=== PATIENT | female | born 1960 | race Caucasian/White ===

== ENCOUNTER 2017-02-27 12:12 | Emergency (ER) | payer MEDICARE, MEDICAID ==
--- NOTE | 2017-02-27 12:41 | UC ---
Ki Watt Benjamin, scribed for Arnold Joyce MD on 02/27/17 at 1236 . General HPI - HPI Summary HPI Summary: 56yo quadriplegic and cerebral palsic female who reports decreased PO intake for 3-4 days and increased sleeping since yesterday. Pt is on Dilantin. - History of Current Complaint Chief Complaint: UCGeneralIllness Stated Complaint: NOT EATING,SLEEPY Time Seen by Provider: 02/27/17 12:22 Hx Obtained From: Family/[employer] - caregiver Onset/Duration: Gradual Onset, Lasting Days, Still Present Timing: Constant Onset Severity: Mild Current Severity: Mild Associated Signs & Symptoms: Positive: Decreased Oral Intake, Other - increased sleep - Allergy/Home Medications Allergies/Adverse Reactions: Allergies Allergy/AdvReac Type Severity Reaction Status Date / Time No Known Allergies Allergy Verified 11/12/15 08:35 PMH/Surg Hx/FS Hx/Imm Hx - Additional Past Medical History Additional PMH: quadriplegia, cerebral palsy Cardiovascular History Of: Denies: Pacemaker/ICD Respiratory History Of: Reports: Pneumonia GI/ History Of: Reports: Gastroesophageal Reflux Neurological History Of: Reports: Seizures - Surgical History Surgical History: Yes Surgery Procedure, Year, and Place: HERNIA REPAIR; ALL TEETH REMOVED - Family History Known Family History: Negative: Cardiac Disease, Hypertension - Social History Occupation: Disabled Lives: Assisted Living Alcohol Use: None Substance Use Type: None Smoking Status (MU): Never Smoked Tobacco Have You Smoked in the Last Year: No - Immunization History Most Recent Influenza Vaccination: 07/2014 Most Recent Tetanus Shot: 04/2013 Most Recent Pneumonia Vaccination: 11/2011 Vaccination Up to Date: Yes Review of Systems Constitutional: Negative Skin: Negative Eyes: Negative ENT: Negative Respiratory: Negative Cardiovascular: Negative Gastrointestinal: Other - decreased PO intake Genitourinary: Negative Motor: Negative Neurovascular: Negative Musculoskeletal: Negative Neurological: Negative Psychological: Negative All Other Systems Reviewed And Are Negative: Yes Physical Exam Triage Information Reviewed: Yes Appearance: Other: - quadraplegic in a wheelchair. eyes open spontaneously. SHe is non verbal at baseline per aid that is with her. Vital Signs: Initial Vital Signs Temp 98.2 F 02/27/17 12:17 Resp 20 02/27/17 12:17 Vital Signs Reviewed: Yes Eyes: Positive: Conjunctiva Clear ENT: Positive: Other: - membranes dry Respiratory: Positive: Lungs clear, Normal breath sounds Cardiovascular: Positive: RRR, No Murmur Abdomen Description: Positive: Nontender Musculoskeletal: Positive: Other: - contractures all four extremities. Neurological: Positive: Other: - qudaraplegic at baseline, contactures all four extremities. Skin: Negative: rashes Course/Dx - Course Course Of Treatment: 56 yr old female who is not eating, no wet diaper since yesterday, quadraplegic in a wheelchair, on seizure meds. She will go to the ER at [facility] for appropriate evaluation. - Differential Dx - Multi-Symptom Provider Diagnoses: failure to thrive. not eating - Physician Notifications Discussed Patient Care With: Dr SYED at [facility] ER Time Discussed With Above Provider: 12:41 Discharge - Discharge Plan Condition: Good Disposition: TRANS HIGHER LVL OF CARE FAC The documentation as recorded by the Ki israel Benjamin accurately reflects the service I personally performed and the decisions made by , Arnold Joyce MD.
== END 2017-02-27 12:51 | disposition short-term general hospital (02) ==
LOC: UCEAST 12:12
DX: R62.7 Adult failure to thrive (principal); K21.9 Gastro-esophageal reflux disease without esophagitis; G82.50 Quadriplegia, unspecified
CPT/HCPCS: 99212; G0463

== ENCOUNTER 2017-02-27 13:10 | Inpatient (IN) | payer MEDICARE, MEDICAID ==
[2017-02-27] MEDS ORDERED: NS 0.9% 1000 ML* 1,000 ML IV ONE ×2 (13:31→15:48)
--- NOTE | 2017-02-27 14:07 | RAD ---
HISTORY: Weakness COMPARISONS: December 05, 2014 VIEWS:1: Single frontal portable view of the chest at 1:40 PM FINDINGS: LINES AND TUBES: None. CARDIOMEDIASTINAL SILHOUETTE: The cardiomediastinal silhouette is normal for portable technique. PLEURA: The costophrenic angles are sharp. No pleural abnormalities are noted. LUNG PARENCHYMA: The lungs are clear. ABDOMEN: The upper abdomen is clear. There is no subphrenic gas. BONES AND SOFT TISSUES: No bone or soft tissue abnormalities are noted. IMPRESSION: NO ACTIVE CARDIOPULMONARY DISEASE.
[2017-02-27 14:18] LABS: Hematocrit 49 % (35-47); Hemoglobin 16.1 g/dl (12.0-16.0); Mean Corpuscular HGB Conc 33 g/dl (31-36); Mean Corpuscular Hemoglobin 29 pg (27-31); Mean Corpuscular Volume 90 fL (80-97); Mean Platelet Volume 9 um3 (7.4-10.4); Red Blood Count 5.47 10^6/ul (4.0-5.4); Red Cell Distribution Width 14 % (10.5-15); White Blood Count 5.5 10^3/ul (3.5-10.8)
[2017-02-27 14:54] LABS: Acetaminophen < 15 mcg/mL
[2017-02-27 15:04] LABS: TSH (Thyroid Stimulating Horm) 0.66 mcIU/mL (0.34-5.60)
[2017-02-27 15:15] LABS: Phenytoin 60.2 mcg/mL (10-20)
[2017-02-27 15:28] LABS: ALT 29 U/L (7-52); Albumin 4.7 g/dL (3.2-5.2); Alkaline Phosphatase 99 U/L (34-104); BUN/Creatinine Ratio 40.7 (8-20); Blood Urea Nitrogen 22 mg/dL (6-24); C Reactive Protein 2.69 mg/L (< 5.00); CO2 Carbon Dioxide 30 mmol/L (22-32); Calcium 10.2 mg/dL (8.6-10.3); Chloride 105 mmol/L (101-111); Creatine Kinase 37 U/L (10-223); EGFR African American 150.2 (>60); EGFR Non-African American 116.8 (>60); Globulin 2.9 g/dL (2-4); Glucose 95 mg/dL (70-100); Lipase 29 U/L (11.0-82.0); Sodium 142 mmol/L (133-145); Total Protein 7.6 g/dL (6.4-8.9)
[2017-02-27 15:40] LABS: Urine Bacteria Absent (Absent); Urine Bilirubin Negative (Negative); Urine Glucose Negative (Negative); Urine Nitrite Negative (Negative)
[2017-02-27] MEDS ORDERED: cefTRIAXone(*) 1 GM in NS 0.9% 50 ML* 50 ML IVPB ONE (15:48)
[2017-02-27] MEDS ORDERED: Acetaminophen TAB* 325 MG PO PRN (16:22)
[2017-02-27] MEDS ORDERED: NS 0.9% 1000 ML* 1,000 ML IV SCH (16:45)
[2017-02-27] MEDS: Cephalexin CAP* 500 MG PO SCH ×2 (19:56→20:12)
[2017-02-27] MEDS: levETIRAcetam TAB* 500 MG PO SCH (19:56)
--- NOTE | 2017-02-27 21:08 | HP ---
HISTORY AND PHYSICAL: DATE OF ADMISSION: 02/27/17 PRIMARY CARE PROVIDER: Dr. Kim. ATTENDING PHYSICIAN WHILE IN THE HOSPITAL: Dr. Bronson Marlow * (report dictated by Morro Tinsley NP). CHIEF COMPLAINT: 1. Altered mental status. 2. Weakness. HISTORY OF PRESENT ILLNESS: Ms. Mitchell is a 56-year-old female patient who has intellectual developmental delay, history of GERD, seizures, chronic UTI, hiatal hernia, cerebral palsy, and hyperlipidemia. She comes in today because it has been noticed in her custodial that over the last month, she has decreased fluid intake, she has not been acting herself. She has been more drowsy, just not herself. There have been no reports of nausea, vomiting, or diarrhea. No fevers reported. They were concerned today because in the last couple of days, her right great toe toenail had come off and there was redness, and that is actually why they brought her in and while here, they also were stating that she has been not acting herself, acting a little bit more drowsy, not as awake. She was evaluated and ultimately found to have a Dilantin level of 60, and because of this, we were asked to evaluate for admission, there was concern for also UTI as well. PAST MEDICAL HISTORY: Significant for: 1. Intellectual developmental delay. 2. GERD. 3. Seizure. 4. Chronic UTI. 5. Hiatal hernia. 6. Cerebral palsy. 7. Hyperlipidemia. PAST SURGICAL HISTORY: She has Juan fundoplication. MEDICATIONS: Home medications according to list include: 1. Ativan 0.5 mg p.o. daily as needed. 2. Bacitracin application topically b.i.d. as needed. 3. Fleet Enema 1 bottle VT once daily. 4. Benadryl 25 mg p.o. daily as needed. 5. Tylenol 650 mg p.o. every 4 hours as needed. 6. Sudafed 30 mg p.o. every 6 hours as needed. 7. Zofran 4 mg p.o. every 6 hours as needed. 8. Keppra 1000 mg p.o. b.i.d. 9. Ibuprofen 400 mg p.o. q.6 hours as needed. 10. Hydrocortisone application topically b.i.d. as needed. 11. Dilantin 100 mg p.o. b.i.d. 12. Resource Support 1 liquid bottle p.o. daily. 13. MiraLAX 17 g p.o. q.a.m. 14. Multivitamin 1 tablet daily. ALLERGIES TO MEDICATIONS: Include no known drug allergies. FAMILY HISTORY: Unable to be obtained. SOCIAL HISTORY: No reports of smoking or alcohol use. She lives at [facility]. Surrogate decision maker is her sister, Eryn. REVIEW OF SYSTEMS: Unable to be obtained. PHYSICAL EXAMINATION GENERAL: At this time, Ms. Mitchell is a 56-year-old female patient. She is sitting in the ER stretcher, does not appear to be in any acute distress. VITAL SIGNS: Reveal blood pressure 114/94, pulse was 60, respirations 18, O2 sat 97%, temperature 99.2. HEENT: Head is atraumatic, normocephalic. Eyes: Sclerae are anicteric, not pale. Throat: Oral mucosa appears moist. No oropharyngeal erythema. NECK: Supple. LUNGS: Clear to auscultation bilaterally. No wheezes, rales, or rhonchi. HEART: Sounds S1 and S2, regular rate and rhythm. No murmurs, rubs, or gallops. ABDOMEN: Soft, flat, nontender. Bowel sounds present. EXTREMITIES: Pulses 2+ throughout. She moves all 4 extremities. NEUROLOGICAL: She is awake, she is alert to herself only. She is nonverbal. There are no gross obvious focal deficits. SKIN: Grossly intact except on the right great toe, she does have an area of erythema and redness and a toenail that has fallen off. DIAGNOSTIC STUDIES/LAB DATA: Her labs today revealed WBC of 5.5, RBC of 5.47, hemoglobin of 16.1, hematocrit of 49, platelet count of 259. INR of 0.91, PTT of 23.2. Sodium 142, potassium pending, chloride 105, bicarb 30, BUN 22, creatinine 0.54, glucose 95, lactate 0.9. Total bili 0.4, ALT 29, alk phos 99. CK 37, CK-MB 0.7. Troponin 0. Albumin 4.7. Lipase 29. TSH normal. Urine obtained showed 1+ leukocyte esterase, 1+ wbc's. Toxicology showed phenytoin of 60. Chest x-ray showed no active cardiopulmonary disease. There was an EKG obtained today which showed sinus bradycardia with rate of 57. No ST elevations or T-wave inversions were noted. Old medical records were reviewed. ASSESSMENT AND PLAN: Ms. Mitchell is a 56-year-old female patient coming in to the ER today with complaints of altered mental status, weakness, and found to have phenytoin toxicity. She will be admitted under inpatient status for: 1. Phenytoin toxicity. At this point, she appears to be stable, but I think we need to obviously admit her and trend the phenytoin levels daily. We will stop the phenytoin for the time being. I did touch base with Neurology. The plan would be to get her phenytoin level down to about 25 or less and then reinstate her phenytoin at that point, as it could precipitously become subtherapeutic and cause her to have a seizure thereafter. It may take a few days for this level to come down and to arrange. We will trend these daily. We will hydrate her and we will continue to follow. I would question Neurology if we should change the dose to once daily or just discontinue it altogether, but we can touch base with them tomorrow for that information. At this point, again telemetry monitoring. LFTs are stable, we will check them again in the morning and we will continue with supportive care. Place her on telemetry and follow. 2. Seizure disorder. Seizure caution has been ordered. Continue meds as prescribed with exception of Dilantin and continue Keppra. 3. Gastroesophageal reflux disease. Continue meds as prescribed. 4. History of chronic urinary tract infection. She does not appear to have urinary tract infection at this point. 5. Cellulitis of the right great toe. At this point, I will put her on Keflex. 6. Hiatal hernia. Continue meds as prescribed. 7. History of intellectual developmental delay. Continue with supportive care. 8. Hyperlipidemia. Continue with current medical regimen. 9. History of cerebral palsy. Continue with supportive care. 10. DVT prophylaxis. She is high risk, place her on heparin subcu. 11. Code status. Full code. 12. Fluids, electrolytes, nutrition. She can have a regular diet. TIME SPENT: On the admission was 60 minutes, greater than half the time was spent [id number] with the patient obtaining my history and physical; other half the time was spent going over the plan of care with the patient and implementing the plan of care. I did discuss the plan of care with my attending, Dr. Marlow; he is in agreement. MORRO TINSLEY NP CC: Dr. Kim * [id number]/CPS #: [id number] MARIO
[2017-02-27] MEDS: Heparin VIAL(*) 5000 UNITS/ML VIAL (FIVE THOUSAND) SUBCUT SCH (22:58)
[2017-02-28] MEDS: Heparin VIAL(*) 5000 UNITS/ML VIAL (FIVE THOUSAND) SUBCUT SCH ×3 (05:39→20:56)
[2017-02-28] MEDS ORDERED: Polyethylene Glycol 3350* 17 GM PACKET PO SCH (09:00)
[2017-02-28] MEDS ORDERED: NUTRITIONAL SUPPLEMENTS PO SCH (09:00)
[2017-02-28] MEDS ORDERED: Cephalexin SUSP* 250 MG/5 ML ORAL.SUSP 200 ML BTL PO SCH (09:27)
[2017-02-28] MEDS ORDERED: Magnesium Hydroxide LIQ* 30 ML UDC PO PRN (09:57)
[2017-02-28] MEDS: levETIRAcetam LIQ* 500 MG/5 ML UDC PO SCH ×2 (10:23→14:08)
--- NOTE | 2017-02-28 12:12 | PN ---
Subjective Date of Service: 02/28/17 Interval History: The patient is not able to make her needs known. Objective Active Medications: Acetaminophen (Tylenol Tab*) 650 mg PO Q6H PRN PRN Reason: FEVER/PAIN Cephalexin HCl (Keflex Susp*) 500 mg PO QID COUNTS INCLUDE 234 BEDS AT THE [facility] Heparin Sodium (Porcine) (Heparin Vial(*)) 5,000 units SUBCUT Q8HR COUNTS INCLUDE 234 BEDS AT THE [facility] Last Admin: 02/28/17 05:39 Dose: 5,000 units Sodium Chloride (Ns 0.9% 1000 Ml*) 1,000 mls @ 100 mls/hr IV PER RATE COUNTS INCLUDE 234 BEDS AT THE [facility] Last Admin: 02/27/17 19:55 Dose: 100 mls/hr Levetiracetam (Keppra Liq*) 1,000 mg PO BID COUNTS INCLUDE 234 BEDS AT THE [facility] Last Admin: 02/28/17 10:23 Dose: 1,000 mg Magnesium Hydroxide (Milk Of Magnesia Liq*) 30 ml PO Q48H PRN PRN Reason: CONSTIPATION Vital Signs 02/27/17 02/27/17 02/27/17 16:48 17:00 17:30 Temperature Pulse Rate Respiratory 19 31 16 Rate Blood Pressure 114/94 117/82 118/72 (mmHg) O2 Sat by Pulse Oximetry 02/27/17 02/27/17 02/27/17 18:00 19:13 20:00 Temperature 98.3 F Pulse Rate 60 Respiratory 9 18 16 Rate Blood Pressure 110/69 125/86 (mmHg) O2 Sat by Pulse 100 Oximetry 02/27/17 02/28/17 02/28/17 23:23 04:49 07:41 Temperature 98.8 F 98.7 F 98.1 F Pulse Rate 64 65 69 Respiratory 16 12 16 Rate Blood Pressure 117/89 127/73 117/62 (mmHg) O2 Sat by Pulse 100 99 100 Oximetry 02/28/17 02/28/17 08:00 11:21 Temperature Pulse Rate 72 Respiratory 16 16 Rate Blood Pressure 112/62 (mmHg) O2 Sat by Pulse 95 Oximetry Oxygen Devices in Use Now: None Appearance: Alert, partly up in bed, legs contracted. Poor eye contact. Non- verbal. Eyes: No Scleral Icterus Ears/Nose/Mouth/Throat: - - Patient does not open her mouth for exam Neck: NL Appearance and Movements; NL JVP, No Thyroid Enlargement, Masses Respiratory: Symmetrical Chest Expansion and Respiratory Effort, Clear to Auscultation, Clear to Percussion Cardiovascular: NL Sounds; No Murmurs; No JVD, RRR, No Edema, - Extremities: No Edema, No Clubbing, Cyanosis, - Skin: No Nodules or Sclerosis, - - R great toe sl red, better than yesterday per aide at bedside. Neurological: - - Poor eye contact. Non-verbal. No tremor. Result Diagrams: 02/27/17 13:58 02/27/17 13:58 Additional Lab and Data: Lab Results 02/27/17 02/27/17 02/27/17 Range/Units 13:58 13:58 13:58 WBC 5.5 (3.5-10.8) 10^3/ul RBC 5.47 H (4.0-5.4) 10^6/ul Hgb 16.1 H (12.0-16.0) g/dl Hct 49 H (35-47) % MCV 90 (80-97) fL MCH 29 (27-31) pg MCHC 33 (31-36) g/dl RDW 14 (10.5-15) % Plt Count 259 (150-450) 10^3/ul MPV 9 (7.4-10.4) um3 Neut % (Auto) 51.6 (38-83) % Lymph % (Auto) 35.9 (25-47) % [place] % (Auto) 10.1 H (1-9) % Eos % (Auto) 2.1 (0-6) % Baso % (Auto) 0.3 (0-2) % Absolute Neuts (auto) 2.8 (1.5-7.7) 10^3/ul Absolute Lymphs (auto) 2.0 (1.0-4.8) 10^3/ul Absolute Monos (auto) 0.6 (0-0.8) 10^3/ul Absolute Eos (auto) 0.1 (0-0.6) 10^3/ul Absolute Basos (auto) 0 (0-0.2) 10^3/ul Absolute Nucleated RBC 0 10^3/ul Nucleated RBC % 0.1 INR (Anticoag Therapy) 0.91 (0.89-1.11) APTT 23.2 L (26.0-36.3) seconds Sodium Pending Potassium Pending Chloride Pending Carbon Dioxide Pending Anion Gap Pending BUN Pending Creatinine Pending Est GFR ( Amer) Pending Est GFR (Non-Af Amer) Pending BUN/Creatinine Ratio Pending Glucose Pending Lactic Acid (0.5-2.0) mmol/L Calcium Pending Magnesium Pending Total Bilirubin Pending AST Pending ALT Pending Alkaline Phosphatase Pending Total Creatine Kinase Pending CK-MB (CK-2) Pending Troponin I Pending C-Reactive Protein Pending Total Protein Pending Albumin Pending Globulin Pending Albumin/Globulin Ratio Pending Lipase Pending TSH Pending Acetaminophen < 15 mcg/mL Phenytoin Pending 02/27/17 Range/Units 13:58 WBC (3.5-10.8) 10^3/ul RBC (4.0-5.4) 10^6/ul Hgb (12.0-16.0) g/dl Hct (35-47) % MCV (80-97) fL MCH (27-31) pg MCHC (31-36) g/dl RDW (10.5-15) % Plt Count (150-450) 10^3/ul MPV (7.4-10.4) um3 Neut % (Auto) (38-83) % Lymph % (Auto) (25-47) % [place] % (Auto) (1-9) % Eos % (Auto) (0-6) % Baso % (Auto) (0-2) % Absolute Neuts (auto) (1.5-7.7) 10^3/ul Absolute Lymphs (auto) (1.0-4.8) 10^3/ul Absolute Monos (auto) (0-0.8) 10^3/ul Absolute Eos (auto) (0-0.6) 10^3/ul Absolute Basos (auto) (0-0.2) 10^3/ul Absolute Nucleated RBC 10^3/ul Nucleated RBC % INR (Anticoag Therapy) (0.89-1.11) APTT (26.0-36.3) seconds Sodium Potassium Chloride Carbon Dioxide Anion Gap BUN Creatinine Est GFR ( Amer) Est GFR (Non-Af Amer) BUN/Creatinine Ratio Glucose Lactic Acid 0.9 (0.5-2.0) mmol/L Calcium Magnesium Total Bilirubin AST ALT Alkaline Phosphatase Total Creatine Kinase CK-MB (CK-2) Troponin I C-Reactive Protein Total Protein Albumin Globulin Albumin/Globulin Ratio Lipase TSH Acetaminophen mcg/mL Phenytoin Assess/Plan/Problems-Billing Assessment: - Patient Problems (1) Phenytoin toxicity Current Visit: Yes Status: Acute Code(s): T42.0X1A - POISONING BY HYDANTOIN DERIVATIVES, ACCIDENTAL, INIT SNOMED Code(s): 26916261 Comment: Repeat level 5/6. Continue tele. (2) Cellulitis and abscess of foot Current Visit: Yes Status: Acute Code(s): L03.119 - CELLULITIS OF UNSPECIFIED PART OF LIMB; L02.619 - CUTANEOUS ABSCESS OF UNSPECIFIED FOOT SNOMED Code(s): 482370255 Comment: Mild cellulitis R great toe. Aide from [facility] states it looks better than yesterday. Pt refusing oral antibiotic. She received 1 gm IV ceftriaxone and 1 dose po cephalexin 500 mg yesterday. I will hold off on IV antibiotics and observe her foot. (3) Mental retardation Current Visit: Yes Status: Acute Code(s): F79 - UNSPECIFIED INTELLECTUAL DISABILITIES SNOMED Code(s): 27708556 Comment: Sister Eryn James is her HCP, phone [phone]. (4) Thrush Current Visit: Yes Status: Acute Code(s): B37.0 - CANDIDAL STOMATITIS SNOMED Code(s): 38805776 Comment: Pt was treated for thrush in the past, not clear how definite/ accurate the dx was. She won't open her mouth now for exam. I will treat empirically with IV fluconazole to see if that reverses her refusal to eat or drink. (5) End of life care Current Visit: Yes Status: Acute Code(s): Z51.5 - ENCOUNTER FOR PALLIATIVE CARE SNOMED Code(s): 805178498 Comment: Palliative consult requested. I spoke with the director of the [facility] who states that her sister is her HCP.
[2017-02-28] MEDS: Cephalexin CAP* 500 MG PO SCH (12:20)
[2017-02-28] MEDS: levETIRAcetam TAB* 500 MG PO SCH (12:20)
--- NOTE | 2017-02-28 12:43 | PN ---
Progress Note - Progress Note Note: Time spent on patient care over 45 minutes.
[2017-02-28] MEDS: Fluconazole 200 MG IVPREMIX(*) 200 MG/100 ML BAG IVPB SCH (12:45)
[2017-02-28] MEDS: D5W 1/2 NS KCl 20 Meq 1000 ML* 1,000 ML IV SCH (17:51)
[2017-03-01] MEDS: Heparin VIAL(*) 5000 UNITS/ML VIAL (FIVE THOUSAND) SUBCUT SCH ×3 (05:31→21:32)
[2017-03-01 07:20] LABS: BUN/Creatinine Ratio 20.8 (8-20); Calcium 8.4 mg/dL (8.6-10.3); EGFR African American 172.1 (>60); EGFR Non-African American 133.8 (>60); Potassium 4.1 mmol/L (3.5-5.0)
[2017-03-01 07:40] LABS: Phenytoin 43.1 mcg/mL (10-20)
--- NOTE | 2017-03-01 10:27 | PN ---
Subjective Date of Service: 03/01/17 Interval History: Patient not able to make her needs known. Objective Active Medications: Acetaminophen (Tylenol Tab*) 650 mg PO Q6H PRN PRN Reason: FEVER/PAIN Heparin Sodium (Porcine) (Heparin Vial(*)) 5,000 units SUBCUT Q8HR [facility] Last Admin: 03/01/17 05:31 Dose: 5,000 units Sodium Chloride (Ns 0.9% 1000 Ml*) 1,000 mls @ 100 mls/hr IV PER RATE [facility] Last Admin: 02/27/17 19:55 Dose: 100 mls/hr Fluconazole/Sodium Chloride (Diflucan 200 Mg Ivpremix(*)) 200 mg in 100 mls @ 100 mls/hr IVPB Q24H [facility] Last Admin: 02/28/17 12:45 Dose: 100 mls/hr Potassium Chloride/Dextrose (D5w 1/2 Ns Kcl 20 Meq 1000 Ml*) 1,000 mls @ 75 mls /hr IV PER RATE [facility] Last Admin: 02/28/17 17:51 Dose: 75 mls/hr Levetiracetam 1,000 mg/ Sodium (Chloride) 110 mls @ 440 mls/hr IVPB Q12H [facility] Last Admin: 03/01/17 04:01 Dose: 440 mls/hr Magnesium Hydroxide (Milk Of Magnesia Liq*) 30 ml PO Q48H PRN PRN Reason: CONSTIPATION Vital Signs 02/28/17 02/28/17 02/28/17 11:21 15:18 20:00 Temperature 98.4 F Pulse Rate 72 68 Respiratory 16 16 14 Rate Blood Pressure 112/62 108/63 (mmHg) O2 Sat by Pulse 95 96 Oximetry 02/28/17 03/01/17 03/01/17 20:08 00:19 00:37 Temperature 97.5 F 97.9 F Pulse Rate 85 65 Respiratory 20 16 Rate Blood Pressure 121/73 116/57 (mmHg) O2 Sat by Pulse 97 96 95 Oximetry 03/01/17 03/01/17 03/01/17 03:32 07:45 07:46 Temperature 99.4 F Pulse Rate 67 55 Respiratory 12 16 16 Rate Blood Pressure 105/73 103/68 (mmHg) O2 Sat by Pulse 96 96 Oximetry Oxygen Devices in Use Now: None Appearance: Alert, sitting up in bed. Fair eye contact. Looks comfortable. Eyes: No Scleral Icterus Neck: NL Appearance and Movements; NL JVP, No Thyroid Enlargement, Masses Respiratory: Symmetrical Chest Expansion and Respiratory Effort, Clear to Auscultation, Clear to Percussion Cardiovascular: NL Sounds; No Murmurs; No JVD, RRR, No Edema, - Extremities: No Edema, No Clubbing, Cyanosis, - Skin: No Rash or Ulcers, No Nodules or Sclerosis, - Neurological: - - Non-verbal. Brief eye contact. Constant tongue/mouth movements. Result Diagrams: 02/27/17 13:58 03/01/17 06:29 Additional Lab and Data: Lab Results 02/27/17 02/27/17 02/27/17 Range/Units 13:58 13:58 13:58 WBC 5.5 (3.5-10.8) 10^3/ul RBC 5.47 H (4.0-5.4) 10^6/ul Hgb 16.1 H (12.0-16.0) g/dl Hct 49 H (35-47) % MCV 90 (80-97) fL MCH 29 (27-31) pg MCHC 33 (31-36) g/dl RDW 14 (10.5-15) % Plt Count 259 (150-450) 10^3/ul MPV 9 (7.4-10.4) um3 Neut % (Auto) 51.6 (38-83) % Lymph % (Auto) 35.9 (25-47) % [place] % (Auto) 10.1 H (1-9) % Eos % (Auto) 2.1 (0-6) % Baso % (Auto) 0.3 (0-2) % Absolute Neuts (auto) 2.8 (1.5-7.7) 10^3/ul Absolute Lymphs (auto) 2.0 (1.0-4.8) 10^3/ul Absolute Monos (auto) 0.6 (0-0.8) 10^3/ul Absolute Eos (auto) 0.1 (0-0.6) 10^3/ul Absolute Basos (auto) 0 (0-0.2) 10^3/ul Absolute Nucleated RBC 0 10^3/ul Nucleated RBC % 0.1 INR (Anticoag Therapy) 0.91 (0.89-1.11) APTT 23.2 L (26.0-36.3) seconds Sodium Pending Potassium Pending Chloride Pending Carbon Dioxide Pending Anion Gap Pending BUN Pending Creatinine Pending Est GFR ( Amer) Pending Est GFR (Non-Af Amer) Pending BUN/Creatinine Ratio Pending Glucose Pending Lactic Acid (0.5-2.0) mmol/L Calcium Pending Magnesium Pending Total Bilirubin Pending AST Pending ALT Pending Alkaline Phosphatase Pending Total Creatine Kinase Pending CK-MB (CK-2) Pending Troponin I Pending C-Reactive Protein Pending Total Protein Pending Albumin Pending Globulin Pending Albumin/Globulin Ratio Pending Lipase Pending TSH Pending Acetaminophen < 15 mcg/mL Phenytoin Pending 02/27/17 Range/Units 13:58 WBC (3.5-10.8) 10^3/ul RBC (4.0-5.4) 10^6/ul Hgb (12.0-16.0) g/dl Hct (35-47) % MCV (80-97) fL MCH (27-31) pg MCHC (31-36) g/dl RDW (10.5-15) % Plt Count (150-450) 10^3/ul MPV (7.4-10.4) um3 Neut % (Auto) (38-83) % Lymph % (Auto) (25-47) % [place] % (Auto) (1-9) % Eos % (Auto) (0-6) % Baso % (Auto) (0-2) % Absolute Neuts (auto) (1.5-7.7) 10^3/ul Absolute Lymphs (auto) (1.0-4.8) 10^3/ul Absolute Monos (auto) (0-0.8) 10^3/ul Absolute Eos (auto) (0-0.6) 10^3/ul Absolute Basos (auto) (0-0.2) 10^3/ul Absolute Nucleated RBC 10^3/ul Nucleated RBC % INR (Anticoag Therapy) (0.89-1.11) APTT (26.0-36.3) seconds Sodium Potassium Chloride Carbon Dioxide Anion Gap BUN Creatinine Est GFR ( Amer) Est GFR (Non-Af Amer) BUN/Creatinine Ratio Glucose Lactic Acid 0.9 (0.5-2.0) mmol/L Calcium Magnesium Total Bilirubin AST ALT Alkaline Phosphatase Total Creatine Kinase CK-MB (CK-2) Troponin I C-Reactive Protein Total Protein Albumin Globulin Albumin/Globulin Ratio Lipase TSH Acetaminophen mcg/mL Phenytoin Assess/Plan/Problems-Billing Assessment: - Patient Problems (1) Phenytoin toxicity Current Visit: Yes Status: Acute Code(s): T42.0X1A - POISONING BY HYDANTOIN DERIVATIVES, ACCIDENTAL, INIT SNOMED Code(s): 88861320 Comment: Repeat level 03/02. D/C tele. (2) Cellulitis and abscess of foot Current Visit: Yes Status: Acute Code(s): L03.119 - CELLULITIS OF UNSPECIFIED PART OF LIMB; L02.619 - CUTANEOUS ABSCESS OF UNSPECIFIED FOOT SNOMED Code(s): 502102901 Comment: Cellulitis R great toe, looks worse 03/01, start ceftriaxone. (3) Mental retardation Current Visit: Yes Status: Acute Code(s): F79 - UNSPECIFIED INTELLECTUAL DISABILITIES SNOMED Code(s): 10449732 Comment: Sister Eryn James is her HCP, phone [phone]. (4) Thrush Current Visit: Yes Status: Acute Code(s): B37.0 - CANDIDAL STOMATITIS SNOMED Code(s): 48725552 Comment: Pt was treated for thrush in the past, not clear how definite/ accurate the dx was. She won't open her mouth now for exam. I will treat empirically with IV fluconazole to see if that reverses her refusal to eat or drink, started 02/28. (5) End of life care Current Visit: Yes Status: Acute Code(s): Z51.5 - ENCOUNTER FOR PALLIATIVE CARE SNOMED Code(s): 352018653 Comment: Palliative consult requested. I spoke with the director of the [facility] who states that her sister is her HCP. As of 03/01 negligible oral intake for several days. Note BMI 16.2. Possibly oral intake will improve when phenytoin level down to therapeutic and presumptive thrush responds to fluconazole.
[2017-03-01] MEDS: D5W 1/2 NS KCl 20 Meq 1000 ML* 1,000 ML IV SCH (12:32)
[2017-03-01] MEDS: Fluconazole 200 MG IVPREMIX(*) 200 MG/100 ML BAG IVPB SCH (12:39)
[2017-03-02] MEDS: Heparin VIAL(*) 5000 UNITS/ML VIAL (FIVE THOUSAND) SUBCUT SCH ×3 (05:20→21:09)
[2017-03-02] MEDS: D5W 1/2 NS KCl 20 Meq 1000 ML* 1,000 ML IV SCH ×2 (06:12→23:22)
[2017-03-02] MEDS: Fluconazole 200 MG IVPREMIX(*) 200 MG/100 ML BAG IVPB SCH (13:06)
--- NOTE | 2017-03-02 15:36 | PN ---
Subjective Date of Service: 03/02/17 Interval History: HOSPITALIST PROGRESS NOTE Patient seen and examined at bedside. She's non-verbal. Being fed by aide and appears to have a good appetite. Family History: Unchanged from Admission Social History: Unchanged from Admission Past Medical History: Unchanged from Admission Objective Active Medications: Acetaminophen (Tylenol Tab*) 650 mg PO Q6H PRN PRN Reason: FEVER/PAIN Heparin Sodium (Porcine) (Heparin Vial(*)) 5,000 units SUBCUT Q8HR [facility] Last Admin: 03/02/17 13:54 Dose: 5,000 units Sodium Chloride (Ns 0.9% 1000 Ml*) 1,000 mls @ 100 mls/hr IV PER RATE [facility] Last Admin: 02/27/17 19:55 Dose: 100 mls/hr Fluconazole/Sodium Chloride (Diflucan 200 Mg Ivpremix(*)) 200 mg in 100 mls @ 100 mls/hr IVPB Q24H [facility] Last Admin: 03/02/17 13:06 Dose: 100 mls/hr Potassium Chloride/Dextrose (D5w 1/2 Ns Kcl 20 Meq 1000 Ml*) 1,000 mls @ 75 mls /hr IV PER RATE [facility] Last Admin: 03/02/17 06:12 Dose: 75 mls/hr Levetiracetam 1,000 mg/ Sodium (Chloride) 110 mls @ 440 mls/hr IVPB Q12H [facility] Last Admin: 03/02/17 05:20 Dose: 440 mls/hr Magnesium Hydroxide (Milk Of Magnesia Liq*) 30 ml PO Q48H PRN PRN Reason: CONSTIPATION Vital Signs 03/02/17 03/02/17 03/02/17 00:20 03:48 08:00 Temperature 98.6 F 97.5 F Pulse Rate 58 56 Respiratory 20 20 17 Rate Blood Pressure 140/94 108/66 (mmHg) O2 Sat by Pulse 96 98 Oximetry 03/02/17 11:54 Temperature 99.2 F Pulse Rate 102 Respiratory 16 Rate Blood Pressure 105/73 (mmHg) O2 Sat by Pulse Oximetry Oxygen Devices in Use Now: None Appearance: Middle aged lady lying in bed in NAD. Eyes: No Scleral Icterus Ears/Nose/Mouth/Throat: Mucous Membranes Moist Neck: Trachea Midline Respiratory: Symmetrical Chest Expansion and Respiratory Effort, Clear to Auscultation Cardiovascular: RRR - Normal S1 and S2 Neurological: - - Alert, follows examiner, doesn't follow commands. Lines/Tubes/Other Access: Clean, Dry and Intact Peripheral IV Nutrition: Taking PO's Result Diagrams: 02/27/17 13:58 03/01/17 06:29 Assess/Plan/Problems-Billing Assessment: Mrs. Mitchell is a 56yo F with PMH of intelectual disability, GERD, epilepsy, cerebral palsy, brought in to ED with altered MS and weakness, found to have Phenytoin toxicity. - Patient Problems (1) Phenytoin toxicity Comment: - Phenytoin level down to 30. - Continue to monitor on Telemetry. (2) Cellulitis and abscess of foot Comment: - As per aide Cellulitis R great toe is improving - continue ceftriaxone. (3) Seizure disorder Comment: - Continue Keppra. - When her phenytoin level is <20, will d/w Neurology what to do with her phenytoin dose. (4) DVT prophylaxis Comment: - SQ heparin. (5) Full code status Status and Disposition: Inpatient.
[2017-03-03] MEDS: Heparin VIAL(*) 5000 UNITS/ML VIAL (FIVE THOUSAND) SUBCUT SCH ×3 (05:19→21:22)
--- NOTE | 2017-03-03 12:01 | PN ---
Subjective Date of Service: 03/03/17 Interval History: Patient seen and examined at bedside. Pt is non-verbal with a caregiver at bedside. Per caregiver report she ate all of her breakfast. Tele: Sinus promise, rate 48-50's Family History: Unchanged from Admission Social History: Unchanged from Admission Past Medical History: Unchanged from Admission Objective Active Medications: Acetaminophen (Tylenol Tab*) 650 mg PO Q6H PRN Reason: FEVER/PAIN Heparin Sodium (Porcine) (Heparin Vial(*)) 5,[address] Sodium Chloride (Ns 0.9% 1000 Ml*) 1,000 mls @ 100 mls/hr IV PER RATE AVE Fluconazole/Sodium Chloride (Diflucan 200 Mg Ivpremix(*)) 200 mg in 100 mls @ 100 mls/hr IVPB Q24H AVE Potassium Chloride/Dextrose (D5w 1/2 Ns Kcl 20 Meq 1000 Ml*) 1,000 mls @ 75 mls /hr IV PER RATE AVE Levetiracetam 1,000 mg/ Sodium (Chloride) 110 mls @ 440 mls/hr IVPB Q12H AVE Magnesium Hydroxide (Milk Of Magnesia Liq*) 30 ml PO Q48H PRN Reason: CONSTIPATION Vital Signs 03/02/17 03/02/17 03/02/17 15:45 19:20 19:39 Temperature 97.3 F 98.1 F Pulse Rate 62 67 Respiratory 14 16 17 Rate Blood Pressure 93/53 103/56 (mmHg) O2 Sat by Pulse 97 Oximetry 03/03/17 03/03/17 03/03/17 00:03 03:15 03:29 Temperature 98.8 F 98.2 F Pulse Rate 66 60 132 Respiratory 20 20 Rate Blood Pressure 100/60 92/57 (mmHg) O2 Sat by Pulse 100 93 Oximetry 03/03/17 03/03/17 03/03/17 07:54 08:03 11:23 Temperature 96.0 F 97.7 F Pulse Rate 53 57 Respiratory 20 16 16 Rate Blood Pressure 101/62 109/70 (mmHg) O2 Sat by Pulse 97 100 Oximetry Oxygen Devices in Use Now: None Appearance: NAD, sitting up in bed Eyes: No Scleral Icterus Ears/Nose/Mouth/Throat: Mucous Membranes Moist Respiratory: Symmetrical Chest Expansion and Respiratory Effort, Clear to Auscultation Cardiovascular: NL Sounds; No Murmurs; No JVD, RRR Extremities: No Edema Skin: - - Scratches to bilateral UE Neurological: - - Alert and non-verbal. Doesn't follow commands Lines/Tubes/Other Access: Clean, Dry and Intact Peripheral IV - site benign Nutrition: Taking PO's Result Diagrams: 02/27/17 13:58 03/01/17 06:29 Additional Lab and Data: Assess/Plan/Problems-Billing Assessment: Mrs. Mitchell is a 56yo F with PMH of intelectual disability, GERD, epilepsy, cerebral palsy, brought in to ED with altered MS and weakness, found to have Phenytoin toxicity. - Patient Problems (1) Phenytoin toxicity Code(s): T42.0X1A - POISONING BY HYDANTOIN DERIVATIVES, ACCIDENTAL, INIT SNOMED Code(s): 45050392 Comment: - Phenytoin level down to 30. - Continue to monitor on Telemetry. - Continue to monitor Phenytoin level daily (2) Cellulitis and abscess of foot Code(s): L03.119 - CELLULITIS OF UNSPECIFIED PART OF LIMB; L02.619 - CUTANEOUS ABSCESS OF UNSPECIFIED FOOT SNOMED Code(s): 967363174 Comment: - Cellulitis R great toe is improving per caregiver - Recieved 1 dose of ceftriaxone 02/27 and 1 dose of PO cephalexin 02/27 - Will hold off on antibiotics and observe foot (3) Seizure disorder Code(s): G40.909 - EPILEPSY, UNSP, NOT INTRACTABLE, WITHOUT STATUS EPILEPTICUS SNOMED Code(s): 085651904 Comment: - Continue Keppra. - When her phenytoin level is <20, will d/w Neurology what to do with her phenytoin dose. (4) Thrush Code(s): B37.0 - CANDIDAL STOMATITIS SNOMED Code(s): 26437374 Comment: - Pt was treated for thrush in the past, not clear how definite/accurate the dx was. - She won't open her mouth now for exam. - Treat empirically with IV fluconazole to see if that reverses her refusal to eat or drink, started 02/28. Will stop 03/04, for a total of 5 doses. - Pt started to eat and drink 03/02 (5) DVT prophylaxis Code(s): FBQ0556 - SNOMED Code(s): 842539937 Comment: - SQ heparin. (6) Full code status Code(s): Z78.9 - OTHER SPECIFIED HEALTH STATUS SNOMED Code(s): 976511174 Status and Disposition: Inpatient.
[2017-03-03] MEDS: Fluconazole 200 MG IVPREMIX(*) 200 MG/100 ML BAG IVPB SCH (12:37)
--- NOTE | 2017-03-03 19:46 | CONS ---
PALLIATIVE CARE CONSULTATION REPORT: DATE OF CONSULT: 03/03/17 PRIMARY CARE PHYSICIAN: Morales Kim MD REQUESTING PHYSICIAN FOR CONSULT: Dr. Tarik Marlow. HISTORY OF PRESENT ILLNESS: This is a 56-year-old female with a past medical history of profound intellectual developmental disability, seizure disorder, GERD, and recurrent UTI, who presented to the emergency room on the with altered mental status and weakness. According to the staff, as the patient's baseline is nonverbal and unable to make her needs known, it is that she had decrease in nutritional intake over the past 3 weeks. Around that time, she was diagnosed with a oral yeast infection and also with an infected toenail, was started on medications for her thrush and antibiotics. Because of the antibiotic use, the thrush did not seem to get better and her decrease in nutritional intake seemed to get worse in the setting of worsening lethargy and somnolence. In the emergency room, the patient was found to have a Dilantin level of 60.2. They felt that on admission and much of her altered mental status was most likely secondary to Dilantin toxicity, most likely secondary to her decreased p.o. intake. The patient was also noted to have cellulitis of the right great toe. Initially, on her admission, the patient was not taking any p.o., she was refusing to open her mouth for an exam and the decision was to switch her to over to IV fluconazole for oral thrush that was noted and for IV antibiotics for her cellulitis of her great toe. Because of her refusal to eat or drink prior to admission and persistence of not willing to eat or drink during her hospital course, Palliative Care was consulted. On my encounter, the patient has since become more alert and is eating over the past few days. This morning, she had 75% of her breakfast. I spoke with the nurse, Ashleigh, from the [facility], who states that normally she is healthy and happy and only lost 3 pounds during this and her baseline is nonverbal. She likes to hold hands, likes a head rub, and she has to be fed. She has sisters who are active family members. Otherwise, remaining review of systems are unable to obtained due to the patient's nonverbal intellectual disability. PAST MEDICAL HISTORY: 1. Profound intellectual developmental disability with cerebral palsy. 2. GERD. 3. History of seizure disorder. 4. Recurrent urinary tract infections. 5. Hiatal hernia. 6. Hyperlipidemia. INPATIENT MEDICATIONS: 1. Tylenol p.o. q.6 hours as needed. 2. D5 half-normal saline 75 cc an hour. 3. Fluconazole IV 200 mg every 24 hours. 4. Heparin 5000 units subcu t.i.d. 5. Keppra 1000 mg b.i.d. 6. Magnesium hydroxide 30 mL q.48 hours as needed. ALLERGIES: No known drug allergies. FAMILY HISTORY: Unable to obtain. SOCIAL HISTORY: As mentioned, the patient is a resident of the [facility]. Her sister, Eryn Anderson, is an active family member , phone number [phone]. No history of tobacco, alcohol, or illicit drug use. Code status is full code. REVIEW OF SYSTEMS: Unable to obtain. PHYSICAL EXAM: Vitals: Temp is axillary 96, pulse rate is 53, respiratory rate 16, oxygen saturation 97% on room air, blood pressure 101/62. General: No acute distress, sleeping but awakes with tactile stimulation. HEENT: Neck supple. No lymphadenopathy. Oropharynx: Limited oropharynx exam as the patient is unwilling to open her mouth for me. She has a protruding tongue, not able to appreciate any white patches. Head: Normocephalic. Cardiac: Regular rate and rhythm. No murmurs, rubs, or gallops. Respiratory: Clear to auscultation. No wheezes, rhonchi, or rales. Abdomen: Soft, nontender, nondistended. Extremities: No clubbing, cyanosis, or edema. Derm: Some mild erythema over her right great toe with some ecchymosis over the right toenail. Neurologic: Nonverbal, moving all extremities. LABORATORY DATA: White count 5.5, hemoglobin 16, hematocrit 49, platelets 259. Sodium 134, potassium 4.1, chloride 107, bicarb 23, BUN 10, creatinine 0.48. Phenytoin level is 30.5. ASSESSMENT: This is a 56-year-old female with past medical history of profound intellectual disability and a seizure disorder, who presents to the emergency room with altered mental status, more somnolence, found to have Dilantin toxicity in the setting of oral thrush and cellulitis. Palliative Care consult placed due to patient's somnolence, weight loss, and unwillingness to take any oral nutrition. I suspect that her somnolence was secondary to her Dilantin toxicity and also possibly due to oral thrush contributing to pain and lack of interest in taking p.o. as well. She seemed to be perking up more and more alert and tolerating p.o. over the last few meals. No indication for palliative care or hospice needs at this time. We would recommend close monitoring over the phenytoin levels as she has a BMI of 16, weight: 30 kilograms. Therefore, I would watch phenytoin level carefully especially when in the setting of an acute illness. Thank you for this consultation. Please contact me if you have any questions or concerns. I will sign off at this time. PATIENT TIME: Greater than 90 minutes spent during the consultation, more than half the time spent in direct patient contact. CC: Morales Kim MD* [id number]/CPS #: [id number] MTDD
[2017-03-04] MEDS: Heparin VIAL(*) 5000 UNITS/ML VIAL (FIVE THOUSAND) SUBCUT SCH ×3 (05:49→21:14)
--- NOTE | 2017-03-04 10:45 | PN ---
Subjective Date of Service: 03/04/17 Interval History: Patient seen and examined at bedside. Pt is non-verbal but appears to be comfortable. Tele: Sinus rhythm, rate 60's. Family History: Unchanged from Admission Social History: Unchanged from Admission Past Medical History: Unchanged from Admission Objective Active Medications: Acetaminophen (Tylenol Tab*) 650 mg PO Q6H PRN Reason: FEVER/PAIN Heparin Sodium (Porcine) (Heparin Vial(*)) 5,[address] Fluconazole/Sodium Chloride (Diflucan 200 Mg Ivpremix(*)) 200 mg in 100 mls @ 100 mls/hr IVPB Q24H AVE Stop: 03/04/17 14:00 Levetiracetam 1,000 mg/ Sodium (Chloride) 110 mls @ 440 mls/hr IVPB Q12H AVE Magnesium Hydroxide (Milk Of Magnesia Liq*) 30 ml PO Q48H PRN Reason: CONSTIPATION Vital Signs 03/03/17 03/03/17 03/03/17 11:23 15:31 19:26 Temperature 97.7 F 97.8 F Pulse Rate 57 86 Respiratory 16 16 16 Rate Blood Pressure 109/70 83/42 (mmHg) O2 Sat by Pulse 100 99 Oximetry 03/03/17 03/04/17 03/04/17 19:38 00:04 04:21 Temperature 98.0 F 98.6 F 98.3 F Pulse Rate 65 62 59 Respiratory 16 16 Rate Blood Pressure 99/63 108/70 121/61 (mmHg) O2 Sat by Pulse 96 97 100 Oximetry 03/04/17 03/04/17 07:55 08:00 Temperature 98.9 F Pulse Rate 61 Respiratory 16 16 Rate Blood Pressure 103/58 (mmHg) O2 Sat by Pulse 97 Oximetry Oxygen Devices in Use Now: None Appearance: NAD, laying in bed Eyes: No Scleral Icterus, PERRLA Ears/Nose/Mouth/Throat: Mucous Membranes Moist Respiratory: Symmetrical Chest Expansion and Respiratory Effort, Clear to Auscultation Cardiovascular: NL Sounds; No Murmurs; No JVD, RRR Abdominal: NL Sounds; No Tenderness; No Distention Extremities: No Edema Skin: No Rash or Ulcers Neurological: - - Alert and non-verbal Lines/Tubes/Other Access: Clean, Dry and Intact Peripheral IV - site benign Nutrition: Taking PO's Result Diagrams: 02/27/17 13:58 03/01/17 06:29 Additional Lab and Data: Assess/Plan/Problems-Billing Assessment: Mrs. Mitchell is a 56yo F with PMH of intelectual disability, GERD, epilepsy, cerebral palsy, brought in to ED with altered MS and weakness, found to have Phenytoin toxicity. - Patient Problems (1) Phenytoin toxicity Code(s): T42.0X1A - POISONING BY HYDANTOIN DERIVATIVES, ACCIDENTAL, INIT SNOMED Code(s): 06186829 Comment: - Phenytoin level down to 24. - Continue to monitor on Telemetry. - Continue to monitor Phenytoin level daily - Discussed with Neuro - Suggest restarting Phenytoin 50 mg BID once Phenytoin level is less 22 or less (2) Cellulitis and abscess of foot Code(s): L03.119 - CELLULITIS OF UNSPECIFIED PART OF LIMB; L02.619 - CUTANEOUS ABSCESS OF UNSPECIFIED FOOT SNOMED Code(s): 126646491 Comment: - Cellulitis R great toe is improving per caregiver - Recieved 1 dose of ceftriaxone 02/27 and 1 dose of PO cephalexin 02/27 - Will hold off on antibiotics and observe foot (3) Seizure disorder Code(s): G40.909 - EPILEPSY, UNSP, NOT INTRACTABLE, WITHOUT STATUS EPILEPTICUS SNOMED Code(s): 671520996 Comment: - Continue Keppra. - When her phenytoin level is <22, will resume phenytoin at lower dose - Will need outpatient follow up with Neuro and weekly phenytoin levels (4) Thrush Code(s): B37.0 - CANDIDAL STOMATITIS SNOMED Code(s): 29877054 Comment: - Pt was treated for thrush in the past, not clear how definite/accurate the dx was. - She won't open her mouth now for exam. - Treat empirically with IV fluconazole to see if that reverses her refusal to eat or drink, started 02/28. Will stop today, for a total of 5 doses. - Pt started to eat and drink 03/02 (5) DVT prophylaxis Code(s): [id number] - SNOMED Code(s): 895731908 Comment: - SQ heparin. (6) Full code status Code(s): Z78.9 - OTHER SPECIFIED HEALTH STATUS SNOMED Code(s): 401910124 Status and Disposition: Inpatient. Possible discharge in 1-2 days.
[2017-03-04] MEDS: Fluconazole 200 MG IVPREMIX(*) 200 MG/100 ML BAG IVPB SCH (14:47)
[2017-03-05] MEDS: Heparin VIAL(*) 5000 UNITS/ML VIAL (FIVE THOUSAND) SUBCUT SCH (05:13)
--- NOTE | 2017-03-05 10:24 | PN ---
Subjective Date of Service: 03/05/17 Interval History: Patient seen and examined at bedside. Pt is non-verbal but appears to be comfortable in bed. Tele: Sinus rhythm - sinus promise, rate 48-60's. Family History: Unchanged from Admission Social History: Unchanged from Admission Past Medical History: Unchanged from Admission Objective Active Medications: Acetaminophen (Tylenol Tab*) 650 mg PO Q6H PRN Reason: FEVER/PAIN Heparin Sodium (Porcine) (Heparin Vial(*)) 5,[address] Levetiracetam (Keppra Liq*) 1,000 mg PO 0800,2000 [address] Magnesium Hydroxide (Milk Of Magnesia Liq*) 30 ml PO Q48H PRN Reason: CONSTIPATION Vital Signs 03/04/17 03/04/17 03/04/17 12:15 16:04 19:48 Temperature 98.5 F 99.3 F 97.7 F Pulse Rate 57 68 66 Respiratory 16 15 15 Rate Blood Pressure 93/65 134/95 94/61 (mmHg) O2 Sat by Pulse 94 96 97 Oximetry 03/04/17 03/04/17 03/05/17 20:00 23:46 04:20 Temperature 98.5 F 97.6 F Pulse Rate 60 62 Respiratory 15 16 16 Rate Blood Pressure 93/56 119/68 (mmHg) O2 Sat by Pulse 95 98 Oximetry Oxygen Devices in Use Now: None Appearance: NAD, sitting up in bed Ears/Nose/Mouth/Throat: Mucous Membranes Moist Respiratory: Symmetrical Chest Expansion and Respiratory Effort, Clear to Auscultation Cardiovascular: NL Sounds; No Murmurs; No JVD, RRR Abdominal: NL Sounds; No Tenderness; No Distention Extremities: No Edema Skin: No Rash or Ulcers Neurological: - - Alert and non-verbal Lines/Tubes/Other Access: Clean, Dry and Intact Peripheral IV - site benign Nutrition: Taking PO's Result Diagrams: 02/27/17 13:58 03/01/17 06:29 Additional Lab and Data: Assess/Plan/Problems-Billing Assessment: Mrs. Mitchell is a 56yo F with PMH of intelectual disability, GERD, epilepsy, cerebral palsy, brought in to ED with altered MS and weakness, found to have Phenytoin toxicity. - Patient Problems (1) Phenytoin toxicity Code(s): T42.0X1A - POISONING BY HYDANTOIN DERIVATIVES, ACCIDENTAL, INIT SNOMED Code(s): 86687107 Comment: - Phenytoin level down to 20 - Discussed with Neuro - Suggest restarting Phenytoin 50 mg BID once Phenytoin level is less 22 or less - Weekly Phenytoin level - Follow up with Dr. Perez as outpatient in 2-3 weeks (2) Cellulitis and abscess of foot Code(s): L03.119 - CELLULITIS OF UNSPECIFIED PART OF LIMB; L02.619 - CUTANEOUS ABSCESS OF UNSPECIFIED FOOT SNOMED Code(s): 216106398 Comment: - Cellulitis R great toe is improving per caregiver - Recieved 1 dose of ceftriaxone 02/27 and 1 dose of PO cephalexin 02/27 - Will hold off on antibiotics and observe foot (3) Seizure disorder Code(s): G40.909 - EPILEPSY, UNSP, NOT INTRACTABLE, WITHOUT STATUS EPILEPTICUS SNOMED Code(s): 107046597 Comment: - Continue Keppra, change from IV to PO. - Resume phenytoin today at 50 mg BID - Will need outpatient follow up with Neuro and weekly phenytoin levels (4) Thrush Code(s): B37.0 - CANDIDAL STOMATITIS SNOMED Code(s): 23749429 Comment: - Pt was treated for thrush in the past, not clear how definite/accurate the dx was. - She won't open her mouth now for exam. - Treat empirically with IV fluconazole to see if that reverses her refusal to eat or drink, started 02/28. Will stop today, for a total of 5 doses. - Pt started to eat and drink 03/02 (5) DVT prophylaxis Code(s): [id number] - SNOMED Code(s): 112913761 Comment: (6) Full code status Code(s): Z78.9 - OTHER SPECIFIED HEALTH STATUS SNOMED Code(s): 536794206 Status and Disposition: Inpatient. Possible discharge later today if [facility] staff agree Pt is back to her baseline mental status.
[2017-03-05] MEDS ORDERED: Sodium Phosphate ADULT ENEMA* 118 ml bottle PR PRN (11:44)
[2017-03-05] MEDS ORDERED: Magnesium Hydroxide LIQ* 30 ML UDC PO PRN (11:45)
[2017-03-05] MEDS ORDERED: Polyethylene Glycol 3350* 17 GM PACKET PO SCH (12:00)
[2017-03-05 13:17] VITALS: BP 91/50
[2017-03-05] MEDS ORDERED: levETIRAcetam LIQ* 500 MG/5 ML UDC PO SCH (20:00)
[2017-03-05] MEDS ORDERED: Phenytoin CHEW TAB(*) 50 MG PO SCH (21:00)
--- NOTE | 2017-03-05 22:00 | DS ---
DISCHARGE SUMMARY: DATE OF ADMISSION: 02/27/17 DATE OF DISCHARGE: 03/05/17 ATTENDING PHYSICIAN: Julio Blood MD* (dictated by Morelia Bobo NP) PRIMARY CARE PROVIDER: Morales Kim MD PRIMARY DIAGNOSES: 1. Phenytoin toxicity with associated toxic encephalopathy. 2. Cellulitis of the right great toe, resolved. SECONDARY DIAGNOSES: 1. Seizure disorder. 2. Gastroesophageal reflux disease. 3. History of chronic urinary tract infection. 4. Cellulitis of the right great toe. 5. Hiatal hernia. 6. Intellectual developmental delay. 7. Hyperlipidemia. 8. History of cerebral palsy. CONSULTATIONS WHILE IN THE HOSPITAL: Bridget Purvis MD, with Palliative Care. STUDIES WHILE IN THE HOSPITAL: Chest x-ray on 02/27/17. Radiologist's impression: No active cardiopulmonary disease. DISCHARGE MEDICATIONS: Changed home medication: Phenytoin chewable tablet 50 mg oral twice daily from 100 mg oral twice daily. Continued home medications: 1. Fleet Enema 1 bottle per rectum as needed for constipation. 2. Zofran 4 mg oral every 6 hours as needed for nausea. 3. Nutritional supplements 1 oral daily. 4. MiraLax 34 g oral daily. 5. Ativan 0.5 mg oral daily as needed for anxiety. 6. Ibuprofen 400 mg oral every 6 hours as needed for fever, pain. 7. Hydrocortisone 0.5% apply topical twice daily as needed for rash. 8. Acetaminophen 650 mg oral every 4 hours as needed for fever, pain. 9. Pediatric multivitamin 1 tablet oral daily. 10. Bacitracin ointment 1 capsule oral twice daily as needed. 11. Benadryl 25 mg oral daily as needed for allergy symptoms. 12. Sudafed 30 mg oral every 6 hours as needed for congestion. 13. Keppra 1000 mg oral twice daily. 14. Nystatin topical, apply topical twice daily as needed for rash. Discontinued home medications: Dilantin ER 100 mg capsules. HISTORY OF PRESENT ILLNESS/HOSPITAL COURSE: Ms. Mitchell is a 56-year-old female with past medical history significant for intellectual developmental delay, history of GERD, seizures, chronic UTI, hiatal hernia, cerebral palsy and hyperlipidemia who presented to the hospital from her longterm for decreased fluid intake and not acting herself. The patient had been more drowsy. There were no reports of nausea, vomiting or diarrhea. The patient was also noted to have a right great toenail that had come off with redness and that is why she was brought to the emergency room. While in the emergency room, the patient was found to have a Dilantin level of 60 and due to this, hospitalists were asked to evaluate the patient for admission. While in the hospital, the patient was taken off her phenytoin and her phenytoin level was checked daily. The patient was continued on her Keppra. The patient was not eating during her stay. It was felt that she could possibly have depression, she was started on fluconazole IV, she received 5 days of this. The patient started eating again and has been eating well. There was a palliative care consult placed due to the patient's initial presentation of not eating. Palliative care services are not needed at this time due to the patient now eating. The patient received a dose of ceftriaxone and a dose of Keflex. Her right toe redness improved. She was not continued on any further antibiotics. The patient's phenytoin level was down to 20.6 today. This was discussed with neurology economic specialist and recommendations were made for the reinitiation of the patient's Dilantin. They recommend starting the patient on 50 mg chewable tablets twice daily with weekly phenytoin levels and to follow up with Dr. Perez in 2 to 3 weeks. The patient has become more alert and is back to her baseline mentation. Ms. Mitchell is stable for discharge to home today. Vital signs are as follows: Temperature 97.6, heart rate 80, respiratory rate 16, O2 sat 98% on room air, blood pressure 95/64. DISCHARGE PLAN: Ms. Mitchell will be discharged back to home at the [facility]. Activity as tolerated. She will be on a regular diet with pureed food and honey thickened liquids. As far as the patient's seizure disorder, she should be continued on Keppra 1000 mg oral twice daily and has been on started on phenytoin chewable tablets 50 mg oral twice daily. The patient will have weekly Dilantin levels, and further dosing of her phenytoin should be per Dr. Perez. The patient should be seen in followup by Dr. Perez in the next 2 to 3 weeks. She currently has an appointment scheduled for 04/08/17 at 10:[address] Perez's office will call the patient's caregivers at [facility] to change the appointment if he wants to see her prior to that. The patient should be seen in followup by her primary care provider in the next 1 to 2 weeks. They have been instructed to return to the emergency room for any signs of chest pain, shortness of breath. This is a summarized report of a complex medical history and hospital stay; for further details, please see the entire medical record. TIME SPENT: Time for this discharge was 50 minutes. CONDITION ON DISCHARGE: Stable. Reviewed by PAULINA HURST 03/11/17 1114 CC: Morales Kim MD; Dr. Perez* [id number]/[facility] #: [id number] MARIO
== END 2017-03-05 14:00 | disposition home or self-care (01) | DRG 948 ==
LOC: ED 13:10 → MEDTELE 16:20 → ED 18:28
PROVIDERS: ADMIT Internal Medicine; ATTEND Internal Medicine
DX: R41.82 Altered mental status, unspecified (principal); B37.0 Candidal stomatitis; T42.0X5A Adverse effect of hydantoin derivatives, initial encounter; Y92.199 Unspecified place in other specified residential institution as the place of occurrence of the external cause; L03.031 Cellulitis of right toe; G40.909 Epilepsy, unspecified, not intractable, without status epilepticus; K21.9 Gastro-esophageal reflux disease without esophagitis; K44.9 Diaphragmatic hernia without obstruction or gangrene; F81.9 Developmental disorder of scholastic skills, unspecified; E78.5 Hyperlipidemia, unspecified; G80.9 Cerebral palsy, unspecified; Z87.440 Personal history of urinary (tract) infections; Z79.1 Long term (current) use of non-steroidal anti-inflammatories (NSAID); Z79.899 Other long term (current) drug therapy; F79 Unspecified intellectual disabilities
CPT/HCPCS: 36415; 71010; 80048; 80053; 80177; 80185; 80329; 81003; 81015; 82550; 82553; 83605; 83690; 83880; 84443; 84484; 85025; 85610; 85730; 86140; 87086; 93005; 99212; A9270-GY; G0463; G0480; J0696; J1450; J1644

== ENCOUNTER 2018-01-24 10:59 | Emergency (ER) | payer MEDICARE, MEDICAID ==
[2018-01-24 11:43] VITALS: BP 00/00
--- NOTE | 2018-01-24 12:27 | UC ---
Throat Pain/Nasal [place] HPI - HPI Summary HPI Summary: Pt presents with base wad operator adjuster. Pt is non-verbal. Director Clinical Research tells me that last night pt had a "fever" of 100F and has been having a decreased appetite this week. Pt is currently being treated for thrush and is on the last 2 days of treatment. Denies fall, trauma, cough, vomiting, or diarrhea. - History of Current Complaint Chief Complaint: UCGeneralIllness Stated Complaint: SINUS CONGESTION, AND COUGH Time Seen by Provider: 01/24/18 12:27 Hx Obtained From: Family/Director Clinical Research Hx From Patient Unobtainable Due To: Other - Non-verbal Pain Intensity: 0 - Allergies/Home Medications Allergies/Adverse Reactions: Allergies Allergy/AdvReac Type Severity Reaction Status Date / Time fluconazole [From Diflucan] Allergy See Comment Verified 01/24/18 11:44 PMH/Surg Hx/FS Hx/Imm Hx - Additional Past Medical History Additional PMH: Mental disability - Surgical History Surgical History: Yes Surgery Procedure, Year, and Place: HERNIA REPAIR; ALL TEETH REMOVED - Family History Known Family History: Positive: Unknown Negative: Cardiac Disease, Hypertension - Social History Occupation: Disabled Lives: Assisted Living Alcohol Use: None Substance Use Type: None Smoking Status (MU): Never Smoked Tobacco Have You Smoked in the Last Year: No - Immunization History Most Recent Influenza Vaccination: 08/27/16 Most Recent Tetanus Shot: 04/2013 Most Recent Pneumonia Vaccination: 11/2011 Vaccination Up to Date: Yes Review of Systems Constitutional: Negative Skin: Negative Eyes: Negative ENT: Negative Respiratory: Negative Cardiovascular: Negative Gastrointestinal: Negative Musculoskeletal: Negative Neurological: Negative Psychological: Negative All Other Systems Reviewed And Are Negative: Yes Physical Exam - Summary Physical Exam Summary: Exam very limited due to patient's current condition. GENERAL: NAD. WDWN. SKIN: No rashes, sores, ulcers, masses, lesions. HEENT: Head: AT/NC Eyes: EOM intact. Conjunctiva clear without inflammation or discharge. Ears: Hearing grossly normal. TMs intact, no bulging, erythema, or edema. Nose: Nasal mucosa pink and moist. NTTP maxillary and frontal sinus. Throat: Posterior oropharynx without exudates, erythema, or tonsillar enlargement. Uvula midline. NECK: Supple. Nontender. No lymphadenopathy. CHEST: CTAB. No r/r/w. No accessory muscle use. Breathing comfortably and in no distress. CV: RRR. Without m/r/g. Pulses intact. Brisk cap refill. NEURO: Alert. PSYCH: Age appropriate behavior. Triage Information Reviewed: Yes Vital Signs: Initial Vital Signs Temp 99.3 F 01/24/18 11:37 Pulse 62 01/24/18 11:37 Resp 16 01/24/18 11:37 BP 00/00 01/24/18 11:37 Pulse Ox 98 01/24/18 11:37 Throat Pain/Nasal Course/Dx - Course Course Of Treatment: A urine sample was not able to be obtained today. Vitals are currently stable. I suspect her illness is viral. Given her current treatment for thrush, I do not want to place her on an antibiotic for no discernible cause as this could worsen her thrush. I suspect her decreased appetite is a result of her thrush as well. Advised base wad operator adjuster to monitor for symptoms or changes in behavior and f/u prn. - Differential Dx/Diagnosis Provider Diagnoses: Oral thrush Discharge - Sign-Out/Discharge Documenting (check all that apply): Discharge - Discharge Plan Condition: Stable Disposition: HOME Patient Education Materials: Viral Syndrome (ED) Referrals: Morales Kim MD [Primary Care Provider] - Additional Instructions: If you develop a fever, shortness of breath, chest pain, new or worsening symptoms - please call your PCP or go to the ED. - Billing Disposition and Condition Condition: STABLE Disposition: HOME
== END 2018-01-24 12:39 | disposition home or self-care (01) ==
LOC: UCEAST 10:59
DX: B37.0 Candidal stomatitis (principal); R50.9 Fever, unspecified; Z88.1 Allergy status to other antibiotic agents
CPT/HCPCS: 99212; G0463

== ENCOUNTER 2018-02-22 14:30 | Emergency (ER) | payer MEDICARE, MEDICAID ==
[2018-02-22] MEDS ORDERED: NS 0.9% 1000 ML* 1,000 ML IV ONE (16:12)
[2018-02-22 16:28] LABS: ABS Basophils 0 10^3/ul (0-0.2); ABS Eosinophils 0.1 10^3/ul (0-0.6); ABS Monocytes 0.7 10^3/ul (0-0.8); ABS Neutrophils 5.1 10^3/ul (1.5-7.7); ABS Nucleated RBC 0 10^3/ul; Eosinophil % 0.8 % (0-6); Hematocrit 44 % (35-47); Lymphocyte % 25.2 % (25-47); Mean Corpuscular HGB Conc 34 g/dl (31-36); Mean Corpuscular Hemoglobin 31 pg (27-31); Mean Corpuscular Volume 91 fL (80-97); Mean Platelet Volume 8.7 um3 (7.4-10.4); Nucleated Red Blood Cells % 0.1; Platelet Count 243 10^3/ul (150-450); Red Blood Count 4.88 10^6/ul (4.0-5.4); Red Cell Distribution Width 14 % (10.5-15); White Blood Count 7.9 10^3/ul (3.5-10.8)
[2018-02-22 16:36] LABS: Urine Appearance Turbid; Urine Blood 1+ (Negative); Urine Color Amber; Urine Ketones Negative (Negative); Urine Protein 1+(30 mg/dL) (Negative); Urine Specific Gravity 1.011 (1.010-1.030); Urine Urobilinogen Negative (Negative)
[2018-02-22] MEDS ORDERED: Cefadroxil CAP* 500 MG PO ONE (17:16)
[2018-02-22 18:15] VITALS: BP 115/70
--- NOTE | 2018-02-23 12:04 | ED ---
Mireille Watt Edward, scribed for Praveena Mujica MD on 02/22/18 at 1608 . Neurological HPI - HPI Summary HPI Summary: 57 y/o female presents to the ED s/p 1x seizure at around 08:00 this morning. Sx not aggravated or alleviated by anything. PMHx seizures with UTI. PMHx MR. Stewart is nonverbal. History given by pt's staff combat information center officer. - History of Current Complaint Chief Complaint: EDSeizure Stated Complaint: SEIZURE/POSS. UTI Time Seen by Provider: 02/22/18 15:51 Hx Obtained From: Family/Cross Cut Saw Operator - staff combat information center officer Onset/Duration: Started hours ago, Resolved Timing: Intermittent Episodes Lasting: Number of Seizures: 1 Pain Intensity: 0 Aggravating: Nothing Alleviating: Nothing Associated Signs and Symptoms: Positive: Negative - Additional Pertinent History Primary Care Physician: [id number] - Allergy/Home Medications Allergies/Adverse Reactions: Allergies Allergy/AdvReac Type Severity Reaction Status Date / Time fluconazole [From Diflucan] Allergy See Comment Verified 01/24/18 11:44 PMH/Surg Hx/FS Hx/Imm Hx Previously Healthy: No Cardiovascular History: Denies: Hx Pacemaker/ICD Comment Only: Other Cardiovascular Problems/Disorders - hyperlipidemia Respiratory History: Reports: Hx Pneumonia GI History: Reports: Hx Gastroesophageal Reflux Disease, Hx Hiatal Hernia - repair, Other GI Disorders - chronic/current constipation. recurrent UTI History: Comment Only: Other Problems/Disorders - incontinent; chronic UTIs Musculoskeletal History: Reports: Other Musculoskeletal History - growth abnormalities Sensory History: Denies: Hx Contacts or Glasses, Hx Hearing Aid Opthamlomology History: Denies: Hx Contacts or Glasses Neurological History: Reports: Hx Developmental Delay, Hx Seizures, Other Neuro Impairments/Disorders - cerebal palsy Psychiatric History: Denies: Hx Panic Disorder - Surgical History Surgery Procedure, Year, and Place: HERNIA REPAIR; ALL TEETH REMOVED Hx Anesthesia Reactions: No - Immunization History Date of Tetanus Vaccine: PT NON VERBAL - UNSURE Date of Influenza Vaccine: 2013 Infectious Disease History: No Infectious Disease History: Denies: Traveled Outside the [place] in Last 30 Days - Family History Known Family History: Negative: Cardiac Disease, Hypertension - Social History Alcohol Use: None Substance Use Type: Reports: None Smoking Status (MU): Never Smoked Tobacco Have You Smoked in the Last Year: No Review of Systems Constitutional: Negative Eyes: Negative ENT: Negative Cardiovascular: Negative Respiratory: Negative Gastrointestinal: Negative Genitourinary: Negative Musculoskeletal: Negative Skin: Negative Neurological: Other - seizure 1x Psychological: Normal All Other Systems Reviewed And Are Negative: Yes Physical Exam - Summary Physical Exam Summary: GENERAL: ~Patient is a well developed and nourished F who is lying comfortable in the stretcher. ~Patient is not in any acute respiratory distress. HEAD AND FACE: Normocephalic EYES: PERRLA, EOMI x 2. EARS: Hearing grossly intact. MOUTH: Oropharynx within normal limits. NECK: Supple, trachea is midline, no adenopathy, no JVD, no carotid bruit. CHEST: Symmetric, no tenderness at palpation LUNGS: Clear to auscultation bilaterally. No wheezing or crackles. CVS: Regular rate and rhythm, S1 and S2 present, no murmurs or gallops appreciated. ABDOMEN: Soft, non-tender. Bowel sounds are normal. No abdominal abnormal pulsations. EXTREMITIES: Full ROM in all major joints, no edema, no cyanosis or clubbing. NEURO: No acute neurological deficits. SKIN: Dry and warm Triage Information Reviewed: Yes Vital Signs On Initial Exam: Initial Vitals Temp Pulse Resp BP Pulse Ox 98.1 F 78 18 114/72 100 02/22/18 14:33 02/22/18 14:33 02/22/18 14:33 02/22/18 14:33 02/22/18 14:33 Vital Signs Reviewed: Yes Diagnostics - Vital Signs Vital Signs Temp Pulse Resp BP Pulse Ox 02/22/18 14:33 98.1 F 78 18 114/72 100 - Laboratory Lab Results: Lab Results 02/22/18 02/22/18 02/22/18 Range/Units 16:15 16:15 16:15 WBC 7.9 (3.5-10.8) 10^3/ul RBC 4.88 (4.0-5.4) 10^6/ul Hgb 15.0 (12.0-16.0) g/dl Hct 44 (35-47) % MCV 91 (80-97) fL MCH 31 (27-31) pg MCHC 34 (31-36) g/dl RDW 14 (10.5-15) % Plt Count 243 (150-450) 10^3/ul MPV 8.7 (7.4-10.4) um3 Neut % (Auto) 64.7 (38-83) % Lymph % (Auto) 25.2 (25-47) % [place]han % (Auto) 9.0 H (0-7) % Eos % (Auto) 0.8 (0-6) % Baso % (Auto) 0.3 (0-2) % Absolute Neuts (auto) 5.1 (1.5-7.7) 10^3/ul Absolute Lymphs (auto) 2.0 (1.0-4.8) 10^3/ul Absolute Monos (auto) 0.7 (0-0.8) 10^3/ul Absolute Eos (auto) 0.1 (0-0.6) 10^3/ul Absolute Basos (auto) 0 (0-0.2) 10^3/ul Absolute Nucleated RBC 0 10^3/ul Nucleated RBC % 0.1 Sodium 139 (139-145) mmol/L Potassium TNP Chloride 105 (101-111) mmol/L Carbon Dioxide 28 (22-32) mmol/L Anion Gap 6 (2-11) mmol/L BUN 14 (6-24) mg/dL Creatinine 0.65 (0.51-0.95) mg/dL Est GFR ( Amer) 120.8 (>60) Est GFR (Non-Af Amer) 94.0 (>60) BUN/Creatinine Ratio 21.5 H (8-20) Glucose 93 (70-100) mg/dL Calcium 9.7 (8.6-10.3) mg/dL Magnesium 2.2 (1.9-2.7) mg/dL Total Bilirubin 0.40 (0.2-1.0) mg/dL AST TNP ALT 21 (7-52) U/L Alkaline Phosphatase 112 H (34-104) U/L Total Protein 7.0 (6.4-8.9) g/dL Albumin 4.3 (3.2-5.2) g/dL Globulin 2.7 (2-4) g/dL Albumin/Globulin Ratio 1.6 (1-3) Urine Color Brittany Urine Appearance Turbid Urine pH 8.0 (5-9) Ur Specific Philo 1.011 (1.010-1.030) Urine Protein 1+(30 mg/dl) A (Negative) Urine Ketones Negative (Negative) Urine Blood 1+ A (Negative) Urine Nitrate Negative (Negative) Urine Bilirubin Negative (Negative) Urine Urobilinogen Negative (Negative) Ur Leukocyte Esterase 2+ A (Negative) Urine WBC (Auto) 3+(>20/hpf) A (Absent) Urine RBC (Auto) Absent (Absent) Ur Squamous Epith Cells Present A (Absent) Ur Transition Epith Cell Present A (Absent) Amorphous Crystals Present A (Absent) Urine Bacteria 1+ A (Absent) Urine Glucose Negative (Negative) 02/22/18 Range/Units 17:05 WBC (3.5-10.8) 10^3/ul RBC (4.0-5.4) 10^6/ul Hgb (12.0-16.0) g/dl Hct (35-47) % MCV (80-97) fL MCH (27-31) pg MCHC (31-36) g/dl RDW (10.5-15) % Plt Count (150-450) 10^3/ul MPV (7.4-10.4) um3 Neut % (Auto) (38-83) % Lymph % (Auto) (25-47) % Don[place]han % (Auto) (0-7) % Eos % (Auto) (0-6) % Baso % (Auto) (0-2) % Absolute Neuts (auto) (1.5-7.7) 10^3/ul Absolute Lymphs (auto) (1.0-4.8) 10^3/ul Absolute Monos (auto) (0-0.8) 10^3/ul Absolute Eos (auto) (0-0.6) 10^3/ul Absolute Basos (auto) (0-0.2) 10^3/ul Absolute Nucleated RBC 10^3/ul Nucleated RBC % Sodium (139-145) mmol/L Potassium 4.0 Chloride (101-111) mmol/L Carbon Dioxide (22-32) mmol/L Anion Gap (2-11) mmol/L BUN (6-24) mg/dL Creatinine (0.51-0.95) mg/dL Est GFR ( Amer) (>60) Est GFR (Non-Af Amer) (>60) BUN/Creatinine Ratio (8-20) Glucose (70-100) mg/dL Calcium (8.6-10.3) mg/dL Magnesium (1.9-2.7) mg/dL Total Bilirubin (0.2-1.0) mg/dL AST 20 ALT (7-52) U/L Alkaline Phosphatase (34-104) U/L Total Protein (6.4-8.9) g/dL Albumin (3.2-5.2) g/dL Globulin (2-4) g/dL Albumin/Globulin Ratio (1-3) Urine Color Urine Appearance Urine pH (5-9) Ur Specific Philo (1.010-1.030) Urine Protein (Negative) Urine Ketones (Negative) Urine Blood (Negative) Urine Nitrate (Negative) Urine Bilirubin (Negative) Urine Urobilinogen (Negative) Ur Leukocyte Esterase (Negative) Urine WBC (Auto) (Absent) Urine RBC (Auto) (Absent) Ur Squamous Epith Cells (Absent) Ur Transition Epith Cell (Absent) Amorphous Crystals (Absent) Urine Bacteria (Absent) Urine Glucose (Negative) Result Diagrams: 02/22/18 16:15 02/22/18 17:05 Lab Statement: Any lab studies that have been ordered have been reviewed, and results considered in the medical decision making process. Course/Dx - Course Assessment/Plan: 57 y/o female with history of MR. Pt is nonverbal. Brought in for eval of seizures this morning. Doctor at facility concerned the pt has a UTI and dehydration b/c this is what normally triggers her seizures. Workup remarkable BUN and Creatinine 21.5 consistent with dehydration. UA shows possible UTI even though it wasnt a clean sample. Pt will treated with abx, iv fluids, and sent home on PO abx. Results discussed with caregiver. Pt is hemodynamically stable, safe for d/c with strict return precautions. Otherwise f /u pcp. - Diagnoses Provider Diagnoses: Dehydration, Urinary tract infection Discharge - Sign-Out/Discharge Documenting (check all that apply): Discharge/Admit/Transfer - Discharge Plan Condition: Stable Disposition: HOME Prescriptions: cefaDROXil [Cefadroxil] 500 mg PO BID 7 Days #14 susp.recon Patient Education Materials: Dehydration (ED), Urinary Tract Infection in Women (ED) Referrals: Morales Kim MD [Primary Care Provider] - 4 Days (PLEASE F/U IN 3-5 DAYS) Additional Instructions: RETURN TO THE ED FOR CHANGING/WORSENING SYMPTOMS - Billing Disposition and Condition Condition: STABLE Disposition: HOME The documentation as recorded by the Mireille israel Edward accurately reflects the service I personally performed and the decisions made by me, Praveena Mujica MD.
--- NOTE | 2018-02-23 12:18 | PN ---
Progress Note - Progress Note Date of Service: 02/22/18 Note: Pt. seen in ER yesterday by Dr. Mujica and rx cefadroxil for UTI. Pharmacy called today and they do not carry antibx. Will switch rx to keflex.
--- NOTE | 2018-02-24 07:07 | ED ---
Progress - Progress Note Progress Note: Patient's preliminary urine culture reveals greater than 100,000 Escherichia coli. Patient was initially started on a cephalosporin which the pharmacy did not carry. This was switched to Keflex. Pending final sensitivities. No change in treatment at this time. Course/Dx - Diagnoses Provider Diagnoses: Dehydration, Urinary tract infection Discharge - Sign-Out/Discharge Documenting (check all that apply): Post-Discharge Follow Up - Discharge Plan Condition: Stable Disposition: HOME Prescriptions: cefaDROXil [Cefadroxil] 500 mg PO BID 7 Days #14 susp.recon Cephalexin CAP* [Keflex CAP*] 500 mg PO BID 10 Days #20 cap Patient Education Materials: Dehydration (ED), Urinary Tract Infection in Women (ED) Referrals: Morales Kim MD [Primary Care Provider] - 4 Days (PLEASE F/U IN 3-5 DAYS) Additional Instructions: RETURN TO THE ED FOR CHANGING/WORSENING SYMPTOMS - Billing Disposition and Condition Condition: STABLE Disposition: HOME
--- NOTE | 2018-02-25 11:36 | PN ---
Progress Note - Progress Note Date of Service: 03/24/18 Note: Patient was seen in the ER 02/22/18 and started on Keflex for UTI. Urine culture today is growing greater than 100,000 Escherichia coli. Susceptibility to first generation cephalosporin is intermittent. Patient is nonverbal and resides at the [facility]. I called and spoke with the patient's nurse and she states that patient has not had a fever but has not had much of an appetite. She is chronically incontinent of urine. Recommend repeat urinalysis and culture to evaluate possibly switching antibiotic. Patient's nurse will contact the patient's PCP.
== END 2018-02-22 18:33 | disposition home or self-care (01) ==
LOC: ED 14:30
DX: N39.0 Urinary tract infection, site not specified (principal); B96.20 Unspecified Escherichia coli [E. coli] as the cause of diseases classified elsewhere; K21.9 Gastro-esophageal reflux disease without esophagitis; E86.0 Dehydration; R32 Unspecified urinary incontinence; E78.5 Hyperlipidemia, unspecified; G80.9 Cerebral palsy, unspecified; R62.50 Unspecified lack of expected normal physiological development in childhood
CPT/HCPCS: 36415; 80053; 81003; 81015; 83735; 85025; 87077; 87086; 87186; 96374; 99283; A9270-GY

== ENCOUNTER 2018-10-19 08:24 | Emergency (ER) | payer MEDICARE, MEDICAID ==
[2018-10-19 08:36] VITALS: BP 143/110
--- NOTE | 2018-10-19 09:17 | UC ---
Psychiatric Complaint HPI - HPI Summary HPI Summary: 58 yo white female h/o profound MR, seizure DO from [facility] who p/w coughing and gagging on her sputum per caregiver associated with low grade fever and mild congestion x 1 day - History Of Current Complaint Chief Complaint: EDAbdPain Stated Complaint: COUGH Time Seen by Provider: 10/19/18 08:32 Hx Obtained From: Family/Husker Operator ?: No Onset/Duration: Sudden Onset, Lasting Hours Timing: Constant Severity Initially: Mild Severity Currently: Mild Aggravating Factor(s): Nothing Alleviating Factor(s): Nothing - Allergies/Home Medications Allergies/Adverse Reactions: Allergies Allergy/AdvReac Type Severity Reaction Status Date / Time fluconazole [From Diflucan] Allergy See Comment Verified 10/19/18 08:41 PMH/Surg Hx/FS Hx/Imm Hx - Additional Past Medical History Additional PMH: PROFOUND MR Previously Healthy: No Neurological History: Seizures - Surgical History Surgical History: Yes Surgery Procedure, Year, and Place: HERNIA REPAIR; ALL TEETH REMOVED - Family History Known Family History: Positive: Unknown Negative: Cardiac Disease, Hypertension - Social History Alcohol Use: None Substance Use Type: None Smoking Status (MU): Never Smoked Tobacco Have You Smoked in the Last Year: No - Immunization History Most Recent Influenza Vaccination: 08/27/16 Most Recent Tetanus Shot: 04/2013 Most Recent Pneumonia Vaccination: 11/2011 Vaccination Up to Date: Yes Review of Systems All Other Systems Reviewed And Are Negative: Yes Constitutional: Positive: Negative Skin: Positive: Negative Eyes: Positive: Negative ENT: Positive: Negative Respiratory: Positive: Cough Cardiovascular: Positive: Negative Gastrointestinal: Positive: Negative Genitourinary: Positive: Negative Motor: Positive: Negative Neurovascular: Positive: Negative Musculoskeletal: Positive: Negative Neurological: Positive: Negative Psychological: Positive: Negative Physical Exam - Summary Physical Exam Summary: Vital Signs Reviewed: Yes Skin: Positive: Warm Head/Face: Positive: Normal Head/Face Inspection Eyes: Positive: Normal ENT: Positive: Normal ENT inspection Neck: Positive: Supple Respiratory/Lung Sounds: Positive: coarse BS B/L Cardiovascular: Positive: Normal, RRR, S1, S2 Abdomen Description: Positive: Nontender Musculoskeletal: Positive: Normal Neurological: Positive: Normal Psychiatric: Positive: Normal, Affect/Mood Appropriate Triage Information Reviewed: Yes Completion Of Physical Exam Limited Due To: Other - pt has profound MR and is non-verbal Vital Signs: Initial Vital Signs Temp 37.2 C 10/19/18 08:33 Pulse 78 10/19/18 08:33 Resp 20 10/19/18 08:33 BP 143/110 10/19/18 08:33 Pulse Ox 99 10/19/18 08:33 Psych Complaint Course/Dx - Course Course Of Treatment: cough with increased secretions - 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, does not move air well anatomically, CXR revealed increased perihilar markings- clinically pt has bronchitis- will tx with azithromycin and respiratory toiletry - Differential Dx/Diagnosis Provider Diagnosis: URI, acute, Cough, Bronchitis Discharge - Sign-Out/Discharge Documenting (check all that apply): Patient Departure All imaging exams completed and their final reports reviewed: Yes - Discharge Plan Condition: Stable Disposition: HOME Prescriptions: Azithromycin TAB* [Zithromax TAB (Z-ADI) 250 mg #6 tabs] 2 tab PO .TODAY, THEN 1 DAILY #1 adi Referrals: Morales Kim MD [Primary Care Provider] - - Billing Disposition and Condition Condition: STABLE Disposition: Home
== END 2018-10-19 10:21 | disposition home or self-care (01) ==
LOC: UCEAST 08:24
DX: J06.9 Acute upper respiratory infection, unspecified (principal); R05 Cough; J40 Bronchitis, not specified as acute or chronic; F79 Unspecified intellectual disabilities; Z88.8 Allergy status to other drugs, medicaments and biological substances
CPT/HCPCS: 71046; 99212; G0463

== ENCOUNTER 2018-10-21 15:52 | Inpatient (IN) | payer MEDICARE, MEDICAID ==
[2018-10-21] MEDS ORDERED: NS 0.9% 1000 ML*IV.FLUID IV ONE (16:31)
--- NOTE | 2018-10-21 16:54 | ED ---
HPI Febrile Illness - HPI Summary HPI Summary: This patient is a 58 year old [facility] by PHOTOCOMPOSITION KEYBOARD OPERATOR from a [facility] with a chief complaint of febrile illness since 3 days ago. Patient is sleeping in ED and PHOTOCOMPOSITION KEYBOARD OPERATOR gave history. Patient was diagnosed with bronchitis 3 days ago and was given a z-ady. PHOTOCOMPOSITION KEYBOARD OPERATOR noticed especially today that patient was much more lethargic than normal and had a low-grade fever. Symptoms aggravated by nothing. Symptoms alleviated by nothing Level 5 Caveat: mentally disabled - History of Current Complaint Chief Complaint: EDFever Time Seen by Provider: 10/21/18 16:33 Hx Obtained From: Family/Medical Biller - nurse from usp Hx From Patient Unobtainable Due To: Altered Mental Status Onset/Duration: Started Days Ago, Still Present Timing: Constant Pain Intensity: 0 Pain Scale Used: 0-10 Numeric Aggravating Factors: Nothing Alleviating Factors: Nothing - Additional Pertinent History Primary Care Physician: BRENTON - Allergy/Home Medications Allergies/Adverse Reactions: Allergies Allergy/AdvReac Type Severity Reaction Status Date / Time fluconazole [From Diflucan] Allergy See Comment Verified 10/21/18 17:52 PMH/Surg Hx/FS Hx/Imm Hx Previously Healthy: No - Level 5 Caveat: AMS Cardiovascular History: Denies: Hx Pacemaker/ICD Comment Only: Other Cardiovascular Problems/Disorders - hyperlipidemia Respiratory History: Reports: Hx Pneumonia GI History: Reports: Hx Gastroesophageal Reflux Disease, Hx Hiatal Hernia - repair, Other GI Disorders - chronic/current constipation. recurrent UTI History: Comment Only: Other Problems/Disorders - incontinent; chronic UTIs Musculoskeletal History: Reports: Other Musculoskeletal History - growth abnormalities Sensory History: Denies: Hx Contacts or Glasses, Hx Hearing Aid Opthamlomology History: Denies: Hx Contacts or Glasses Neurological History: Reports: Hx Developmental Delay, Hx Seizures, Other Neuro Impairments/Disorders - cerebal palsy Psychiatric History: Denies: Hx Panic Disorder - Surgical History Surgery Procedure, Year, and Place: HERNIA REPAIR; ALL TEETH REMOVED Hx Anesthesia Reactions: No - Immunization History Date of Tetanus Vaccine: PT NON VERBAL - UNSURE Date of Influenza Vaccine: 2013 Infectious Disease History: No Infectious Disease History: Denies: Traveled Outside the [place] in Last 30 Days - Family History Known Family History: Negative: Cardiac Disease, Hypertension - Social History Lives: Assisted Living Alcohol Use: None Hx Substance Use: No Substance Use Type: Reports: None Hx Tobacco Use: No Smoking Status (MU): Never Smoked Tobacco Have You Smoked in the Last Year: No Review of Systems Positive: Fever, Fatigue Positive: Weakness All Other Systems Reviewed And Are Negative: No - Comments Additional Review of Systems Comments: Level 5 Caveat: AMS Physical Exam - Summary Physical Exam Summary: Appearance: Well appearing, no pain distress, tends to right side. Skin: warm, dry, reflects adequate perfusion Head/face: normal Eyes: pupils are small ENT: mucous membranes moist Neck: supple, non-tender Respiratory: limited by shallow respiration Cardiovascular: RRR, pulses symmetrical Abdomen: non-tender, soft Bowel Sounds: present Musculoskeletal: normal, strength/ROM intact Neuro: limited by somnolence Triage Information Reviewed: Yes Vital Signs On Initial Exam: Initial Vitals Temp Pulse Resp BP Pulse Ox 98.3 F 103 16 130/81 86 10/21/18 16:15 10/21/18 16:15 10/21/18 16:15 10/21/18 16:15 10/21/18 16:15 Vital Signs Reviewed: Yes Completion Of Physical Exam Limited Due To: Altered Mental Status, Level 5 Diagnostics - Vital Signs Vital Signs Temp Pulse Resp BP Pulse Ox 10/21/18 16:15 98.3 F 103 16 130/81 86 - Laboratory Result Diagrams: 10/21/18 17:14 10/21/18 17:14 Lab Statement: Any lab studies that have been ordered have been reviewed, and results considered in the medical decision making process. - Radiology CXR Radiology Interpretation Completed By: Radiologist Summary of Radiographic Findings: CXR reveals, per radiologist, IMPRESSION: NO ACTIVE CARDIOPULMONARY DISEASE. ED physician has reviewed this radiology report. - EKG 1640 Cardiac Rate: NL EKG Rhythm: Sinus Rhythm - 93 BPM Summary of EKG Findings: An EKG, taken 1640, reveals NSR (93 BPM), normal axis, normal intervals, minimal ST depressions in inferior leads. Course/Dx - Course Course Of Treatment: Tonically ill patient with multiple comorbidities and recent fever. She is dry appearing with cough per her caregivers. BUN of 70 with sodium of 161. Could have pneumonia but unable to blossoms the infiltrate given her dehydration. Sodium is at ken-morbid levels. Dilantin has been toxic in the past and today also is toxic at 40. We'll continue to hydrate her , 30 mL per kilo was given here. She'll be admitted to the hospitalist service and was given IV Rocephin. She was only able to give a few drops of urine on straight catheter. Admit for Dilantin toxicity, sepsis and extremely high sodium. - Febrile Illness Differential Diagnoses: Abd. Infection, Bacteremia, Fever of Unknown Origin, Other: - Toxic Dilantin - Diagnoses Provider Diagnoses: Sepsis syndrome, Hypernatremia, Dehydration, Delirium, Dilantin toxicity - Provider Notifications Discussed Care Of Patient With: Bharath Louie - Hospitalist Time Discussed With Above Provider: 18:15 - We discussed patient care with Dr. Louie (Hospitalist) at 1815 and they agreed to admit the patient. - Critical Care Time Critical Care Time: 30-74 min - Critical care time is exclusive of separately billable procedures Discharge - Sign-Out/Discharge Documenting (check all that apply): Patient Departure - Discharge Plan Condition: Critical Disposition: ADMITTED TO [facility] Referrals: Morales Kim MD [Primary Care Provider] - - Billing Disposition and Condition Condition: CRITICAL Disposition: Admitted to [facility] - Attestation Statements Document Initiated by Benigno: Yes Documenting Scribe: Shmuel Lam Provider For Whom Scribe is Documenting (Include Credential): Freddie Newton MD Scribe Attestation: Shmuel Watt, scribed for Freddie Newton MD on 10/21/18 at 1921. Scribe Documentation Reviewed: Yes Provider Attestation: The documentation as recorded by the Shmuel israel accurately reflects the service I personally performed and the decisions made by , Freddie Newton MD Status of Scribe Document: Viewed
[2018-10-21 17:35] LABS: ABS Basophils 0 10^3/ul (0-0.2); ABS Eosinophils 0 10^3/ul (0-0.6); ABS Lymphocytes 1.2 10^3/ul (1.0-4.8); ABS Monocytes 1.3 10^3/ul (0-0.8); ABS Neutrophils 14.1 10^3/ul (1.5-7.7); ABS Nucleated RBC 0 10^3/ul; Eosinophil % 0 %; Hematocrit 55 % (35-47); Lymphocyte % 7.4 %; Mean Corpuscular HGB Conc 33 g/dl (31-36); Mean Corpuscular Hemoglobin 30 pg (27-31); Mean Corpuscular Volume 93 fL (80-97); Mean Platelet Volume 8.5 fL (7.4-10.4); Nucleated Red Blood Cells % 0; Platelet Count 314 10^3/ul (150-450); Red Blood Count 5.93 10^6/ul (4.00-5.40); Red Cell Distribution Width 14 % (10.5-15); White Blood Count 16.7 10^3/ul (3.5-10.8)
[2018-10-21 17:36] LABS: Activated Partial Thrombo Time 31.2 seconds (26.0-36.3); INR 1.13 (0.77-1.02)
[2018-10-21 17:52] LABS: Albumin 4.8 g/dL (3.2-5.2); Albumin/Globulin Ratio 1.4 (1-3); BUN/Creatinine Ratio 60.9 (8-20); C Reactive Protein 12.6 mg/L (<8.01); Calcium 10.2 mg/dL (8.6-10.3); EGFR Non-African American 48.5 (>60); Globulin 3.5 g/dL (2-4); Potassium 4.3 mmol/L (3.5-5.0); Total Bilirubin 0.5 mg/dL (0.2-1.0); Total Protein 8.3 g/dL (6.4-8.9)
[2018-10-21] MEDS ORDERED: cefTRIAXone(*) 1 GM in NS 0.9% 50 ML* 50 ML IVPB ONE (18:22)
[2018-10-21 18:52] LABS: Phenytoin 40.5 mcg/mL (10-20)
[2018-10-21] MEDS ORDERED: NS 0.9% 1000 ML* 1,000 ML IV SCH (19:00)
[2018-10-21 19:04] LABS: Urine Appearance Cloudy; Urine Bacteria 1+ (Absent); Urine Bilirubin Negative (Negative); Urine Blood 2+ (Negative); Urine Color Yellow; Urine Glucose Negative (Negative); Urine Ketones 1+ (Negative); Urine Nitrite Negative (Negative); Urine Protein 1+(30 mg/dL) (Negative); Urine Red Blood Cell 3+(>10/hpf) (Absent); Urine Urobilinogen Negative (Negative); Urine White Blood Cell 3+(>20/hpf) (Absent)
--- NOTE | 2018-10-21 20:45 | HP ---
CC: Dr. Kim* [facility] MEDICINE HISTORY AND PHYSICAL: DATE OF ADMISSION: 10/21/18 ATTENDING PHYSICIAN: Bharath Louie MD* (dictation provided by Misti Garcia NP) CHIEF COMPLAINT: Altered mental status. HISTORY OF PRESENT ILLNESS: Ms. Mitchell is a 58-year-old female with a past medical history of profound intellectual developmental delay as well as cerebral palsy. At baseline, she is nonverbal and minimally interactive. Information is obtained today from the MULTIFOCAL BUTTON GENERATOR who is at the bedside. Approximately 3 to 4 days ago, she was noted to have a cough; it was suspected that she had bronchitis. At that point, she was started on azithromycin. Her MULTIFOCAL BUTTON GENERATOR notes that she has had a fever as high as 101.7. Today, it is as high as 100.3. She seemed less responsive to him today and after several hours when she did not "perk up," he felt that she needed to come to the emergency room for evaluation. He feels that her symptoms are consistent with previous history when she had taken poor oral intake and developed a Dilantin toxicity. In the emergency room, Ms. Mitchell had labs that showed that her sodium was 161, her BUN was 70, creatinine 1.15 consistent with profound dehydration consistent with history of very poor oral intake recently. Her CRP is 12.60. WBC 16.7, hemoglobin 18, hematocrit 55 and she does in fact have phenytoin toxicity with level of 40.5. PAST MEDICAL HISTORY: 1. Seizure disorder. 2. GERD. 3. Chronic UTIs. 4. Hiatal hernia. 5. Intellectual developmental delay. 6. Hyperlipidemia. 7. Cerebral palsy. MEDICATIONS: 1. Hydrocortisone topical b.i.d. 2. Ibuprofen 400 mg p.o. q.6 hours p.r.n. 3. Fexofenadine 180 mg p.o. daily. 4. Z-Sheldon 250 mg p.o. daily. 5. Tylenol 650 mg p.o. q.4 hours p.r.n. 6. Multivitamin with iron 1 chewable tab p.o. daily. 7. Ondansetron 4 mg p.o. q.6 hours p.r.n. 8. Nutritional supplement daily. 9. Lorazepam 0.5 mg p.o. p.r.n. for seizures. 10. Sudafed 30 mg p.o. q.6 hours p.r.n. 11. Polyethylene glycol 34 g p.o. q.a.m. 12. Phenytoin 50 mg p.o. b.i.d. 13. Levetiracetam 1000 mg p.o. b.i.d. ALLERGIES: To FLUCONAZOLE. FAMILY HISTORY: Unobtainable. SOCIAL HISTORY: No report of alcohol, tobacco, or drug use. She lives at [facility]. REVIEW OF SYSTEMS: Unobtainable. PHYSICAL EXAMINATION GENERAL: Ms. Mitchell is lying in the bed. She is unresponsive to my stimulation today. VITAL SIGNS: Temperature 98.3, pulse rate 70, respiratory rate 24, O2 saturation 96% on room air, blood pressure 95/64. HEENT: Her pupils are reactive. Her tongue is protruded from the right side of her mouth. The patient's MULTIFOCAL BUTTON GENERATOR states this is baseline. LUNGS: Clear to auscultation bilaterally with no accessory muscle use and good aeration. HEART: S1, S2. No murmur, rub, or gallop and regular. ABDOMEN: Soft, nontender with bowel sounds positive x4. EXTREMITIES: No cyanosis or edema. SKIN: Intact. LABORATORY DATA/DIAGNOSTIC STUDIES: WBC 16.7, hemoglobin 18.0, hematocrit 55, platelet count 314. INR 1.13. Sodium 161, potassium 4.3, chloride 118, serum bicarbonate 26, BUN 70, creatinine 1.15, glucose 156. Lactic acid 1.4. Troponin 0.04. CRP 12.60. Urine is not obtained yet. Phenytoin level 40.5 and flu swab is negative. Chest x-ray is negative. ASSESSMENT: Ms. Mitchell is a 58-year-old female with a past medical history of profound intellectual developmental delay and cerebral palsy, who presents today to the hospital after having what was thought to be bronchitis with poor oral intake, now with hypernatremia and phenytoin toxicity. Our plans are for inpatient admission with expected length of stay to be greater than 2 days for the followin. Phenytoin toxicity: Plan to hold phenytoin. We will recheck each a.m. We will consult with Neurology, but we would anticipate resuming phenytoin when the level is approximately 25. The patient will continue on levetiracetam IV. The patient is on seizure precautions. 2. Hypernatremia. We have begun hydrating the patient in the emergency room. We will continue overnight. Plan to repeat a BMP at midnight and 6am to ensure a slow rate of correction (~10 mmol per day) 3. Question of fever and infection. The patient's CRP is not dramatically elevated. I question whether or not perhaps she had a viral illness leading to these symptoms. However, given her severe illness, plan to treat at least with 1 dose of ceftriaxone and this can be reevaluated tomorrow. Note that I see no source of infection at this point, but urinalysis is pending. 4. Elevated troponin. The patient's troponin is minimally elevated, but we will repeat x2. 5. DVT prophylaxis. Heparin subcu. 6. Code status. Full code. TIME SPENT: Approximately 60 minutes was spent on the admission of this patient , more than half of the time was spent with the patient at the bedside reviewing the events leading up to this hospitalization with the MULTIFOCAL BUTTON GENERATOR, performing the physical examination and reviewing the plan of care. MISTI GARCIA NP [id number]/CPS #: [id number] MARIO
[2018-10-21] MEDS ORDERED: levETIRAcetam IV* 1,000 MG in NS 0.9% 100 ML* 100 ML IVPB SCH (21:00)
[2018-10-21] MEDS: levETIRAcetam IV* 750 MG in NS 0.9% 100 ML* 100 ML IVPB SCH (23:37)
[2018-10-21] MEDS ORDERED: D5W 500 ML BAG* 500 ML IV SCH ×3 (23:45)
[2018-10-22] MEDS: Heparin VIAL(*) 5000 UNITS/ML VIAL (FIVE THOUSAND) SUBCUT SCH ×4 (00:25→22:05)
[2018-10-22 00:41] LABS: EGFR Non-African American 64.3 (>60); Potassium 4.6 mmol/L (3.5-5.0)
[2018-10-22 06:44] LABS: BUN/Creatinine Ratio 52.4 (8-20); EGFR Non-African American 71.6 (>60); Potassium 3.9 mmol/L (3.5-5.0)
[2018-10-22] MEDS: levETIRAcetam IV* 750 MG in NS 0.9% 100 ML* 100 ML IVPB SCH ×2 (10:51→22:01)
[2018-10-22] MEDS ORDERED: D5W 1000 ML BAG* 1,000 ML IV SCH ×2 (11:30→16:31)
--- NOTE | 2018-10-22 13:28 | ECHO ---
Patient: KATELYN BALBUENA [facility] Rec#: [id number] : 1960 Date: 10/22/2018 Age: 58y Height: 132.1 cm / 52.0 in Weight: 27.7 kg / 61.1 lbs Sex: F BSA: 1 Room#: ICU 8 Admit Date#: 10/21/2018 Type: Inpatient Referring: Lemuel Harrell Reading: Bridger Lamar MD Steel Sampler: Huyen Sheridan RN RDCS CC: Morales Kim MD Transthoracic Echocardiogram Indication: Mildly elevated troponin levels, altered mental status BP: 118/69 HR: 53 Rhythm: Bradycardia Findings History: Profound intellectual delay, cerebral palsy, HLD, seizures, hiatal hernia, admitted with altered mental status, dehydration, and dilantin toxicity. Technical Comments: The study is technically limited due to poor acoustic windows. Only parasternal images and a non-standard A4C view were able to be obtained. The study is technically limited due to patient body habitus. Left Ventricle: The left ventricular chamber size is decreased. There is no left ventricular hypertrophy. Global left ventricular wall motion and contractility are within normal limits. There is normal left ventricular systolic function. The estimated ejection fraction is 55-60%. The assessment of diastolic function is non-diagnostic. Left Atrium: The left atrial cavity size is abnormally small. Right Ventricle: The right ventricle wall thickness is mildly increased. The right ventricular cavity size is normal. The right ventricular global systolic function is low normal. Right Atrium: The right atrial cavity size is normal. Aortic Valve: The aortic valve structure is not well visualized. The aortic valve leaflets are mildly thickened. There is no evidence of aortic regurgitation. There is no evidence of aortic stenosis. Mitral Valve: The mitral valve leaflets are mildly thickened. There is no evidence of mitral regurgitation. Tricuspid Valve: The tricuspid valve leaflets are normal. There is trace tricuspid regurgitation. Unable to estimate the right ventricular systolic pressure. Pulmonic Valve: The pulmonic valve structure is not well visualized. There is no evidence of pulmonic regurgitation. There is no pulmonic stenosis. Pericardium: There is no significant pericardial effusion. Aorta: The ascending aorta is not well visualized. The aortic arch is not well visualized. There is no dilation of the aortic root. Pulmonary Artery: The main pulmonary artery is not well visualized. Venous: The venous system is not well visualized. Conclusions There is normal left ventricular systolic function. The estimated ejection fraction is 55-60%. Global left ventricular wall motion and contractility are within normal limits. The left ventricular chamber size is decreased. The left atrial cavity size is abnormally small. Functionally benign heart valves. There is no prior echocardiogram available to compare with at this time. Measurements Name Value Normal Range RVIDd (AP) 2D 2.3 cm (0.9 - 2.6) RVDdMajor (2D) 2.6 cm (2.2 - 4.4) RVAW (2D) 0.8 cm (0.2 - 0.5) RAd ISD 4CH 3.5 cm (3.4 - 4.9) RA (A4C)W 2.9 cm (2.9 - 4.6) IVSd (2D) 0.9 cm (0.6 - 1) LVPWd (2D) 0.9 cm (0.6 - 1) LVIDd (2D) 2.7 cm (3.6 - 5.4) Aortic Annulus 1.7 cm (1.4 - 2.6) Ao root diameter (2D) 2.6 cm (2.1 - 3.5) LA dimension (AP) 2D 2 cm (2.3 - 3.8) Name Value Normal Range MV E-wave Vmax 0.5 m/sec - MV deceleration time 330 msec - MV A-wave Vmax 0.63 m/sec - MV E:A ratio 0.78 ratio - Name Value Normal Range AV Vmax 0.94 m/sec - AV VTI 18.5 cm - AV peak gradient 4 mmHg - AV mean gradient 2 mmHg - LVOT Vmax 0.9 m/sec - LVOT VTI 17 cm - LVOT peak gradient 3 mmHg - LVOT mean gradient 2 mmHg - Name Value Normal Range PV Vmax 0.83 m/sec -
[2018-10-22 15:49] LABS: ALT 16 U/L (7-52); Albumin 3.3 g/dL (3.2-5.2); Albumin/Globulin Ratio 1.3 (1-3); Alkaline Phosphatase 120 U/L (34-104); BUN/Creatinine Ratio 44.6 (8-20); Blood Urea Nitrogen 29 mg/dL (6-24); CO2 Carbon Dioxide 28 mmol/L (22-32); Calcium 8.6 mg/dL (8.6-10.3); EGFR Non-African American 93.6 (>60); Globulin 2.5 g/dL (2-4); Glucose 230 mg/dL (70-100); Total Protein 5.8 g/dL (6.4-8.9)
[2018-10-22 15:53] LABS: Chloride 121 mmol/L (101-111); Sodium 152 mmol/L (135-145)
[2018-10-22 15:55] LABS: Phenytoin 28.2 mcg/mL (10-20)
[2018-10-22 16:02] LABS: Anion Gap 3 mmol/L (2-11)
--- NOTE | 2018-10-22 17:33 | PN ---
Subjective Date of Service: 10/22/18 Interval History: Pt seen and examined. Meds and labs reviewed. CC: N/A ROS: Unable to obtain reliable 14 point ROS due to baseline developmental delay PHYSICAL EXAM: GEN APPEARANCE: Awake, not in acute distress HEENT: NC/AT, PERRLA, moist oral mucosa, (-) throat erythema NECK: Soft, supple, (-) cervical LAD, (-)JVD HEART: S1S2 WNL, RRR, No MRG CHEST: CTA, BL, GAE, No W/R/R ABD: Soft, ND/NT, NABS 4x Q EXT: No C/C/E SKIN: Warm to touch, skin tenting PSYCH: No active psychosis, hallucinations, depression, SI/HI Objective Active Medications: Heparin Sodium (Porcine) (Heparin Vial(*)) 5,000 units SUBCUT Q8HR [facility] Last Admin: 10/22/18 13:21 Dose: 5,000 units Ceftriaxone Sodium 1 gm/ (Sodium Chloride) 50 mls @ 200 mls/hr IVPB Q24H AVE Levetiracetam 750 mg/ Sodium (Chloride) 107.5 mls @ 430 mls/hr IVPB Q12H [facility] Last Admin: 10/22/18 10:51 Dose: 430 mls/hr Dextrose (D5w 1000 Ml Bag*) 1,000 mls @ 75 mls/hr IV PER RATE [facility] Vital Signs - 8 hr 10/22/18 10/22/18 10/22/18 09:45 10:00 10:15 Temperature Pulse Rate 62 62 75 Respiratory 17 19 17 Rate Blood Pressure 100/59 98/59 118/70 (mmHg) O2 Sat by Pulse 92 91 95 Oximetry 10/22/18 10/22/18 10/22/18 10:31 10:45 11:00 Temperature Pulse Rate 54 58 69 Respiratory 11 16 17 Rate Blood Pressure 137/66 120/68 137/72 (mmHg) O2 Sat by Pulse 95 94 91 Oximetry 10/22/18 10/22/18 10/22/18 11:15 11:30 11:45 Temperature 98 F Pulse Rate 66 67 69 Respiratory 22 25 23 Rate Blood Pressure 115/78 116/90 115/66 (mmHg) O2 Sat by Pulse 95 93 92 Oximetry 10/22/18 10/22/18 10/22/18 12:00 12:15 12:30 Temperature Pulse Rate 68 66 79 Respiratory 17 24 36 Rate Blood Pressure 109/81 119/68 125/73 (mmHg) O2 Sat by Pulse 94 94 93 Oximetry 10/22/18 10/22/18 10/22/18 12:45 13:00 13:15 Temperature Pulse Rate 66 68 68 Respiratory 13 16 23 Rate Blood Pressure 113/64 118/61 111/64 (mmHg) O2 Sat by Pulse 93 94 94 Oximetry 10/22/18 10/22/18 10/22/18 13:30 13:45 14:00 Temperature Pulse Rate 66 67 67 Respiratory 18 30 25 Rate Blood Pressure 112/64 125/88 114/64 (mmHg) O2 Sat by Pulse 90 91 89 Oximetry 10/22/18 10/22/18 10/22/18 14:15 14:30 14:45 Temperature Pulse Rate 69 72 64 Respiratory 26 19 19 Rate Blood Pressure 103/63 112/67 96/53 (mmHg) O2 Sat by Pulse 94 94 92 Oximetry 10/22/18 10/22/18 10/22/18 15:00 15:15 15:30 Temperature Pulse Rate 65 60 66 Respiratory 18 17 19 Rate Blood Pressure 86/51 111/71 113/71 (mmHg) O2 Sat by Pulse 92 95 95 Oximetry 10/22/18 10/22/18 10/22/18 15:45 16:00 16:15 Temperature Pulse Rate 72 68 66 Respiratory 16 17 17 Rate Blood Pressure 111/67 92/57 118/73 (mmHg) O2 Sat by Pulse 95 97 97 Oximetry 10/22/18 10/22/18 10/22/18 16:45 17:00 17:08 Temperature Pulse Rate 66 77 67 Respiratory 22 20 17 Rate Blood Pressure 110/69 110/61 (mmHg) O2 Sat by Pulse 97 89 97 Oximetry Oxygen Devices in Use Now: Nasal Cannula Result Diagrams: 10/21/18 17:14 10/22/18 15:11 Microbiology and Other Data: Microbiology 10/21/18 17:12 Aerobic Blood Culture - Preliminary Blood Venous No Growth Day 1 Anaerobic Blood Culture - Preliminary No Growth Day 1 10/21/18 18:48 Urine Culture - Preliminary Urine Escherichia Coli 10/21/18 23:40 Nasal Screen MRSA (PCR) - Final Nasal Mrsa Not Detected 10/21/18 17:14 Influenza Types A,B Antigen - Final Nasal Specimen received for Influenza A/B Molecular testing Assess/Plan/Problems-Billing Assessment: - Patient Problems (1) Altered mental status Current Visit: Yes Status: Acute Code(s): R41.82 - ALTERED MENTAL STATUS, UNSPECIFIED SNOMED Code(s): 721859085 Comment: -Likely multifactorial ultimately related to pts poor PO intake causing dehydration leading to increased phenytoin levels and hyponatremia -Improved -Per managed care manager at bedside, pt now at baseline mental status -Repeat Phenytoin levels in AM (2) Hyponatremia Current Visit: Yes Status: Acute Code(s): E87.1 - HYPO-OSMOLALITY AND HYPONATREMIA SNOMED Code(s): 77924454 Comment: #Hypovolemic hyponatremia: -Increased rate of D5W due to slow rate of hyponatremic correction, increased rate to 100cc/hr x 5 hrs and correction of 5 mEq/8hrs; thus, will now decrease to 75cc/hr rate -Will recheck Sodium levels at 10 PM -Continue watchful waiting (3) Elevated troponin Current Visit: Yes Status: Acute Code(s): R74.8 - ABNORMAL LEVELS OF OTHER SERUM ENZYMES SNOMED Code(s): 846219673 Comment: -Likely due to SHANIA in the setting of dehydration -2D echo does not show any wall motion abnormalities (4) UTI (urinary tract infection) Current Visit: Yes Status: Acute Comment: -Continue Rocephin -Will await sensitivity data (5) DVT prophylaxis Current Visit: No Status: Acute Code(s): LXX1304 - SNOMED Code(s): 123360447 Comment: -Continue Heparin SQq8H Status and Disposition: -For possible transfer to floors tonight or in AM depending on clinical course vs. bed availability
[2018-10-22] MEDS ORDERED: cefTRIAXone(*) 1 GM in NS 0.9% 50 ML* 50 ML IVPB SCH (18:30)
[2018-10-23] MEDS ORDERED: NS 0.9% 500 ML* 500 ML IV ONE (02:36)
[2018-10-23] MEDS: Heparin VIAL(*) 5000 UNITS/ML VIAL (FIVE THOUSAND) SUBCUT SCH ×3 (05:53→23:34)
[2018-10-23 05:55] LABS: ABS Basophils 0.1 10^3/ul (0-0.2); ABS Eosinophils 0.1 10^3/ul (0-0.6); ABS Lymphocytes 1.8 10^3/ul (1.0-4.8); ABS Monocytes 0.7 10^3/ul (0-0.8); ABS Nucleated RBC 0 10^3/ul; Eosinophil % 0.5 %; Hematocrit 43 % (35-47); Hemoglobin 14.2 g/dl (12.0-16.0); Lymphocyte % 14.3 %; Mean Corpuscular HGB Conc 33 g/dl (31-36); Mean Corpuscular Hemoglobin 31 pg (27-31); Mean Corpuscular Volume 92 fL (80-97); Mean Platelet Volume 8.2 fL (7.4-10.4); Nucleated Red Blood Cells % 0; Platelet Count 190 10^3/ul (150-450); Red Blood Count 4.65 10^6/ul (4.00-5.40); Red Cell Distribution Width 14 % (10.5-15); White Blood Count 12.6 10^3/ul (3.5-10.8)
[2018-10-23 06:15] LABS: BUN/Creatinine Ratio 32.7 (8-20); Calcium 8.9 mg/dL (8.6-10.3); EGFR Non-African American 129.7 (>60); Magnesium 1.9 mg/dL (1.9-2.7); Phosphorus 1.3 mg/dL (2.5-5.0); Potassium 3.5 mmol/L (3.5-5.0)
[2018-10-23 06:42] LABS: Phenytoin 26.7 mcg/mL (10-20)
[2018-10-23] MEDS: levETIRAcetam IV* 750 MG in NS 0.9% 100 ML* 100 ML IVPB SCH ×2 (07:50→22:38)
[2018-10-23] MEDS ORDERED: Acetaminophen SUPP* 650 MG SUPP PR PRN (08:29)
[2018-10-23] MEDS ORDERED: Potassium Phosphate IV* 15 MMOLE in NS 0.9% 250 ML* 250 ML IVPB ONE (09:15)
[2018-10-23] MEDS: NS 0.9% 1000 ML* 1,000 ML IV SCH (11:44)
[2018-10-23 13:23] LABS: Urine Appearance Clear; Urine Bilirubin Negative (Negative); Urine Blood Negative (Negative); Urine Color Yellow; Urine Glucose Negative (Negative); Urine Ketones Negative (Negative); Urine Nitrite Negative (Negative); Urine Protein Negative (Negative); Urine Specific Gravity 1.018 (1.010-1.030); Urine Urobilinogen Negative (Negative)
[2018-10-23] MEDS ORDERED: Zosyn per Pharmacy* NOTE FOLLOW UP SCH ×2 (16:00)
--- NOTE | 2018-10-23 16:09 | PN ---
Subjective Date of Service: 10/23/18 Interval History: Pt seen and examined. Meds and labs reviewed. CC: Febrile episodes w/ TMax = 100.9 per ICU-RN ROS: Unable to obtain reliable 14 point ROS due to baseline developmental delay PHYSICAL EXAM: GEN APPEARANCE: Asleep, arousable, not in acute distress HEENT: NC/AT, PERRLA, moist oral mucosa, (-) throat erythema NECK: Soft, supple, (-) cervical LAD, (-)JVD HEART: S1S2 WNL, RRR, No MRG CHEST: CTA, BL, GAE, No W/R/R ABD: Soft, ND/NT, NABS 4x Q EXT: No C/C/E SKIN: Warm to touch, skin tenting PSYCH: No active psychosis, hallucinations, depression, SI/HI Objective Active Medications: Acetaminophen (Tylenol Supp*) 650 mg WI Q6H PRN PRN Reason: FEVER/PAIN Last Admin: 10/23/18 08:55 Dose: 650 mg Heparin Sodium (Porcine) (Heparin Vial(*)) 5,000 units SUBCUT Q8HR [facility] Last Admin: 10/23/18 13:06 Dose: 5,000 units Levetiracetam 750 mg/ Sodium (Chloride) 107.5 mls @ 430 mls/hr IVPB Q12H [facility] Last Admin: 10/23/18 07:50 Dose: 430 mls/hr Sodium Chloride (Ns 0.9% 1000 Ml*) 1,000 mls @ 125 mls/hr IV PER RATE [facility] Stop: 10/24/18 18:29 Last Admin: 10/23/18 11:44 Dose: 125 mls/hr Vancomycin HCl 500 mg/ Sodium (Chloride) 250 mls @ 166.667 mls/hr IVPB ED ONCE ONE Stop: 10/23/18 16:01 Piperacillin Sod/Tazobactam (Sod 3.375 gm/ Sodium Chloride) 100 mls @ 200 mls/ hr IVPB ONCE ONE Stop: 10/23/18 16:29 Pharmacy Consult (Vancomycin Per Pharmacy*) 1 note FOLLOW UP .VANC PER PHARMACY [facility] Pharmacy Consult (Zosyn Per Pharmacy*) 1 note FOLLOW UP .ZOSYN PER PHARMACY [facility] Pharmacy Consult (Zosyn Per Pharmacy*) 1 note FOLLOW UP .ZOSYN PER PHARMACY [facility] Vital Signs - 8 hr 10/23/18 10/23/18 10/23/18 09:00 09:01 10:00 Temperature Pulse Rate 70 61 71 Respiratory 19 14 14 Rate Blood Pressure 126/72 (mmHg) O2 Sat by Pulse 95 93 93 Oximetry 10/23/18 10/23/18 10/23/18 10:28 11:00 11:01 Temperature 100.1 F Pulse Rate 70 67 68 Respiratory 29 16 17 Rate Blood Pressure 109/66 110/64 (mmHg) O2 Sat by Pulse 89 87 88 Oximetry 10/23/18 10/23/18 12:37 12:39 Temperature 98.0 F Pulse Rate 69 Respiratory 16 16 Rate Blood Pressure 111/60 (mmHg) O2 Sat by Pulse 99 Oximetry Oxygen Devices in Use Now: Nasal Cannula Result Diagrams: 10/23/18 05:40 10/23/18 05:40 Microbiology and Other Data: Microbiology 10/21/18 17:12 Aerobic Blood Culture - Preliminary Blood Venous No Growth Day 1 Anaerobic Blood Culture - Preliminary No Growth Day 1 10/21/18 18:48 Urine Culture - Preliminary Urine Escherichia Coli 10/21/18 23:40 Nasal Screen MRSA (PCR) - Final Nasal Mrsa Not Detected 10/21/18 17:14 Influenza Types A,B Antigen - Final Nasal Specimen received for Influenza A/B Molecular testing Assess/Plan/Problems-Billing Assessment: - Patient Problems (1) Fever Current Visit: Yes Status: Acute Code(s): R50.9 - FEVER, UNSPECIFIED SNOMED Code(s): 254158427 Comment: -Official CXR reading possible consolidation on retrocardiac space -Will await for repeat cultures -Likely due to Aspiration PNA??? Will obtain CT of chest non-contrast to better evaluate -D/C Rocephin and Start Zosyn and Vancomycin (2) Hyponatremia Current Visit: Yes Status: Acute Code(s): E87.1 - HYPO-OSMOLALITY AND HYPONATREMIA SNOMED Code(s): 06511880 Comment: #Hypovolemic hyponatremia: -D/C D5W and place pt on NS -Continue watchful waiting (3) Elevated troponin Current Visit: Yes Status: Acute Code(s): R74.8 - ABNORMAL LEVELS OF OTHER SERUM ENZYMES SNOMED Code(s): 227242006 Comment: -Likely due to SHANIA in the setting of dehydration -2D echo does not show any wall motion abnormalities (4) UTI (urinary tract infection) Current Visit: Yes Status: Acute Comment: -Pt now on Zosyn (5) DVT prophylaxis Current Visit: No Status: Acute Code(s): ZCO6077 - SNOMED Code(s): 722136699 Comment: -Continue Heparin SQq8H Status and Disposition: -As above
[2018-10-23] MEDS ORDERED: Piperacillin/Tazobac ADVAN(*) 3.375 GM in NS 0.9% 100 ML* 100 ML IVPB ONE (16:15)
[2018-10-23] MEDS ORDERED: Vancomycin(*) 500 MG in NS 0.9% 250 ML* 250 ML IVPB ONE (17:00)
[2018-10-23] MEDS ORDERED: Vancomycin per Pharmacy* NOTE FOLLOW UP SCH (17:00)
[2018-10-23] MEDS: ZOSYN 3.375 GM Q8H per EXTENDED INFUSION IVPB SCH ×2 (20:21)
[2018-10-24] MEDS: NS 0.9% 1000 ML* 1,000 ML IV SCH (02:52)
[2018-10-24] MEDS: ZOSYN 3.375 GM Q8H per EXTENDED INFUSION IVPB SCH ×6 (04:50→21:14)
[2018-10-24] MEDS: Vancomycin(*) 500 MG in NS 0.9% 250 ML* 250 ML IVPB SCH ×2 (05:52→17:47)
[2018-10-24] MEDS: Heparin VIAL(*) 5000 UNITS/ML VIAL (FIVE THOUSAND) SUBCUT SCH ×3 (05:52→22:34)
[2018-10-24 06:09] LABS: ABS Basophils 0 10^3/ul (0-0.2); ABS Eosinophils 0.2 10^3/ul (0-0.6); ABS Lymphocytes 1.2 10^3/ul (1.0-4.8); ABS Monocytes 0.5 10^3/ul (0-0.8); ABS Neutrophils 9.8 10^3/ul (1.5-7.7); ABS Nucleated RBC 0 10^3/ul; Eosinophil % 1.7 %; Hematocrit 36 % (35-47); Hemoglobin 11.4 g/dl (12.0-16.0); Mean Corpuscular HGB Conc 32 g/dl (31-36); Mean Corpuscular Hemoglobin 31 pg (27-31); Mean Corpuscular Volume 96 fL (80-97); Mean Platelet Volume 8.4 fL (7.4-10.4); Nucleated Red Blood Cells % 0; Platelet Count 126 10^3/ul (150-450); Red Blood Count 3.73 10^6/ul (4.00-5.40); Red Cell Distribution Width 14 % (10.5-15); White Blood Count 11.7 10^3/ul (3.5-10.8)
[2018-10-24 06:26] LABS: Albumin 2.5 g/dL (3.2-5.2); Calcium 8.3 mg/dL (8.6-10.3); Magnesium 1.9 mg/dL (1.9-2.7); Potassium 3.7 mmol/L (3.5-5.0); Total Bilirubin 0.4 mg/dL (0.2-1.0)
[2018-10-24 06:32] LABS: Albumin/Globulin Ratio 1.5 (1-3); BUN/Creatinine Ratio 22.2 (8-20); EGFR Non-African American 143.1 (>60); Globulin 1.7 g/dL (2-4); Phosphorus 2.8 mg/dL (2.5-5.0); Total Protein 4.2 g/dL (6.4-8.9)
[2018-10-24] MEDS: levETIRAcetam IV* 750 MG in NS 0.9% 100 ML* 100 ML IVPB SCH ×2 (09:27→22:25)
[2018-10-24] MEDS: D5W 1000 ML BAG* 1,000 ML IV SCH (09:27)
[2018-10-24] MEDS ORDERED: Acetylcysteine INHALATION SOL* 200 MG/ML NEB.SOLN 10 ML INH PRN (13:21)
--- NOTE | 2018-10-24 13:32 | PN ---
Subjective Date of Service: 10/24/18 Interval History: Pt seen and examined. Meds and labs reviewed. CC: N/A ROS: Unable to provide reliable 14 point ROS due to Developmental delay PHYSICAL EXAM: GEN APPEARANCE: Awake, not in acute distress HEENT: NC/AT, PERRLA, moist oral mucosa, (-) throat erythema NECK: Soft, supple, (-) cervical LAD, (-)JVD HEART: S1S2 WNL, RRR, No MRG CHEST: CTA, BL, GAE, No W/R/R ABD: Soft, ND/NT, NABS 4x Q EXT: No C/C/E SKIN: Warm to touch PSYCH: No active psychosis, hallucinations, depression, SI/HI Objective Active Medications: Acetaminophen (Tylenol Supp*) 650 mg RI Q6H PRN PRN Reason: FEVER/PAIN Last Admin: 10/23/18 08:55 Dose: 650 mg Acetylcysteine (Mucomyst Inhalation Daniela*) 400 mg INH [id number] AWAKE PRN PRN Reason: CONGESTION Stop: 10/26/18 13:20 Heparin Sodium (Porcine) (Heparin Vial(*)) 5,000 units SUBCUT Q8HR [facility] Last Admin: 10/24/18 05:52 Dose: 5,000 units Levetiracetam 750 mg/ Sodium (Chloride) 107.5 mls @ 430 mls/hr IVPB Q12H [facility] Last Admin: 10/24/18 09:27 Dose: 430 mls/hr Piperacillin Sod/Tazobactam (Sod 3.375 gm/ Sodium Chloride) 100 mls @ 25 mls/ hr IVPB Q8H [facility] Last Admin: 10/24/18 12:26 Dose: 25 mls/hr Vancomycin HCl 500 mg/ Sodium (Chloride) 250 mls @ 250 mls/hr IVPB Q12H [facility] Last Admin: 10/24/18 05:52 Dose: 250 mls/hr Dextrose (D5w 1000 Ml Bag*) 1,000 mls @ 75 mls/hr IV PER RATE [facility] Stop: 10/25/18 22:19 Last Admin: 10/24/18 09:27 Dose: 75 mls/hr Pharmacy Consult (Vancomycin Per Pharmacy*) 1 note FOLLOW UP .VANC PER PHARMACY [facility] Pharmacy Consult (Zosyn Per Pharmacy*) 1 note FOLLOW UP .ZOSYN PER PHARMACY [facility] Pharmacy Profile Note (Vancomycin Trough Check) 1 note FOLLOW UP 1630 ONE Stop: 10/24/18 16:31 Vital Signs - 8 hr 10/24/18 10/24/18 10/24/18 07:34 07:45 11:23 Temperature 97.4 F 97.4 F Pulse Rate 67 63 Respiratory 16 16 16 Rate Blood Pressure 124/65 110/70 (mmHg) O2 Sat by Pulse 100 100 100 Oximetry Oxygen Devices in Use Now: Nasal Cannula Result Diagrams: 10/24/18 05:47 10/24/18 05:47 Microbiology and Other Data: Microbiology 10/21/18 17:12 Aerobic Blood Culture - Preliminary Blood Venous No Growth Day 1 Anaerobic Blood Culture - Preliminary No Growth Day 1 10/21/18 18:48 Urine Culture - Preliminary Urine Escherichia Coli 10/21/18 23:40 Nasal Screen MRSA (PCR) - Final Nasal Mrsa Not Detected 10/21/18 17:14 Influenza Types A,B Antigen - Final Nasal Specimen received for Influenza A/B Molecular testing Assess/Plan/Problems-Billing Assessment: - Patient Problems (1) Fever Current Visit: Yes Status: Acute Code(s): R50.9 - FEVER, UNSPECIFIED SNOMED Code(s): 958304110 Comment: -Official CXR reading possible consolidation on retrocardiac space, therefore CT scan of chest obtained with likely mucous plugging vs. endobronchial obstructing lesion -Discussed above CT finding with Dr. Sue who recommends PT vest and mucomyst nebulization x2 days and repeat CT in 6 weeksno need for bronchoscopy now given pt appears improved w/c is more consistent with small mucous plugging -Will await for repeat cultures -Likely due to Aspiration PNA??? Will obtain CT of chest non-contrast to better evaluate -D/C Rocephin and Start Zosyn and Vancomycin (2) Hypernatremia Current Visit: Yes Status: Acute Code(s): E87.0 - HYPEROSMOLALITY AND HYPERNATREMIA SNOMED Code(s): 20752216 Comment: #Hypovolemic hypernatremia: -Hypovolemia resolved -D/C NS and re-order D5W -Repeat Sodium levels at 8 PM (3) Elevated troponin Current Visit: Yes Status: Acute Code(s): R74.8 - ABNORMAL LEVELS OF OTHER SERUM ENZYMES SNOMED Code(s): 048673344 Comment: -Likely due to SHANIA in the setting of dehydration -2D echo does not show any wall motion abnormalities (4) UTI (urinary tract infection) Current Visit: Yes Status: Acute Comment: -Pt now on Zosyn (5) DVT prophylaxis Current Visit: No Status: Acute Code(s): [id number] - SNOMED Code(s): 429129207 Comment: -Continue Heparin SQq8H Status and Disposition: -As above
[2018-10-24] MEDS ORDERED: Vancomycin Trough Check NOTE FOLLOW UP ONE (16:30)
[2018-10-25] MEDS: D5W 1000 ML BAG* 1,000 ML IV SCH (00:21)
--- NOTE | 2018-10-25 06:19 | PN ---
Hospitalist Progress Note Date of Service: 10/25/18 signed out reg na but was not ordered repeat na is coming down nicely to 143 will d/c d5w completely
[2018-10-25] MEDS: ZOSYN 3.375 GM Q8H per EXTENDED INFUSION IVPB SCH ×6 (06:21→21:05)
[2018-10-25] MEDS: Heparin VIAL(*) 5000 UNITS/ML VIAL (FIVE THOUSAND) SUBCUT SCH ×3 (06:23→22:44)
[2018-10-25] MEDS: Vancomycin(*) 1,000 MG in NS 0.9% 250 ML* 250 ML IVPB SCH ×2 (06:47→17:35)
[2018-10-25 09:24] LABS: ABS Basophils 0 10^3/ul (0-0.2); ABS Eosinophils 0.3 10^3/ul (0-0.6); ABS Lymphocytes 1.7 10^3/ul (1.0-4.8); ABS Monocytes 0.7 10^3/ul (0-0.8); ABS Neutrophils 8.9 10^3/ul (1.5-7.7); ABS Nucleated RBC 0 10^3/ul; Eosinophil % 2.6 %; Hematocrit 35 % (35-47); Hemoglobin 11.7 g/dl (12.0-16.0); Lymphocyte % 14.4 %; Mean Corpuscular HGB Conc 34 g/dl (31-36); Mean Corpuscular Hemoglobin 31 pg (27-31); Mean Corpuscular Volume 92 fL (80-97); Mean Platelet Volume 8.9 fL (7.4-10.4); Nucleated Red Blood Cells % 0; Platelet Count 126 10^3/ul (150-450); Red Blood Count 3.79 10^6/ul (4.00-5.40); Red Cell Distribution Width 14 % (10.5-15); White Blood Count 11.6 10^3/ul (3.5-10.8)
[2018-10-25] MEDS: levETIRAcetam IV* 750 MG in NS 0.9% 100 ML* 100 ML IVPB SCH ×2 (09:26→22:44)
--- NOTE | 2018-10-25 09:26 | PN ---
Subjective Date of Service: 10/25/18 Interval History: Seen with manager managed care at bedside Pt more alert and closer to baseline per manager managed care pt unable to contribute Objective Active Medications: Acetaminophen (Tylenol Supp*) 650 mg MD Q6H PRN PRN Reason: FEVER/PAIN Last Admin: 10/23/18 08:55 Dose: 650 mg Acetylcysteine (Mucomyst Inhalation Daniela*) 400 mg INH [id number] AWAKE PRN PRN Reason: CONGESTION Stop: 10/26/18 13:20 Heparin Sodium (Porcine) (Heparin Vial(*)) 5,000 units SUBCUT Q8HR [facility] Last Admin: 10/25/18 06:23 Dose: 5,000 units Levetiracetam 750 mg/ Sodium (Chloride) 107.5 mls @ 430 mls/hr IVPB Q12H [facility] Last Admin: 10/24/18 22:25 Dose: 430 mls/hr Piperacillin Sod/Tazobactam (Sod 3.375 gm/ Sodium Chloride) 100 mls @ 25 mls/ hr IVPB Q8H [facility] Last Admin: 10/25/18 06:21 Dose: 25 mls/hr Vancomycin HCl 1,000 mg/ (Sodium Chloride) 250 mls @ 166.667 mls/hr IVPB Q12H [facility] Last Admin: 10/25/18 06:47 Dose: 166.667 mls/hr Pharmacy Consult (Vancomycin Per Pharmacy*) 1 note FOLLOW UP .VANC PER PHARMACY [facility] Pharmacy Consult (Zosyn Per Pharmacy*) 1 note FOLLOW UP .ZOSYN PER PHARMACY [facility] Pharmacy Profile Note (Vancomycin Trough Check) 1 note FOLLOW UP ONCE ONE Stop: 10/26/18 04:31 Vital Signs - 8 hr 10/25/18 04:23 Temperature 98.6 F Pulse Rate 61 Respiratory 18 Rate Blood Pressure 99/62 (mmHg) O2 Sat by Pulse 96 Oximetry Oxygen Devices in Use Now: None Appearance: lying flat, NAD Eyes: No Scleral Icterus Ears/Nose/Mouth/Throat: Clear Oropharnyx Neck: NL Appearance and Movements; NL JVP, Trachea Midline Respiratory: Symmetrical Chest Expansion and Respiratory Effort, Clear to Auscultation, - - absent BS in left base Cardiovascular: RRR Abdominal: NL Sounds; No Tenderness; No Distention, No Hepatosplenomegaly Lymphatic: No Cervical Adenopathy Extremities: No Edema Skin: No Rash or Ulcers Neurological: - - AOx0, contracted in extremities Result Diagrams: 10/24/18 05:47 10/24/18 22:58 Microbiology and Other Data: Microbiology 10/21/18 17:12 Aerobic Blood Culture - Preliminary Blood Venous No Growth Day 1 Anaerobic Blood Culture - Preliminary No Growth Day 1 10/21/18 18:48 Urine Culture - Preliminary Urine Escherichia Coli 10/21/18 23:40 Nasal Screen MRSA (PCR) - Final Nasal Mrsa Not Detected 10/21/18 17:14 Influenza Types A,B Antigen - Final Nasal Specimen received for Influenza A/B Molecular testing Assess/Plan/Problems-Billing Assessment: 58 F severe intellectual disability p/w aspiration found with hypernatremia and suspected UTI - Patient Problems (1) Altered mental status Comment: -Likely multifactorial ultimately related to pts poor PO intake causing dehydration leading to increased phenytoin levels and hyponatremia -Improved -Per landcare officer at bedside, pt now at baseline mental status -Repeat Phenytoin levels now - restart when <25 (2) Hypernatremia Comment: normalized D5 stopped overnight (3) UTI (urinary tract infection) Comment: -Pt now on Zosyn (4) LLL pneumonia Comment: CT with atalectasis as well per Dr. Botello' note discussion with pulm recommended acetalcysteine and chest PT c/w abx - consider narrowing tomorrow (5) Seizure disorder Comment: c/w keppra dilantin lvl now and restart when lvl <25 (6) DVT prophylaxis Comment: -Continue Heparin SQq8H Status and Disposition: -As above
[2018-10-25 09:36] LABS: BUN/Creatinine Ratio 9.3 (8-20); EGFR Non-African American 150.8 (>60); Potassium 3.4 mmol/L (3.5-5.0)
[2018-10-25] MEDS: Phenytoin CHEW TAB(*) 50 MG PO SCH (22:44)
[2018-10-26] MEDS: ZOSYN 3.375 GM Q8H per EXTENDED INFUSION IVPB SCH ×6 (04:22→20:15)
[2018-10-26] MEDS ORDERED: Vancomycin Trough Check NOTE FOLLOW UP ONE (04:30)
[2018-10-26 05:17] LABS: ABS Basophils 0 10^3/ul (0-0.2); ABS Eosinophils 0.4 10^3/ul (0-0.6); ABS Lymphocytes 1.4 10^3/ul (1.0-4.8); ABS Neutrophils 7.7 10^3/ul (1.5-7.7); ABS Nucleated RBC 0 10^3/ul; Eosinophil % 3.4 %; Hematocrit 35 % (35-47); Lymphocyte % 13.5 %; Mean Corpuscular HGB Conc 34 g/dl (31-36); Mean Corpuscular Hemoglobin 30 pg (27-31); Mean Corpuscular Volume 90 fL (80-97); Mean Platelet Volume 8.2 fL (7.4-10.4); Nucleated Red Blood Cells % 0; Platelet Count 192 10^3/ul (150-450); Red Blood Count 3.93 10^6/ul (4.00-5.40); Red Cell Distribution Width 13 % (10.5-15); White Blood Count 10.4 10^3/ul (3.5-10.8)
[2018-10-26 05:34] LABS: BUN/Creatinine Ratio 7.3 (8-20); Calcium 8.7 mg/dL (8.6-10.3); EGFR Non-African American 71.6 (>60); Potassium 3.2 mmol/L (3.5-5.0)
[2018-10-26] MEDS: Vancomycin(*) 1,000 MG in NS 0.9% 250 ML* 250 ML IVPB SCH (06:43)
[2018-10-26] MEDS: Heparin VIAL(*) 5000 UNITS/ML VIAL (FIVE THOUSAND) SUBCUT SCH ×3 (06:48→21:06)
[2018-10-26] MEDS: levETIRAcetam IV* 750 MG in NS 0.9% 100 ML* 100 ML IVPB SCH ×2 (08:38→21:06)
[2018-10-26] MEDS: Phenytoin CHEW TAB(*) 50 MG PO SCH ×2 (08:38→20:15)
[2018-10-26] MEDS ORDERED: Potassium Chloride LIQUID* 20 MEQ PACKET PO ONE (15:20)
[2018-10-26] MEDS: D5W 1000 ML BAG* 1,000 ML IV SCH (15:26)
--- NOTE | 2018-10-26 17:12 | PN ---
Subjective Date of Service: 10/26/18 Interval History: Unable to make needs known 2/2 advanced developmental disability Objective Active Medications: Acetaminophen (Tylenol Supp*) 650 mg ID Q6H PRN PRN Reason: FEVER/PAIN Last Admin: 10/23/18 08:55 Dose: 650 mg Heparin Sodium (Porcine) (Heparin Vial(*)) 5,000 units SUBCUT Q8HR [facility] Last Admin: 10/26/18 13:07 Dose: 5,000 units Levetiracetam 750 mg/ Sodium (Chloride) 107.5 mls @ 430 mls/hr IVPB Q12H [facility] Last Admin: 10/26/18 08:38 Dose: 430 mls/hr Piperacillin Sod/Tazobactam (Sod 3.375 gm/ Sodium Chloride) 100 mls @ 25 mls/ hr IVPB Q8H [facility] Last Admin: 10/26/18 12:25 Dose: 25 mls/hr Dextrose (D5w 1000 Ml Bag*) 1,000 mls @ 75 mls/hr IV PER RATE [facility] Stop: 10/28/18 05:19 Last Admin: 10/26/18 15:26 Dose: 75 mls/hr Pharmacy Consult (Zosyn Per Pharmacy*) 1 note FOLLOW UP .ZOSYN PER [facility]ACY [facility] Phenytoin Sodium (Dilantin Infatabs Chew Tab(*)) 50 mg PO BID [facility] Last Admin: 10/26/18 08:38 Dose: 50 mg Vital Signs - 8 hr 10/26/18 10/26/18 12:32 15:22 Temperature 97.4 F 98.6 F Pulse Rate 54 70 Respiratory 18 20 Rate Blood Pressure 117/67 93/42 (mmHg) O2 Sat by Pulse 97 96 Oximetry Oxygen Devices in Use Now: None Appearance: NAD, playing with toys Eyes: No Scleral Icterus Ears/Nose/Mouth/Throat: NL Teeth, Lips, Gums, Clear Oropharnyx Neck: NL Appearance and Movements; NL JVP, Trachea Midline Respiratory: Symmetrical Chest Expansion and Respiratory Effort, Clear to Auscultation Cardiovascular: RRR Lymphatic: No Cervical Adenopathy Neurological: - - AOx0, moves all extremities, contracted Result Diagrams: 10/26/18 05:11 10/26/18 05:11 Microbiology and Other Data: Microbiology 10/21/18 17:12 Aerobic Blood Culture - Preliminary Blood Venous No Growth Day 1 Anaerobic Blood Culture - Preliminary No Growth Day 1 10/21/18 18:48 Urine Culture - Preliminary Urine Escherichia Coli 10/21/18 23:40 Nasal Screen MRSA (PCR) - Final Nasal Mrsa Not Detected 10/21/18 17:14 Influenza Types A,B Antigen - Final Nasal Specimen received for Influenza A/B Molecular testing Assess/Plan/Problems-Billing Assessment: 58 F severe intellectual disability p/w aspiration found with hypernatremia and suspected UTI - Patient Problems (1) Altered mental status Comment: -Toxic encephalopathy -Poor PO intake causing dehydration leading to increased phenytoin levels and hypernatremia -Per patient care assistant at bedside, pt now at baseline mental status but sodium remains difficult to control -Phenytoin restarted 10/25 (2) Hypernatremia Comment: recurred after d5 stopped restarted 10/26 trend BMP in AM (3) UTI (urinary tract infection) Comment: -Pt now on Zosyn (4) LLL pneumonia Comment: CT with atalectasis as well per Dr. Botello' note discussion with pulm recommended acetalcysteine and chest PT c/w zosyn stopped vanco 10/26 (5) Seizure disorder Comment: c/w keppra dilantin (6) DVT prophylaxis Comment: -Continue Heparin SQq8H Status and Disposition: Inpatient for IV abx and hypernatremia management
[2018-10-26] MEDS ORDERED: Vancomycin(*) 500 MG in NS 0.9% 250 ML* 250 ML IVPB SCH (18:00)
[2018-10-27] MEDS: Heparin VIAL(*) 5000 UNITS/ML VIAL (FIVE THOUSAND) SUBCUT SCH ×3 (05:11→22:03)
[2018-10-27] MEDS: ZOSYN 3.375 GM Q8H per EXTENDED INFUSION IVPB SCH ×6 (05:11→20:05)
[2018-10-27] MEDS: D5W 1000 ML BAG* 1,000 ML IV SCH (05:21)
[2018-10-27] MEDS ORDERED: Vancomycin Trough Check NOTE FOLLOW UP ONE (05:30)
[2018-10-27 05:43] LABS: BUN/Creatinine Ratio 8.4 (8-20); Calcium 8.4 mg/dL (8.6-10.3); EGFR Non-African American 60.4 (>60); Potassium 2.9 mmol/L (3.5-5.0)
[2018-10-27] MEDS: levETIRAcetam IV* 750 MG in NS 0.9% 100 ML* 100 ML IVPB SCH ×2 (08:03→20:03)
[2018-10-27] MEDS: Phenytoin CHEW TAB(*) 50 MG PO SCH ×2 (08:07→22:03)
--- NOTE | 2018-10-27 08:31 | PN ---
Subjective Date of Service: 10/27/18 Interval History: Pt is non-verbal and does not vocalize anything. Objective Active Medications: Acetaminophen (Tylenol Supp*) 650 mg [place] Q6H PRN PRN Reason: FEVER/PAIN Last Admin: 10/23/18 08:55 Dose: 650 mg Heparin Sodium (Porcine) (Heparin Vial(*)) 5,000 units SUBCUT Q8HR [facility] Last Admin: 10/27/18 05:11 Dose: 5,000 units Piperacillin Sod/Tazobactam (Sod 3.375 gm/ Sodium Chloride) 100 mls @ 25 mls/ hr IVPB Q8H [facility] Last Admin: 10/27/18 05:11 Dose: 25 mls/hr Dextrose (D5w 1000 Ml Bag*) 1,000 mls @ 75 mls/hr IV PER RATE [facility] Stop: 10/28/18 05:19 Last Admin: 10/27/18 05:21 Dose: 75 mls/hr Levetiracetam (Keppra Tab*) 750 mg PO BID [facility] Pharmacy Consult (Zosyn Per Pharmacy*) 1 note FOLLOW UP .ZOSYN PER PHARMACY [facility] Phenytoin Sodium (Dilantin Infatabs Chew Tab(*)) 50 mg PO BID [facility] Last Admin: 10/27/18 08:07 Dose: 50 mg Vital Signs - 8 hr 10/27/18 10/27/18 03:35 03:39 Temperature 97.6 F Pulse Rate 65 Respiratory 20 Rate Blood Pressure 105/39 108/52 (mmHg) O2 Sat by Pulse 98 Oximetry Oxygen Devices in Use Now: None Appearance: Middle aged female sitting up in bed, NAD Eyes: No Scleral Icterus Ears/Nose/Mouth/Throat: - - tongue is dry but her mouth is open and her tongue is hanging out Respiratory: Symmetrical Chest Expansion and Respiratory Effort, Clear to Auscultation - anteriorly and lateral bases Cardiovascular: NL Sounds; No Murmurs; No JVD, RRR, No Edema Abdominal: NL Sounds; No Tenderness; No Distention Extremities: No Clubbing, Cyanosis Skin: No Nodules or Sclerosis Neurological: - - alert Result Diagrams: 10/26/18 05:11 10/27/18 04:59 Microbiology and Other Data: Microbiology 10/21/18 17:12 Aerobic Blood Culture - Preliminary Blood Venous No Growth Day 1 Anaerobic Blood Culture - Preliminary No Growth Day 1 10/21/18 18:48 Urine Culture - Preliminary Urine Escherichia Coli 10/21/18 23:40 Nasal Screen MRSA (PCR) - Final Nasal Mrsa Not Detected 10/21/18 17:14 Influenza Types A,B Antigen - Final Nasal Specimen received for Influenza A/B Molecular testing Assess/Plan/Problems-Billing Ms Mitchell is a 58yo F who has severe intellectual disability who presented to the ER with somnolence and was found to be markedly hypernatremic, phenytoin toxic and with possible aspiration pneumonia. - Patient Problems (1) Encephalopathy Current Visit: Yes Status: Acute Code(s): G93.40 - ENCEPHALOPATHY, UNSPECIFIED SNOMED Code(s): 43078459 Comment: Pt was encephalopathic on admission likely secondary to phenytoin toxicity and dehydration leading to marked hypernatremia. Resolved. Pt's aide is not present at this time so unclear if this is the patient's baseline but I suspect it is. (2) Dehydration Current Visit: Yes Status: Acute Onset Date: 07/01/14 Code(s): E86.0 - DEHYDRATION SNOMED Code(s): 60085884 Comment: Pt was dehydrated clinically and by labratory values on admission. Volume status now improved. (3) Hypernatremia Current Visit: Yes Status: Acute Code(s): E87.0 - HYPEROSMOLALITY AND HYPERNATREMIA SNOMED Code(s): 13764584 Comment: The patient continues to be hypernatremic but better than previous. Today so far pt has been refusing to eat. Will continue D5W at 75ml/hr. Repeat BMP in AM. (4) LLL pneumonia Current Visit: Yes Status: Acute Priority: High Onset Date: 07/01/14 Code(s): J18.9 - PNEUMONIA, UNSPECIFIED ORGANISM SNOMED Code(s): 731061098 Comment: CT scan done on 10/23 questioned mucous plugging and atelectasis. Given her history of having a respiratory illness prior to admission I suspect she likely did develop pneumonia. Unclear if this is aspiration pna vs community acquired pna but she appears to have responded to zosyn and vanco as she is no longer febrile and her WBC count has normalized. Continue zosyn ( today is D#5). Pt was to get acetylcystine inhaled for 2 days and chest PT. It does not appear she received either of these treatments. Will initiate now. Repeat CT chest in 6 weeks to see if atelectasis/?mucous plug resolved. If abnormality still present will need direct visualization. (5) Elevated troponin Current Visit: Yes Status: Acute Code(s): R74.8 - ABNORMAL LEVELS OF OTHER SERUM ENZYMES SNOMED Code(s): 370805026 Comment: Likely secondary to infection, dehydration. Echo does not show any wall motion abnormalities. (6) Seizure disorder Current Visit: Yes Status: Chronic Code(s): G40.909 - EPILEPSY, UNSP, NOT INTRACTABLE, WITHOUT STATUS EPILEPTICUS SNOMED Code(s): 853641652 Comment: Pt is now back on keppra and dilantin. This AM pt was refusing her oral medications (spit it out). Recheck dilantin level tomorrow as her level went low. (7) DVT prophylaxis Current Visit: Yes Status: Acute Code(s): BCY6815 - SNOMED Code(s): 643860182 Comment: SQ heparin Status and Disposition: .
[2018-10-27] MEDS ORDERED: Acetylcysteine INHALATION SOL* 200 MG/ML NEB.SOLN 10 ML ONE (08:52)
[2018-10-27] MEDS ORDERED: Albuterol 2.5 MG/3 ML NEB.SOL* (0.083%) INH ONE (08:52)
[2018-10-27] MEDS: Albuterol 2.5 MG/3 ML NEB.SOL* (0.083%) INH PRN ×3 (09:07→20:07)
[2018-10-27] MEDS: Acetylcysteine INH SOL* 200 MG/ML 4 ML VIAL (for Resp Thpy) INH SCH ×3 (09:08→20:07)
[2018-10-27] MEDS: KCL 20 MEQ/100 ML IVPREMIX* 20 MEQ/100 ML BAG IV SCH ×2 (09:21→13:13)
[2018-10-27] MEDS ORDERED: levETIRAcetam TAB* 500 MG PO SCH (21:00)
[2018-10-28] MEDS: Acetylcysteine INH SOL* 200 MG/ML 4 ML VIAL (for Resp Thpy) INH SCH ×4 (01:51→20:57)
[2018-10-28] MEDS: Albuterol 2.5 MG/3 ML NEB.SOL* (0.083%) INH PRN ×4 (01:52→20:58)
[2018-10-28] MEDS: ZOSYN 3.375 GM Q8H per EXTENDED INFUSION IVPB SCH ×6 (05:13→20:54)
[2018-10-28] MEDS: Heparin VIAL(*) 5000 UNITS/ML VIAL (FIVE THOUSAND) SUBCUT SCH ×3 (05:13→22:53)
[2018-10-28 07:06] LABS: Anion Gap 13 mmol/L (2-11); CO2 Carbon Dioxide 21 mmol/L (22-32); Chloride 116 mmol/L (101-111); Sodium 150 mmol/L (135-145)
[2018-10-28 07:07] LABS: BUN/Creatinine Ratio 5.2 (8-20); Blood Urea Nitrogen 5 mg/dL (6-24); Calcium 8.9 mg/dL (8.6-10.3); EGFR Non-African American 59.7 (>60); Glucose 82 mg/dL (70-100)
[2018-10-28 07:08] LABS: Phenytoin < 2.5 mcg/mL (10-20)
[2018-10-28] MEDS: levETIRAcetam IV* 750 MG in NS 0.9% 100 ML* 100 ML IVPB SCH (09:05)
[2018-10-28] MEDS: Phenytoin CHEW TAB(*) 50 MG PO SCH ×2 (09:11→22:53)
--- NOTE | 2018-10-28 14:51 | PN ---
Subjective Date of Service: 10/28/18 Interval History: Pt is non-verbal. Objective Active Medications: Acetaminophen (Tylenol Supp*) 650 mg [place] Q6H PRN PRN Reason: FEVER/PAIN Last Admin: 10/23/18 08:55 Dose: 650 mg Acetylcysteine (Acetylcysteine) 400 mg INH Q6H [facility] Stop: 10/29/18 01:01 Last Admin: 10/28/18 13:45 Dose: 200 mg Albuterol (Ventolin 2.5 Mg/3 Ml Neb.Daniela*) 2.5 mg INH Q4H PRN PRN Reason: SOB/WHEEZING Last Admin: 10/28/18 13:47 Dose: 2.5 mg Heparin Sodium (Porcine) (Heparin Vial(*)) 5,000 units SUBCUT Q8HR [facility] Last Admin: 10/28/18 14:06 Dose: 5,000 units Piperacillin Sod/Tazobactam (Sod 3.375 gm/ Sodium Chloride) 100 mls @ 25 mls/ hr IVPB Q8H [facility] Last Admin: 10/28/18 14:06 Dose: 25 mls/hr Levetiracetam (Keppra Tab*) 750 mg PO BID [facility] Pharmacy Consult (Zosyn Per Pharmacy*) 1 note FOLLOW UP .ZOSYN PER PHARMACY [facility] Phenytoin Sodium (Dilantin Infatabs Chew Tab(*)) 50 mg PO BID [facility] Last Admin: 10/28/18 09:11 Dose: 50 mg Vital Signs - 8 hr 10/28/18 10/28/18 10/28/18 07:54 07:56 08:00 Temperature Pulse Rate 99 60 74 Respiratory 60 18 18 Rate Blood Pressure (mmHg) O2 Sat by Pulse 18 99 99 Oximetry 10/28/18 10/28/18 10/28/18 11:08 11:18 14:06 Temperature 98.4 F 96.5 F Pulse Rate 59 61 64 Respiratory 16 16 22 Rate Blood Pressure 109/60 110/60 (mmHg) O2 Sat by Pulse 99 97 95 Oximetry Oxygen Devices in Use Now: None Appearance: Middle aged petite female sitting in a wheelchair,NAD Eyes: No Scleral Icterus Ears/Nose/Mouth/Throat: Mucous Membranes Moist Respiratory: Symmetrical Chest Expansion and Respiratory Effort, Clear to Auscultation Cardiovascular: NL Sounds; No Murmurs; No JVD, RRR, No Edema Abdominal: NL Sounds; No Tenderness; No Distention Extremities: No Clubbing, Cyanosis Skin: No Nodules or Sclerosis Neurological: - - alert Result Diagrams: 10/26/18 05:11 10/28/18 05:37 Microbiology and Other Data: Microbiology 10/21/18 17:12 Aerobic Blood Culture - Preliminary Blood Venous No Growth Day 1 Anaerobic Blood Culture - Preliminary No Growth Day 1 10/21/18 18:48 Urine Culture - Preliminary Urine Escherichia Coli 10/21/18 23:40 Nasal Screen MRSA (PCR) - Final Nasal Mrsa Not Detected 10/21/18 17:14 Influenza Types A,B Antigen - Final Nasal Specimen received for Influenza A/B Molecular testing Assess/Plan/Problems-Billing Ms Mitchell is a 58yo F who has severe intellectual disability who presented to the ER with somnolence and was found to be markedly hypernatremic, phenytoin toxic and with possible aspiration pneumonia. - Patient Problems (1) Encephalopathy Current Visit: Yes Status: Acute Code(s): G93.40 - ENCEPHALOPATHY, UNSPECIFIED SNOMED Code(s): 24460325 Comment: Pt was encephalopathic on admission likely secondary to phenytoin toxicity and dehydration leading to marked hypernatremia. Resolved. Pt's aide is still not present at this time so unclear if this is the patient's baseline but I suspect it is. (2) Dehydration Current Visit: Yes Status: Acute Onset Date: 07/01/14 Code(s): E86.0 - DEHYDRATION SNOMED Code(s): 14859980 Comment: Pt was dehydrated clinically and by labratory values on admission. Volume status now improved but patient remains hypernatremic. (3) Hypernatremia Current Visit: Yes Status: Acute Code(s): E87.0 - HYPEROSMOLALITY AND HYPERNATREMIA SNOMED Code(s): 96732944 Comment: The patient's hypernatremia has worsened again today despite continuing D5W. She reportedly ate better today than yesterday. Will resume D5W at 75ml/hr. Recheck Na level tomorrow AM. I question if she will be able to maintain her sodium balance. (4) LLL pneumonia Current Visit: Yes Status: Acute Priority: High Onset Date: 07/01/14 Code(s): J18.9 - PNEUMONIA, UNSPECIFIED ORGANISM SNOMED Code(s): 853838953 Comment: Continue zosyn (today is D#6). Chest PT and acetylcystine being administered. She is doing well from a respiratory standpoint. (5) Elevated troponin Current Visit: Yes Status: Acute Code(s): R74.8 - ABNORMAL LEVELS OF OTHER SERUM ENZYMES SNOMED Code(s): 114290606 Comment: Likely secondary to infection, dehydration. Echo does not show any wall motion abnormalities. (6) Seizure disorder Current Visit: Yes Status: Chronic Code(s): G40.909 - EPILEPSY, UNSP, NOT INTRACTABLE, WITHOUT STATUS EPILEPTICUS SNOMED Code(s): 586162426 Comment: Continue keppra and phenytoin. Will need repeat phenytoin level in several days as she is now markedly subtherapeutic. (7) DVT prophylaxis Current Visit: Yes Status: Acute Code(s): HCM5225 - SNOMED Code(s): 215193889 Comment: SQ heparin Status and Disposition: .
[2018-10-28] MEDS: D5W 1/4 NS 1000 ML BAG* 1,000 ML IV SCH (15:55)
[2018-10-28] MEDS ORDERED: levETIRAcetam TAB* 500 MG PO SCH (21:00)
[2018-10-29] MEDS: Acetylcysteine INH SOL* 200 MG/ML 4 ML VIAL (for Resp Thpy) INH SCH (01:37)
[2018-10-29] MEDS: Albuterol 2.5 MG/3 ML NEB.SOL* (0.083%) INH PRN (01:37)
[2018-10-29] MEDS: ZOSYN 3.375 GM Q8H per EXTENDED INFUSION IVPB SCH ×6 (04:35→22:53)
[2018-10-29] MEDS: Heparin VIAL(*) 5000 UNITS/ML VIAL (FIVE THOUSAND) SUBCUT SCH ×3 (05:24→21:57)
[2018-10-29] MEDS ORDERED: Phenytoin IV(*) 50 MG/ML 5 ML VIAL (250 MG) IV ONE (08:56)
[2018-10-29] MEDS ORDERED: levETIRAcetam LIQ* 500 MG/5 ML UDC PO SCH (09:00)
--- NOTE | 2018-10-29 09:00 | PN ---
Subjective Date of Service: 10/29/18 Interval History: Pt is non-verbal. Her house aide states that she has noticed jerking of her arms which is not normal. Additionally she notes Nisha to have a cough which had previously resolved and she seems agitated. Objective Active Medications: Acetaminophen (Tylenol Supp*) 650 mg PA Q6H PRN PRN Reason: FEVER/PAIN Last Admin: 10/23/18 08:55 Dose: 650 mg Albuterol (Ventolin 2.5 Mg/3 Ml Neb.Daniela*) 2.5 mg INH Q4H PRN PRN Reason: SOB/WHEEZING Last Admin: 10/29/18 01:37 Dose: 2.5 mg Heparin Sodium (Porcine) (Heparin Vial(*)) 5,000 units SUBCUT Q8HR [facility] Last Admin: 10/29/18 05:24 Dose: 5,000 units Piperacillin Sod/Tazobactam (Sod 3.375 gm/ Sodium Chloride) 100 mls @ 25 mls/ hr IVPB Q8H [facility] Last Admin: 10/29/18 04:35 Dose: 25 mls/hr Dextrose/Sodium Chloride (D5w 1/4 Ns 1000 Ml Bag*) 1,000 mls @ 75 mls/hr IV PER RATE [facility] Last Admin: 10/28/18 15:55 Dose: 75 mls/hr Levetiracetam (Keppra Liq*) 750 mg PO BID [facility] Pharmacy Consult (Zosyn Per Pharmacy*) 1 note FOLLOW UP .ZOSYN PER PHARMACY [facility] Phenytoin Sodium (Dilantin Infatabs Chew Tab(*)) 50 mg PO BID [facility] Last Admin: 10/28/18 22:53 Dose: 50 mg Vital Signs - 8 hr 10/29/18 10/29/18 10/29/18 01:41 04:18 07:28 Temperature 98.0 F 98.4 F Pulse Rate 59 55 70 Respiratory 20 16 14 Rate Blood Pressure 93/54 110/79 (mmHg) O2 Sat by Pulse 100 98 87 Oximetry Oxygen Devices in Use Now: None Appearance: Middle aged female sitting up in bed, appears agitated with vocalization of sounds, grimacing and mycolonic jerking of the arms. Eyes: No Scleral Icterus Ears/Nose/Mouth/Throat: Mucous Membranes Moist Respiratory: Symmetrical Chest Expansion and Respiratory Effort, Clear to Auscultation, - - occasional moist cough Cardiovascular: NL Sounds; No Murmurs; No JVD, RRR, No Edema Abdominal: NL Sounds; No Tenderness; No Distention Extremities: No Clubbing, Cyanosis Skin: No Nodules or Sclerosis Neurological: - - alert Result Diagrams: 10/26/18 05:11 10/29/18 08:15 Microbiology and Other Data: Microbiology 10/21/18 17:12 Aerobic Blood Culture - Preliminary Blood Venous No Growth Day 1 Anaerobic Blood Culture - Preliminary No Growth Day 1 10/21/18 18:48 Urine Culture - Preliminary Urine Escherichia Coli 10/21/18 23:40 Nasal Screen MRSA (PCR) - Final Nasal Mrsa Not Detected 10/21/18 17:14 Influenza Types A,B Antigen - Final Nasal Specimen received for Influenza A/B Molecular testing Assess/Plan/Problems-Billing Ms Mitchell is a 58yo F who has severe intellectual disability who presented to the ER with somnolence and was found to be markedly hypernatremic, phenytoin toxic and with possible aspiration pneumonia. - Patient Problems (1) Seizure disorder Current Visit: Yes Status: Chronic Code(s): G40.909 - EPILEPSY, UNSP, NOT INTRACTABLE, WITHOUT STATUS EPILEPTICUS SNOMED Code(s): 477390050 Comment: Pt now with myoclonic jerking. She has been receiving her keppra but phenytoin restarted on PM 1230 after her level was low normal. She is now subtherapeutic (as of 10/28/18). I spoke with neurology who recommended giving phenytoin 300mg IV now and 100mg at bedtime to load her and then resume her home dose. Check phenytoin level tomorrow AM. Will also check EEG to r/o subclinical seizures. (2) Encephalopathy Current Visit: Yes Status: Acute Code(s): G93.40 - ENCEPHALOPATHY, UNSPECIFIED SNOMED Code(s): 27591845 Comment: Pt was encephalopathic on admission likely secondary to phenytoin toxicity and dehydration leading to marked hypernatremia. Initial encephalopathy now resolved but pt currently agitated. ? agitated secondary to myoclonic jerking. (3) Hypernatremia Current Visit: Yes Status: Acute Code(s): E87.0 - HYPEROSMOLALITY AND HYPERNATREMIA SNOMED Code(s): 88859825 Comment: Na level pending this AM. Yesterday she did better eating. I am hopeful her Na level has normalized. (4) LLL pneumonia Current Visit: Yes Status: Acute Priority: High Onset Date: 07/01/14 Code(s): J18.9 - PNEUMONIA, UNSPECIFIED ORGANISM SNOMED Code(s): 945643793 Comment: Today is D#7 of zosyn. She has completed acetylcystine treatment. Continue chest PT as as she now has a moist intermittent cough. ? if mucous has been loosed from the respiratory treatments and that is why she is coughing. Will repeat pCXR now. (5) Dehydration Current Visit: Yes Status: Acute Onset Date: 07/01/14 Code(s): E86.0 - DEHYDRATION SNOMED Code(s): 86943201 Comment: Pt was dehydrated clinically and by labratory values on admission. Volume status now improved but patient remains hypernatremic. (6) Elevated troponin Current Visit: Yes Status: Acute Code(s): R74.8 - ABNORMAL LEVELS OF OTHER SERUM ENZYMES SNOMED Code(s): 727985470 Comment: Likely secondary to infection, dehydration. Echo does not show any wall motion abnormalities. (7) DVT prophylaxis Current Visit: Yes Status: Acute Code(s): ATF3456 - SNOMED Code(s): 767823152 Comment: SQ heparin Status and Disposition: .
[2018-10-29] MEDS ORDERED: LORazepam INJ* 2 MG/ML 1 ML VIAL ONE (09:28)
[2018-10-29] MEDS ORDERED: NS 0.9% IVPB ONE (09:31)
[2018-10-29] MEDS ORDERED: FOSPHENYTOIN IVPB ONE (09:31)
--- NOTE | 2018-10-29 09:47 | PN ---
Progress Note - Progress Note Date of Service: 10/29/18 Note: Pt set up with EEG monitoring and immediately was identified to be in myoclonic status. Dr Lee was at bedside and ordered 2mg IV ativan which was given. There was improvement in the EEG but not complete resolution of the seizure activity. Transfer to the ICU now. Change phenytoin to fosphenytoin load now. Per Dr. Lee if status does not break will need to transfer to different facility for continuous EEG monitoring.
[2018-10-29 09:55] LABS: BUN/Creatinine Ratio 4.8 (8-20); EGFR Non-African American 54.4 (>60)
[2018-10-29] MEDS ORDERED: LORazepam INJ* 2 MG/ML 1 ML VIAL IV PUSH ONE (10:00)
[2018-10-29] MEDS: D5W 1/4 NS 1000 ML BAG* 1,000 ML IV SCH (10:25)
--- NOTE | 2018-10-29 10:33 | CONSULT ---
Consult Consult: PCCM Consult CC: Seizure HPI: 58F with gerd, chronic uti, MRCP, seizure disorder initially admitted for phenytoin toxicity and dehydration. She was found to have an e coli uti and was started on zosyn. She was monitored on the floor and her level of phenytoin drifted down and she then became subtherapeutic. This am the patient was found having a tonic clonic seizure. I spot EEG was done showing status epilepticus. She was given ativan and transferred to the ICU for continuous EEG monitoring. The patient currently is unresponsive and is unable to provide history. ROS - unable 2/2 ams PMHx - MRCP, gerd, chronic uti, hld, hiatal hernia PSHx - unable All - fluconazole FamHx - unable SocHx - no drugs, etoh, tobacco PE Vital Signs: Temp Pulse Resp BP Pulse Ox 97.2 F 74 18 97/53 86 10/29/18 10:17 10/29/18 10:17 10/29/18 10:17 10/29/18 10:17 10/29/18 10:17 Gen - nad, unresponsive heent - ncat, perrl neck - no jvd cv - s1/s2, no murmur pulm - +ronchi/rales, L > R abd - soft, nt, nd ext - no cce neuro - unresponsive Laboratory Results - last 24 hr 10/29/18 10/29/18 08:15 08:15 Sodium 148 H Potassium 4.0 4.0 Chloride 115 H Carbon Dioxide 24 Anion Gap 9 BUN 5 L Creatinine 1.04 H Est GFR ( Amer) 65.9 Est GFR (Non-Af Amer) 54.4 BUN/Creatinine Ratio 4.8 L Glucose 88 Calcium 9.0 Imaging CXR 10/23 IMPRESSION: There is suggestion of retrocardiac density which may represent atelectasis or infiltrate. CT Chest 10/23 IMPRESSION: 1. THERE IS COMPLETE ATELECTASIS OF THE LEFT LOWER LOBE WITH OPACIFICATION OF THE BRONCHUS TO THE LEFT LOWER LOBE. THIS MAY REPRESENT MUCOUS PLUGGING, THOUGH AN ENDOBRONCHIAL OBSTRUCTING LESION IS ALSO WITHIN THE DIFFERENTIAL. RECOMMEND CONSIDERATION OF FURTHER EVALUATION WITH DIRECT VISUALIZATION.. 2. TRACE BILATERAL PLEURAL EFFUSIONS. Elbow Xray 10/28 IMPRESSION: NO ACUTE OSSEOUS INJURY. IF SYMPTOMS PERSIST, RECOMMEND REPEAT IMAGING. TTE 12/27 Conclusions There is normal left ventricular systolic function. The estimated ejection fraction is 55-60%. Global left ventricular wall motion and contractility are within normal limits. The left ventricular chamber size is decreased. The left atrial cavity size is abnormally small. Functionally benign heart valves. There is no prior echocardiogram available to compare with at this time. Impression 58F with gerd, chronic uti, MRCP, seizure disorder transferred to ICU for status epilepticus Plan Neuro - status epilepticus - VEEG - AEDs per neuro - fall/seizure precautions - neurochecks CV - hld - diet controlled Pulm - LLL atelectasis - nebs q4 - chest pt - suppplemental o2 prn - currently protecting airway ID - e coli uti - zosyn x 7 days GI - npo - advance diet when awake renal - hypernatremia - 2/2 dehydration - c/w ivf - monitor lytes heme - monitor cbc endo - check fs lines - piv ppx - gi/dvt full code Critical Care Time: 50 mins
[2018-10-29] MEDS: levETIRAcetam IV* 750 MG in NS 0.9% 100 ML* 100 ML IVPB SCH ×2 (11:05→21:57)
[2018-10-29] MEDS ORDERED: levETIRAcetam IV* 750 MG in NS 0.9% 100 ML* 100 ML IVPB ONE (14:30)
--- NOTE | 2018-10-29 16:04 | CONS ---
AMENDED REPORT NOW INCLUDES DATE OF CONSULT NEUROLOGY CONSULTATION: DATE OF CONSULT: 10/29/18 LOCATION: She is in ICU bed 6. REFERRING PROVIDER: Dr. Taylor. CHIEF COMPLAINT: Seizures. HISTORY OF PRESENT ILLNESS: Nisha Mitchell is a 58-year-old developmentally disabled woman with epilepsy, who lives in a fdc. She presented to the emergency room on 10/19/18 with an upper respiratory infection. She was started on antibiotics and discharged to her home. She presented back on with a change in her mental status. She is nonverbal and nonambulatory, but she started to have a worsened cough and a fever and she seem less responsive and was brought back into the hospital and admitted. She was found to have a Dilantin level of 40.5. She was admitted and treated with antibiotics and her Dilantin was held. Her Dilantin level came down over time and was 28.2 on , 8.2 on 10/25/18, and less than 2.5 on 10/28/18. Her Dilantin was restarted at 50 mg b.i.d., which apparently was her home dose on about 10/25/18 or . I was called this morning by Dr. Taylor saying that the patient was exhibiting jerking of her extremities and was still responsive, but that this was a change. I recommended an EEG and that she be given Dilantin 300 mg IV. Our EEG technicians called me after they had her hooked up and I arrived to find the patient was in myoclonic status epilepticus. She was given 2 mg of IV Ativan and within a few minutes, she became somnolent and her EEG background presumed a more nonepileptic appearance. She still had some episodic discharges , but it was much improved. She was transferred to the intensive care unit. In the intensive care unit, she received 300 mg of IV fosphenytoin. She has been sedated since. EEG has been left in place and spot records have been made. Most recently at 1400 this afternoon, there are occasional epileptiform discharges, but they are infrequent and most of the background is mixed theta- beta pattern. She has not been responding to her caregivers from her fdc. There has not been anymore myoclonus however. PAST MEDICAL HISTORY: Notable for a prior episode of Dilantin toxicity when she developed a pneumonia and was treated with antibiotics. She has a history of recurrent urinary tract infections, hiatal hernia, hyperlipidemia, gastroesophageal reflux. MEDICATIONS: Medications at home consisted of: 1. Dilantin Infatabs 50 mg p.o. b.i.d. 2. Keppra 1000 mg p.o. b.i.d. 3. Lorazepam 0.5 mg p.o. p.r.n. for seizures. 4. Sudafed q.6 hours p.r.n. 5. Ondansetron 4 mg p.o. q.6 hours p.r.n. ALLERGIES: She is listed as having an allergy to FLUCONAZOLE, but in speaking with her care providers, she developed Dilantin toxicity on it. SOCIAL HISTORY: She lives in a fdc. She does not walk. She is not able to speak. She does acknowledge her care providers and can laugh and express pleasure or displeasure to them. PHYSICAL EXAM: She is a very small individual with contractures in the lower extremities and the upper extremities as well. She has a small head circumference. Her temperature earlier today was 97.8, blood pressure generally running 90 to 100 systolic over 50 to 60 diastolic. Heart rate was in the 60s. When I first arrived, she was exhibiting irregular myoclonic jerking of the extremities , also her head and neck. She could visually regard her caregivers when they addressed her. She had a raspy cough. She had an ecchymosis, which is fairly extensive on her left elbow and looked recent. DIAGNOSTIC STUDIES/LAB DATA: Laboratory data is notable for the phenytoin level of less than 2.5 on 10/28/18, negative urinalysis on 10/23/18. Chemistry profile as of this morning, sodium 148 which is an improvement, chloride 115, creatinine 1.04 which is elevated relative to her prior creatinines, glucose 88. CBC notable for white blood cell count 10.4. IMPRESSION: Impression is that of myoclonic status epilepticus. She has been given some Ativan with improvement in her EEG. She has since been given fosphenytoin as well. Her EEG continues to look improved, but she is still not responsive. I discussed with her caregivers keeping her here and doing periodic EEG checks versus transferring to a center with long-term monitoring. They are agreeable to keeping her here. I will discuss the plan with our EEG techs as well. I have written an order giving her an extra 750 mg of IV Keppra, which hopefully will not induce anymore sedation. She has a phenytoin level ordered for the morning. We will also check a Keppra level, although it probably would not be back in 1 day. If she goes back in the status epilepticus then we will have to see if we can transfer her to a center with continuous EEG monitoring. [id number]/[facility] #: [id number] MARIO
--- NOTE | 2018-10-29 20:14 | CONS ---
NEUROLOGY FOLLOWUP NOTE: DATE OF FOLLOWUP: 10/29/18 LOCATION: She is in ICU bed 6. HOSPITALIST: Dr. Taylor. INTERVAL HISTORY: Nisha has had a couple of jerking motions observed by her nurse earlier but no prolonged myoclonus. She has EEG monitoring going and we were recording every hour for at least 5 minutes or so. She was due for additional dose of Keppra at 9:00 p.m. She has received 1500 mg so far today as well the 2 mg of Ativan earlier in the day, 300 mg of fosphenytoin. She is also due for fosphenytoin 100 mg this evening. During brief observation, I do not see any myoclonus. Her EEG shows intermittent epileptiform discharges that are relatively infrequent. Near the end, she becomes somewhat responsive then she holds her head up. Her EEG shows less epileptiform discharges at that time. Otherwise rhythms are fairly symmetrical. Going to hold the line with the current regimen. Hopefully by tomorrow, things will have settled down and she will be more alert. Currently her blood pressure is somewhat marginal as is her heart rate and her temperature has also been low. She has no warming blankets currently. [id number]/[facility] #: [id number] [facility]
[2018-10-29] MEDS ORDERED: Fosphenytoin(*) 100 MG in NS 0.9% 50 ML* 50 ML IVPB ONE (21:00)
[2018-10-29] MEDS ORDERED: Phenytoin IV(*) 50 MG/ML 2 ML VIAL (100 MG) IVPB ONE (21:00)
[2018-10-29] MEDS ORDERED: NS 0.9% 100 ML* 100 ML ONE (21:49)
[2018-10-29] MEDS ORDERED: NS 0.9% 50 ML* 50 ML ONE (21:49)
[2018-10-30] MEDS ORDERED: LORazepam INJ* 2 MG/ML 1 ML VIAL ONE (06:57)
[2018-10-30 07:00] LABS: ABS Basophils 0.1 10^3/ul (0-0.2); ABS Eosinophils 0.4 10^3/ul (0-0.6); ABS Lymphocytes 2.3 10^3/ul (1.0-4.8); ABS Monocytes 1.2 10^3/ul (0-0.8); ABS Neutrophils 5.2 10^3/ul (1.5-7.7); ABS Nucleated RBC 0 10^3/ul; Eosinophil % 4.7 %; Hematocrit 36 % (35-47); Hemoglobin 11.6 g/dl (12.0-16.0); Lymphocyte % 24.9 %; Mean Corpuscular HGB Conc 32 g/dl (31-36); Mean Corpuscular Hemoglobin 30 pg (27-31); Mean Corpuscular Volume 95 fL (80-97); Mean Platelet Volume 8.1 fL (7.4-10.4); Nucleated Red Blood Cells % 0.1; Platelet Count 351 10^3/ul (150-450); Red Blood Count 3.84 10^6/ul (4.00-5.40); Red Cell Distribution Width 15 % (10.5-15); White Blood Count 9.2 10^3/ul (3.5-10.8)
[2018-10-30 07:06] LABS: Calcium 8.7 mg/dL (8.6-10.3); Potassium 4.1 mmol/L (3.5-5.0)
[2018-10-30 07:12] LABS: BUN/Creatinine Ratio 4.8 (8-20); EGFR Non-African American 69.6 (>60)
[2018-10-30] MEDS ORDERED: LORazepam INJ* 2 MG/ML 1 ML VIAL IV PUSH STA (07:13)
[2018-10-30 07:26] LABS: Phenytoin 5.6 mcg/mL (10-20)
--- NOTE | 2018-10-30 08:32 | PN ---
Date of Service: 10/30/18 Critical Care Services: 58F with gerd, chronic uti, MRCP, seizure disorder transferred to ICU for status epilepticus 10/30: Discussed with neurology. Patient for transfer to neuro ICU today if bed becomes available. Vital Signs: Temp Pulse Resp BP SpO2 FiO2 96.6 F 47 16 120/71 100 10/30/18 07:42 10/30/18 06:01 10/30/18 07:00 10/30/18 06:00 10/30/18 06:01 Physical Exam: Gen - nad, unresponsive heent - ncat, perrl neck - no jvd cv - s1/s2, no murmur pulm - +ronchi/rales, L > R abd - soft, nt, nd ext - no cce neuro - unresponsive Fluid Balance (Past 24 Hours): I= O= Net Intake & Output 10/28/18 10/29/18 10/30/18 10/31/18 06:59 06:59 06:59 06:59 Intake Total 4855 203 3946 Balance 6701 464 7077 Weight 31.6 kg Intake: IV Fluids 3228 763 8474 ABX - ZOSYN 5 227 100 D5W 657 D5W 10/30 NS 1207 Keppra 102 100 NS 360 26 287 Potassium 132 IVPB 500 50 105 ABX - ZOSYN 303 50 105 Keppra 122 Potassium 75 Oral 0 580 0 Other: Estimated Void Large Medium Large # Bowel Movements 0 1 1 Estimated Stool Amount Large Small Small Other Amount Description no measured out put this hour # Voids 2 2 1 Labs: Laboratory Results - last 24 hr 10/29/18 10/29/18 10/30/18 08:15 08:15 06:41 WBC 9.2 RBC 3.84 L Hgb 11.6 L Hct 36 MCV 95 MCH 30 MCHC 32 RDW 15 Plt Count 351 MPV 8.1 Neut % (Auto) 56.5 Lymph % (Auto) 24.9 Laporte % (Auto) 12.7 Eos % (Auto) 4.7 Baso % (Auto) 1.2 Absolute Neuts (auto) 5.2 Absolute Lymphs (auto) 2.3 Absolute Monos (auto) 1.2 H Absolute Eos (auto) 0.4 Absolute Basos (auto) 0.1 Absolute Nucleated RBC 0 Nucleated RBC % 0.1 Sodium 148 H Potassium 4.0 4.0 Chloride 115 H Carbon Dioxide 24 Anion Gap 9 BUN 5 L Creatinine 1.04 H Est GFR ( Amer) 65.9 Est GFR (Non-Af Amer) 54.4 BUN/Creatinine Ratio 4.8 L Glucose 88 Calcium 9.0 Phenytoin 10/30/18 06:41 WBC RBC Hgb Hct MCV MCH MCHC RDW Plt Count MPV Neut % (Auto) Lymph % (Auto) Laporte % (Auto) Eos % (Auto) Baso % (Auto) Absolute Neuts (auto) Absolute Lymphs (auto) Absolute Monos (auto) Absolute Eos (auto) Absolute Basos (auto) Absolute Nucleated RBC Nucleated RBC % Sodium 144 Potassium 4.1 Chloride 115 H Carbon Dioxide 22 Anion Gap 7 BUN 4 L Creatinine 0.84 Est GFR ( Amer) 84.3 Est GFR (Non-Af Amer) 69.6 BUN/Creatinine Ratio 4.8 L Glucose 104 H Calcium 8.7 Phenytoin 5.6 L Studies: CXR 10/23 IMPRESSION: There is suggestion of retrocardiac density which may represent atelectasis or infiltrate. CT Chest 10/23 IMPRESSION: 1. THERE IS COMPLETE ATELECTASIS OF THE LEFT LOWER LOBE WITH OPACIFICATION OF THE BRONCHUS TO THE LEFT LOWER LOBE. THIS MAY REPRESENT MUCOUS PLUGGING, THOUGH AN ENDOBRONCHIAL OBSTRUCTING LESION IS ALSO WITHIN THE DIFFERENTIAL. RECOMMEND CONSIDERATION OF FURTHER EVALUATION WITH DIRECT VISUALIZATION.. 2. TRACE BILATERAL PLEURAL EFFUSIONS. Elbow Xray 10/28 IMPRESSION: NO ACUTE OSSEOUS INJURY. IF SYMPTOMS PERSIST, RECOMMEND REPEAT IMAGING. TTE 10/22 Conclusions There is normal left ventricular systolic function. The estimated ejection fraction is 55-60%. Global left ventricular wall motion and contractility are within normal limits. The left ventricular chamber size is decreased. The left atrial cavity size is abnormally small. Functionally benign heart valves. There is no prior echocardiogram available to compare with at this time. Impression: 58F with gerd, chronic uti, MRCP, seizure disorder transferred to ICU for status epilepticus Plan: Neuro - status epilepticus - VEEG - AEDs per neuro - fall/seizure precautions - neurochecks - for transfer to [facility] ICU CV - hld - diet controlled Pulm - LLL atelectasis - nebs q4 - chest pt - suppplemental o2 prn - currently protecting airway ID - e coli uti - zosyn x 7 days GI - npo - advance diet when awake renal - hypernatremia - 2/2 dehydration - c/w ivf - monitor lytes heme - monitor cbc endo - check fs lines - piv ppx - gi/dvt full code Critical Care Time: 40 mins
[2018-10-30] MEDS ORDERED: Fosphenytoin(*) 400 MG in NS 0.9% 50 ML* 50 ML IVPB ONE (08:33)
[2018-10-30] MEDS ORDERED: HYDROcodone/ACETAMIN 5-325 MG* 1 TAB PO ONE (09:15)
[2018-10-30] MEDS: Heparin VIAL(*) 5000 UNITS/ML VIAL (FIVE THOUSAND) SUBCUT SCH ×3 (09:26→22:50)
[2018-10-30] MEDS: ZOSYN 3.375 GM Q8H per EXTENDED INFUSION IVPB SCH ×6 (09:26→22:50)
--- NOTE | 2018-10-30 10:40 | CONS ---
NEUROLOGY FOLLOWUP NOTE: DATE OF FOLLOWUP: 10/30/18 LOCATION: ICU bed 6. HOSPITALIST: Dr. Taylor INTERVAL HISTORY: Since yesterday, Nisha apparently did not have any overt seizure activity. When I looked at her EEG from home last evening at about 10:30 or so, she seemed to be stable. Specifical ly, she had occasional epileptiform discharges, but they were infrequent. This morning when Debora, our icu tech, turned on the recording at approximately 6:20 in the morning she appeared to be in pierce ctrographic status again. I did not see her personally at that time, but Debora says that she was h aving myoclonic jerking clinically as well. I spoke to the nurse and asked for IV Ativan 2 mg, and p er EEG calmed down and the myoclonus went away. When I arrived and was able to look at the tracing, it looks similar to yesterday where there is diffuse mixed theta and alpha rhythms with occasional pa roxysmal slowing and also epileptiform discharges seen intermittently, but not status epilepticus. I went and looked at the recording from 6 this morning and it was in fact electrographic status. We l ooked at the tracing from 3 a.m., which was the last recording that was done by the ICU nurse and she was in the prior electrographic state of intermittent epileptiform discharges, which were perhaps a little more frequent than last night, but certainly not in status. MEDICATIONS: Medications are reviewed and she is on: 1. Dilantin Infatabs, which she is now getting 50 mg. 2. Zosyn 3.375 g q.8 hours. 3. Keppra 750 mg IV q.12 hours. 4. Albuterol nebulizer. 5. Heparin subcutaneous 5000 units q.8 hours. PHYSICAL EXAM: Temperature is 96.6 at 7:42 this morning, blood pressure 120/70; heart rate when I ev aluated was in the 50s. Her skin is warm and not diaphoretic. She is not exhibiting any myoclonus an d is not responsive to external stimuli. LABORATORY STUDIES: Notable for phenytoin level this morning at 6:40 of 5.6, chemistries notable for chloride 115, sodium is down to 144, glucose 104. CBC today notable for a stable white blood cell c ount down to 9.2, stable hemoglobin 11.6, platelets 351,000. IMPRESSION: Impression is that of recurrent status epilepticus. Currently, she is back under contro l. However, we do not have continuous EEG monitoring and so I have initiated attempts to transfer he r to a center and has continuous EEG monitoring. Our transfer center contacted the [facility] for me and they are full and they have a waiting list. We are under waiting list currently. Our [facility] center contacted [facility] and they said they are completely backed up and not accepting transfers and advised calling again tomorrow if we are not able to transfer. I have put in orders to give her an additional 400 mg of IV fosphenytoin. She weighs just 69 pounds. I am going to increase her Keppra to 1000 mg q.12 hours. We will continue to monitor her EEG, but i deally we need to get her to a place with continuous EEG monitoring in a neuro intensive care unit. I will discuss this current situation with her caregivers from the [facility] when they arrive. [id number]/[facility] #: [id number]
[2018-10-30] MEDS: levETIRAcetam IV* 1,000 MG in NS 0.9% 100 ML* 100 ML IVPB SCH ×2 (11:14→22:50)
[2018-10-30] MEDS: D5W 1/4 NS 1000 ML BAG* 1,000 ML IV SCH (13:55)
--- NOTE | 2018-10-30 20:19 | CONS ---
NEUROLOGY ADDENDUM FOLLOWUP NOTE: DATE OF FOLLOWUP: 10/30/18 LOCATION: ICU bed 6. HOSPITALIST: Dr. Taylor. CHIEF COMPLAINT: Epilepsy. INTERVAL HISTORY: This is a followup note from earlier today. I have made a couple of calls via the transfer center to [facility] and the [facility] regarding possible transfer fo r continuous EEG monitoring and neuro intensive care treatment. Unfortunately, both institutions are full. She is on a waiting list at [facility] in [facility] and [place] advised that we just call the following day as they were completely backed up. We have tried to find a couple of other nstitutions and so far have not been able to secure an acceptance. Currently waiting to hear back [facility] as to whether or not they have that capacity. MEDICATIONS: Medications are again reviewed and she is on: 1. Keppra IV q.12 hours 1000 mg. 2. Albuterol nebulizer. 3. Zosyn 3.375 q.8 hours IV. 4. Heparin subcutaneous 5000 units q.8 hours. 5. She received an additional 400 mg of fosphenytoin early this morning. PHYSICAL EXAM: She is in her ICU bed with nasal cannula oxygen. She is not responding. Her skin is warm and dry. Her blood pressure is running 90-100 systolic/about 50-60 diastolic. Oxygen saturati ons are 100% on supplemental oxygen by nasal cannula. Heart rate is in the 50s. LABORATORY STUDIES: There are no new ones since early today. IMPRESSION: Currently her EEG looks pretty good. She is having epileptiform discharges, but she laurence l go a page or two without one. I am going to hold the line for now and see if we could get a center to accept her and transfer for continuous EEG monitoring. If we are not able to transfer her and es pecially if her seizures get worse, then I am going to load her with Depakote and stop phenytoin. Th e reasoning is that she has myoclonic seizures and Depakote maybe a better agent for that. [id number]/[facility] #: [id number]
[2018-10-30] MEDS ORDERED: Phenytoin CHEW TAB(*) 50 MG PO SCH (21:00)
[2018-10-31] MEDS: Fosphenytoin(*) 100 MG/2 ML VIAL IVPB SCH (00:08)
[2018-10-31] MEDS: D5W 1/4 NS 1000 ML BAG* 1,000 ML IV SCH (03:52)
[2018-10-31 05:39] LABS: ABS Basophils 0.1 10^3/ul (0-0.2); ABS Eosinophils 0.3 10^3/ul (0-0.6); ABS Lymphocytes 1.7 10^3/ul (1.0-4.8); ABS Monocytes 0.8 10^3/ul (0-0.8); ABS Neutrophils 6.2 10^3/ul (1.5-7.7); ABS Nucleated RBC 0 10^3/ul; Eosinophil % 3.5 %; Hematocrit 35 % (35-47); Hemoglobin 11.6 g/dl (12.0-16.0); Lymphocyte % 18.4 %; Mean Corpuscular HGB Conc 34 g/dl (31-36); Mean Corpuscular Hemoglobin 31 pg (27-31); Mean Corpuscular Volume 91 fL (80-97); Mean Platelet Volume 7.1 fL (7.4-10.4); Nucleated Red Blood Cells % 0; Platelet Count 420 10^3/ul (150-450); Red Blood Count 3.81 10^6/ul (4.00-5.40); Red Cell Distribution Width 14 % (10.5-15)
[2018-10-31 06:04] LABS: BUN/Creatinine Ratio 7.6 (8-20); Calcium 8.6 mg/dL (8.6-10.3); EGFR Non-African American 74.7 (>60); Magnesium 1.9 mg/dL (1.9-2.7); Potassium 3.7 mmol/L (3.5-5.0)
[2018-10-31] MEDS: Heparin VIAL(*) 5000 UNITS/ML VIAL (FIVE THOUSAND) SUBCUT SCH ×2 (06:23→14:38)
--- NOTE | 2018-10-31 08:52 | PN ---
Date of Service: 10/31/18 Critical Care Services: 58F with gerd, chronic uti, MRCP, seizure disorder transferred to ICU for status epilepticus 10/30: Discussed with neurology. Patient for transfer to neuro ICU today if bed becomes available. 10/31: HD stable. Awaiting transfer to NeuroICU at [place] or [place]. Vital Signs: Temp Pulse Resp BP SpO2 FiO2 97.9 F 52 18 105/56 100 10/31/18 07:42 10/31/18 05:01 10/31/18 07:01 10/31/18 07:00 10/31/18 04:01 Physical Exam: Gen - nad heent - ncat, perrl neck - no jvd cv - s1/s2, no murmur pulm - +ronchi/rales, L > R abd - soft, nt, nd ext - no cce neuro - withdraws to pain Fluid Balance (Past 24 Hours): I= O= Net Intake & Output 10/29/18 10/30/18 10/31/18 11/01/18 06:59 06:59 06:59 06:59 Intake Total 985 1799 1872 Output Total 0 Balance 985 1799 1872 Weight 31.6 kg 33.5 kg Intake: IV Fluids 355 1694 1242 ABX - ZOSYN 227 100 D5W 10/30 NS 1207 1111 Keppra 102 100 NS 26 287 131 IVPB 50 105 212 ABX - ZOSYN 50 105 37 Fosphenytoin 60 Keppra 115 Oral 580 0 Tube Feeding 318 Tube Feeding Flush Amount 100 Output: Urine 0 Other: Estimated Void Medium Large Large Date of Last Bowel 10/30/18 Movement # Bowel Movements 1 1 1 Estimated Stool Amount Small Small Small Other Amount Description no measured out put this hour # Voids 2 1 1 Labs: Laboratory Results - last 24 hr 10/30/18 10/31/18 10/31/18 19:00 05:23 05:23 WBC 9.0 RBC 3.81 L Hgb 11.6 L Hct 35 MCV 91 MCH 31 MCHC 34 RDW 14 Plt Count 420 MPV 7.1 L Neut % (Auto) 69.0 Lymph % (Auto) 18.4 [place] % (Auto) 8.4 Eos % (Auto) 3.5 Baso % (Auto) 0.7 Absolute Neuts (auto) 6.2 Absolute Lymphs (auto) 1.7 Absolute Monos (auto) 0.8 Absolute Eos (auto) 0.3 Absolute Basos (auto) 0.1 Absolute Nucleated RBC 0 Nucleated RBC % 0 Sodium 144 Potassium 3.7 Chloride 113 H Carbon Dioxide 25 Anion Gap 6 BUN 6 Creatinine 0.79 Est GFR ( Amer) 90.4 Est GFR (Non-Af Amer) 74.7 BUN/Creatinine Ratio 7.6 L Glucose 100 Calcium 8.6 Magnesium 1.9 Phenytoin 11.4 10/31/18 05:23 WBC RBC Hgb Hct MCV MCH MCHC RDW Plt Count MPV Neut % (Auto) Lymph % (Auto) [place] % (Auto) Eos % (Auto) Baso % (Auto) Absolute Neuts (auto) Absolute Lymphs (auto) Absolute Monos (auto) Absolute Eos (auto) Absolute Basos (auto) Absolute Nucleated RBC Nucleated RBC % Sodium Potassium Chloride Carbon Dioxide Anion Gap BUN Creatinine Est GFR ( Amer) Est GFR (Non-Af Amer) BUN/Creatinine Ratio Glucose Calcium Magnesium Phenytoin 15.2 Nutrition: CXR 10/23 IMPRESSION: There is suggestion of retrocardiac density which may represent atelectasis or infiltrate. CT Chest 10/23 IMPRESSION: 1. THERE IS COMPLETE ATELECTASIS OF THE LEFT LOWER LOBE WITH OPACIFICATION OF THE BRONCHUS TO THE LEFT LOWER LOBE. THIS MAY REPRESENT MUCOUS PLUGGING, THOUGH AN ENDOBRONCHIAL OBSTRUCTING LESION IS ALSO WITHIN THE DIFFERENTIAL. RECOMMEND CONSIDERATION OF FURTHER EVALUATION WITH DIRECT VISUALIZATION.. 2. TRACE BILATERAL PLEURAL EFFUSIONS. Elbow Xray 10/28 IMPRESSION: NO ACUTE OSSEOUS INJURY. IF SYMPTOMS PERSIST, RECOMMEND REPEAT IMAGING. TTE 10/22 Conclusions There is normal left ventricular systolic function. The estimated ejection fraction is 55-60%. Global left ventricular wall motion and contractility are within normal limits. The left ventricular chamber size is decreased. The left atrial cavity size is abnormally small. Functionally benign heart valves. There is no prior echocardiogram available to compare with at this time. Impression: 58F with gerd, chronic uti, MRCP, seizure disorder transferred to ICU for status epilepticus Plan: Neuro - status epilepticus - VEEG - AEDs per neuro - fall/seizure precautions - neurochecks - for transfer to [place] [facility] [place] CV - hld - diet controlled Pulm - LLL atelectasis - nebs q4 - chest pt - suppplemental o2 prn - currently protecting airway ID - e coli uti - zosyn x 7 days GI - npo - advance diet when awake renal - hypernatremia - 2/2 dehydration - c/w ivf - monitor lytes heme - monitor cbc endo - check fs lines - piv ppx - gi/dvt full code Critical Care Time: 40 mins
[2018-10-31] MEDS ORDERED: Phenytoin SUSP(*) 100 MG/4 ML UDC (100 MG) PO SCH ×2 (09:00→10:00)
[2018-10-31] MEDS ORDERED: Fosphenytoin(*) 100 MG in NS 0.9% 50 ML* 50 ML IVPB SCH (10:00)
--- NOTE | 2018-10-31 10:21 | PN ---
Progress Note - Progress Note Date of Service: 10/31/18 Note: HPI: 58 year old woman with history of intractable epilepsy in the setting of severe cognitive impairment previously followed by Dr. Perez as an outpatient, with occasional break through seizure on phenytoin 100mg BID and levetiracetam 1000mg BID. She was admitted 10/21/18 with change in mental status with phenytoin level of 40.5 after previous visit to hospital 10/19/18 and treatment of upper respiratory tract infection. Her phenytoin was held. Dr. Lee was called in consultation on 10/29/18 when she ws noted to have jerking of her extremities. Her phenytoin level was 2.5. She was found to be in status epilepticus. She has been treated with keppra and phenytoin with slow improvement of clinical interaction noted this morning, and ongoing epileptiform activity. CXR noted atelectasis in left lower lobe with opacification of bronchus, and trace pleural effusions (see report for details). Active Medications Generic Name Dose Route Start Last Admin Trade Name Freq PRN Reason Stop Dose Admin Acetaminophen 650 mg 10/23/18 08:29 10/23/18 08:55 Tylenol Supp* MN 650 mg Q6H PRN Administration FEVER/PAIN Albuterol 2.5 mg 10/27/18 08:45 10/29/18 01:37 Ventolin 2.5 Mg/3 Ml Neb.Daniela* INH 2.5 mg Q4H PRN Administration SOB/WHEEZING Heparin Sodium (Porcine) 5,000 units 10/21/18 22:00 10/31/18 06:23 Heparin Vial(*) SUBCUT 5,[address] Administration Dextrose/Sodium Chloride 1,000 mls @ 75 mls/hr 10/28/18 15:00 10/31/18 03:52 D5w 1/4 Ns 1000 Ml Bag* IV 75 mls/hr PER RATE AVE Administration Levetiracetam 1,000 mg 10/31/18 10:00 Keppra Liq* NG TUBE BID [facility] Pharmacy Consult 1 note 10/23/18 16:00 Zosyn Per Pharmacy* FOLLOW UP .ZOSYN PER PHARMACY [facility] Phenytoin Sodium 100 mg 10/31/18 10:00 Dilantin Susp(*) NG TUBE BID [facility] Vital Signs 10/30/18 10/30/18 10/30/18 10:15 10:30 10:45 Temperature Pulse Rate 50 51 50 Respiratory 15 16 16 Rate Blood Pressure 95/59 88/52 94/50 (mmHg) O2 Sat by Pulse 100 100 100 Oximetry 10/30/18 10/30/18 10/30/18 10:51 11:00 11:01 Temperature Pulse Rate 50 50 Respiratory 15 15 15 Rate Blood Pressure 89/49 (mmHg) O2 Sat by Pulse 100 100 Oximetry 10/30/18 10/30/18 10/30/18 11:15 11:30 11:45 Temperature Pulse Rate 49 50 51 Respiratory 15 14 15 Rate Blood Pressure 96/58 103/57 96/55 (mmHg) O2 Sat by Pulse 100 100 100 Oximetry 10/30/18 10/30/18 10/30/18 12:00 12:01 12:15 Temperature 97.6 F Pulse Rate 49 50 50 Respiratory 13 14 17 Rate Blood Pressure 91/58 105/60 (mmHg) O2 Sat by Pulse 100 100 100 Oximetry 10/30/18 10/30/18 10/30/18 12:30 12:45 12:59 Temperature 96.7 F Pulse Rate 54 54 Respiratory 17 16 Rate Blood Pressure 94/51 88/48 (mmHg) O2 Sat by Pulse 100 100 Oximetry 10/30/18 10/30/18 10/30/18 13:00 13:01 13:15 Temperature Pulse Rate 52 53 52 Respiratory 15 18 20 Rate Blood Pressure 89/50 89/50 (mmHg) O2 Sat by Pulse 100 100 100 Oximetry 10/30/18 10/30/18 10/30/18 13:30 13:45 13:57 Temperature Pulse Rate 53 54 Respiratory 19 19 15 Rate Blood Pressure 89/49 89/52 (mmHg) O2 Sat by Pulse 100 100 Oximetry 10/30/18 10/30/18 10/30/18 14:00 14:01 14:15 Temperature Pulse Rate 53 52 57 Respiratory 17 18 18 Rate Blood Pressure 99/55 105/61 (mmHg) O2 Sat by Pulse 100 100 90 Oximetry 10/30/18 10/30/18 10/30/18 14:30 14:45 15:00 Temperature Pulse Rate 52 55 Respiratory 17 17 15 Rate Blood Pressure 101/56 88/50 80/41 (mmHg) O2 Sat by Pulse 100 100 Oximetry 10/30/18 10/30/18 10/30/18 15:01 15:02 15:03 Temperature Pulse Rate 59 53 Respiratory 16 16 18 Rate Blood Pressure 91/42 (mmHg) O2 Sat by Pulse 100 100 Oximetry 10/30/18 10/30/18 10/30/18 16:00 16:01 17:00 Temperature 96.1 F Pulse Rate 53 52 55 Respiratory 19 17 18 Rate Blood Pressure 92/50 97/53 (mmHg) O2 Sat by Pulse 100 100 100 Oximetry 10/30/18 10/30/18 10/30/18 17:01 18:00 18:01 Temperature Pulse Rate 52 53 54 Respiratory 15 15 15 Rate Blood Pressure 99/59 (mmHg) O2 Sat by Pulse 100 100 100 Oximetry 10/30/18 10/30/18 10/30/18 19:00 19:01 20:00 Temperature 97.2 F Pulse Rate 56 56 52 Respiratory 20 15 16 Rate Blood Pressure 89/58 117/67 (mmHg) O2 Sat by Pulse 99 100 96 Oximetry 10/30/18 10/30/18 10/30/18 21:00 21:01 22:00 Temperature Pulse Rate 63 59 58 Respiratory 18 18 16 Rate Blood Pressure 121/67 111/63 (mmHg) O2 Sat by Pulse 96 97 98 Oximetry 10/30/18 10/30/18 10/30/18 22:01 23:00 23:01 Temperature Pulse Rate 60 57 55 Respiratory 14 18 16 Rate Blood Pressure 117/60 (mmHg) O2 Sat by Pulse 95 96 97 Oximetry 10/30/18 10/30/18 10/31/18 23:27 23:28 00:00 Temperature 98.1 F Pulse Rate 55 51 58 Respiratory 25 15 14 Rate Blood Pressure 117/60 108/55 (mmHg) O2 Sat by Pulse 96 100 100 Oximetry 10/31/18 10/31/18 10/31/18 00:01 01:00 01:01 Temperature Pulse Rate 56 59 59 Respiratory 14 18 14 Rate Blood Pressure 85/44 (mmHg) O2 Sat by Pulse 100 100 100 Oximetry 10/31/18 10/31/18 10/31/18 02:00 02:01 03:00 Temperature Pulse Rate 55 54 54 Respiratory 14 17 14 Rate Blood Pressure 104/53 96/54 (mmHg) O2 Sat by Pulse 99 100 100 Oximetry 10/31/18 10/31/18 10/31/18 03:01 03:43 04:00 Temperature 97.2 F Pulse Rate 55 55 Respiratory 20 23 Rate Blood Pressure 90/47 (mmHg) O2 Sat by Pulse 100 100 Oximetry 10/31/18 10/31/18 10/31/18 04:01 05:00 05:01 Temperature Pulse Rate 55 52 Respiratory 15 14 20 Rate Blood Pressure 106/54 (mmHg) O2 Sat by Pulse 100 Oximetry 10/31/18 10/31/18 10/31/18 06:00 06:01 07:00 Temperature Pulse Rate Respiratory 15 20 23 Rate Blood Pressure 125/65 105/56 (mmHg) O2 Sat by Pulse Oximetry 10/31/18 10/31/18 07:01 07:42 Temperature 97.9 F Pulse Rate Respiratory 18 Rate Blood Pressure (mmHg) O2 Sat by Pulse Oximetry Examination: There was a regular cardiac rhythm. Lungs had decreased breath sounds. NG tube was in place. Dysmorphic features noted. Pupils were 3mm responding to 2mm bilaterally. She watched people move from side to side in the bed. Some sucking type movements were noted of the lips with tongue protruding. Her tone was ok in her arms, increased in her legs. She would move her arms away from examiner with weak, but present effort. No movement of legs. Toes were equivocal. No rash or skin breakdown noted in limbs. Data: Laboratory Results - last 24 hr 10/30/18 10/31/18 10/31/18 19:00 05:23 05:23 WBC 9.0 RBC 3.81 L Hgb 11.6 L Hct 35 MCV 91 MCH 31 MCHC 34 RDW 14 Plt Count 420 MPV 7.1 L Neut % (Auto) 69.0 Lymph % (Auto) 18.4 [place] % (Auto) 8.4 Eos % (Auto) 3.5 Baso % (Auto) 0.7 Absolute Neuts (auto) 6.2 Absolute Lymphs (auto) 1.7 Absolute Monos (auto) 0.8 Absolute Eos (auto) 0.3 Absolute Basos (auto) 0.1 Absolute Nucleated RBC 0 Nucleated RBC % 0 Sodium 144 Potassium 3.7 Chloride 113 H Carbon Dioxide 25 Anion Gap 6 BUN 6 Creatinine 0.79 Est GFR ( Amer) 90.4 Est GFR (Non-Af Amer) 74.7 BUN/Creatinine Ratio 7.6 L Glucose 100 Calcium 8.6 Magnesium 1.9 Phenytoin 11.4 01/05/19 05:23 WBC RBC Hgb Hct MCV MCH MCHC RDW Plt Count MPV Neut % (Auto) Lymph % (Auto) [place] % (Auto) Eos % (Auto) Baso % (Auto) Absolute Neuts (auto) Absolute Lymphs (auto) Absolute Monos (auto) Absolute Eos (auto) Absolute Basos (auto) Absolute Nucleated RBC Nucleated RBC % Sodium Potassium Chloride Carbon Dioxide Anion Gap BUN Creatinine Est GFR ( Amer) Est GFR (Non-Af Amer) BUN/Creatinine Ratio Glucose Calcium Magnesium Phenytoin 15.2 EEG at bedside: Lead artifact limiting evaluation. Intermittent epileptiform discharges noted, appears to be more active than last night. CXR: report reviewed. ICU attending note: reviewed and appreciated. Impression: 58 year old woman with history of epilepsy with occasional breakthrough seizures as outpatient, now with status epilepticus after phenytoin held for toxicity. Switching to NGT dosing of keppra and dilantin to avoid vein toxicity. Level of phenytoin is similar to outpatient level (16.3) when clinically stable. Clinically, she is improving. She continues to have activity on EEG. Will have lead artifact fixed and observe. May add further dilantin to run high therapeutic dose in attempts to stop any ongoing status. If continued status, Depakote may be considered. Levetiracetam level pending from 10/30/18. Phenytoin level ordered for 11/01/18. Currently on wait list for transfer to academic institution with capability for continuous monitoring. ICU attending addressing pulmonary findings. Over 45 minutes ICU care in repeat review of monitoring, bedside evaluation, coordination of care, with ongoing care expected throughout the day.
[2018-10-31] MEDS: levETIRAcetam LIQ* 500 MG/5 ML UDC NG TUBE SCH ×2 (10:22→21:06)
[2018-10-31] MEDS: Phenytoin SUSP(*) 100 MG/4 ML UDC (100 MG) NG TUBE SCH ×2 (10:22→20:57)
[2018-10-31] MEDS ORDERED: Phenytoin SUSP(*) 100 MG/4 ML UDC (100 MG) NG TUBE ONE (12:29)
[2018-10-31] MEDS ORDERED: Phenytoin SUSP(*) 100 MG/4 ML UDC (100 MG) PO ONE (12:29)
[2018-10-31] MEDS ORDERED: LORazepam INJ* 2 MG/ML 1 ML VIAL IV PUSH ONE ×2 (14:00→22:00)
--- NOTE | 2018-10-31 17:55 | PN ---
Progress Note - Progress Note Date of Service: 10/31/18 Note: 4 additional visits throughout the day, monitoring EEG and adjusting medications. Given continued active EEG, additional 300mg dilantin po provided. This afternoon Ativan 1mg was given IV. Clinically, she improved this morning with increase interaction. Her EEG has improved significantly this evening. Will provide Ativan 1mg tonight at 10 pm, Await repeat Dilantin level in am, Continue to monitor intermittently with EEG and clinical examination. Additional 1 + hour care provided over 4 additional visits throughout the day, with discussion of care with nursing and ICU attending. Update given to caregiver at bedside. All questions answered
[2018-10-31] MEDS ORDERED: levETIRAcetam LIQ* 500 MG/5 ML UDC PO SCH (21:00)
--- NOTE | 2018-10-31 22:49 | EEG ---
ELECTROENCEPHALOGRAPHY: DATE OF STUDY: 10/30/18 through 10/31/18 CLINICAL PROBLEM: Nisha Mitchell is a 58-year-old woman with history of epilepsy who is in the ICU on intermittent continuous monitoring for evaluation and treatment of status epilepticus. REPORT: This recording was started on 10/30/18 at approximately 7:35 and ran through the 10/31/18 at 11:03 with recorded time reported at 8 hours 41 minutes and 14 seconds. In the beginning of the record, there was episodic theta along with episodic general sharp waves with after going slow waves. The generalized sharp waves with after going slow waves would occur on occasion, and as frequent up to 1.5 seconds. Intermittent slowing was noted with disorganization in the background activity. As the record continued, there was some improvement of the background activity. At times, the discharges were more frontal predominant, they could be a sharply contoured theta or at other times bilateral frontal sharp discharges. Some temporal sharp waves were noted. During the recording, there were periods of sleep with slowing and vertex waves with K-complexes as well as delta activity. At 20:15, and recordings after that period of time toward morning, more frequent generalized discharges were noted at a frequency of up to 3 Hz, with sharp with after going slow wave consistent with generalized seizure. CLINICAL IMPRESSION: This was an abnormal recording. There were more frequent discharges from 20:15 on 10/30/18 to the morning of 10/31/18 with ongoing seizure activity noted. [id number]/[facility] #: [id number] MARIO
--- NOTE | 2018-10-31 22:58 | EEG ---
ELECTROENCEPHALOGRAPHY: DATE OF STUDY: 10/31/18 CLINICAL PROBLEM: Nisha Mitchell is a 58-year-old woman with history of epilepsy, currently in the ICU, intermittent monitoring for status epilepticus. This is a 33-minute continuous EEG performed this morning at 11:19. REPORT: In the beginning of the record, there was disorganization of the background rhythm with intermittent generalized sharp with slow waves. As the record continued, there was some superimposed movement artifact obscuring the record. The generalized sharp waves with after going slow waves became more frequent and could be as frequent as 3 to 4 Hz. Bilateral frontal temporal sharp waves were noted. Intermittently, some alpha rhythm was noted posteriorly at 7 Hz. During much of the record, there was theta or sharply contoured theta with intermittent sharp with slow waves. During the record, there were discharges lasting for a more prolonged period with generalized sharp and slow waves consistent with ongoing seizure activity. Towards the end of the record, the generalized sharp waves with after going slow waves were intermittent with background rhythm that varied between alpha and theta activity. CLINICAL IMPRESSION: This is an abnormal EEG. There was ongoing intermittent epileptiform activity with generalized discharges as well as bilateral frontal temporal discharges. At times, the discharges could be more frequent at 3 to 4 Hz, and there was a 4 to 5 second ongoing generalized discharge consistent with seizure during the recording. [id number]/[facility] #: [id number] [facility]ITAL[facility]g
[2018-11-01] MEDS: Heparin VIAL(*) 5000 UNITS/ML VIAL (FIVE THOUSAND) SUBCUT SCH ×4 (00:02→20:19)
[2018-11-01] MEDS: D5W 1/4 NS 1000 ML BAG* 1,000 ML IV SCH ×2 (02:40→15:45)
[2018-11-01 05:58] LABS: BUN/Creatinine Ratio 10.6 (8-20); Calcium 8.4 mg/dL (8.6-10.3); Potassium 3.4 mmol/L (3.5-5.0)
[2018-11-01 06:17] LABS: Phenytoin 20.5 mcg/mL (10-20)
--- NOTE | 2018-11-01 08:50 | PN ---
Progress Note - Progress Note Date of Service: 11/01/18 Note: HPI: No observed seizures overnight clinically. Continued intermittent monitoring. Two doses Ativan 1mg yesterday. Sleepy. Acetaminophen (Tylenol Supp*) 650 mg NC Q6H PRN PRN Reason: FEVER/PAIN Last Admin: 10/23/18 08:55 Dose: 650 mg Albuterol (Ventolin 2.5 Mg/3 Ml Neb.Daniela*) 2.5 mg INH Q4H PRN PRN Reason: SOB/WHEEZING Last Admin: 10/29/18 01:37 Dose: 2.5 mg Heparin Sodium (Porcine) (Heparin Vial(*)) 5,000 units SUBCUT Q8HR [facility] Last Admin: 11/01/18 05:29 Dose: 5,000 units Dextrose/Sodium Chloride (D5w / Ns 1000 Ml Bag*) 1,000 mls @ 75 mls/hr IV PER RATE [facility] Last Admin: 11/01/18 02:40 Dose: 75 mls/hr Levetiracetam (Keppra Liq*) 1,000 mg NG TUBE BID [facility] Last Admin: 10/31/18 21:06 Dose: 1,000 mg Pharmacy Consult (Zosyn Per Pharmacy*) 1 note FOLLOW UP .ZOSYN PER [facility]Y [facility] Phenytoin Sodium (Dilantin Susp(*)) 100 mg NG TUBE BID [facility] Last Admin: 10/31/18 20:57 Dose: 100 mg Vital Signs - 24 hr 10/31/18 10/31/18 10/31/18 09:00 09:01 10:00 Temperature Pulse Rate 60 58 Respiratory 22 24 16 Rate Blood Pressure 129/66 119/60 (mmHg) O2 Sat by Pulse 96 95 Oximetry 10/31/18 10/31/18 10/31/18 10:01 11:00 11:01 Temperature Pulse Rate 58 64 Respiratory 17 17 16 Rate Blood Pressure 126/66 (mmHg) O2 Sat by Pulse 99 99 Oximetry 10/31/18 10/31/18 10/31/18 12:00 12:01 13:00 Temperature 97.9 F Pulse Rate 71 67 57 Respiratory 17 17 12 Rate Blood Pressure 141/71 113/60 (mmHg) O2 Sat by Pulse 100 99 99 Oximetry 10/31/18 10/31/18 10/31/18 13:01 14:00 14:01 Temperature Pulse Rate 63 Respiratory 18 17 13 Rate Blood Pressure 118/67 (mmHg) O2 Sat by Pulse 98 Oximetry 10/31/18 10/31/18 10/31/18 14:37 15:00 15:01 Temperature Pulse Rate 69 62 Respiratory 17 21 16 Rate Blood Pressure 106/60 (mmHg) O2 Sat by Pulse 99 97 Oximetry 10/31/18 10/31/18 10/31/18 16:00 16:01 17:00 Temperature 96.7 F Pulse Rate 58 57 67 Respiratory 16 18 28 Rate Blood Pressure 91/47 (mmHg) O2 Sat by Pulse 97 97 99 Oximetry 10/31/18 10/31/18 10/31/18 17:01 18:00 18:01 Temperature Pulse Rate 57 57 58 Respiratory 14 17 16 Rate Blood Pressure 124/66 94/46 (mmHg) O2 Sat by Pulse 100 98 98 Oximetry 10/31/18 10/31/18 10/31/18 19:00 19:01 19:55 Temperature 99.7 F Pulse Rate 56 55 Respiratory 19 18 Rate Blood Pressure 111/58 (mmHg) O2 Sat by Pulse 98 98 Oximetry 10/31/18 10/31/18 10/31/18 20:00 20:01 21:00 Temperature Pulse Rate 64 55 60 Respiratory 18 15 14 Rate Blood Pressure 113/52 (mmHg) O2 Sat by Pulse 99 99 100 Oximetry 10/31/18 10/31/18 10/31/18 21:01 21:47 21:52 Temperature Pulse Rate 57 Respiratory 20 19 20 Rate Blood Pressure 132/83 (mmHg) O2 Sat by Pulse 100 Oximetry 10/31/18 10/31/18 10/31/18 22:00 22:01 23:00 Temperature Pulse Rate 54 53 58 Respiratory 14 17 15 Rate Blood Pressure 109/59 119/73 (mmHg) O2 Sat by Pulse 100 100 100 Oximetry 10/31/18 10/31/18 10/31/18 23:01 23:08 23:29 Temperature 98.0 F Pulse Rate 50 52 Respiratory 16 18 Rate Blood Pressure (mmHg) O2 Sat by Pulse 100 100 Oximetry 11/01/18 11/01/18 11/01/18 00:00 00:01 01:00 Temperature Pulse Rate 53 53 67 Respiratory 15 14 20 Rate Blood Pressure 96/51 100/55 (mmHg) O2 Sat by Pulse 100 100 100 Oximetry 11/01/18 11/01/18 11/01/18 01:01 01:21 02:00 Temperature Pulse Rate 53 52 49 Respiratory 17 14 20 Rate Blood Pressure 105/57 (mmHg) O2 Sat by Pulse 100 100 100 Oximetry 11/01/18 11/01/18 11/01/18 02:01 03:00 03:01 Temperature Pulse Rate 48 52 53 Respiratory 15 22 15 Rate Blood Pressure 92/49 (mmHg) O2 Sat by Pulse 100 100 100 Oximetry 11/01/18 11/01/18 11/01/18 03:28 04:00 04:01 Temperature 97.2 F Pulse Rate 51 50 Respiratory 15 16 Rate Blood Pressure 94/50 (mmHg) O2 Sat by Pulse 100 100 Oximetry 11/01/18 11/01/18 11/01/18 05:00 05:01 06:00 Temperature Pulse Rate 49 49 53 Respiratory 12 14 14 Rate Blood Pressure 98/58 116/57 (mmHg) O2 Sat by Pulse 100 100 100 Oximetry 11/01/18 11/01/18 11/01/18 06:01 07:00 07:01 Temperature Pulse Rate 49 50 50 Respiratory 13 16 13 Rate Blood Pressure 87/42 (mmHg) O2 Sat by Pulse 100 100 100 Oximetry 11/01/18 11/01/18 11/01/18 07:52 08:00 08:01 Temperature 97.8 F Pulse Rate Respiratory 14 18 Rate Blood Pressure 104/50 (mmHg) O2 Sat by Pulse Oximetry Sleepy. NG tube in place. Decreased respiratory sounds at bases with some adventitious sounds at right base. Cardiac regular. Mitts on hands. Some bruising of left elbow. Tries to close eyes to light. Pupils 2mm responsive to 1mm. Facial expression symmetric. No verbal output. Tone in upper extremities normal, increased in lower extremities. Some spontaneous movements of arm and toes. Reflexes 1+ at triceps. Chronic contractures in legs. EEG: at bedside with some normal awake activity after stimulation. Still occasional sharp activity, however markedly improved. Laboratory Results - last 24 hr 10/30/18 11/01/18 09:40 05:24 Sodium 143 Potassium 3.4 L Chloride 111 Carbon Dioxide 28 Anion Gap 4 BUN 7 Creatinine 0.66 Est GFR ( Amer) 111.3 Est GFR (Non-Af Amer) 92.0 BUN/Creatinine Ratio 10.6 Glucose 119 H Calcium 8.4 L Magnesium 2.0 Phenytoin 20.5 H Levetiracetam 30.8 Impression: Status epilepticus, now resolved on EEG and clinically. Continue to watch on EEG in ICU as benzodiazepine wears off. Continue on current doses of phenytoin and levetiracetam (which are outpatient doses). Appreciate ICU ongoing care. Care and clinical update discussed with nurse and ICU attending. Will continue to follow with you with intermittent visits and review of EEG throughout the day. >30 minutes was spent in direct patient care in the ICU.
[2018-11-01] MEDS: levETIRAcetam LIQ* 500 MG/5 ML UDC NG TUBE SCH ×2 (09:13→20:18)
[2018-11-01] MEDS: Phenytoin SUSP(*) 100 MG/4 ML UDC (100 MG) NG TUBE SCH ×2 (09:14→20:18)
--- NOTE | 2018-11-01 09:27 | PN ---
Date of Service: 11/01/18 - HD 12 Critical Care Services: Frequent neuro checks and EEG monitoring Vital Signs: Temp Pulse Resp BP SpO2 FiO2 97.8 F 50 17 109/59 100 3 11/01/18 07:52 11/01/18 07:01 11/01/18 09:01 11/01/18 09:00 11/01/18 07:01 10/31 20:00 Physical Exam: Gen: resting comfortably HEENT: Dry mucus membranes Lungs: CTAB Cardiac: RRR Abdomen: soft NTND. Extremities: cool, dry. no edema Neuro: Opens eyes to voice. Nonverbal Fluid Balance (Past 24 Hours): I= O= Net Intake & Output 10/30/18 10/31/18 11/01/18 11/02/18 06:59 06:59 06:59 06:59 Intake Total 1799 1872 3566 1126 Output Total 0 Balance 1799 1872 3566 1126 Weight 69 lb 10.657 oz 73 lb 13.678 oz 68 lb 10.657 oz Intake: IV Fluids 1694 1242 2347 ABX - ZOSYN 100 D5W 1/4 NS 1207 1111 2327 Keppra 100 NS 287 131 20 IVPB 105 212 349 ABX - ZOSYN 105 37 D5W 1/4 NS 173 Fosphenytoin 60 Keppra 115 NS 176 Oral 0 0 Tube Feeding 318 450 625 Tube Feeding Flush Amount 100 420 501 Output: Urine 0 Other: Estimated Void Large Large Large Date of Last Bowel 10/30/18 Movement # Bowel Movements 1 1 1 Estimated Stool Amount Small Small Medium Other Amount Description no measured out put this hour no measured out put this hour # Voids 1 1 1 ADLs: Meal Record Start: 10/21/18 22: 07 Freq: ,,18 Status: Complete Protocol: Created 10/21/18 22:07 System (Rec: 10/21/18 22:07 System ICU-C25) Document 10/22/18 09:00 [id number] (Rec: 10/22/18 11:33 QRZ5980 ICU-M25) Document 10/22/18 13:00 TUS8051 (Rec: 10/22/18 15:02 UKS5117 ICU-C12) Document 10/22/18 18:00 MNW1752 (Rec: 10/22/18 19:13 AUL4370 ICU-C12) Document 10/23/18 09:00 SJD1335 (Rec: 10/23/18 09:01 YPX7989 ICU-C06) ADLs: Meal Record Start: 10/23/18 12: 02 Freq: Status: Active Protocol: Created 10/23/18 12:02 IEX5389 (Rec: 10/23/18 12:02 VGW8994 TELE-C11) Document 10/23/18 14:00 TFV4340 (Rec: 10/23/18 15:20 SAS2224 TELE-C01) Document 10/23/18 17:08 FNM8605 (Rec: 10/23/18 17:08 UMJ7819 TELE-C11) Document 10/24/18 08:42 RXA2122 (Rec: 10/24/18 08:42 UGT9267 TELE-C08) Document 10/24/18 12:48 TKA5136 (Rec: 10/24/18 12:48 BHH1239 TELE-C08) Document 10/24/18 18:00 CZT6849 (Rec: 10/24/18 18:19 NNB1872 TELE-C11) Document 10/25/18 08:07 HLT6143 (Rec: 10/25/18 08:07 SKQ9507 TELE-C11) Document 10/25/18 14:00 AIS6995 (Rec: 10/25/18 14:46 DNL3090 TELE-C08) Document 10/25/18 18:00 ZGY1180 (Rec: 10/25/18 18:29 WQP0509 TELE-C11) Document 10/26/18 09:00 LVQ8171 (Rec: 10/26/18 15:23 THY4074 TELE-C05) Document 10/26/18 14:00 NWN9480 (Rec: 10/26/18 15:26 UVO5280 TELE-C05) Document 10/26/18 18:00 BCQ2057 (Rec: 10/26/18 22:12 TUS9102 TELE-C03) Document 10/27/18 09:00 PMG5356 (Rec: 10/27/18 11:16 MNX8645 TELE-C11) Document 10/27/18 14:00 UHY6225 (Rec: 10/27/18 15:11 KDO1278 TELE-C11) Document 10/27/18 18:00 MTL8837 (Rec: 10/27/18 21:22 BTQ9194 TELE-C11) Document 10/28/18 09:00 QPE1526 (Rec: 10/28/18 10:51 NWW9204 TELE-C08) Document 10/28/18 13:42 QEI2041 (Rec: 10/28/18 13:42 QNT6665 TELE-C08) Document 10/28/18 18:00 AVI9508 (Rec: 10/28/18 21:39 IAH2306 TELE-C05) Document 10/29/18 14:00 BGR7942 (Rec: 10/29/18 14:08 JNP7910 ICU-C25) Document 10/29/18 18:00 GKG9758 (Rec: 10/29/18 18:03 KOS7467 ICU-M27) Document 10/30/18 09:00 VQK2969 (Rec: 10/30/18 09:27 XTX8616 ICU-C12) Document 10/30/18 12:17 SNL4724 (Rec: 10/30/18 12:17 LOY8659 ICU-C12) Document 10/30/18 18:00 ELL8664 (Rec: 10/30/18 18:45 NCG6629 ICU-C15) Document 10/31/18 09:00 YFT1021 (Rec: 10/31/18 15:32 DPC2667 ICU-C06) Document 10/31/18 14:00 PVE5389 (Rec: 10/31/18 19:07 OVX0819 ICU-C06) Document 10/31/18 18:00 GLK2694 (Rec: 10/31/18 19:07 RVK0985 ICU-C06) Intake and Output Start: 10/21/18 16: 20 Freq: Status: Active Protocol: Created 10/21/18 16:20 System (Rec: 10/21/18 16:20 System ED-C24) Intake and Output Start: 10/21/18 22: 07 Freq: Q4HR Status: Active Protocol: Created 10/21/18 22:07 System (Rec: 10/21/18 22:07 System ICU-C25) Document 10/22/18 00:00 ZHC6745 (Rec: 10/22/18 01:09 TRX0261 ICU-C06) Document 10/22/18 06:00 TOS0671 (Rec: 10/22/18 06:30 OPY2504 ICU-M19) Document 10/22/18 09:00 KNE6877 (Rec: 10/22/18 10:26 MDX3385 ICU-M25) Document 10/22/18 17:00 JSG6647 (Rec: 10/22/18 17:06 TZA8516 ICU-M25) Document 10/22/18 22:00 SFQ1382 (Rec: 10/22/18 22:30 ZIX9255 ICU-M19) Document 10/23/18 05:51 CSX2065 (Rec: 10/23/18 05:51 HMO1423 ICU-M19) Document 10/23/18 07:00 RBR8077 (Rec: 10/23/18 08:10 HQR0544 ICU-C06) Document 10/23/18 08:00 TVM1153 (Rec: 10/23/18 09:30 DEH3943 ICU-C06) Document 10/23/18 09:00 IZR9721 (Rec: 10/23/18 09:30 BDN2443 ICU-C06) Document 10/23/18 10:00 XHT3120 (Rec: 10/23/18 10:23 OWD8942 ICU-C06) Document 10/29/18 11:00 XSO4846 (Rec: 10/29/18 11:04 XRC5773 ICU-C25) Document 10/29/18 12:00 TKH3282 (Rec: 10/29/18 13:06 ZAZ9997 ICU-C25) Document 10/29/18 13:00 SRV5073 (Rec: 10/29/18 13:07 FXK6649 ICU-C25) Document 10/29/18 14:00 LLS3491 (Rec: 10/29/18 14:08 LQE5634 ICU-C25) Document 10/29/18 15:00 TOT1527 (Rec: 10/29/18 15:02 IPU3527 ICU-C25) Document 10/29/18 16:00 DMG7827 (Rec: 10/29/18 16:54 TJY9939 ICU-C25) Document 10/29/18 17:00 VFI6526 (Rec: 10/29/18 17:05 EUQ8485 ICU-C25) Document 10/29/18 18:00 NDI2264 (Rec: 10/29/18 18:03 RZX5458 ICU-M27) Document 10/29/18 19:00 LHK7427 (Rec: 10/29/18 20:32 FIJ9175 ICU-L03) Document 10/29/18 20:00 WYR4384 (Rec: 10/29/18 21:42 AMT3793 ICU-L03) Document 10/29/18 21:00 PUP7834 (Rec: 10/29/18 21:45 HVI2968 ICU-L03) Document 10/29/18 22:29 ZUP4614 (Rec: 10/29/18 22:29 VQJ9418 ICU-C11) Document 10/30/18 05:00 ERI5792 (Rec: 10/30/18 05:44 WOA8576 ICU-L03) Document 10/30/18 10:04 PGU1320 (Rec: 10/30/18 10:05 YPA2538 ICU-C12) Document 10/30/18 14:30 YGL2154 (Rec: 10/30/18 14:30 WIQ9871 ICU-C12) Document 10/30/18 14:52 SKM9583 (Rec: 10/30/18 14:52 VLF2991 ICU-C12) Document 10/30/18 16:00 QFU0474 (Rec: 10/30/18 18:51 LOA6681 ICU-C15) Document 10/30/18 20:00 CPS1195 (Rec: 10/30/18 20:45 YGP2037 ICU-L03) Document 10/31/18 00:00 ZCL0930 (Rec: 10/31/18 02:07 JYP6703 ICU-L03) Document 10/31/18 05:31 QGD2015 (Rec: 10/31/18 05:31 DQK9254 ICU-C14) Document 10/31/18 08:00 XAH6841 (Rec: 10/31/18 15:29 CGY7195 ICU-C06) Document 10/31/18 12:00 PWZ4277 (Rec: 10/31/18 15:29 NHP9946 ICU-C06) Document 10/31/18 15:00 DFK3944 (Rec: 10/31/18 15:29 VEP4653 ICU-C06) Document 10/31/18 15:00 OWM1361 (Rec: 10/31/18 15:30 TXU0935 ICU-C06) Document 10/31/18 16:00 FDK0370 (Rec: 10/31/18 19:11 GOH5531 ICU-C06) Document 10/31/18 19:55 WKA9506 (Rec: 10/31/18 19:55 RSH6357 ICU-M32) Document 10/31/18 23:13 AJM2799 (Rec: 10/31/18 23:13 WAG1943 ICU-M32) Document 11/01/18 02:13 KHA2216 (Rec: 11/01/18 02:13 JVA6493 ICU-C14) Document 11/01/18 06:19 GRG7687 (Rec: 11/01/18 06:19 GRL0856 ICU-C14) Document 11/01/18 07:09 LGD8493 (Rec: 11/01/18 07:10 LOW9955 ICU-M27) Intake and Output Start: 10/23/18 12: 02 Freq: DAILY@0600,1400,2200 Status: Complete Protocol: Created 10/23/18 12:02 ANC0595 (Rec: 10/23/18 12:02 MAX0593 TELE-C11) Document 10/23/18 21:22 MMV4531 (Rec: 10/23/18 21:22 XZZ3753 TELE-C01) Document 10/24/18 05:40 ECN4554 (Rec: 10/24/18 05:41 GVY4945 TELE-C35) Document 10/24/18 14:00 TAX9016 (Rec: 10/24/18 14:54 HQO6573 TELE-C08) Document 10/24/18 22:00 SGG4656 (Rec: 10/24/18 22:32 GTL8655 TELE-C11) Document 10/25/18 06:00 SIJ6933 (Rec: 10/25/18 06:05 CQX1694 TELE-C34) Document 10/25/18 14:00 DIS4695 (Rec: 10/25/18 14:46 NJJ9146 TELE-C08) Document 10/25/18 21:49 ZFP7667 (Rec: 10/25/18 21:51 MAX4416 TELE-C09) Document 10/26/18 05:49 OBI0721 (Rec: 10/26/18 05:50 QPQ3012 HOSP-C11) Document 10/26/18 14:00 YRX1475 (Rec: 10/26/18 15:26 ZWI2283 TELE-C05) Document 10/26/18 22:00 ONL4621 (Rec: 10/26/18 22:12 OLX5944 TELE-C03) Document 10/27/18 06:00 FPS7907 (Rec: 10/27/18 06:23 HSF3358 TELE-C34) Document 10/27/18 22:00 AJW2843 (Rec: 10/27/18 22:31 PTA3272 TELE-C11) Document 10/28/18 06:00 XWG2308 (Rec: 10/28/18 06:53 DFD3083 TELE-C33) Document 10/28/18 13:41 UIV1162 (Rec: 10/28/18 13:41 DPS7370 TELE-C08) Document 10/28/18 21:29 INX7219 (Rec: 10/28/18 21:31 ISD3951 TELE-C08) Document 10/29/18 06:00 XRP3657 (Rec: 10/29/18 06:57 XQO2850 TELE-C01) Labs: Laboratory Results - last 24 hr 10/30/18 11/01/18 09:40 05:24 Sodium 143 Potassium 3.4 L Chloride 111 Carbon Dioxide 28 Anion Gap 4 BUN 7 Creatinine 0.66 Est GFR ( Amer) 111.3 Est GFR (Non-Af Amer) 92.0 BUN/Creatinine Ratio 10.6 Glucose 119 H Calcium 8.4 L Magnesium 2.0 Phenytoin 20.5 H Levetiracetam 30.8 Studies: no radiology today EEG read from 10/31 with intermittent epileptiform discharges Nutrition: continue TF Impression: 58F with GERD, chronic UTI, MRCO, seizure disorder transferred to ICU for status epilepticus Plan: Status epilepticus - discussed with Neurology, prelim review of EEG suggests patient no longer in status epilepticus. Continue EEG monitoring. Intermittent Ativan as needed per Neurology. Seizure disorder - continue Keppra and Dilantin. Continue neuro checks LLL atelectasis - titrate O2 to keep sats >92%. Chest PT. PRN nebs. E coli UTI - Zosyn x 10 day course completes today. Repeat UA negative. Hypernatremia - resolved. continue to monitor. DVT prophylaxis: SQ Heparin Critical Care Time: 40
--- NOTE | 2018-11-01 14:52 | PN ---
Progress Note - Progress Note Date of Service: 11/01/18 Note: Clinical activity and interaction with caregiver continues to improve. EEG improved significantly overnight. Limited by movement artifact. Some ongoing epileptiform discharges. Plan: D/C continuous monitoring. Ativan 1mg at 9 pm Repeat trough phenytoin level in am (free and total) prior to first dose of dilantin/phenytoin in the setting of low albumin Continue on current doses of antiepileptic RX (doses used as outpatient) Repeat EEG in AM. Another 45 minutes spent in intermittent visits, discussions with caregiving team in ICU and coordination of care.
[2018-11-01] MEDS ORDERED: Potassium Chloride LIQUID* 20 MEQ PACKET PO ONE (16:28)
[2018-11-01] MEDS ORDERED: LORazepam INJ* 2 MG/ML 1 ML VIAL IV PUSH ONE (21:00)
--- NOTE | 2018-11-01 23:09 | EEG ---
ELECTROENCEPHALOGRAPHY: DATE OF STUDY: 11/01/18 - ROOM #ICU-06 CLINICAL PROBLEM: Nisha Mitchell is a 58-year-old young lady with history of epilepsy who was admitted with upper respiratory symptoms and has been in the ICU with status on continuous intermittent monitoring. A 22-minute EEG was obtained this morning. REPORT: In the beginning of the record, there was quite a bit of movement artifact. As this settled down, there were some generalized sharp waves more frontal predominant noted that was intermittent with posterior alpha rhythm noted around 8 Hz. As the record continued, there was episodic slowing and movement artifact which obscured the background rhythm. Intermittently, there were sharp waves noted in the frontotemporal region and sometimes generalized. There were other times where normal background activity could be noted. The sharp activity did become frequent at times.. At times, it was questioned if some of the higher amplitude more sharply contoured waves were secondary to movement artifact. At times, there were some rhythmic sharp discharges suggesting epileptiform activity. CLINICAL IMPRESSION: This is an abnormal EEG. There continued to be intermittent epileptiform discharges as well as frontotemporal sharp waves. Normal background activity was noted at times. EEG recording was complicated by movement artifact. [id number]/[facility] #: [id number] [facility]
--- NOTE | 2018-11-01 23:17 | EEG ---
INTERMITTENT CONTINUOUS EEG MONITORING IN THE ICU: SERVICE DATE: 10/31/18 until 11/01/18 - ROOM #ICU-06 DURATION: Over 10 hours. DESCRIPTION OF THE RECORD: This was a 16-channel EEG performed intermittently at bedside. In the beginning of the record, there was initially theta activity and sharply contoured theta with intermittent generalized sharp waves, some more predominant in the frontotemporal region. There was superimposed movement artifact obscuring the background rhythm. As the record continued, there was episodic slowing as well as episodic higher amplitude sharply contoured waves with frontotemporal sharp waves as well as generalized discharges. Around 2:00 in the afternoon, benzodiazepines were provided and there was significant improvement in the background rhythm with episodic slowing and occasional sharp discharge. Repeat benzodiazepines were provided at 2200. As the record continued, overall the record showed decreased sharp activity with improvement in the background rhythm and some posterior dominant 8 Hz alpha rhythm. There was; however, continued intermittent frontotemporal sharp waves and occasional generalized sharp discharge. The entire record had quite a bit of movement artifact at many times. During the most quiet times, there was definite improvement in the background rhythm and there were at times evidence of stage 2 sleep. IMPRESSION: This was an abnormal EEG. There were intermittent epileptiform discharges in the frontotemporal regions and at times generalized with increasing periods of normal background activity in the setting of treatment with benzodiazepines. [id number]/[facility] #: [id number] MARIO
[2018-11-02] MEDS: Heparin VIAL(*) 5000 UNITS/ML VIAL (FIVE THOUSAND) SUBCUT SCH ×2 (05:30→18:46)
[2018-11-02] MEDS: D5W 1/4 NS 1000 ML BAG* 1,000 ML IV SCH (05:30)
[2018-11-02 05:49] LABS: Hematocrit 30 % (35-47); Hemoglobin 10.1 g/dl (12.0-16.0); Mean Corpuscular HGB Conc 34 g/dl (31-36); Mean Corpuscular Hemoglobin 31 pg (27-31); Mean Corpuscular Volume 91 fL (80-97); Mean Platelet Volume 7.5 fL (7.4-10.4); Platelet Count 385 10^3/ul (150-450); Red Blood Count 3.31 10^6/ul (4.00-5.40); Red Cell Distribution Width 14 % (10.5-15); White Blood Count 7.9 10^3/ul (3.5-10.8)
[2018-11-02 06:37] LABS: Phenytoin 20.7 mcg/mL (10-20)
--- NOTE | 2018-11-02 08:22 | PN ---
Date of Service: 11/02/18 - HD 13 Critical Care Services: 58 yo F with GERD, chronic UTI, MR/CP, seizure disorder transferred to ICU for status epilepticus 10/30 Discussed with Neurology. Possible need for transfer to [place] for LTM 10/31: HD stable. Continues to have seizure activity on EEG. Meds adjusted. PRN Ativan required 11/01: No longer demonstrating seizure activity on EEG. Mental status improving. 11/02: No overnight events Vital Signs: Temp Pulse Resp BP SpO2 FiO2 97.2 F 56 15 110/60 100 4 11/02/18 07:30 11/02/18 05:01 11/02/18 07:36 11/02/18 07:00 11/02/18 07:01 11/02 07:43 Physical Exam: Gen: resting comfortably HEENT: dry mucus membranes Lungs: CTAB Cardiac: RRR Abdomen: soft, NTND Extremities: warm, dry, no edema Neuro: Opens eyes to voice, purposeful but not following commands Fluid Balance (Past 24 Hours): I= O= Net Intake & Output 10/31/18 11/01/18 11/02/18 11/03/18 06:59 06:59 06:59 06:59 Intake Total 1872 3566 3227 459 Output Total 0 0 Balance 1872 3566 3227 459 Weight 73 lb 13.678 oz 68 lb 10.657 oz 60 lb 13.561 oz Intake: IV Fluids 1242 2347 1687 167 D5W 1/4 NS 1111 2327 1687 167 NS 131 20 IVPB 212 349 ABX - ZOSYN 37 D5W 1/4 NS 173 Fosphenytoin 60 Keppra 115 NS 176 Oral 0 0 0 Tube Feeding 318 450 759 192 Tube Feeding Flush Amount 100 420 681 100 NG Tube Irrigate Amount 100 NGT 100 Output: NG Tube Drainage Amount 0 NGT 0 Urine 0 Other: Estimated Void Large Large Large Date of Last Bowel 10/30/18 Movement # Bowel Movements 1 1 Estimated Stool Amount Small Medium Medium Other Amount Description no measured out put this hour no measured out put this hour no measured out put this hour # Voids 1 1 ADLs: Meal Record Start: 10/21/18 22: 07 Freq: ,, Status: Complete Protocol: Created 10/21/18 22:07 System (Rec: 10/21/18 22:07 System ICU-C25) Document 10/22/18 09:00 [id number] (Rec: 10/22/18 11:33 HCM9120 ICU-M25) Document 10/22/18 13:00 NUG8236 (Rec: 10/22/18 15:02 WNC7222 ICU-C12) Document 10/22/18 18:00 RWU8429 (Rec: 10/22/18 19:13 OHC6531 ICU-C12) Document 10/23/18 09:00 BBS1765 (Rec: 10/23/18 09:01 JVE4716 ICU-C06) ADLs: Meal Record Start: 10/23/18 12: 02 Freq: Status: Complete Protocol: Created 10/23/18 12:02 [id number] (Rec: 10/23/18 12:02 ZLN9301 TELE-C11) Document 10/23/18 14:00 FLH5129 (Rec: 10/23/18 15:20 QEO0196 TELE-C01) Document 10/23/18 17:08 XOW8969 (Rec: 10/23/18 17:08 AKV0441 TELE-C11) Document 10/24/18 08:42 QWE4382 (Rec: 10/24/18 08:42 KEX1432 TELE-C08) Document 10/24/18 12:48 AET3773 (Rec: 10/24/18 12:48 SMU1484 TELE-C08) Document 10/24/18 18:00 MGX8153 (Rec: 10/24/18 18:19 BMR1546 TELE-C11) Document 10/25/18 08:07 JXO0750 (Rec: 10/25/18 08:07 FVL7968 TELE-C11) Document 10/25/18 14:00 OIV5042 (Rec: 10/25/18 14:46 OHX1314 TELE-C08) Document 10/25/18 18:00 LQH4959 (Rec: 10/25/18 18:29 ALR7122 TELE-C11) Document 10/26/18 09:00 YLT5216 (Rec: 10/26/18 15:23 PTL5771 TELE-C05) Document 10/26/18 14:00 UUY0397 (Rec: 10/26/18 15:26 RSC4697 TELE-C05) Document 10/26/18 18:00 PIP2898 (Rec: 10/26/18 22:12 IIG8738 TELE-C03) Document 10/27/18 09:00 VZV4560 (Rec: 10/27/18 11:16 PZE6317 TELE-C11) Document 10/27/18 14:00 XSW8056 (Rec: 10/27/18 15:11 YOT5269 TELE-C11) Document 10/27/18 18:00 CWX8274 (Rec: 10/27/18 21:22 WZQ6716 TELE-C11) Document 10/28/18 09:00 YNV9153 (Rec: 10/28/18 10:51 EKN9747 TELE-C08) Document 10/28/18 13:42 UGC2200 (Rec: 10/28/18 13:42 XSG4564 TELE-C08) Document 10/28/18 18:00 TXO3801 (Rec: 10/28/18 21:39 ICB8814 TELE-C05) Document 10/29/18 14:00 HIT2017 (Rec: 10/29/18 14:08 BRL8549 ICU-C25) Document 10/29/18 18:00 GXA6627 (Rec: 10/29/18 18:03 TEG8347 ICU-M27) Document 10/30/18 09:00 QWI5119 (Rec: 10/30/18 09:27 AFH5341 ICU-C12) Document 10/30/18 12:17 RAI6877 (Rec: 10/30/18 12:17 BOS7684 ICU-C12) Document 10/30/18 18:00 ODZ8777 (Rec: 10/30/18 18:45 JPY5461 ICU-C15) Document 10/31/18 09:00 OWM7865 (Rec: 10/31/18 15:32 SFA5041 ICU-C06) Document 10/31/18 14:00 WSC9057 (Rec: 10/31/18 19:07 DBN9282 ICU-C06) Document 10/31/18 18:00 WJB7564 (Rec: 10/31/18 19:07 ISW3983 ICU-C06) Intake and Output Start: 10/21/18 16: 20 Freq: Status: Active Protocol: Created 10/21/18 16:20 System (Rec: 10/21/18 16:20 System ED-C24) Intake and Output Start: 10/21/18 22: 07 Freq: Q4HR Status: Complete Protocol: Created 10/21/18 22:07 System (Rec: 10/21/18 22:07 System ICU-C25) Document 10/22/18 00:00 VKF6863 (Rec: 10/22/18 01:09 ELM7002 ICU-C06) Document 10/22/18 06:00 FLS5392 (Rec: 10/22/18 06:30 MHR4845 ICU-M19) Document 10/22/18 09:00 JBY2446 (Rec: 10/22/18 10:26 AQV3267 ICU-M25) Document 10/22/18 17:00 EJH7629 (Rec: 10/22/18 17:06 UUN3709 ICU-M25) Document 10/22/18 22:00 NDL9575 (Rec: 10/22/18 22:30 LTP9704 ICU-M19) Document 10/23/18 05:51 TPY8613 (Rec: 10/23/18 05:51 OHU3405 ICU-M19) Document 10/23/18 07:00 PJZ0152 (Rec: 10/23/18 08:10 LKA0935 ICU-C06) Document 10/23/18 08:00 HEV3780 (Rec: 10/23/18 09:30 TTO0813 ICU-C06) Document 10/23/18 09:00 RDI0098 (Rec: 10/23/18 09:30 UTO9358 ICU-C06) Document 10/23/18 10:00 SSQ4615 (Rec: 10/23/18 10:23 ZFA7214 ICU-C06) Document 10/29/18 11:00 ERI0498 (Rec: 10/29/18 11:04 VLU1122 ICU-C25) Document 10/29/18 12:00 IMM7001 (Rec: 10/29/18 13:06 KAM4303 ICU-C25) Document 10/29/18 13:00 AXL7094 (Rec: 10/29/18 13:07 ILR0775 ICU-C25) Document 10/29/18 14:00 NXU2193 (Rec: 10/29/18 14:08 AUB9254 ICU-C25) Document 10/29/18 15:00 QQT6618 (Rec: 10/29/18 15:02 XYK3734 ICU-C25) Document 10/29/18 16:00 NPF3493 (Rec: 10/29/18 16:54 SKR5610 ICU-C25) Document 10/29/18 17:00 ABH3099 (Rec: 10/29/18 17:05 YHM0711 ICU-C25) Document 10/29/18 18:00 GMA7991 (Rec: 10/29/18 18:03 ZSS9103 ICU-M27) Document 10/29/18 19:00 WMR3331 (Rec: 10/29/18 20:32 PIT9346 ICU-L03) Document 10/29/18 20:00 YYF3038 (Rec: 10/29/18 21:42 ZSE4632 ICU-L03) Document 10/29/18 21:00 ACI8267 (Rec: 10/29/18 21:45 LUC2962 ICU-L03) Document 10/29/18 22:29 GLG0791 (Rec: 10/29/18 22:29 JNZ0442 ICU-C11) Document 10/30/18 05:00 XMI2831 (Rec: 10/30/18 05:44 HZH1376 ICU-L03) Document 10/30/18 10:04 IPV5619 (Rec: 10/30/18 10:05 KAQ2130 ICU-C12) Document 10/30/18 14:30 HAH1279 (Rec: 10/30/18 14:30 ENW5552 ICU-C12) Document 10/30/18 14:52 XHP3640 (Rec: 10/30/18 14:52 USR7059 ICU-C12) Document 10/30/18 16:00 ZJO0424 (Rec: 10/30/18 18:51 KKG0644 ICU-C15) Document 10/30/18 20:00 FSA7613 (Rec: 10/30/18 20:45 YII7959 ICU-L03) Document 10/31/18 00:00 NFR6704 (Rec: 10/31/18 02:07 XZT5695 ICU-L03) Document 10/31/18 05:31 XVE3626 (Rec: 10/31/18 05:31 NQR6662 ICU-C14) Document 01/05/19 08:00 GAK6669 (Rec: 10/31/18 15:29 MTZ4769 ICU-C06) Document 10/31/18 12:00 TKX3199 (Rec: 10/31/18 15:29 GSM5949 ICU-C06) Document 10/31/18 15:00 NQM4229 (Rec: 10/31/18 15:29 MJK2986 ICU-C06) Document 10/31/18 15:00 VHL0771 (Rec: 10/31/18 15:30 CEV4083 ICU-C06) Document 10/31/18 16:00 KON4684 (Rec: 10/31/18 19:11 MIO6964 ICU-C06) Document 10/31/18 19:55 TUX3844 (Rec: 10/31/18 19:55 WUF3396 ICU-M32) Document 10/31/18 23:13 RMO8477 (Rec: 10/31/18 23:13 QCA5919 ICU-M32) Document 11/01/18 02:13 JDD6480 (Rec: 11/01/18 02:13 HLE5029 ICU-C14) Document 11/01/18 06:19 QPY4363 (Rec: 11/01/18 06:19 MHZ0619 ICU-C14) Document 11/01/18 07:09 IQF4315 (Rec: 11/01/18 07:10 YYQ7010 ICU-M27) Document 11/01/18 13:51 QBK8446 (Rec: 11/01/18 13:51 QKF3343 ICU-M27) Document 11/01/18 13:53 GQS9110 (Rec: 11/01/18 13:53 FGI8503 ICU-M27) Document 11/01/18 18:00 ODR6526 (Rec: 11/01/18 19:04 DOG4952 ICU-C25) Document 11/02/18 00:00 ZMJ6783 (Rec: 11/02/18 01:38 LOG6532 ICU-C25) Document 11/02/18 03:52 QYF4814 (Rec: 11/02/18 04:02 LEC1625 ICU-C25) Document 11/02/18 07:43 OSE5667 (Rec: 11/02/18 07:44 SZJ3556 ICU-C25) Intake and Output Start: 10/23/18 12: 02 Freq: DAILY@0600,1400,2200 Status: Complete Protocol: Created 10/23/18 12:02 WFL0144 (Rec: 10/23/18 12:02 UHR1606 TELE-C11) Document 10/23/18 21:22 LMJ9277 (Rec: 10/23/18 21:22 NVC0885 TELE-C01) Document 10/24/18 05:40 TTD9213 (Rec: 10/24/18 05:41 HOQ2172 TELE-C35) Document 10/24/18 14:00 TUG9392 (Rec: 10/24/18 14:54 AOE7318 TELE-C08) Document 10/24/18 22:00 YVZ5072 (Rec: 10/24/18 22:32 BTX0052 TELE-C11) Document 10/25/18 06:00 XFQ8229 (Rec: 10/25/18 06:05 GLM9411 TELE-C34) Document 10/25/18 14:00 NIR6961 (Rec: 10/25/18 14:46 ZJG2045 TELE-C08) Document 10/25/18 21:49 MNE5647 (Rec: 10/25/18 21:51 SOP4029 TELE-C09) Document 10/26/18 05:49 OGY8110 (Rec: 10/26/18 05:50 WTN7918 HOSP-C11) Document 10/26/18 14:00 SBF0442 (Rec: 10/26/18 15:26 STQ4641 TELE-C05) Document 10/26/18 22:00 IDL8985 (Rec: 10/26/18 22:12 ZDA2747 TELE-C03) Document 10/27/18 06:00 YSX0869 (Rec: 10/27/18 06:23 LQR5284 TELE-C34) Document 10/27/18 22:00 CAH4976 (Rec: 10/27/18 22:31 PCF5359 TELE-C11) Document 10/28/18 06:00 ZRM6060 (Rec: 10/28/18 06:53 ZPQ4866 TELE-C33) Document 10/28/18 13:41 FVN4446 (Rec: 10/28/18 13:41 JHU9674 TELE-C08) Document 10/28/18 21:29 LSG6744 (Rec: 10/28/18 21:31 RZH4573 TELE-C08) Document 10/29/18 06:00 GKX2869 (Rec: 10/29/18 06:57 UEP5308 TELE-C01) Labs: Laboratory Results - last 24 hr 11/02/18 11/02/18 05:40 05:40 WBC 7.9 RBC 3.31 L Hgb 10.1 L Hct 30 L MCV 91 MCH 31 MCHC 34 RDW 14 Plt Count 385 MPV 7.5 Phenytoin 20.7 H Studies: 11/01 EEG: intermittent epileptiform discharges with increasing periods of normal background activity. 10/31 EEG: ongoing intermittent epileptiform activty with generalized discharges as well as bilateral frontal temporal discharges. Nutrition: tolerating TF Impression: 58 yo F with GERD, chronic UTI, MR/CP, seizure disorder transferred into ICU for status epilepticus. She had initially been admitted with dilantin toxicity secondary to synergistic effects from an antibiotic. After meds were held she became subtherapeutic and entered status. Status broke on 11/01 with improvement in EEG and mental status. Plan: Cardiovascular: (1) Hypotension, likely secondary to meds -- HR 49-63 -- SBP 71-127 (>90 since noon yesterday) -- Telemetry Home meds: None Pulmonary: (1) LLL atelectasis -- RR 11-24 -- sats 96-100 on 4L NC -- Albuterol nebs as needed Home meds: Sudafed, Clari Gastrointestinal: No acute issues -- diet: TF -- bowel regimen: None -- ulcer prophylaxis: Not indicated at this time Home meds: Zofran, Miralax Endocrine: No acute issues -- monitor BGs Home meds: None Renal: (1) Hyponatremia -- UOP: voiding -- BMP pending. If Na normalized, stop 1/4NS gtt -- IVF: D5 1/4 NS @ 75ml/hr Home meds: None Infectious disease: (1) E coli UTI, resolved -- Tmax 98.3 -- WBC 7.9 from 9.0 -- Micro 10/24 blood negative 10/23 blood negative UA negative 10/21 Urine e coli blood negative flu negative -- ABX Zosyn course completed Home meds: None Neurologic: (1) Status epilepticus, resolved; (2) Seizure disorder; (3) MR/CP -- Tylenol as needed -- AEDs Keppra Dilantin -- Neurology following Home meds: Ibuprofen, Tylenol, Keppra, Dilantin Hematological: (1) Anemia, stable -- Hgb 10.1 from 11.6 -- Plt 385 from 420 -- DVT prophylaxis: SQ Heparin Home meds: None Metabolic: No acute issues Home meds: None Deep vein thrombosis prophylaxis: SQ Heparin Dietary: Not indicated at this time Condition: stable Prognosis: good Code status: full Disposition: transfer to floor if cleared by Neurology Cumulative time spent in the care of this patient (excluding any procedure time) : at least 30 minutes. Patient care included clinical interview (with patient and/or family), bedside exam of the patient, review of labs, x-rays, and other ancillary data, coordination of (respiratory, nursing care, review of patient's records, discussion regarding patients management with involved consultants, primary physician, pharmacists, and other healthcare personnel (dietary, case management , physical/occupational therapy etc.)
[2018-11-02] MEDS: Phenytoin SUSP(*) 100 MG/4 ML UDC (100 MG) NG TUBE SCH ×2 (08:24→21:02)
[2018-11-02] MEDS: levETIRAcetam LIQ* 500 MG/5 ML UDC NG TUBE SCH ×2 (08:24→21:02)
[2018-11-02 10:24] LABS: Calcium 8.5 mg/dL (8.6-10.3); Potassium 4.7 mmol/L (3.5-5.0)
[2018-11-02 10:30] LABS: BUN/Creatinine Ratio 12.9 (8-20); EGFR Non-African American 98.9 (>60)
[2018-11-02] MEDS: levETIRAcetam IV* 1,000 MG in NS 0.9% 100 ML* 100 ML IVPB SCH (10:55)
[2018-11-02] MEDS: Fosphenytoin(*) 100 MG/2 ML VIAL IVPB SCH (10:55)
--- NOTE | 2018-11-02 20:16 | PN ---
Subjective Date of Service: 11/02/18 Length of Stay: 12 Days Neurology is following Nisha for the evaluation and management of seizures. Interval History: There has been no clinical seizures. She had an EEG today which did not show any significant changes from previous EEG. She is drowsy appearing today. According to the nurse's aide, she was not very interactive but opens eyes and makes some spontaneous movements occasionally. She is currently on levetiracetam 1,000 mg NG tube BID and phenytoin 100 mg NG tube BID. Review of Systems: Pt cannot participate in a ROS. Objective Active Medications: Acetaminophen (Tylenol Supp*) 650 mg [place] Q6H PRN PRN Reason: FEVER/PAIN Last Admin: 10/23/18 08:55 Dose: 650 mg Albuterol (Ventolin 2.5 Mg/3 Ml Neb.Daniela*) 2.5 mg INH Q4H PRN PRN Reason: SOB/WHEEZING Last Admin: 10/29/18 01:37 Dose: 2.5 mg Heparin Sodium (Porcine) (Heparin Vial(*)) 5,000 units SUBCUT Q12H [facility] Last Admin: 11/02/18 18:46 Dose: 5,000 units Levetiracetam (Keppra Liq*) 1,000 mg NG TUBE BID [facility] Last Admin: 11/02/18 08:24 Dose: 1,000 mg Phenytoin Sodium (Dilantin Susp(*)) 100 mg NG TUBE BID [facility] Last Admin: 11/02/18 08:24 Dose: 100 mg Vital Signs 11/01/18 11/01/18 11/01/18 20:18 21:00 21:01 Temperature Pulse Rate 52 Respiratory 15 19 15 Rate Blood Pressure 106/55 (mmHg) O2 Sat by Pulse 100 Oximetry 11/01/18 11/01/18 11/01/18 22:00 22:01 22:29 Temperature Pulse Rate 54 51 Respiratory 16 15 28 Rate Blood Pressure 127/74 (mmHg) O2 Sat by Pulse 100 100 Oximetry 11/01/18 11/01/18 11/01/18 23:00 23:01 23:32 Temperature Pulse Rate 53 55 Respiratory 14 16 14 Rate Blood Pressure 111/54 (mmHg) O2 Sat by Pulse 100 100 Oximetry 11/02/18 11/02/18 11/02/18 00:00 00:01 01:00 Temperature 98.3 F Pulse Rate 53 53 53 Respiratory 16 18 22 Rate Blood Pressure 114/70 120/68 (mmHg) O2 Sat by Pulse 100 100 93 Oximetry 11/02/18 11/02/18 11/02/18 01:01 02:00 02:01 Temperature Pulse Rate 54 55 53 Respiratory 15 17 15 Rate Blood Pressure 123/80 (mmHg) O2 Sat by Pulse 97 98 99 Oximetry 11/02/18 11/02/18 11/02/18 03:00 03:52 03:57 Temperature 96.6 F Pulse Rate 53 55 Respiratory 19 19 14 Rate Blood Pressure 100/59 (mmHg) O2 Sat by Pulse 100 100 Oximetry 11/02/18 11/02/18 11/02/18 04:00 04:01 05:00 Temperature Pulse Rate 51 51 55 Respiratory 13 14 15 Rate Blood Pressure 99/56 94/55 (mmHg) O2 Sat by Pulse 100 100 100 Oximetry 11/02/18 11/02/18 11/02/18 05:01 05:44 06:00 Temperature Pulse Rate 56 Respiratory 15 16 14 Rate Blood Pressure 93/52 (mmHg) O2 Sat by Pulse 100 100 Oximetry 11/02/18 11/02/18 11/02/18 06:01 07:00 07:01 Temperature Pulse Rate Respiratory 16 16 18 Rate Blood Pressure 110/60 (mmHg) O2 Sat by Pulse 100 100 100 Oximetry 11/02/18 11/02/18 11/02/18 07:30 07:36 08:38 Temperature 97.2 F Pulse Rate 94 Respiratory 15 18 Rate Blood Pressure (mmHg) O2 Sat by Pulse 98 Oximetry 11/02/18 11/02/18 11/02/18 12:17 12:20 14:26 Temperature 97.3 F 97.3 F 97.3 F Pulse Rate 60 60 60 Respiratory 14 14 16 Rate Blood Pressure 84/58 92/62 118/55 (mmHg) O2 Sat by Pulse 100 100 100 Oximetry 11/02/18 19:10 Temperature 97.0 F Pulse Rate 63 Respiratory 13 Rate Blood Pressure 143/107 (mmHg) O2 Sat by Pulse 100 Oximetry Intake and Output Last 24 Hours 10/31/18 11/01/18 11/02/18 11/03/18 06:59 06:59 06:59 06:59 Intake Total 1872 3567 0809 799 Output Total 0 0 Balance 2 0128 3221 799 Weight 73 lb 13.678 oz 68 lb 10.657 oz 60 lb 13.561 oz Intake: IV Fluids 1242 2347 1687 417 D5W 1/4 NS 1111 2327 1687 417 NS 131 20 IVPB 212 349 ABX - ZOSYN 37 D5W 10/30 NS 173 Fosphenytoin 60 Keppra 115 NS 176 Oral 0 0 0 Tube Feeding 318 450 759 192 Tube Feeding Flush Amount 100 420 681 190 NG Tube Irrigate Amount 100 NGT 100 Output: NG Tube Drainage Amount 0 NGT 0 Urine 0 Other: Estimated Void Large Large Large Large Date of Last Bowel 10/30/18 Movement # Bowel Movements 1 1 Estimated Stool Amount Small Medium Medium Other Amount Description no measured out put this hour no measured out put this hour no measured out put this hour # Voids 1 1 2 Oxygen Devices in Use Now: Nasal Cannula Neurology Exam: General: Frail appearing young female in no acute distress. HEENT: Normocephalic/atraumatic, sclera anicteric, mucous membranes moist Neck: Supple Chest: Clear to auscultation bilaterally Cardiovascular: Regular rate and rhythm without murmurs, rubs, gallops Neurological Findings: The patient is awake but has severe psychomotor and cognitive decline. She is non-verbal. She is not aware of her surrounding environment. Cranial Nerve: PERRL. She was able to track examiner and blink to eye threat. Motor: reduced bulk increase tone in all 4 extremities. She does not respond to command. Sensation: localizes to minimal nail bed pressure throughout Deep Tendon Reflex: 2+ symmetric in the upper/lower extremities, Does not cooperate for cerebellar exam Gait:wheelchair and bed-bound. Result Diagrams: 11/02/18 05:40 11/02/18 05:40 Additional Lab and Data: Phenytoin: 20.7 on 11/02/2018 collected at 0540. Microbiology and Other Data: Microbiology 10/21/18 17:12 Aerobic Blood Culture - Preliminary Blood Venous No Growth Day 1 Anaerobic Blood Culture - Preliminary No Growth Day 1 10/21/18 18:48 Urine Culture - Preliminary Urine Escherichia Coli 10/21/18 23:40 Nasal Screen MRSA (PCR) - Final Nasal Mrsa Not Detected 10/21/18 17:14 Influenza Types A,B Antigen - Final Nasal Specimen received for Influenza A/B Molecular testing Assessment/Plan 1. Status epilepticus in a patient with history of seizure disorder and profound intellectual developmental delay and cerebral palsy- The patient initially presented with phenytoin toxicity. The seizures seem to have subsided. She is drowsy on the combination of Keppra and Dilantin. Given that she is seizure free, I don't recommend decreasing the dosage at this time. I will continue to follow. We may need repeat phenytoin and levetiracetam trough levels in 24 hours (11/04/2018). We need to find out if she was taking PO and discuss other alternative methods of PO intake. We will continue to follow. Time spent: 25 minutes reviewing the electronic medical records and examining the patient.
--- NOTE | 2018-11-03 00:55 | EEG ---
ELECTROENCEPHALOGRAPHY: DATE OF STUDY: 11/02/2017 ROOM #[id number] DATE OF DICTATION: 11/02/18 ORDERED BY: Dr. Patricia Hernandez. READ BY: Alejandro Quinteros MD MEDICATIONS: 1. Keppra. 2. Dilantin. 3. Heparin. 4. Tylenol. 5. Ventolin. 6. Zosyn. INDICATION: Ms. Nisha Mitchell is a 58-year-old female with history of epilepsy with an abnormal EEG, who came into [facility] with status epilepticus that appeared to have resolved on EEG and clinically. The patient has an underlying infection, being treated with Zosyn. This EEG was obtained to evaluate for a nonconvulsive status epilepticus for any ongoing seizures. CLINICAL STATE: Waking. TIME OF RECORDING: From 7:56 a.m. to 8:34 a.m. REPORT: The most prominent feature of this recording were abundant, high voltage, bisynchronous, occasionally diffuse, epileptiform discharges with a morphology of spike and slow-wave and occasionally sharp, broad sharp, and slow- wave discharges occurring 0.5 Hz in a non-rhythmic fashion, maximal at FP2, Fz, FP1. At times, these discharges become semi-rhythmic with a frequency of 1 to 1.5 Hz, but without any clinical correlation. There were multiple intervals where the patient had head bobbing, sneezing, turning her head towards the left side without any clear electrographic correlation or discharges, although her intervals of semi-rhythmic background presented intermittently with these clinical features. Otherwise, the background lacked a background organization or clearly-defined anterior-posterior voltage and frequency gradients. There was no discernible posterior dominant rhythm. Instead, the background consisted of polymorphic theta and delta frequencies with frequency of 3 to 7 Hz seen symmetrically and bilaterally. Hyperventilation and photic stimulation were not performed. There were no clear electrographic seizures, although these were very difficult given the patient's underlying clinical condition and recurrent abnormal EEGs. CLINICAL IMPRESSION: This is an abnormal EEG due to the presence of abundant predominantly diffuse epileptiform discharges, maximal in the frontal areas bilaterally with occasional semi-rhythmic spike and slow-wave discharges seen diffusely with slow background. These findings are consistent with an increased epileptogenic potential and can be seen in patients with symptomatic epilepsy. There is no evidence of status epilepticus. There has been no interval change when compared to the study from 11/01/18. [id number]/[facility] #: [id number] [facility]
[2018-11-03] MEDS: Heparin VIAL(*) 5000 UNITS/ML VIAL (FIVE THOUSAND) SUBCUT SCH ×2 (05:14→18:15)
[2018-11-03 06:59] LABS: Hematocrit 35 % (35-47); Mean Corpuscular HGB Conc 34 g/dl (31-36); Mean Corpuscular Hemoglobin 31 pg (27-31); Mean Corpuscular Volume 90 fL (80-97); Mean Platelet Volume 7.3 fL (7.4-10.4); Platelet Count 472 10^3/ul (150-450); Red Blood Count 3.95 10^6/ul (4.00-5.40); Red Cell Distribution Width 14 % (10.5-15)
[2018-11-03 07:16] LABS: BUN/Creatinine Ratio 18.1 (8-20); Calcium 9.3 mg/dL (8.6-10.3); EGFR Non-African American 83.2 (>60); Potassium 4.6 mmol/L (3.5-5.0)
--- NOTE | 2018-11-03 10:12 | PN ---
Subjective Date of Service: 11/03/18 Interval History: Pt is alert today. She is non-verbal. Objective Active Medications: Acetaminophen (Tylenol Supp*) 650 mg [place] Q6H PRN PRN Reason: FEVER/PAIN Last Admin: 10/23/18 08:55 Dose: 650 mg Albuterol (Ventolin 2.5 Mg/3 Ml Neb.Daniela*) 2.5 mg INH Q4H PRN PRN Reason: SOB/WHEEZING Last Admin: 10/29/18 01:37 Dose: 2.5 mg Heparin Sodium (Porcine) (Heparin Vial(*)) 5,000 units SUBCUT Q12H [facility] Last Admin: 11/03/18 05:14 Dose: 5,000 units Levetiracetam (Keppra Liq*) 1,000 mg NG TUBE BID [facility] Last Admin: 11/02/18 21:02 Dose: 1,000 mg Phenytoin Sodium (Dilantin Susp(*)) 100 mg NG TUBE BID [facility] Last Admin: 11/02/18 21:02 Dose: 100 mg Vital Signs - 8 hr 11/03/18 11/03/18 11/03/18 03:17 04:55 07:17 Temperature 98.4 F 96.7 F Pulse Rate 67 66 74 Respiratory 17 16 20 Rate Blood Pressure 117/60 115/77 (mmHg) O2 Sat by Pulse 95 95 92 Oximetry 11/03/18 08:00 Temperature Pulse Rate Respiratory 16 Rate Blood Pressure (mmHg) O2 Sat by Pulse 92 Oximetry Oxygen Devices in Use Now: None Appearance: Middle aged petite female lying in bed, getting changed, NAD Eyes: No Scleral Icterus Ears/Nose/Mouth/Throat: - - Tongue is dry, cor-ady in L nare Respiratory: Symmetrical Chest Expansion and Respiratory Effort, Clear to Auscultation - anteriorly Cardiovascular: NL Sounds; No Murmurs; No JVD, RRR, No Edema Abdominal: NL Sounds; No Tenderness; No Distention Extremities: No Clubbing, Cyanosis Skin: No Nodules or Sclerosis Neurological: - - alert Result Diagrams: 11/03/18 06:44 11/03/18 06:44 Additional Lab and Data: Phenytoin: 20.7 on 11/02/2018 collected at 0540. Microbiology and Other Data: Microbiology 10/21/18 17:12 Aerobic Blood Culture - Preliminary Blood Venous No Growth Day 1 Anaerobic Blood Culture - Preliminary No Growth Day 1 10/21/18 18:48 Urine Culture - Preliminary Urine Escherichia Coli 10/21/18 23:40 Nasal Screen MRSA (PCR) - Final Nasal Mrsa Not Detected 10/21/18 17:14 Influenza Types A,B Antigen - Final Nasal Specimen received for Influenza A/B Molecular testing Assess/Plan/Problems-Billing 1. Status epilepticus in a patient with history of seizure disorder and profound intellectual developmental delay and cerebral palsy- The patient initially presented with phenytoin toxicity. The seizures seem to have subsided. She is drowsy on the combination of Keppra and Dilantin. Given that she is seizure free, I don't recommend decreasing the dosage at this time. I will continue to follow. We may need repeat phenytoin and levetiracetam trough levels in 24 hours (11/04/2018). We need to find out if she was taking PO and discuss other alternative methods of PO intake. We will continue to follow. Time spent: 25 minutes reviewing the electronic medical records and examining the patient. - Patient Problems (1) Seizure disorder Current Visit: Yes Status: Chronic Code(s): G40.909 - EPILEPSY, UNSP, NOT INTRACTABLE, WITHOUT STATUS EPILEPTICUS SNOMED Code(s): 550086943 Comment: Pt was in mycolonic status epilepticus. Now resolved. Her keppra 1000mg BID and phenytoin 100mg BID doses are higher than her usual home doses but she is not having any seizures. Phenytoin level ordered for AM 11/04/18. Pt is now awake, will ask for swallow eval from speech to see if she can now eat by mouth and maintain her Na level and nutritional status. (2) Encephalopathy Current Visit: Yes Status: Acute Code(s): G93.40 - ENCEPHALOPATHY, UNSPECIFIED SNOMED Code(s): 02259609 Comment: Pt is still more sleepy than usual but improved from what has been described over the last few days. (3) Hypernatremia Current Visit: Yes Status: Acute Code(s): E87.0 - HYPEROSMOLALITY AND HYPERNATREMIA SNOMED Code(s): 82817237 Comment: Resolved but she has been recently on tube feeds. With initiating oral feedings will need to make sure that she can maintain her sodium level. (4) LLL pneumonia Current Visit: Yes Status: Acute Priority: High Onset Date: 07/01/14 Code(s): J18.9 - PNEUMONIA, UNSPECIFIED ORGANISM SNOMED Code(s): 401245559 Comment: Pt has completed a full course of therapy with zosyn. She also had an Ecoli UTI that has been treated with the zosyn. (5) Dehydration Current Visit: Yes Status: Acute Onset Date: 07/01/14 Code(s): E86.0 - DEHYDRATION SNOMED Code(s): 75177602 Comment: Resolved. (6) Elevated troponin Current Visit: Yes Status: Acute Code(s): R74.8 - ABNORMAL LEVELS OF OTHER SERUM ENZYMES SNOMED Code(s): 297676108 Comment: Likely secondary to infection, dehydration. Echo does not show any wall motion abnormalities. (7) DVT prophylaxis Current Visit: Yes Status: Acute Code(s): DVD1272 - SNOMED Code(s): 566530299 Comment: SQ heparin (8) Full code status Current Visit: Yes Status: Acute Code(s): Z78.9 - OTHER SPECIFIED HEALTH STATUS SNOMED Code(s): 600776909 Status and Disposition: .
[2018-11-03] MEDS: levETIRAcetam LIQ* 500 MG/5 ML UDC NG TUBE SCH ×2 (11:08→21:28)
[2018-11-03] MEDS: Phenytoin SUSP(*) 100 MG/4 ML UDC (100 MG) NG TUBE SCH ×2 (11:09→21:28)
--- NOTE | 2018-11-03 16:25 | PN ---
Subjective Date of Service: 11/03/18 Length of Stay: 13 Days Neurology is following Nisha for the evaluation and management of seizures. Interval History: Nisha's caregiver of almost one year was at bedside. She noted that Nisha is more interactive this morning. Nisha was playing with her toys. She continues to scratch herself, mostly in the left chest area. Cream and baby powder is being used to reduce some of the irritation and dermal injuries. There has been no reported seizures overnight. Reviewed the DATA LIBRARIAN evaluation. Review of Systems: Patient cannot provide a ROS. Objective Active Medications: Acetaminophen (Tylenol Supp*) 650 mg [place] Q6H PRN PRN Reason: FEVER/PAIN Last Admin: 10/23/18 08:55 Dose: 650 mg Albuterol (Ventolin 2.5 Mg/3 Ml Neb.Daniela*) 2.5 mg INH Q4H PRN PRN Reason: SOB/WHEEZING Last Admin: 10/29/18 01:37 Dose: 2.5 mg Heparin Sodium (Porcine) (Heparin Vial(*)) 5,000 units SUBCUT Q12H [facility] Last Admin: 11/03/18 05:14 Dose: 5,000 units Levetiracetam (Keppra Liq*) 1,000 mg NG TUBE BID [facility] Last Admin: 11/03/18 11:08 Dose: 1,000 mg Phenytoin Sodium (Dilantin Susp(*)) 100 mg NG TUBE BID [facility] Last Admin: 11/03/18 11:09 Dose: 100 mg Vital Signs 11/02/18 11/02/18 11/02/18 19:10 20:00 23:39 Temperature 97.0 F 96.9 F Pulse Rate 63 66 Respiratory 13 14 12 Rate Blood Pressure 143/107 90/63 (mmHg) O2 Sat by Pulse 100 100 99 Oximetry 11/03/18 11/03/18 11/03/18 03:17 04:55 07:17 Temperature 98.4 F 96.7 F Pulse Rate 67 66 74 Respiratory 17 16 20 Rate Blood Pressure 117/60 115/77 (mmHg) O2 Sat by Pulse 95 95 92 Oximetry 11/03/18 11/03/18 08:00 11:26 Temperature 97.2 F Pulse Rate 81 Respiratory 16 18 Rate Blood Pressure 111/85 (mmHg) O2 Sat by Pulse 92 98 Oximetry Intake and Output Last 24 Hours 11/01/18 11/02/18 11/03/18 11/04/18 06:59 06:59 06:59 06:59 Intake Total 3566 3227 1119 232 Output Total 0 Balance 3566 3227 1119 232 Weight 68 lb 10.657 oz 60 lb 13.561 oz Intake: IV Fluids 2347 1687 417 D5W 1/4 NS 2327 1687 417 NS 20 IVPB 349 D5W / NS 173 NS 176 Oral 0 0 0 0 Tube Feeding 450 759 512 154 Tube Feeding Flush Amount 420 681 190 78 NG Tube Irrigate Amount 100 NGT 100 Output: NG Tube Drainage Amount 0 NGT 0 Other: Estimated Void Large Large Large Large # Bowel Movements 1 0 Estimated Stool Amount Medium Medium Other Amount Description no measured out put this hour no measured out put this hour no measured out put this hour # Voids 1 1 1 Oxygen Devices in Use Now: None Neurology Exam: General: Frail appearing young female in no acute distress. Head bobbing which according to her caregiver, it is normal for her, especially when she is excited. HEENT: Normocephalic/atraumatic, sclera anicteric, mucous membranes moist Neck: Supple Chest: Clear to auscultation bilaterally Cardiovascular: Regular rate and rhythm without murmurs, rubs, gallops Skin: scratches on the left chest wall. Bruising and areas of hyperpigmented erythematous rash in the posterior and anterior area of the left arm. Neurological Findings: The patient is awake but has severe psychomotor and cognitive decline. She is non-verbal. She is not aware of her surrounding environment. Cranial Nerve: PERRL. She was able to track examiner and blink to eye threat. Motor: reduced bulk increase tone in all 4 extremities. She does not respond to command. Sensation: localizes to minimal nail bed pressure throughout Deep Tendon Reflex: 1+ throughout. absent at the ankles. Does not cooperate with cerebellar exam Gait:wheelchair and bed-bound. Result Diagrams: 11/03/18 06:44 11/03/18 06:44 Additional Lab and Data: Phenytoin: 20.7 on 11/02/2018 collected at 0540. Microbiology and Other Data: Microbiology 10/21/18 17:12 Aerobic Blood Culture - Preliminary Blood Venous No Growth Day 1 Anaerobic Blood Culture - Preliminary No Growth Day 1 10/21/18 18:48 Urine Culture - Preliminary Urine Escherichia Coli 10/21/18 23:40 Nasal Screen MRSA (PCR) - Final Nasal Mrsa Not Detected 10/21/18 17:14 Influenza Types A,B Antigen - Final Nasal Specimen received for Influenza A/B Molecular testing Assessment/Plan 1. Status epilepticus in a patient with history of seizure disorder and profound intellectual developmental delay and cerebral palsy- The patient initially presented with phenytoin toxicity. Phenytoin was held and then she subsequently developed status epilepticus. She was treated for pneumonia and UTI. Now she is back on phenytoin and levetiracetam. Calculation of free phenytoin level is 2.6 (Range should be between 1-2) using her low albumin and total phenytoin level. She is drowsy on the combination of Keppra and phenytoin which could be due to mild phenytoin toxicity. We will repeat the levels tomorrow before the morning dose. Given that she is seizure free, I don't recommend decreasing the dosage at this time. We may need to discuss PEG tube placement in her if she does not recovery or her swallowing function fails to improve. In regards to her rash, the patient constantly is scratching and causing dermal abrasion. The nursing staff is using cream and powder to reduce the irritation. Discussed case with Dr. Taylor. Neurology will continue to follow.
[2018-11-04 00:38] LABS: Albumin 3.5 g/dL (3.2-5.2); BUN/Creatinine Ratio 17.9 (8-20); Calcium 9.8 mg/dL (8.6-10.3); EGFR Non-African American 69.6 (>60); Potassium 4.8 mmol/L (3.5-5.0)
[2018-11-04] MEDS: Heparin VIAL(*) 5000 UNITS/ML VIAL (FIVE THOUSAND) SUBCUT SCH ×2 (05:16→17:53)
[2018-11-04 06:38] LABS: Hematocrit 35 % (35-47); Hemoglobin 12.2 g/dl (12.0-16.0); Mean Corpuscular HGB Conc 35 g/dl (31-36); Mean Corpuscular Hemoglobin 31 pg (27-31); Mean Corpuscular Volume 90 fL (80-97); Mean Platelet Volume 7.2 fL (7.4-10.4); Platelet Count 481 10^3/ul (150-450); Red Blood Count 3.92 10^6/ul (4.00-5.40); Red Cell Distribution Width 14 % (10.5-15); White Blood Count 8.7 10^3/ul (3.5-10.8)
[2018-11-04 06:53] LABS: BUN/Creatinine Ratio 22.5 (8-20); Calcium 9.3 mg/dL (8.6-10.3); EGFR Non-African American 73.7 (>60); Potassium 4.7 mmol/L (3.5-5.0)
[2018-11-04] MEDS: levETIRAcetam LIQ* 500 MG/5 ML UDC NG TUBE SCH ×2 (10:13→21:04)
--- NOTE | 2018-11-04 14:25 | PN ---
Subjective Date of Service: 11/04/18 Length of Stay: 14 Days Neurology is following for seizures. Interval History: Nisha is sleepy this morning. She is in no distress. She wakes to voice. She has no evidence of clinical seizures. Total phenytoin level is 27.5. Albumin is 3.5. Free phenytoin level is most likely 2.75 (normal range 1-2). Review of Systems: Cannot obtain ROS due to being non-verbal. Objective Active Medications: Acetaminophen (Tylenol Supp*) 650 mg [place] Q6H PRN PRN Reason: FEVER/PAIN Last Admin: 10/23/18 08:55 Dose: 650 mg Albuterol (Ventolin 2.5 Mg/3 Ml Neb.Daniela*) 2.5 mg INH Q4H PRN PRN Reason: SOB/WHEEZING Last Admin: 10/29/18 01:37 Dose: 2.5 mg Heparin Sodium (Porcine) (Heparin Vial(*)) 5,000 units SUBCUT Q12H [facility] Last Admin: 11/04/18 05:16 Dose: 5,000 units Levetiracetam (Keppra Liq*) 1,000 mg NG TUBE BID [facility] Last Admin: 11/04/18 10:13 Dose: 1,000 mg Vital Signs 11/03/18 11/03/18 11/03/18 15:17 19:21 20:00 Temperature 98.7 F 97.4 F Pulse Rate 73 65 Respiratory 16 14 14 Rate Blood Pressure 121/74 117/70 (mmHg) O2 Sat by Pulse 99 100 98 Oximetry 11/03/18 11/04/18 11/04/18 23:08 02:29 07:22 Temperature 98.8 F 98.6 F Pulse Rate 77 85 78 Respiratory 14 14 12 Rate Blood Pressure 96/55 111/75 93/74 (mmHg) O2 Sat by Pulse 98 95 98 Oximetry 11/04/18 11/04/18 08:00 11:19 Temperature 98.4 F Pulse Rate 82 Respiratory 16 14 Rate Blood Pressure 123/48 (mmHg) O2 Sat by Pulse 98 97 Oximetry Intake and Output Last 24 Hours 11/02/18 11/03/18 11/04/18 11/05/18 06:59 06:59 06:59 06:59 Intake Total 3227 1119 838 Output Total 0 Balance 3227 1119 838 Weight 60 lb 13.561 oz Intake: IV Fluids 1687 417 D5W 10/30 NS 1687 417 Oral 0 0 0 Tube Feeding 759 512 684 Tube Feeding Flush Amount 681 190 154 NG Tube Irrigate Amount 100 NGT 100 Output: NG Tube Drainage Amount 0 NGT 0 Other: Estimated Void Large Large Large # Bowel Movements 0 0 Estimated Stool Amount Medium Other Amount Description no measured out put this hour no measured out put this hour # Voids 1 1 Oxygen Devices in Use Now: None Neurology Exam: General: Frail appearing young female in no acute distress. Drowsy this morning. HEENT: Normocephalic/atraumatic, sclera anicteric, mucous membranes moist Neck: Supple Chest: Clear to auscultation bilaterally Cardiovascular: Regular rate and rhythm without murmurs, rubs, gallops Skin: scratches on the left chest wall. Bruising in the arm is improving. Neurological Findings: The patient is awake but has severe psychomotor and cognitive decline. She is non-verbal. She is not aware of her surrounding environment. Cranial Nerve: PERRL. She was able to track examiner and blink to eye threat. Motor: reduced bulk increase tone in all 4 extremities. She does not respond to command. Sensation: localizes to minimal nail bed pressure throughout Deep Tendon Reflex: 1+ throughout. absent at the ankles. Does not cooperate with cerebellar exam Gait:wheelchair and bed-bound. Result Diagrams: 11/04/18 06:31 11/04/18 06:31 Additional Lab and Data: Phenytoin: 20.7 on 11/02/2018 collected at 0540. Microbiology and Other Data: Microbiology 10/21/18 17:12 Aerobic Blood Culture - Preliminary Blood Venous No Growth Day 1 Anaerobic Blood Culture - Preliminary No Growth Day 1 10/21/18 18:48 Urine Culture - Preliminary Urine Escherichia Coli 10/21/18 23:40 Nasal Screen MRSA (PCR) - Final Nasal Mrsa Not Detected 10/21/18 17:14 Influenza Types A,B Antigen - Final Nasal Specimen received for Influenza A/B Molecular testing Assessment/Plan 1. Phenytoin toxicity most likely contributing to her drowsy state- held phenytoin for now. Restart a lower dose tomorrow morning (phenytoin 50 mg twice daily). We will recheck the total level in the AM. 2. Status epilepticus in a patient with history of seizure disorder and profound intellectual developmental delay and cerebral palsy- resolved. Continue levetiracetam. No need for repeat EEG for now. 3. Rash-improving. This is mostly related to skin abrasion from excessive habitual scratching. D/w Nikki.
--- NOTE | 2018-11-04 14:59 | PN ---
Subjective Date of Service: 11/04/18 Interval History: Ms. Mitchell is tired this morning. Her aide at the bedside is familiar with her and notes that she is still far from her baseline, but has improved since yesterday. The aide reports that she will typically sit up and play with various toys, though has not been interested in her usual items. She does not feel as though the patient is in any distress or discomfort. Family History: Unchanged from Admission Social History: Unchanged from Admission Past Medical History: Unchanged from Admission Objective Active Medications: Acetaminophen (Tylenol Supp*) 650 mg [place] Q6H PRN FEVER/PAIN Albuterol (Ventolin 2.5 Mg/3 Ml Neb.Daniela*) 2.5 mg INH Q4H PRN SOB/WHEEZING Heparin Sodium (Porcine) (Heparin Vial(*)) 5,[address] Levetiracetam (Keppra Liq*) 1,[address] Vital Signs - 8 hr 11/04/18 11/04/18 11/04/18 07:22 08:00 11:19 Temperature 98.6 F 98.4 F Pulse Rate 78 82 Respiratory 12 16 14 Rate Blood Pressure 93/74 123/48 (mmHg) O2 Sat by Pulse 98 98 97 Oximetry Oxygen Devices in Use Now: None Appearance: Frail, middle-aged woman laying in bed in NAD Eyes: No Scleral Icterus Ears/Nose/Mouth/Throat: Mucous Membranes Moist Neck: NL Appearance and Movements; NL JVP, Trachea Midline Respiratory: Symmetrical Chest Expansion and Respiratory Effort, Clear to Auscultation Cardiovascular: NL Sounds; No Murmurs; No JVD, RRR Abdominal: NL Sounds; No Tenderness; No Distention Extremities: No Edema Skin: No Rash or Ulcers Neurological: - - No obvious focal neurological deficits Result Diagrams: 11/04/18 06:31 11/04/18 06:31 Assess/Plan/Problems-Billing Assessment: Ms. Mitchell is a 58 yo female with PMH of seizures and profound developmental delay; presented to the ED from [facility] after staff noted altered mental status and was found to have phenytoin toxicity and aspiration pneumonia. - Patient Problems (1) Phenytoin toxicity Code(s): T42.0X1A - POISONING BY HYDANTOIN DERIVATIVES, ACCIDENTAL, INIT Comment: - Phenytoin elevated today at 27 - Neurology following closely - Will restart phenytoin 50mg BID tomorrow per recommendation from Neuro (2) Seizure disorder Code(s): G40.909 - EPILEPSY, UNSP, NOT INTRACTABLE, WITHOUT STATUS EPILEPTICUS Comment: - Was in mycolonic status epilepticus, now resolved - Continue Keppra; phenytoin on hold (3) Encephalopathy Code(s): G93.40 - ENCEPHALOPATHY, UNSPECIFIED Comment: - Secondary to phenytoin toxicity - Improved, but remains drowsy from baseline - Continue tube feedings until she more awake and able to swallow safely; tube feeding rate was increased to 50mL/hr per recommendation from Neurology Technologist (4) LLL pneumonia Code(s): J18.9 - PNEUMONIA, UNSPECIFIED ORGANISM Comment: - Resolved, completed full course of Zosyn (5) UTI (urinary tract infection) Comment: - Culture grew E. coli - Resolved, completed full course of Zosyn (6) Cerebral palsy Code(s): G80.9 - CEREBRAL PALSY, UNSPECIFIED Comment: - Supportive care (7) DVT prophylaxis Comment: - Heparin SQ (8) Full code status Code(s): Z78.9 - OTHER SPECIFIED HEALTH STATUS Comment: Status and Disposition: Inpatient for continued lethargy d/t phenytoin toxicity and seizures. Anticipate d/c back to [facility] when able to tolerate PO intake and seizure medications have been adjusted. Attending: Rosie Hong
[2018-11-05] MEDS: Heparin VIAL(*) 5000 UNITS/ML VIAL (FIVE THOUSAND) SUBCUT SCH ×2 (06:56→18:09)
[2018-11-05 07:02] LABS: Hematocrit 36 % (35-47); Hemoglobin 12.4 g/dl (12.0-16.0); Mean Corpuscular HGB Conc 34 g/dl (31-36); Mean Corpuscular Hemoglobin 31 pg (27-31); Mean Corpuscular Volume 90 fL (80-97); Mean Platelet Volume 7.6 fL (7.4-10.4); Platelet Count 494 10^3/ul (150-450); Red Blood Count 4.01 10^6/ul (4.00-5.40); Red Cell Distribution Width 14 % (10.5-15); White Blood Count 10.4 10^3/ul (3.5-10.8)
[2018-11-05 07:19] LABS: EGFR Non-African American 79.4 (>60); Potassium 4.5 mmol/L (3.5-5.0)
[2018-11-05] MEDS ORDERED: Phenytoin SUSP(*) 100 MG/4 ML UDC (100 MG) PO SCH ×2 (09:00)
[2018-11-05] MEDS: levETIRAcetam LIQ* 500 MG/5 ML UDC NG TUBE SCH (11:24)
[2018-11-05] MEDS: SODIUM CHLORIDE 0.9% IV SCH ×2 (12:22→23:12)
[2018-11-05] MEDS: PHENYTOIN IV SCH ×2 (12:22→23:12)
[2018-11-05] MEDS: levETIRAcetam IV* 1,000 MG in NS 0.9% 100 ML* 100 ML IVPB SCH (13:05)
[2018-11-05] MEDS: Lactated Ringers 1000 ML Bag* 1,000 ML IV SCH (13:05)
--- NOTE | 2018-11-05 13:31 | PN ---
Subjective Date of Service: 11/05/18 Interval History: Patient remains non-verbal. Patient pulled out feeding tube and is not- compliant with reinsertion. Patient failed repeat swallow evaluation. No obvious signs of pain. Family History: Unchanged from Admission Social History: Unchanged from Admission Past Medical History: Unchanged from Admission Objective Active Medications: Acetaminophen (Tylenol Supp*) 650 mg [place] Q6H PRN PRN Reason: FEVER/PAIN Last Admin: 10/23/18 08:55 Dose: 650 mg Albuterol (Ventolin 2.5 Mg/3 Ml Neb.Daniela*) 2.5 mg INH Q4H PRN PRN Reason: SOB/WHEEZING Last Admin: 10/29/18 01:37 Dose: 2.5 mg Heparin Sodium (Porcine) (Heparin Vial(*)) 5,000 units SUBCUT Q12H [facility] Last Admin: 11/05/18 06:56 Dose: 5,000 units Phenytoin Sodium 50 mg/ Sodium (Chloride) 10 mls @ 20 mls/hr IV Q12H [facility] Last Admin: 11/05/18 12:22 Dose: 20 mls/hr Levetiracetam 1,000 mg/ Sodium (Chloride) 110 mls @ 100 mls/hr IVPB Q12H [facility] Last Admin: 11/05/18 13:05 Dose: 100 mls/hr Lactated Ringer's (Lactated Ringers 1000 Ml Bag*) 1,000 mls @ 75 mls/hr IV PER RATE [facility] Last Admin: 11/05/18 13:05 Dose: 75 mls/hr Vital Signs - 8 hr 11/05/18 11/05/18 11/05/18 07:20 08:08 11:08 Temperature 96.7 F 97.0 F Pulse Rate 84 81 Respiratory 16 12 14 Rate Blood Pressure 130/100 131/88 (mmHg) O2 Sat by Pulse 97 97 Oximetry Oxygen Devices in Use Now: None Appearance: Patient is a 58yo female who is significantly hirsuit, emaciated and is sitting in the bed in NAD. Eyes: No Scleral Icterus, PERRLA Ears/Nose/Mouth/Throat: Clear Oropharnyx, Mucous Membranes Moist, - - Large protruberant tongue. Neck: NL Appearance and Movements; NL JVP, Trachea Midline Respiratory: Symmetrical Chest Expansion and Respiratory Effort, Clear to Auscultation Cardiovascular: NL Sounds; No Murmurs; No JVD, RRR, No Edema Abdominal: NL Sounds; No Tenderness; No Distention, No Hepatosplenomegaly Lymphatic: No Cervical Adenopathy Extremities: No Edema, No Clubbing, Cyanosis Skin: No Rash or Ulcers, No Nodules or Sclerosis Neurological: - - No Myoclonus Result Diagrams: 11/05/18 06:42 11/05/18 06:42 Microbiology and Other Data: Microbiology 10/21/18 17:12 Aerobic Blood Culture - Preliminary Blood Venous No Growth Day 1 Anaerobic Blood Culture - Preliminary No Growth Day 1 10/21/18 18:48 Urine Culture - Preliminary Urine Escherichia Coli 10/21/18 23:40 Nasal Screen MRSA (PCR) - Final Nasal Mrsa Not Detected 10/21/18 17:14 Influenza Types A,B Antigen - Final Nasal Specimen received for Influenza A/B Molecular testing Assess/Plan/Problems-Billing Assessment: Ms. Mitchell is a 58 yo female with PMH of seizures and profound developmental delay; presented to the ED from [facility] after staff noted altered mental status and was found to have phenytoin toxicity and aspiration pneumonia. Patient then developed status epilepticus and has needed a prolonged ICU stay and is currently not taking any medications or food by mouth. - Patient Problems (1) Altered mental status Current Visit: Yes Status: Acute Code(s): R41.82 - ALTERED MENTAL STATUS, UNSPECIFIED SNOMED Code(s): 754245168 Comment: -Toxic encephalopathy -Poor PO intake causing dehydration leading to increased phenytoin levels and hypernatremia - Improved but not at baseline per staff. (2) Seizure disorder Current Visit: Yes Status: Chronic Code(s): G40.909 - EPILEPSY, UNSP, NOT INTRACTABLE, WITHOUT STATUS EPILEPTICUS SNOMED Code(s): 241662581 Comment: - Was in mycolonic status epilepticus, now resolved - Continue Keppra and phenytoin IV while not taking PO. (3) Dehydration Current Visit: Yes Status: Acute Onset Date: 07/01/14 Code(s): E86.0 - DEHYDRATION SNOMED Code(s): 84820734 Comment: - Continue fluids while NG tube out and not taking PO. (4) LLL pneumonia Current Visit: Yes Status: Acute Priority: High Onset Date: 07/01/14 Code(s): J18.9 - PNEUMONIA, UNSPECIFIED ORGANISM SNOMED Code(s): 989779921 Comment: - Resolved, completed full course of Zosyn - Will need repeat outpatient CT to assess for resolution of mucus plugging or concern for lesion. (5) UTI (urinary tract infection) Current Visit: Yes Status: Acute Comment: - Culture grew E. coli - Resolved, completed full course of Zosyn (6) Hypernatremia Current Visit: No Status: Acute Priority: High Onset Date: 11/08/14 Code (s): E87.0 - HYPEROSMOLALITY AND HYPERNATREMIA SNOMED Code(s): 29443585 Comment: - Resolved (7) Phenytoin toxicity Current Visit: No Status: Acute Code(s): T42.0X1A - POISONING BY HYDANTOIN DERIVATIVES, ACCIDENTAL, INIT SNOMED Code(s): 97185210 Comment: - Phenytoin today at 17. - Neurology following closely - Switch to IV due to removal of feeding tube and inability to take oral meds. (8) Cerebral palsy Current Visit: Yes Status: Acute Code(s): G80.9 - CEREBRAL PALSY, UNSPECIFIED SNOMED Code(s): 671670225 Comment: - Supportive care (9) DVT prophylaxis Current Visit: Yes Status: Acute Code(s): [id number] - SNOMED Code(s): 774966703 Comment: - Heparin SQ (10) Full code status Current Visit: Yes Status: Acute Code(s): Z78.9 - OTHER SPECIFIED HEALTH STATUS SNOMED Code(s): 454359243 Comment: Status and Disposition: Inpatient for continued lethargy d/t phenytoin toxicity and seizures. Anticipate d/c back to [facility] when able to tolerate PO intake and seizure medications have been adjusted.
--- NOTE | 2018-11-05 17:10 | PN ---
Subjective Date of Service: 11/05/18 Length of Stay: 15 Days Neurology is following for management of seizures. Interval History: No reported seizures. She pulled out the NG tube. She did not pass the swallow evaluation by T[employer]. Review of Systems: Cannot obtain ROS due to non-verbal state Family History: Unchanged from Admission Social History: Unchanged from Admission Past Medical History: Unchanged from Admission Objective Active Medications: Acetaminophen (Tylenol Supp*) 650 mg SC Q6H PRN PRN Reason: FEVER/PAIN Last Admin: 10/23/18 08:55 Dose: 650 mg Albuterol (Ventolin 2.5 Mg/3 Ml Neb.Daniela*) 2.5 mg INH Q4H PRN PRN Reason: SOB/WHEEZING Last Admin: 10/29/18 01:37 Dose: 2.5 mg Heparin Sodium (Porcine) (Heparin Vial(*)) 5,000 units SUBCUT Q12H [facility] Last Admin: 11/05/18 06:56 Dose: 5,000 units Phenytoin Sodium 50 mg/ Sodium (Chloride) 10 mls @ 20 mls/hr IV Q12H [facility] Last Admin: 11/05/18 12:22 Dose: 20 mls/hr Levetiracetam 1,000 mg/ Sodium (Chloride) 110 mls @ 100 mls/hr IVPB Q12H [facility] Last Admin: 11/05/18 13:05 Dose: 100 mls/hr Lactated Ringer's (Lactated Ringers 1000 Ml Bag*) 1,000 mls @ 75 mls/hr IV PER RATE [facility] Last Admin: 11/05/18 13:05 Dose: 75 mls/hr Vital Signs 11/04/18 11/04/18 11/04/18 19:26 19:34 23:48 Temperature 97.7 F Pulse Rate 78 91 Respiratory 16 17 16 Rate Blood Pressure 117/56 123/76 (mmHg) O2 Sat by Pulse 97 Oximetry 11/05/18 11/05/18 11/05/18 04:20 07:20 08:08 Temperature 99.2 F 96.7 F Pulse Rate 90 84 Respiratory 16 12 Rate Blood Pressure 119/53 130/100 (mmHg) O2 Sat by Pulse 97 Oximetry 11/05/18 11:08 Temperature 97.0 F Pulse Rate 81 Respiratory 14 Rate Blood Pressure 131/88 (mmHg) O2 Sat by Pulse 97 Oximetry Intake and Output Last 24 Hours 11/03/18 11/04/18 11/05/18 11/06/18 06:59 06:59 06:59 06:59 Intake Total 1119 838 364 10 Output Total 0 Balance 1119 838 364 10 Intake: IV Fluids 417 10 D5W 1/ NS 417 NS 10 Oral 0 0 0 0 Tube Feeding 512 684 284 Tube Feeding Flush Amount 190 154 80 Output: Tube Feeding Residual 0 Amount Wasted Other: Estimated Void Large Large Large Large # Bowel Movements 0 0 0 Other Amount Description no measured out put this hour # Voids 1 1 1 1 Oxygen Devices in Use Now: None Neurology Exam: Frail appearing young female in no acute distress. Drowsy this morning. HEENT: Normocephalic/atraumatic, sclera anicteric, mucous membranes moist Neck: Supple Chest: Clear to auscultation bilaterally Cardiovascular: Regular rate and rhythm without murmurs, rubs, gallops Skin: scratches on the left chest wall. Bruising in the arm is improving. Neurological Findings: The patient is awake but has severe psychomotor and cognitive decline. She is non-verbal. She is not aware of her surrounding environment. Cranial Nerve: PERRL. She was able to track examiner and blink to eye threat. Motor: reduced bulk increase tone in all 4 extremities. She does not respond to command. Sensation: localizes to minimal nail bed pressure throughout Deep Tendon Reflex: 1+ throughout. absent at the ankles. Does not cooperate with cerebellar exam Gait:wheelchair and bed-bound. Result Diagrams: 11/05/18 06:42 11/05/18 06:42 Additional Lab and Data: Phenytoin: 17.5 on 11/05/2018 Microbiology and Other Data: Microbiology 10/21/18 17:12 Aerobic Blood Culture - Preliminary Blood Venous No Growth Day 1 Anaerobic Blood Culture - Preliminary No Growth Day 1 10/21/18 18:48 Urine Culture - Preliminary Urine Escherichia Coli 10/21/18 23:40 Nasal Screen MRSA (PCR) - Final Nasal Mrsa Not Detected 10/21/18 17:14 Influenza Types A,B Antigen - Final Nasal Specimen received for Influenza A/B Molecular testing Assessment/Plan Assessment and recommendations: 1. Phenytoin toxicity- resolved. She is more awake now. Level is within therapeutic dose. Resume phenytoin 50 mg twice daily. Repeat phenytoin level tomorrow morning. Order placed. 2. Status epilepticus in a patient with history of seizure disorder and profound intellectual developmental delay and cerebral palsy- resolved. Continue levetiracetam. No need for repeat EEG for now. 3. Rash-improving. This is mostly related to skin abrasion from excessive habitual scratching. 4. Dysphagia- ongoing problem. May need PEG tube placement. D/w Will
[2018-11-06] MEDS: levETIRAcetam IV* 1,000 MG in NS 0.9% 100 ML* 100 ML IVPB SCH ×2 (00:03→12:28)
[2018-11-06] MEDS: Lactated Ringers 1000 ML Bag* 1,000 ML IV SCH ×2 (05:26→21:34)
[2018-11-06] MEDS: Heparin VIAL(*) 5000 UNITS/ML VIAL (FIVE THOUSAND) SUBCUT SCH ×2 (05:27→18:51)
[2018-11-06 10:14] LABS: ABS Basophils 0.1 10^3/ul (0-0.2); ABS Eosinophils 0.2 10^3/ul (0-0.6); ABS Monocytes 0.8 10^3/ul (0-0.8); ABS Neutrophils 10.2 10^3/ul (1.5-7.7); ABS Nucleated RBC 0 10^3/ul; Eosinophil % 1.7 %; Hematocrit 31 % (35-47); Hemoglobin 10.5 g/dl (12.0-16.0); Lymphocyte % 8.2 %; Mean Corpuscular HGB Conc 34 g/dl (31-36); Mean Corpuscular Hemoglobin 31 pg (27-31); Mean Corpuscular Volume 91 fL (80-97); Mean Platelet Volume 7.1 fL (7.4-10.4); Nucleated Red Blood Cells % 0; Platelet Count 399 10^3/ul (150-450); Red Blood Count 3.44 10^6/ul (4.00-5.40); Red Cell Distribution Width 14 % (10.5-15); White Blood Count 12.3 10^3/ul (3.5-10.8)
[2018-11-06 10:25] LABS: BUN/Creatinine Ratio 27.8 (8-20); Calcium 9.3 mg/dL (8.6-10.3); EGFR Non-African American 83.2 (>60); Magnesium 1.9 mg/dL (1.9-2.7); Potassium 4.2 mmol/L (3.5-5.0)
[2018-11-06 11:02] LABS: Phenytoin 10.2 mcg/mL (10-20)
[2018-11-06] MEDS ORDERED: Glycerin ADULT SUPP PR PRN (11:26)
--- NOTE | 2018-11-06 12:48 | PN ---
Subjective Date of Service: 11/06/18 Length of Stay: 16 Days Neurology is following for seizures. Interval History: No reported seizures this morning. She is still refusing to eat. She shook her head "NO" when offering her the eggs this morning. She appears more awake after the readjustment of phenytoin. Review of Systems: The patient cannot participate in a ROS. Family History: Unchanged from Admission Social History: Unchanged from Admission Past Medical History: Unchanged from Admission Objective Active Medications: Acetaminophen (Tylenol Supp*) 650 mg [place] Q6H PRN PRN Reason: FEVER/PAIN Last Admin: 10/23/18 08:55 Dose: 650 mg Albuterol (Ventolin 2.5 Mg/3 Ml Neb.Daniela*) 2.5 mg INH Q4H PRN PRN Reason: SOB/WHEEZING Last Admin: 10/29/18 01:37 Dose: 2.5 mg Glycerin (Glycerin Adult Supp*) 1 supp [place] DAILY PRN PRN Reason: CONSTIPATION Heparin Sodium (Porcine) (Heparin Vial(*)) 5,000 units SUBCUT Q12H [facility] Last Admin: 11/06/18 05:27 Dose: 5,000 units Phenytoin Sodium 50 mg/ Sodium (Chloride) 10 mls @ 20 mls/hr IV Q12H [facility] Last Admin: 11/05/18 23:12 Dose: 20 mls/hr Levetiracetam 1,000 mg/ Sodium (Chloride) 110 mls @ 100 mls/hr IVPB Q12H [facility] Last Admin: 11/06/18 12:28 Dose: 100 mls/hr Lactated Ringer's (Lactated Ringers 1000 Ml Bag*) 1,000 mls @ 75 mls/hr IV PER RATE [facility] Last Admin: 11/06/18 05:26 Dose: 75 mls/hr Vital Signs 11/05/18 11/05/18 11/05/18 16:01 19:57 20:00 Temperature 98.3 F 98.3 F Pulse Rate 83 81 Respiratory 16 18 16 Rate Blood Pressure 129/73 121/81 (mmHg) O2 Sat by Pulse 99 97 97 Oximetry 11/05/18 11/06/18 11/06/18 23:20 02:17 02:46 Temperature 98.5 F 97.9 F Pulse Rate 77 80 80 Respiratory 17 17 16 Rate Blood Pressure 123/70 123/74 (mmHg) O2 Sat by Pulse 96 96 Oximetry 11/06/18 11/06/18 08:00 11:23 Temperature 99.8 F 98.1 F Pulse Rate 78 70 Respiratory 18 16 Rate Blood Pressure 124/69 112/62 (mmHg) O2 Sat by Pulse 96 97 Oximetry Intake and Output Last 24 Hours 11/04/18 11/05/18 11/06/18 11/07/18 06:59 06:59 06:59 06:59 Intake Total 838 951 527 0855 Output Total 0 Balance 838 875 179 0354 Intake: IV Fluids 10 1413 Fosphenytoin 30 LR 1383 NS 10 IVPB 120 Fosphenytoin 10 Keppra 110 Oral 0 0 240 Tube Feeding 684 284 Tube Feeding Flush Amount 154 80 Output: Tube Feeding Residual 0 Amount Wasted Other: Estimated Void Large Large Large # Bowel Movements 0 0 0 # Voids 1 1 1 Oxygen Devices in Use Now: None Neurology Exam: Frail appearing young female in no acute distress. Drowsy this morning. HEENT: Normocephalic/atraumatic, sclera anicteric, mucous membranes moist Neck: Supple Chest: Clear to auscultation bilaterally Cardiovascular: Regular rate and rhythm without murmurs, rubs, gallops Skin: healing scratches on the left-mid chest wall. Hematoma resolved on the left. Neurological Findings: The patient is awake but has severe psychomotor and cognitive decline. She is non-verbal. She is not aware of her surrounding environment. Cranial Nerve: PERRL. She was able to track examiner and blink to eye threat. Motor: reduced bulk increase tone in all 4 extremities. She does not respond to command. Sensation: localizes to minimal nail bed pressure throughout Deep Tendon Reflex: 1+ throughout. absent at the ankles. Does not cooperate with cerebellar exam Gait: wheelchair and bed-bound. Result Diagrams: 11/06/18 09:56 11/06/18 09:56 Additional Lab and Data: Phenytoin: 10 on 11/06/18 Microbiology and Other Data: Assessment/Plan Assessment and recommendations: 1. Phenytoin toxicity- resolved. The toxicity was thought to be related to drug -to-drug interaction with antibiotic therapy she was receiving as an outpatient. She is more awake now. Level is within lower range of normal. Increase phenytoin to 50 mg in the AM and 100 mg in the PM. Please note that this is lower than the patient's home dose of phenytoin. According to Dr. Mar' s note in [facility], the patient is taking 100 mg twice daily. She may have lost weight since she was last seen in the clinic on 08/24/2018, and may not require a higher dose. We can recheck a level as an outpatient. 2. Status epilepticus in a patient with history of seizure disorder and profound intellectual developmental delay and cerebral palsy- resolved. Phenytoin was initially held due to toxicity, but was not restarted; hence, the patient developed seizures. Continue both phenytoin and levetiracetam. No need for repeat EEG. 3. Rash and limb hematoma- improving. 4. Dysphagia and poor oral intake- she is refusing to eat. This is the ongoing problem at this point. I'm not sure if she is having pain swallowing. She does have history of oral thrush in the past but she doesn't have any apparent thrush in her oral cavity. Defer further treatment to the primary team. Continue IV fluids. She may need PEG placement. D/w Will. I will sign off but we are always available for any questions or concerns. Time spent: 25 minutes of which >50% was spent examining the patient and discussing the treatment plan with the team.
[2018-11-06] MEDS: PHENYTOIN IV SCH (14:03)
[2018-11-06] MEDS: SODIUM CHLORIDE 0.9% IV SCH (14:03)
--- NOTE | 2018-11-06 15:41 | PN ---
Subjective Date of Service: 11/06/18 Interval History: Patient is still non-verbal. Discussed care ongoing with patient's sister and nurse at [facility] and they stated that she has a good quality of life outpatient and that they would be interested in PEG tube placement for enteral if patient continues to have poor oral intake. Family History: Unchanged from Admission Social History: Unchanged from Admission Past Medical History: Unchanged from Admission Objective Active Medications: Acetaminophen (Tylenol Supp*) 650 mg [place] Q6H PRN PRN Reason: FEVER/PAIN Last Admin: 10/23/18 08:55 Dose: 650 mg Albuterol (Ventolin 2.5 Mg/3 Ml Neb.Daniela*) 2.5 mg INH Q4H PRN PRN Reason: SOB/WHEEZING Last Admin: 10/29/18 01:37 Dose: 2.5 mg Glycerin (Glycerin Adult Supp*) 1 supp MT DAILY PRN PRN Reason: CONSTIPATION Heparin Sodium (Porcine) (Heparin Vial(*)) 5,000 units SUBCUT Q12H [facility] Last Admin: 11/06/18 05:27 Dose: 5,000 units Levetiracetam 1,000 mg/ Sodium (Chloride) 110 mls @ 100 mls/hr IVPB Q12H [facility] Last Admin: 11/06/18 12:28 Dose: 100 mls/hr Lactated Ringer's (Lactated Ringers 1000 Ml Bag*) 1,000 mls @ 75 mls/hr IV PER RATE [facility] Last Admin: 11/06/18 05:26 Dose: 75 mls/hr Phenytoin Sodium 50 mg/ Sodium (Chloride) 10 mls @ 20 mls/hr IV [address] Phenytoin Sodium 100 mg/ (Sodium Chloride) 20 mls @ 40 mls/hr IV 2100 [facility]; Protocol Vital Signs - 8 hr 11/06/18 11/06/18 08:00 11:23 Temperature 99.8 F 98.1 F Pulse Rate 78 70 Respiratory 18 16 Rate Blood Pressure 124/69 112/62 (mmHg) O2 Sat by Pulse 96 97 Oximetry Oxygen Devices in Use Now: None Appearance: Patient is a 58yo female who is hirsuit and is sitting in the bed in NAD. Eyes: No Scleral Icterus, PERRLA Ears/Nose/Mouth/Throat: Clear Oropharnyx, - - Dry Protruberant tongue. Neck: NL Appearance and Movements; NL JVP, Trachea Midline Respiratory: Symmetrical Chest Expansion and Respiratory Effort, Clear to Auscultation Cardiovascular: NL Sounds; No Murmurs; No JVD, RRR, No Edema Abdominal: NL Sounds; No Tenderness; No Distention, No Hepatosplenomegaly Lymphatic: No Cervical Adenopathy Extremities: No Edema, No Clubbing, Cyanosis Skin: No Nodules or Sclerosis, - - Abrasions consistent with scratch king on chest. Result Diagrams: 11/06/18 09:56 11/06/18 09:56 Additional Lab and Data: Phenytoin: 10 on 11/06/18 Microbiology and Other Data: Assess/Plan/Problems-Billing Assessment and recommendations: 1. Phenytoin toxicity- resolved. The toxicity was thought to be related to drug -to-drug interaction with antibiotic therapy she was receiving as an outpatient. She is more awake now. Level is within lower range of normal. Increase phenytoin to 50 mg in the AM and 100 mg in the PM. Please note that this is lower than the patient's home dose of phenytoin. According to Dr. Mar' s note in [employer], the patient is taking 100 mg twice daily. She may have lost weight since she was last seen in the clinic on 08/24/2018, and may not require a higher dose. We can recheck a level as an outpatient. 2. Status epilepticus in a patient with history of seizure disorder and profound intellectual developmental delay and cerebral palsy- resolved. Phenytoin was initially held due to toxicity, but was not restarted; hence, the patient developed seizures. Continue both phenytoin and levetiracetam. No need for repeat EEG. 3. Rash and limb hematoma- improving. 4. Dysphagia and poor oral intake- she is refusing to eat. This is the ongoing problem at this point. I'm not sure if she is having pain swallowing. She does have history of oral thrush in the past but she doesn't have any apparent thrush in her oral cavity. Defer further treatment to the primary team. Continue IV fluids. She may need PEG placement. D/w Will. I will sign off but we are always available for any questions or concerns. Time spent: 25 minutes of which >50% was spent examining the patient and discussing the treatment plan with the team. - Patient Problems (1) Altered mental status Current Visit: Yes Status: Acute Code(s): R41.82 - ALTERED MENTAL STATUS, UNSPECIFIED SNOMED Code(s): 976541918 Comment: -Toxic encephalopathy -Poor PO intake causing dehydration leading to increased phenytoin levels and hypernatremia - Improved but not at baseline per staff. (2) Seizure disorder Current Visit: Yes Status: Chronic Code(s): G40.909 - EPILEPSY, UNSP, NOT INTRACTABLE, WITHOUT STATUS EPILEPTICUS SNOMED Code(s): 782488595 Comment: - Was in mycolonic status epilepticus, now resolved - Continue Keppra and phenytoin IV while not taking PO. - Increase Phenytoin to 50mg AM and 100mg PM (3) Dehydration Current Visit: Yes Status: Acute Onset Date: 07/01/14 Code(s): E86.0 - DEHYDRATION SNOMED Code(s): 09270682 Comment: - Continue fluids while NG tube out and not taking PO. 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 (4) LLL pneumonia Current Visit: Yes Status: Acute Priority: High Onset Date: 07/01/14 Code(s): J18.9 - PNEUMONIA, UNSPECIFIED ORGANISM SNOMED Code(s): 040467528 Comment: - Resolved, completed full course of Zosyn - Will need repeat outpatient CT to assess for resolution of mucus plugging or concern for lesion. (5) UTI (urinary tract infection) Current Visit: Yes Status: Acute Comment: - Culture grew E. coli - Resolved, completed full course of Zosyn (6) Hypernatremia Current Visit: No Status: Acute Priority: High Onset Date: 11/08/14 Code (s): E87.0 - HYPEROSMOLALITY AND HYPERNATREMIA SNOMED Code(s): 23726524 Comment: - Resolved (7) Phenytoin toxicity Current Visit: No Status: Acute Code(s): T42.0X1A - POISONING BY HYDANTOIN DERIVATIVES, ACCIDENTAL, INIT SNOMED Code(s): 56521752 Comment: - Phenytoin today at 10. - Neurology following closely - Switch to IV due to removal of feeding tube and inability to take oral meds. - Increased to 150mg daily. Recheck level in AM. (8) Cerebral palsy Current Visit: Yes Status: Acute Code(s): G80.9 - CEREBRAL PALSY, UNSPECIFIED SNOMED Code(s): 910368914 Comment: - Supportive care (9) DVT prophylaxis Current Visit: Yes Status: Acute Code(s): KPG7458 - SNOMED Code(s): 546939291 Comment: - Heparin SQ (10) Full code status Current Visit: Yes Status: Acute Code(s): Z78.9 - OTHER SPECIFIED HEALTH STATUS SNOMED Code(s): 278930911 Comment: Status and Disposition: Inpatient for continued lethargy d/t phenytoin toxicity and seizures. Anticipate d/c back to [facility] when able to tolerate PO intake and seizure medications have been adjusted or if patient has PEG tube placed without complication.
[2018-11-06] MEDS ORDERED: fentaNYL* 50 MCG/ML 2 ML VIAL (100 MCG VIAL) ONE (17:04)
[2018-11-06] MEDS ORDERED: Midazolam* 1 MG/ML 10 ML VIAL (10 MG) ONE (17:04)
--- NOTE | 2018-11-06 17:35 | CONS ---
GASTROENTEROLOGY CONSULT: DATE: 11/06/18 CONSULTING PHYSICIANS: FLETCHER Boyer; Dr. Morales Kim REASON FOR CONSULTATION: Inability to feed a developmentally disabled woman who resides at the [facility]. HISTORY: This 58-year-old woman, permanently disabled with microcephaly, cerebral palsy and intellectual delay, was admitted 2 weeks ago with dehydration , hypernatremia, Dilantin toxicity and had an E. coli UTI. This was treated with Zosyn. She has not had any fever in the last 5 days. It is noted, however , that her white count gone up to 12.3. She had been having less and less per mouth in recent months and had become more of a struggle. She has been nonverbal throughout. She just will not open her mouth. PAST MEDICAL HISTORY: 1. GERD - on her history documents though at this time her home medications do not list a PPI. There is listed remote fundoplication. 2. Mental retardation. 3. History of seizure disorder - at least one other episode of Dilantin toxicity. 4. Dyslipidemia. 5. Chronic contractures. 6. Chronic constipation. MEDICATIONS: As an outpatient, of GI relevance are ibuprofen p.r.n. (amount consumed in September or August unknown); MiraLAX 34 g in water every day. She also takes phenytoin; Keppra; lorazepam. SOCIAL HISTORY: She has been a long-term resident of the [facility]. Per report, she has a sister in [place], Eryn Buchanan ([phone]). REVIEW OF SYSTEMS: Not obtainable from the patient, but from the chart, no listed history of TB, pulmonary mass, pulmonary embolism, FL, arrhythmia, hepatitis, jaundice, renal stones, or abdominal surgery. She did have an episode of abnormal LFTs in [address] Lyons saw her in consult. PHYSICAL EXAM: She is a chronically ill appearing contracted woman, weighing 60 pounds, in bed, moving her eyes to voice and stimulation, but with no other meaningful interaction. Temp is 98.1, pulse 70, blood pressure 112/62. HEENT exam shows protruding macroglossia. She is anicteric. There are no nodes. Her neck and her arms are contracted. Breath sounds are intact bilaterally. Heart sounds are regular. The abdomen is flat with normal bowel sounds, very soft and with a thin abdominal contour. Rectal: Deferred. Extremities show no edema. Neurologic is reviewed per Dr Lee's notes. HOSPITAL COURSE: She was rehydrated, Dilantin held and the level today of phenytoin is 10.2 down from a high of 40.5 on 10/21/18. She has had a Dilantin level of 60, February 2017. Keppra level 10/30/18 was 30.8. IMPRESSION: This 58-year-old woman with chronic irreversible severe cerebral disease is clearly not able to swallow. Medical and ethical decision making amongst her caregivers is that a PEG tube is desired. She appears to be acceptable risk with no particular pulmonary issues and her abdomen does not have any obvious anatomic impediment. Discussed at length with her sister. [id number]/[facility] #: [id number] MARIO
[2018-11-06] MEDS ORDERED: CEFAZOLIN 500 MG IVPB ONE ×2 (18:00)
[2018-11-06] MEDS ORDERED: PHENYTOIN IV SCH (21:00)
[2018-11-06] MEDS ORDERED: Phenytoin IV(*) 50 MG/ML 2 ML VIAL (100 MG) IVPB SCH (21:00)
[2018-11-06] MEDS ORDERED: NS 0.9% IV SCH (21:00)
[2018-11-07] MEDS: levETIRAcetam IV* 1,000 MG in NS 0.9% 100 ML* 100 ML IVPB SCH ×2 (00:02→12:24)
[2018-11-07] MEDS: Heparin VIAL(*) 5000 UNITS/ML VIAL (FIVE THOUSAND) SUBCUT SCH ×2 (05:26→18:50)
[2018-11-07 07:31] LABS: ABS Basophils 0.1 10^3/ul (0-0.2); ABS Eosinophils 0.2 10^3/ul (0-0.6); ABS Lymphocytes 1.6 10^3/ul (1.0-4.8); ABS Monocytes 0.7 10^3/ul (0-0.8); ABS Neutrophils 6.2 10^3/ul (1.5-7.7); ABS Nucleated RBC 0 10^3/ul; Eosinophil % 2.4 %; Hematocrit 29 % (35-47); Hemoglobin 9.9 g/dl (12.0-16.0); Lymphocyte % 18.7 %; Mean Corpuscular HGB Conc 34 g/dl (31-36); Mean Corpuscular Hemoglobin 31 pg (27-31); Mean Corpuscular Volume 91 fL (80-97); Mean Platelet Volume 7.5 fL (7.4-10.4); Nucleated Red Blood Cells % 0; Platelet Count 339 10^3/ul (150-450); Red Blood Count 3.22 10^6/ul (4.00-5.40); Red Cell Distribution Width 14 % (10.5-15); White Blood Count 8.8 10^3/ul (3.5-10.8)
[2018-11-07 07:53] LABS: Calcium 9.3 mg/dL (8.6-10.3); EGFR Non-African American 87.4 (>60); Magnesium 1.9 mg/dL (1.9-2.7); Potassium 4.3 mmol/L (3.5-5.0)
[2018-11-07] MEDS ORDERED: SODIUM CHLORIDE 0.9% IV SCH (09:00)
[2018-11-07] MEDS ORDERED: PHENYTOIN IV SCH ×2 (09:00→14:00)
[2018-11-07] MEDS: Lactated Ringers 1000 ML Bag* 1,000 ML IV SCH (11:33)
--- NOTE | 2018-11-07 12:38 | PRO ---
DATE: 11/06/18 - ROOM #419 REFERRING PHYSICIAN: Bharath Louie PROCEDURE: Upper gastrointestinal endoscopy and insertion of percutaneous gastrostomy. INDICATION: This employee of [employer], permanently disabled, resident of the [facility], was admitted with severe dehydration, hypernatremia and Dilantin toxicity. She is unable to eat. See separate notes for determinations that the patient can no longer be maintained via oral alimentation. Consent was obtained from her proxy, her sister living in [place], [place]. The patient was assessed to have stable respiratory function. ENDOSCOPIST: Dr. Diaz. MEDICATIONS: Midazolam 3 mg in increments. FINDINGS: The patient was positioned on her back. Moderate sedation was induced to decrease hand positioning. She was not verbally responsive, which is her baseline. EGD: Larynx - symmetirc, limited views, entered. Esophagus - easily entered. The mucosa was normal. To enter EG junction at 36 , which was loose and then there was a [id number] hiatal hernia. There was a little bit of columnar replacement of the distal esophagus, but it is smooth without any mass. Stomach - moderate hiatal hernia and with insufflation the stomach appears normal. Duodenum - normal pylorus, bulb, and second through third portions. Translumination in the epigastrium was obtained. It was higher than average. A midline spot to use for skin sterilization was marked. A small incision was made. Trocar was placed in the gastric lumen angling at about 45 degrees inclination from the skin surface. The trocar was captured with a snare and pull gastrostomy tube insertion done in standard fashion. There were no apparent complications. The bolster was cinched to approximately 2.5 cm, but that short distance was as expected given her slender body build and weight of 60 pounds. IMPRESSION: 1. Moderate hiatal hernia with gastrointestinal reflux disease. 2. Status post percutaneous gastroscopy insertion - tube to be used after overnight observation. [id number]/[facility] #: [id number] [facility]
[2018-11-07] MEDS ORDERED: Phenytoin IV(*) 50 MG/ML 2 ML VIAL (100 MG) IVPB SCH (13:00)
[2018-11-07] MEDS ORDERED: NS 0.9% IV SCH (14:00)
--- NOTE | 2018-11-07 14:53 | PN ---
Subjective Date of Service: 11/07/18 Interval History: Patient is still non-verbal. Not pulling at PEG tube. Resists examination. Family History: Unchanged from Admission Social History: Unchanged from Admission Past Medical History: Unchanged from Admission Objective Active Medications: Acetaminophen (Tylenol Supp*) 650 mg ID Q6H PRN PRN Reason: FEVER/PAIN Last Admin: 10/23/18 08:55 Dose: 650 mg Albuterol (Ventolin 2.5 Mg/3 Ml Neb.Daniela*) 2.5 mg INH Q4H PRN PRN Reason: SOB/WHEEZING Last Admin: 10/29/18 01:37 Dose: 2.5 mg Glycerin (Glycerin Adult Supp*) 1 supp ID DAILY PRN PRN Reason: CONSTIPATION Heparin Sodium (Porcine) (Heparin Vial(*)) 5,000 units SUBCUT Q12H [facility] Last Admin: 11/07/18 05:26 Dose: Not Given Levetiracetam 1,000 mg/ Sodium (Chloride) 110 mls @ 100 mls/hr IVPB Q12H [facility] Last Admin: 11/07/18 12:24 Dose: 100 mls/hr Lactated Ringer's (Lactated Ringers 1000 Ml Bag*) 1,000 mls @ 75 mls/hr IV PER RATE [facility] Last Admin: 11/07/18 11:33 Dose: 75 mls/hr Phenytoin Sodium 50 mg/ Sodium (Chloride) 10 mls @ 40 mls/hr IV Q8H [facility]; Protocol Vital Signs - 8 hr 11/07/18 11/07/18 11/07/18 07:29 08:00 11:16 Temperature 98.2 F 97.0 F Pulse Rate 75 65 Respiratory 16 15 16 Rate Blood Pressure 133/63 111/65 (mmHg) O2 Sat by Pulse 97 97 98 Oximetry Oxygen Devices in Use Now: None Appearance: Emaciated 58yo female who appears stated age. Eyes: No Scleral Icterus, PERRLA Ears/Nose/Mouth/Throat: NL Teeth, Lips, Gums, Clear Oropharnyx, - - Dry mucus membranes, Macroglossia. Neck: NL Appearance and Movements; NL JVP, Trachea Midline Respiratory: Symmetrical Chest Expansion and Respiratory Effort, Clear to Auscultation Cardiovascular: NL Sounds; No Murmurs; No JVD, RRR, No Edema Abdominal: NL Sounds; No Tenderness; No Distention, No Hepatosplenomegaly, - - PEG tube without bleeding or discharge. Lymphatic: No Cervical Adenopathy Extremities: No Edema Skin: No Rash or Ulcers, No Nodules or Sclerosis Neurological: - - Twitching but alert. Result Diagrams: 11/07/18 07:16 11/07/18 07:16 Additional Lab and Data: Phenytoin: 10 on 11/06/18 Microbiology and Other Data: Assess/Plan/Problems-Billing Assessment and recommendations: 1. Phenytoin toxicity- resolved. The toxicity was thought to be related to drug -to-drug interaction with antibiotic therapy she was receiving as an outpatient. She is more awake now. Level is within lower range of normal. Increase phenytoin to 50 mg in the AM and 100 mg in the PM. Please note that this is lower than the patient's home dose of phenytoin. According to Dr. Mar' s note in [facility], the patient is taking 100 mg twice daily. She may have lost weight since she was last seen in the clinic on 08/24/2018, and may not require a higher dose. We can recheck a level as an outpatient. 2. Status epilepticus in a patient with history of seizure disorder and profound intellectual developmental delay and cerebral palsy- resolved. Phenytoin was initially held due to toxicity, but was not restarted; hence, the patient developed seizures. Continue both phenytoin and levetiracetam. No need for repeat EEG. 3. Rash and limb hematoma- improving. 4. Dysphagia and poor oral intake- she is refusing to eat. This is the ongoing problem at this point. I'm not sure if she is having pain swallowing. She does have history of oral thrush in the past but she doesn't have any apparent thrush in her oral cavity. Defer further treatment to the primary team. Continue IV fluids. She may need PEG placement. D/w Will. I will sign off but we are always available for any questions or concerns. Time spent: 25 minutes of which >50% was spent examining the patient and discussing the treatment plan with the team. - Patient Problems (1) Altered mental status Current Visit: Yes Status: Acute Code(s): R41.82 - ALTERED MENTAL STATUS, UNSPECIFIED SNOMED Code(s): 833671808 Comment: -Toxic encephalopathy -Poor PO intake causing dehydration leading to increased phenytoin levels and hypernatremia - Improved but not at baseline per staff. (2) Seizure disorder Current Visit: Yes Status: Chronic Code(s): G40.909 - EPILEPSY, UNSP, NOT INTRACTABLE, WITHOUT STATUS EPILEPTICUS SNOMED Code(s): 001933467 Comment: - Was in mycolonic status epilepticus, now resolved - Continue Keppra and phenytoin IV while not taking PO. - Increase Phenytoin to 100mg BID due to low phenytoin levels, transfer to PEG tube this evening (3) Dehydration Current Visit: Yes Status: Acute Onset Date: 07/01/14 Code(s): E86.0 - DEHYDRATION SNOMED Code(s): 31000148 Comment: - Continue fluids until tube feeds adequate - PEG tube placed and tube feeding started. - Nutrition consult. Sodium normal. (4) LLL pneumonia Current Visit: Yes Status: Acute Priority: High Onset Date: 07/01/14 Code(s): J18.9 - PNEUMONIA, UNSPECIFIED ORGANISM SNOMED Code(s): 720225984 Comment: - Resolved, completed full course of Zosyn - Will need repeat outpatient CT to assess for resolution of mucus plugging or concern for lesion. (5) UTI (urinary tract infection) Current Visit: Yes Status: Acute Comment: - Culture grew E. coli - Resolved, completed full course of Zosyn (6) Hypernatremia Current Visit: No Status: Acute Priority: High Onset Date: 11/08/14 Code (s): E87.0 - HYPEROSMOLALITY AND HYPERNATREMIA SNOMED Code(s): 90694299 Comment: - Resolved (7) Phenytoin toxicity Current Visit: No Status: Acute Code(s): T42.0X1A - POISONING BY HYDANTOIN DERIVATIVES, ACCIDENTAL, INIT SNOMED Code(s): 13853161 Comment: - Phenytoin today at 6. - Neurology following distantly. - Switch to IV due to removal of feeding tube and inability to take oral meds. - Increased to 200mg daily. Recheck level in AM. (8) Cerebral palsy Current Visit: Yes Status: Acute Code(s): G80.9 - CEREBRAL PALSY, UNSPECIFIED SNOMED Code(s): 727440035 Comment: - Supportive care (9) DVT prophylaxis Current Visit: Yes Status: Acute Code(s): [id number] - SNOMED Code(s): 981620705 Comment: - Heparin SQ (10) Full code status Current Visit: Yes Status: Acute Code(s): Z78.9 - OTHER SPECIFIED HEALTH STATUS SNOMED Code(s): 458294778 Comment: Status and Disposition: Inpatient for continued lethargy d/t phenytoin toxicity and seizures. Anticipate d/c back to [facility]acker tube feeds adequate for nutrition and steady state of phenytoin achieved.
[2018-11-07] MEDS: levETIRAcetam LIQ* 500 MG/5 ML UDC PEG TUBE SCH (20:13)
[2018-11-07] MEDS: Phenytoin SUSP(*) 100 MG/4 ML UDC (100 MG) PEG TUBE SCH (20:13)
[2018-11-08] MEDS: Lactated Ringers 1000 ML Bag* 1,000 ML IV SCH ×3 (02:24→19:37)
[2018-11-08] MEDS: Heparin VIAL(*) 5000 UNITS/ML VIAL (FIVE THOUSAND) SUBCUT SCH ×2 (05:17→16:58)
[2018-11-08 05:58] LABS: ABS Basophils 0 10^3/ul (0-0.2); ABS Eosinophils 0.3 10^3/ul (0-0.6); ABS Lymphocytes 1.4 10^3/ul (1.0-4.8); ABS Monocytes 0.8 10^3/ul (0-0.8); ABS Neutrophils 4.4 10^3/ul (1.5-7.7); ABS Nucleated RBC 0 10^3/ul; Eosinophil % 4.6 %; Hematocrit 30 % (35-47); Hemoglobin 10.3 g/dl (12.0-16.0); Lymphocyte % 20.6 %; Mean Corpuscular HGB Conc 35 g/dl (31-36); Mean Corpuscular Hemoglobin 31 pg (27-31); Mean Corpuscular Volume 91 fL (80-97); Mean Platelet Volume 7.5 fL (7.4-10.4); Nucleated Red Blood Cells % 0; Platelet Count 351 10^3/ul (150-450); Red Blood Count 3.28 10^6/ul (4.00-5.40); Red Cell Distribution Width 14 % (10.5-15)
[2018-11-08] MEDS: Phenytoin SUSP(*) 100 MG/4 ML UDC (100 MG) PEG TUBE SCH ×2 (08:46→19:37)
[2018-11-08] MEDS: levETIRAcetam LIQ* 500 MG/5 ML UDC PEG TUBE SCH ×2 (08:46→19:37)
--- NOTE | 2018-11-08 18:50 | PN ---
Subjective Date of Service: 11/08/18 Interval History: patient is non verbal , alert , eyes open to verbal. respirations easy Nursing reports 110 cc residual when tube feeding increased to 40 cc/hr- will decrease rate 30 cc/hr Family History: Unchanged from Admission Social History: Unchanged from Admission Past Medical History: Unchanged from Admission Objective Active Medications: Acetaminophen (Tylenol Supp*) [address] Q6H PRN PRN Reason: FEVER/PAIN Last Admin: 10/23/18 08:55 Dose: 650 mg Albuterol (Ventolin 2.5 Mg/3 Ml Neb.Daniela*) 2.5 mg INH Q4H PRN PRN Reason: SOB/WHEEZING Last Admin: 10/29/18 01:37 Dose: 2.5 mg Glycerin (Glycerin Adult Supp*) [address] DAILY PRN PRN Reason: CONSTIPATION Heparin Sodium (Porcine) (Heparin Vial(*)) 5,000 units SUBCUT Q12H [facility] Last Admin: 11/08/18 16:58 Dose: Not Given Lactated Ringer's (Lactated Ringers 1000 Ml Bag*) 1,000 mls @ 75 mls/hr IV PER RATE [facility] Last Admin: 11/08/18 16:42 Dose: 75 mls/hr Levetiracetam (Keppra Liq*) 1,000 mg PEG TUBE BID [facility] Last Admin: 11/08/18 08:46 Dose: 1,000 mg Phenytoin Sodium (Dilantin Susp(*)) 100 mg PEG TUBE BID [facility] Last Admin: 11/08/18 08:46 Dose: 100 mg Vital Signs - 8 hr 11/08/18 11/08/18 11:14 15:43 Temperature 97.7 F Pulse Rate 55 57 Respiratory 16 16 Rate Blood Pressure 110/68 108/53 (mmHg) O2 Sat by Pulse 99 98 Oximetry Oxygen Devices in Use Now: None Appearance: alert, appears comfortable , legs contracted Eyes: No Scleral Icterus Ears/Nose/Mouth/Throat: Clear Oropharnyx, Mucous Membranes Moist Neck: NL Appearance and Movements; NL JVP, Trachea Midline Respiratory: Symmetrical Chest Expansion and Respiratory Effort, Clear to Auscultation Cardiovascular: NL Sounds; No Murmurs; No JVD, No Edema Abdominal: NL Sounds; No Tenderness; No Distention Extremities: No Edema, No Clubbing, Cyanosis Skin: No Rash or Ulcers Neurological: Alert and Oriented x 3 Nutrition: Taking PO's Result Diagrams: 11/08/18 05:46 11/07/18 07:16 Additional Lab and Data: Phenytoin: 10 on 11/06/18 Microbiology and Other Data: Assess/Plan/Problems-Billing Assessment and recommendations: 1. Phenytoin toxicity- resolved. The toxicity was thought to be related to drug -to-drug interaction with antibiotic therapy she was receiving as an outpatient. She is more awake now. Level is within lower range of normal. Increase phenytoin to 50 mg in the AM and 100 mg in the PM. Please note that this is lower than the patient's home dose of phenytoin. According to Dr. Mar' s note in [facility], the patient is taking 100 mg twice daily. She may have lost weight since she was last seen in the clinic on 08/24/2018, and may not require a higher dose. We can recheck a level as an outpatient. 2. Status epilepticus in a patient with history of seizure disorder and profound intellectual developmental delay and cerebral palsy- resolved. Phenytoin was initially held due to toxicity, but was not restarted; hence, the patient developed seizures. Continue both phenytoin and levetiracetam. No need for repeat EEG. 3. Rash and limb hematoma- improving. 4. Dysphagia and poor oral intake- she is refusing to eat. This is the ongoing problem at this point. I'm not sure if she is having pain swallowing. She does have history of oral thrush in the past but she doesn't have any apparent thrush in her oral cavity. Defer further treatment to the primary team. Continue IV fluids. She may need PEG placement. D/w Will. I will sign off but we are always available for any questions or concerns. Time spent: 25 minutes of which >50% was spent examining the patient and discussing the treatment plan with the team. - Patient Problems (1) Altered mental status Current Visit: Yes Status: Acute Code(s): R41.82 - ALTERED MENTAL STATUS, UNSPECIFIED SNOMED Code(s): 973862423 Comment: -Toxic encephalopathy -Poor PO intake causing dehydration leading to increased phenytoin levels and hypernatremia - (2) Phenytoin toxicity Current Visit: No Status: Acute Code(s): T42.0X1A - POISONING BY HYDANTOIN DERIVATIVES, ACCIDENTAL, INIT SNOMED Code(s): 29231758 Comment: - Phenytoin today at 6. - Neurology following distantly. - Switch to IV due to removal of feeding tube and inability to take oral meds. - Increased to 200mg daily. Recheck level in AM. - remains low will continue 200 mg daily and repeat level in 3 days - no seizure activity (3) Dehydration Current Visit: Yes Status: Acute Onset Date: 07/01/14 Code(s): E86.0 - DEHYDRATION SNOMED Code(s): 01388973 Comment: - taking some orals as well - PEG tube placed and tube feeding started. - Nutrition consult. Sodium normal. (4) Hypernatremia Current Visit: Yes Status: Acute Code(s): E87.0 - HYPEROSMOLALITY AND HYPERNATREMIA SNOMED Code(s): 07268356 Comment: Resolved - maintained with tube feedings and oral feeding (5) LLL pneumonia Current Visit: Yes Status: Acute Priority: High Onset Date: 07/01/14 Code(s): J18.9 - PNEUMONIA, UNSPECIFIED ORGANISM SNOMED Code(s): 942354442 Comment: - Resolved, completed full course of Zosyn - Will need repeat outpatient CT to assess for resolution of mucus plugging or concern for lesion. (6) UTI (urinary tract infection) Current Visit: Yes Status: Acute Comment: resolved - Culture grew E. coli - completed full course of Zosyn (7) Seizure disorder Current Visit: Yes Status: Chronic Code(s): G40.909 - EPILEPSY, UNSP, NOT INTRACTABLE, WITHOUT STATUS EPILEPTICUS SNOMED Code(s): 266959627 Comment: resolved - Was in mycolonic status epilepticus- resolved - Continue Keppra - Increase Phenytoin to 100mg BID due to low phenytoin levels, continued via PEG repeat phenytoin level in 3 days (8) Cerebral palsy Current Visit: Yes Status: Acute Code(s): G80.9 - CEREBRAL PALSY, UNSPECIFIED SNOMED Code(s): 949402515 Comment: - Supportive care (9) DVT prophylaxis Current Visit: Yes Status: Acute Code(s): [id number] - SNOMED Code(s): 682116573 Comment: - Heparin SQ (10) Full code status Current Visit: Yes Status: Acute Code(s): Z78.9 - OTHER SPECIFIED HEALTH STATUS SNOMED Code(s): 573555434 Comment: Status and Disposition: Inpatient for continued lethargy d/t phenytoin toxicity and seizures. Anticipate d/c back to [facility]acker tube feeds adequate for nutrition and steady state of phenytoin achieved.
[2018-11-09] MEDS: Heparin VIAL(*) 5000 UNITS/ML VIAL (FIVE THOUSAND) SUBCUT SCH ×2 (05:22→16:23)
[2018-11-09] MEDS: Phenytoin SUSP(*) 100 MG/4 ML UDC (100 MG) PEG TUBE SCH ×2 (08:47→20:42)
[2018-11-09] MEDS: levETIRAcetam LIQ* 500 MG/5 ML UDC PEG TUBE SCH ×2 (08:47→20:42)
[2018-11-09] MEDS: Lactated Ringers 1000 ML Bag* 1,000 ML IV SCH (11:10)
--- NOTE | 2018-11-09 18:20 | PN ---
Subjective Date of Service: 11/09/18 Interval History: patient alert, eyes open , nonverbal , non toxic appears no fevers reported overnight Spoke to Ashleigh nurse at the [facility] and updated about patient condition - patient will be discharged home with tube feedings continuos, updated on seizure medications as well. Family History: Unchanged from Admission Social History: Unchanged from Admission Past Medical History: Unchanged from Admission Objective Active Medications: Acetaminophen (Tylenol Supp*) 650 mg ME Q6H PRN PRN Reason: FEVER/PAIN Last Admin: 10/23/18 08:55 Dose: 650 mg Albuterol (Ventolin 2.5 Mg/3 Ml Neb.Daniela*) 2.5 mg INH Q4H PRN PRN Reason: SOB/WHEEZING Last Admin: 10/29/18 01:37 Dose: 2.5 mg Glycerin (Glycerin Adult Supp*) 1 supp ME DAILY PRN PRN Reason: CONSTIPATION Heparin Sodium (Porcine) (Heparin Vial(*)) 5,000 units SUBCUT Q12H [facility] Last Admin: 11/09/18 16:23 Dose: Not Given Lactated Ringer's (Lactated Ringers 1000 Ml Bag*) 1,000 mls @ 50 mls/hr IV PER RATE [facility] Last Admin: 11/09/18 11:10 Dose: 50 mls/hr Levetiracetam (Keppra Liq*) 1,000 mg PEG TUBE BID [facility] Last Admin: 11/09/18 08:47 Dose: 1,000 mg Phenytoin Sodium (Dilantin Susp(*)) 100 mg PEG TUBE BID [facility] Last Admin: 11/09/18 08:47 Dose: 100 mg Vital Signs - 8 hr 11/09/18 11/09/18 11/09/18 11:33 11:39 15:46 Temperature 97.4 F 97.3 F Pulse Rate 54 62 57 Respiratory 16 16 Rate Blood Pressure 93/56 104/66 90/66 (mmHg) O2 Sat by Pulse 97 99 Oximetry 11/09/18 15:59 Temperature Pulse Rate 66 Respiratory Rate Blood Pressure 104/60 (mmHg) O2 Sat by Pulse Oximetry Oxygen Devices in Use Now: None Appearance: alert , eyes open , thin female lying in bed Eyes: No Scleral Icterus Ears/Nose/Mouth/Throat: Clear Oropharnyx, Mucous Membranes Moist Neck: NL Appearance and Movements; NL JVP, Trachea Midline Respiratory: Symmetrical Chest Expansion and Respiratory Effort, Clear to Auscultation Cardiovascular: NL Sounds; No Murmurs; No JVD, No Edema Abdominal: NL Sounds; No Tenderness; No Distention Extremities: No Edema, No Clubbing, Cyanosis Skin: No Rash or Ulcers Neurological: Alert and Oriented x 3 Nutrition: Taking PO's Result Diagrams: 11/08/18 05:46 11/07/18 07:16 Additional Lab and Data: Phenytoin: 10 on 11/06/18 Microbiology and Other Data: Assess/Plan/Problems-Billing Assessment and recommendations: 1. Phenytoin toxicity- resolved. The toxicity was thought to be related to drug -to-drug interaction with antibiotic therapy she was receiving as an outpatient. She is more awake now. Level is within lower range of normal. Increase phenytoin to 50 mg in the AM and 100 mg in the PM. Please note that this is lower than the patient's home dose of phenytoin. [facility] to [facility], the patient is taking 100 mg twice daily. She may have lost weight since she was last seen in the clinic on 08/24/2018, and may not require a higher dose. We can recheck a level as an outpatient. 2. Status epilepticus in a patient with history of seizure disorder and profound intellectual developmental delay and cerebral palsy- resolved. Phenytoin was initially held due to toxicity, but was not restarted; hence, the patient developed seizures. Continue both phenytoin and levetiracetam. No need for repeat EEG. 3. Rash and limb hematoma- improving. 4. Dysphagia and poor oral intake- she is refusing to eat. This is the ongoing problem at this point. I'm not sure if she is having pain swallowing. She does have history of oral thrush in the past but she doesn't have any apparent thrush in her oral cavity. Defer further treatment to the primary team. Continue IV fluids. She may need PEG placement. D/w Will. I will sign off but we are always available for any questions or concerns. Time spent: 25 minutes of which >50% was spent examining the patient and discussing the treatment plan with the team. - Patient Problems (1) Altered mental status Current Visit: Yes Status: Acute Code(s): R41.82 - ALTERED MENTAL STATUS, UNSPECIFIED SNOMED Code(s): 899476810 Comment: resolving -Toxic encephalopathy -Poor PO intake causing dehydration leading to increased phenytoin levels and hypernatremia - (2) Phenytoin toxicity Current Visit: No Status: Acute Code(s): T42.0X1A - POISONING BY HYDANTOIN DERIVATIVES, ACCIDENTAL, INIT SNOMED Code(s): 73206053 Comment: resolved - Phenytoin level low - on 11/08/18 - Neurology following distantly. - - continue at 200mg daily via peg tube -repeat level in 3 days 11/11/2018 - no seizure activity - will need follow up with neurology after discharge (3) Dehydration Current Visit: Yes Status: Acute Onset Date: 07/01/14 Code(s): E86.0 - DEHYDRATION SNOMED Code(s): 74035782 Comment: - taking some orals as well - PEG tube placed and tube feeding started.- had high residual at 40cc/hr so decreased back to 30cc/hr- will attempt to increase today again and check residuals - Nutrition consult. Sodium normal. - patient will be discharged home with tube feeding - patient's nurse at [facility] aware of feeding and will train staff- patient is ok to return (4) Hypernatremia Current Visit: Yes Status: Acute Code(s): E87.0 - HYPEROSMOLALITY AND HYPERNATREMIA SNOMED Code(s): 15272132 Comment: Resolved - maintained with tube feedings and oral feeding (5) LLL pneumonia Current Visit: Yes Status: Acute Priority: High Onset Date: 07/01/14 Code(s): J18.9 - PNEUMONIA, UNSPECIFIED ORGANISM SNOMED Code(s): 634502158 Comment: - Resolved, completed full course of Zosyn - Will need repeat outpatient CT to assess for resolution of mucus plugging or concern for lesion. (6) UTI (urinary tract infection) Current Visit: Yes Status: Acute Comment: resolved - Culture grew E. coli - completed full course of Zosyn (7) Seizure disorder Current Visit: Yes Status: Chronic Code(s): G40.909 - EPILEPSY, UNSP, NOT INTRACTABLE, WITHOUT STATUS EPILEPTICUS SNOMED Code(s): 406894612 Comment: resolved - Was in mycolonic status epilepticus- resolved - Continue Keppra - continued Phenytoin at 100mg BID due to low phenytoin levels, continued via PEG repeat phenytoin level in 3 days 11/11/18 - (8) Cerebral palsy Current Visit: Yes Status: Acute Code(s): G80.9 - CEREBRAL PALSY, UNSPECIFIED SNOMED Code(s): 986084352 Comment: - Supportive care (9) DVT prophylaxis Current Visit: Yes Status: Acute Code(s): PDW5094 - SNOMED Code(s): 456511644 Comment: - Heparin SQ (10) Full code status Current Visit: Yes Status: Acute Code(s): Z78.9 - OTHER SPECIFIED HEALTH STATUS SNOMED Code(s): 565931065 Comment: Status and Disposition: Inpatient for continued lethargy d/t phenytoin toxicity and seizures. Anticipate d/c back to [facility] tube feeds adequate for nutrition and steady state of phenytoin achieved.
[2018-11-10] MEDS: Heparin VIAL(*) 5000 UNITS/ML VIAL (FIVE THOUSAND) SUBCUT SCH (05:16)
[2018-11-10 06:49] LABS: Hematocrit 31 % (35-47); Hemoglobin 10.4 g/dl (12.0-16.0); Mean Corpuscular HGB Conc 34 g/dl (31-36); Mean Corpuscular Hemoglobin 31 pg (27-31); Mean Corpuscular Volume 92 fL (80-97); Mean Platelet Volume 7.5 fL (7.4-10.4); Platelet Count 307 10^3/ul (150-450); Red Blood Count 3.34 10^6/ul (4.00-5.40); Red Cell Distribution Width 15 % (10.5-15); White Blood Count 6.1 10^3/ul (3.5-10.8)
[2018-11-10 07:04] LABS: BUN/Creatinine Ratio 35.1 (8-20); Calcium 8.9 mg/dL (8.6-10.3); EGFR Non-African American 108.9 (>60); Magnesium 2.1 mg/dL (1.9-2.7); Potassium 4.6 mmol/L (3.5-5.0)
[2018-11-10] MEDS: levETIRAcetam LIQ* 500 MG/5 ML UDC PEG TUBE SCH (08:48)
[2018-11-10] MEDS: Phenytoin SUSP(*) 100 MG/4 ML UDC (100 MG) PEG TUBE SCH (08:48)
[2018-11-10 11:47] VITALS: BP 108/62
--- NOTE | 2018-11-11 03:43 | DS ---
CC: Dr. Morales Kim; Dr. Long Mar * DISCHARGE SUMMARY: DATE OF ADMISSION: 10/21/18 DATE OF DISCHARGE: 11/10/18 PROVIDER: Geno Moody NP ATTENDING PHYSICIAN: Dr. Rosie Hong * (dictated by Geno Moody NP) PRIMARY CARE PHYSICIAN: Dr. Morales Kim. PRIMARY DIAGNOSES: 1. Phenantoin toxicity. 2. Hyponatremia. 3. Dehydration. 4. Toxic encephalopathy related to phenantoin toxicity. 5. Status epilepticus. 6. Pneumonia. 7. Urinary tract infection. SECONDARY DIAGNOSES: 1. Intellectual delay, developmental delay. 2. Hyperlipidemia. 3. Cerebral palsy. 4. Hiatal hernia. 5. Gastroesophageal reflux disease. DISCHARGE MEDICATIONS: No new home medications. Continued home medications: 1. Ibuprofen 400 mg p.o. q.6 hours as needed. 2. Clari 180 mg p.o. daily. 3. Tylenol 650 mg p.o. q.4 hours as needed. 4. PD multivitamin 1 p.o. daily. 5. Zofran 4 mg p.o. q.6 hours as needed. 6. Lorazepam 0.5 mg. 7. Pseudoephedrine 30 mg p.o. q.6 hours as needed. 8. MiraLAX 34 g p.o. q.a.m. as needed. 9. Keppra 1000 mg twice daily. 10. Dilantin 100 mg twice daily. HISTORY OF PRESENT ILLNESS AND HOSPITAL COURSE: Ms. Mitchell is a 58-year- old female with a past medical history significant for profound intellectual developmental delay, seizures, cerebral palsy, who at baseline is nonverbal and minimally interactive. Initially, per the staff, the patient was, approximately 3 to 4 days prior to arrival to the hospital, noted to have a cough and suspected bronchitis. At that point, she was started on azithromycin. It was reported that the patient had a fever as high as 101.7 today, as high as 100.3. Due to the patient seeming less responsive and she did not perk up, she was brought to the emergency room for further evaluation. Staff reports that her symptoms are consistent with previous history of her having poor oral intake and having developed Dilantin toxicity in the emergency room. She had lab work drawn which was consistent with profound dehydration consistent with her history of poor oral intake and she did have Dilantin toxicity with a level of 40.5. The patient's Dilantin was held through during her hospitalization. She also did initially on admission have an elevated troponin of 0.04 which decreased to 0.03. The patient was ultimately found to have a urinary tract infection and left lower lobe pneumonia for which she was treated with Zosyn during the hospitalization. Her Dilantin was initially held until her level was less than 25. During the hospitalization on 10/29/18, the patient's Dilantin level drifted down and the patient was found to having tonic-clinic seizures. As for, EEG was completed and she was found to be in status epilepticus. She was transferred to the ICU and seen in consultation by Dr. Lee. While in the unit, she did receive Ativan to help control her seizures and was given IV Keppra. Over the days, the seizures did resolve and status epilepticus stopped. She did have serial EEGs throughout her hospitalization and she did spend several days in the ICU. Throughout the hospitalization, her symptoms did improve and she was able to be transferred to the medical floor for further monitoring. The patient had no further seizure activity. Her Dilantin level did drift low and her Dilantin was restarted and increased back to her home dosing of 100 mg b.i.d. via the PEG tube that she had placed. The patient had a PEG tube placed due to poor p.o. intake and the need for nutrition. The patient was started on Jevity 1.2 cals for a goal of 50 cc/hour. She was able to tolerate Jevity at 30 cc/hour and then on 11/09/18, her Jevity was increased to 40 cc/hour and was able to tolerate this without increased residual. The patient's alertness improved throughout her hospitalization. On the day of discharge, the patient was alert. She remains nonverbal. She does not appear to be in any acute distress. Her lung sounds were clear. At this time, she is now eating and tolerating p.o. food and fluids, as well as tolerating her Jevity nutritional supplement. At this point, the patient is stable for discharge back to [facility]. STUDIES COMPLETED WHILE IN THE HOSPITAL: She had several electroencephalograms which showed status epilepticus, the last showing on 11/02/18. The last EEG showed the presence of abundant diffuse epileptiform discharges, maximum in the frontal areas bilateral, occasional semirhythmic spikes and slow wave discharges seen diffusely with slow background. These findings consistent with increased estrogenic potential and can be seen in the patient's with symptomatic epilepsy. There is no evidence of status epilepticus. There has been no interval change when compared to study from 11/01/18. REVIEW OF SYSTEMS: The patient is nonverbal and is unable to voice complaints. The patient appears comfortable resting on the stretcher. She is afebrile. Her eyes are open. She does look towards the examiner when name is called. PHYSICAL EXAMINATION: General: he appears comfortable resting on the stretcher. She is alert. Her eyes are open. She is thin appearing. Eyes: Sclerae anicteric. Pupils are equal and reactive to light. HEENT: Head is atraumatic. Mucosa membranes are dry. Neck: No JVD. Trachea is midline. Respiratory: Lung sounds are clear to auscultation bilaterally. No wheezes, rales, or rhonchi. Cardiac: S1, S2. No murmurs, rubs, or gallops. Abdomen: Soft. Bowel sounds are present x4. There is no distention. PEG tube is in place without bleeding or discharge. Extremities: No edema. Skin: No rashes or ulcers. Neurologic: The patient has some occasional twitching but is alert. Eyes are open. She does turn head towards examiner when spoken to. She is nonverbal. DISCHARGE PLAN: At this time, Ms. Mitchell will be discharged back to [facility]. Activity: As tolerated. Diet: She should continue on a pureed diet with honey- thick liquids. She will also have Jevity 1.2 wanda intermittent feeding for 12 hours at night. She should have free water 100 cc q.3 hours during the day for 12 hours for a total of 400 cc of free water. She should have 30 cc flush after medications and 50 cc flush after completion of her Jevity of free water. 1. Dilantin toxicity. The patient had an elevated level of Dilantin on admission to the hospital, I suspect this is due to dehydration. The patient's Dilantin was held and subsequently she developed status epilepticus. Her Dilantin level was monitored throughout the hospitalization. Last Dilantin level was 6.7. At that time, her Dilantin was increased to 100 mg b.i.d. She has had no further seizure activity. She is awake and alert. She should have a repeat Dilantin level tomorrow and then repeat in [address] Mar. 2. Hyponatremia. The patient was hyponatremic when she presented to the hospital. She was given IV hydration. I suspect her hyponatremia is due to dehydration. 3. Dehydration. The patient did receive IV fluids during her hospitalization. She has also had a PEG tube placed due to her malnutrition, dehydration and poor p.o. intake. She was started on Jevity 1.2 calories continuously 24 hours a day for a max goal of 50 cc/hour. She did achieve a rate of 40 cc/hour. The patient did start eating and increasing her p.o. fluid and food intake. Due to the fact her Jevity was decreased today, 11/10/18 to a Jevity goal of 50cc/hour overnight for 12 hours a day, she should have 400 cc of free fluid during the day and Jevity at night. She should have 30 cc flush after medications and 50 cc after completion of Jevity in the morning. She should have her residual checked. Her head needs to be remain elevated during her feedings to prevent the risk of aspiration. 4. Toxic encephalopathy. I suspect this is related to Dilantin toxicity. Her Dilantin was held and subsequently her Dilantin level became too low which caused her to have status epilepticus. The patient was started back on Keppra and Dilantin and her seizures subsided. 5. Seizures. The patient should continue on Keppra 1000 mg b.i.d. and Dilantin 100 mg b.i.d. via her PEG tube. The patient should follow up with Dr. Mar. She should call for an appointment. She needs to have a repeat Dilantin level tomorrow and then again in 3 days with results to Dr. Mar. 6. Left lower lobe pneumonia. The patient did receive a full course of antibiotics during this hospitalization. She should have a followup chest x- ray to confirm resolution of left lower lobe pneumonia. 7. Urinary tract infection. The patient did complete a full course of antibiotics during her hospitalization to treat her Escherichia coli urinary tract infection. This is a summarization of an extended hospitalization. For further details, please obtain her entire medical record. FOLLOWUP: 1. The patient should followup with Dr. Mar from Neurology. She should call for an appointment. 2. She should follow up with Dr. Kim in 4 to 7 days. 3. She needs a repeat Dilantin level tomorrow, 11/11/18 and in 3 days after. Those results should go to Dr. Mar for further adjustments of her medications. 4. The patient should return to the emergency room for any increased seizure activities, fever, chills, nausea, vomiting, or any other concerns. TIME SPENT: Time spent on this discharge was approximately 60 minutes, greater than half that time was spent discussing discharge plans with her nurse at the [facility] and implementing my discharge plans. CONDITION ON DISCHARGE: Stable. I discussed with my attending, Dr. Rosie Hong, she is in agreement with my plan. GENO MOODY, FA[employer] SHIFT SUPERVISOR [id number]/CPS #: [id number] MARIO
== END 2018-11-10 14:40 | DRG 91 ==
LOC: ED 15:52 → ICU 21:13 → MEDTELE 10-23 12:19 → ICU 10-29 09:32 → MED 11-02 12:21
PROVIDERS: ADMIT Internal Medicine; ATTEND Internal Medicine
PROC: 0DH63UZ Insertion of Feeding Device into Stomach, Percutaneous Approach (ICD-10-PCS; principal; 2018-11-06)
PROC: 3E0G76Z Introduction of Nutritional Substance into Upper GI, Via Natural or Artificial Opening (ICD-10-PCS; 2018-11-07)
DX: G92 Toxic encephalopathy (principal); J69.0 Pneumonitis due to inhalation of food and vomit; F73 Profound intellectual disabilities; E87.0 Hyperosmolality and hypernatremia; N39.0 Urinary tract infection, site not specified; T17.890A Other foreign object in other parts of respiratory tract causing asphyxiation, initial encounter; E46 Unspecified protein-calorie malnutrition; Z68.1 Body mass index [BMI] 19.9 or less, adult; J98.11 Atelectasis; T42.0X5A Adverse effect of hydantoin derivatives, initial encounter; G40.401 Other generalized epilepsy and epileptic syndromes, not intractable, with status epilepticus; R13.10 Dysphagia, unspecified; I95.9 Hypotension, unspecified; G80.9 Cerebral palsy, unspecified; E86.0 Dehydration; K21.9 Gastro-esophageal reflux disease without esophagitis; E78.5 Hyperlipidemia, unspecified; R74.8 Abnormal levels of other serum enzymes; B96.20 Unspecified Escherichia coli [E. coli] as the cause of diseases classified elsewhere; D64.9 Anemia, unspecified; R21 Rash and other nonspecific skin eruption; K44.9 Diaphragmatic hernia without obstruction or gangrene; Z99.3 Dependence on wheelchair; Y92.199 Unspecified place in other specified residential institution as the place of occurrence of the external cause; Z79.1 Long term (current) use of non-steroidal anti-inflammatories (NSAID); Z79.899 Other long term (current) drug therapy; Z88.8 Allergy status to other drugs, medicaments and biological substances
CPT/HCPCS: 36415; 71045; 71250; 80048; 80053; 80177; 80185; 80202; 81003; 81015; 82040; 83605; 83735; 84100; 84300; 84484; 85025; 85027; 85610; 85730; 86140; 87040; 87077; 87086; 87186; 87641; 87899; 93005; 93306; 94640; 94667; 94668; 95813; 95816; 95819; 99156; 99157; 99285; A9270-GY; J0690; J0696; J1165; J1644; J2060; J2250; J2543; J3010; J3370; J3480; J7608; Q2009

== ENCOUNTER 2019-08-08 09:57 | Emergency (ER) | payer MEDICARE, MEDICAID ==
--- OUTSIDE RECORDS SUMMARY | 2019-08-08 10:12 | XMS REPORT | Continuity of Care Document ---
:1960 External Reference #:[id number] Author Name Angeline Del Castillo NP (transmitted by agent of provider Maryjane Simeon) Address [address] [place] [address] Care Team Providers Name Role Phone Morales Kim MD - Internal Care Team Information [place] Medicine Problems Active Problems Provider Date Severe cognitive impairment Ashleigh Perez M.D. Onset: 04/20/2015 Epilepsy Ashleigh Perez M.D. Onset: 04/20/2015 Intellectual disability Long Mar M.D. Onset: 08/24/2018 Percutaneous endoscopic gastrostomy Angeline Del Castillo NP Onset: 11/17/2018 Note: placed 11/06/2018, Dr. Diaz Social History Type Date Description Comments Sex Unknown ETOH Use Denies alcohol use Tobacco Use Start: Unknown Patient has never smoked Recreational Drug Use Denies Drug Use Smoking Status Reviewed: 07/22/19 Patient has never smoked Exercise Type/Frequency Does not exercise Allergies, Adverse Reactions, Alerts Description No Known Drug Allergies Medications Active Medications SIG Qnty Indications Ordering Date Provider Dilantin 50 mg/2 ML via peg 180ml Donnie 12/28/2018 125mg/5ML tube in the in the [facility] Suspension morning, 100 mg/4 ML in the at night (total of 6 ml/day or 150 mg/day) Ibuprofen po 6h prn 100tabs Unknown 400mg Tablets Bacitracin prn 30gm Unknown 500Unit/GM Ointment Acetaminophen insert 1 rectally 10units Unknown 650mg q4hrs prn for Suppository minor pain or elevated temp Fleet Enema if no result from Unknown suppository to be 7-19GM/118ML Enema done kennedy of the 4th day without bm as needed Miralax 17 gm every day 238gm Unknown 3350NF Powder mixed w/ 8 oz water/juice Polyvitamin/Iron 1 tab po daily Unknown Chewtabs Fexofenadine HCL 1 by mouth every Unknown 180mg day Tablets Cerovite JR Once daily Unknown 60mg Chewtabs Resource 2.0 As directed Unknown Liquid Hydrocortisone Apply as directed Unknown Ointment Culturelle once daily Unknown Capsules Keppra give 10 Unknown 100mg/ml milliliters twice Solution a day via peg tube Immunizations Description No Information Available Vital Signs Date Vital Result Comment 07/22/2019 10:21am Height 52 inches 4'4" Weight 83.00 lb May 2019 per home Heart Rate 87 /min O2 % BldC Oximetry 96 % BMI (Body Mass Index) 21.6 kg/m2 03/01/2019 10:17am Height 52 inches 4'4" Weight 76.00 lb Heart Rate 62 /min BP Systolic 86 mmHg BP Diastolic 54 mmHg BMI (Body Mass Index) 19.8 kg/m2 Results Test Date Facility Test Result H/L Range Note Laboratory test 03/06/2019 [facility] Potassium 4.6 mmol/L Normal 3.5-5.0 1, 2 finding [address] [place] [address] [phone] Ast (Sgot) 23 U/L Normal 13-39 3 Comp Metabolic 03/05/2019 [facility] Sodium 140 mmol/L Normal 135-145 Panel [address] [place] [address] [phone] Chloride 106 mmol/L Normal 101-111 Co2 Carbon Dioxide 27 mmol/L Normal 22-32 Calcium 9.5 mg/dL Normal 8.6-10.3 Albumin 4.0 g/dL Normal 3.2-5.2 Total Bilirubin 0.30 mg/dL Normal 0.2-1.0 Potassium TNP mmol/L 3.5-5.0 4 Anion Gap 7 mmol/L Normal 2-11 Glucose 102 mg/dL High 70-100 Blood Urea Nitrogen 23 mg/dL Normal 6-24 Creatinine 0.51 mg/dL Normal 0.51-0.95 BUN/Creatinine Ratio 45.1 High 8-20 Total Protein 6.7 g/dL Normal 6.4-8.9 Globulin 2.7 g/dL Normal 2-4 Albumin/Globulin Ratio 1.5 Normal 1-3 Alkaline Phosphatase 121 U/L High 34-104 Alt 25 U/L Normal 7-52 Egfr Non- 123.9 >60 Egfr 149.9 >60 5 Ast TNP U/L 13-39 CBC Auto 03/05/2019 [facility] White Blood 4.5 10^3/uL Normal 3.5-10.[address] [place] [address] [phone] Red Blood Count 5.04 10^6/uL High 3.70-4.87 Hemoglobin 14.9 g/dL Normal 12.0-16.0 Hematocrit 45 % Normal 35-47 Mean Corpuscular Volume 90 fL Normal 80-97 Mean Corpuscular Hemoglobin 30 pg Normal 27-31 Mean Corpuscular HGB Conc 33 g/dL Normal 31-36 Red Cell Distribution Width 13 % Normal 10.5-15 Platelet Count 295 10^3/uL Normal 150-450 Mean Platelet Volume 8.0 fL Normal 7.4-10.4 Abs Neutrophils 1.9 10^3/uL Normal 1.5-7.7 Abs Lymphocytes 1.9 10^3/uL Normal 1.0-4.8 Abs Monocytes 0.5 10^3/uL Normal 0-0.8 Abs Eosinophils 0.2 10^3/uL Normal 0-0.6 Abs Basophils 0.0 10^3/uL Normal 0-0.2 Abs Nucleated RBC 0.0 10^3/uL Granulocyte % 42.5 % Lymphocyte % 41.8 % Monocyte % 10.9 % Eosinophil % 4.1 % Basophil % 0.7 % Nucleated Red Blood Cells % 0.1 Laboratory test 03/05/2019 [facility] Phenytoin 12.3 Normal 10 -20 [address] (Dilantin) g/[place] [address] [phone] 1 REDRAW, DON'T BILL PATIENT 2 REDRAW, DON'T BILL PATIENT 3 REDRAW, DON'T BILL PATIENT 4 Specimen Hemolyzed. Result may not be valid. Unable to report test result due to hemolysis. 5 Because ethnic data is not always readily available, this report includes an eGFR for both -Americans and non- Americans. The National Kidney Disease Education Program (NKDEP) does not endorse the use of the MDRD equation for patients that are not between the ages of 18 and 70, are , have extremes of body size, muscle mass, or nutritional status, or are non- or non-. According to the National Kidney Foundation, irrespective of diagnosis, the stage of the disease is based on the level of kidney function: Stage Description GFR(mL/min/1.73 m(2)) 1 Kidney damage with normal or decreased GFR 90 2 Kidney damage with mild decrease in GFR 60-89 3 Moderate decrease in GFR 30-59 4 Severe decrease in GFR 15-29 5 Kidney failure <15 (or dialysis) 6 Verbal to OZIEL TORRES by [id number] at 1141 on 03/05/19. PT NEEDS TO BE RECOLLECTED. Procedures Description No Information Available Medical Devices Description No Information Available Encounters Type Date Location Provider Dx Diagnosis Office Visit 03/01/2019 [facility] Don[facility], G40.909 Epilepsy, unsp, 10:[facility] not intractable, without status epilepticus Assessments Date Code Description Provider 03/01/2019 G40.909 Epilepsy, unspecified, not intractable, [facility] without status epile Plan of Treatment Future Appointment(s):08/23/2019 1:30 pm - Long Mar M.D. at [facility] Functional Status Description No Information Available Mental Status Description No Information Available Referrals Description No Information Available
[2019-08-08] MEDS ORDERED: Sodium Bicarbonate (ANTACID)* 650 MG TAB PO ONE (12:41)
[2019-08-08] MEDS ORDERED: Pancrelipase CAP* 5,000 UNITS CAP PO ONE (12:41)
[2019-08-08] MEDS ORDERED: levETIRAcetam 1000MG IVPREMIX* 1,000 MG/100 ML BAG IVPB ONE (13:11)
[2019-08-08] MEDS ORDERED: Phenytoin IV(*) 50 MG/ML 2 ML VIAL (100 MG) IV ONE (14:09)
--- NOTE | 2019-08-08 14:29 | ED ---
GI/ HPI - HPI Summary HPI Summary: Pt. is a 58 y.o female who presents to the ER for G tube dysfunction. Pt. resides at the [facility] and has a hx of CP. G tube was placed in October by Dr. Diaz. display director states she is scheduled to have it changed next week. well blower states that tube worked this morning for morning feeding. She tried to flush tube after feeding and it would not flush. Otherwise pt. has no complaints or changes. Sxs are mild in severity. No current modifying factors. Hx obtained from caregiver. 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 TEMPERER Hx Obtained From: Family/Hydroelectric Production Manager Pain Intensity: 0 - Additional Pertinent History Primary Care Physician: [id number] - Allergy/Home Medications Allergies/Adverse Reactions: Allergies Allergy/AdvReac Type Severity Reaction Status Date / Time azithromycin Allergy Unknown Verified 08/08/19 10:04 Reaction Details fluconazole [From Diflucan] Allergy See Comment Verified 08/08/19 10:04 Home Medications: Home Medications Bacitracin OINTMENT* 1 applic TOPICAL DAILY PRN 08/08/19 [History Confirmed ] Glycerin ADULT SUPP* 1 supp WA Q3D PRN 08/08/19 [History Confirmed 08/08/19] Lactose-Reduced Food/Fiber [Jevity 1.2 Reggie Liquid] 1 dose G TUBE SEE INSTRUCTIONS 08/08/19 [History Confirmed 08/08/19] Ondansetron HCl [Zofran 4 MG TAB] 4 mg PO Q6H PRN 08/08/19 [History Confirmed ] Phenytoin 100 mg G TUBE 1900 08/08/19 [History Confirmed 08/08/19] Pseudoephedrine HCl [Sudogest] 30 mg PO Q6H PRN 08/08/19 [History Confirmed ] PMH/Surg Hx/FS Hx/Imm Hx Previously Healthy: Yes Endocrine/Hematology History: Denies: Hx Anticoagulant Therapy, Hx Blood Disorders, Hx Blood Transfusions, Hx Bone Marrow Disease, Hx Diabetes, Hx Systemic Lupus Erythematosus, Hx Sickle Cell Disease, Hx Thyroid Disease, Hx Anemia, Hx Unexplained Bleeding, Other Endocrine/Hematological Disorders Cardiovascular History: Reports: Other Cardiovascular Problems/Disorders - hyperlipidemia Denies: Hx Aneurysm, Hx Angina, Hx Angioplasty, Hx Auto Implanted Cardiovert Defib, Hx Cardiac Arrest, Hx Cardiomegaly, Hx Congenital Heart Disease, Hx Congestive Heart Failure, Hx Coronary Artery Disease, Hx Deep Vein Thrombosis, Hx Embolism, Hx Hypercholesterolemia, Hx Hypotension, Hx Hypertension, Hx Pacemaker/ICD, Hx Peripheral Vascular Disease, Hx Rheumatic Fever, Hx Syncope, Hx Valvular Heart Disease Respiratory History: Reports: Other Respiratory Problems/Disorders - Bronchitis Denies: Hx Asthma, Hx Chronic Bronchitis, Hx Chronic Obstructive Pulmonary Disease (COPD), Hx Cystic Fibrosis, Hx Lung Cancer, Hx Pleural Effusion, Hx Pneumonia, Hx Pulmonary Edema, Hx Pulmonary Embolism, Hx Seasonal Allergies, Hx Sleep Apnea GI History: Denies: Hx Cirrhosis, Hx Crohn's Disease, Hx Diverticulosis, Hx Gall Bladder Disease, Hx Gastroesophageal Reflux Disease, Hx Gastrointestinal Bleed, Hx Hiatal Hernia, Hx Irritable Bowel, Hx Jaundice, Hx Obstructive Bowel, Hx Ileostomy, Hx Pyloric Stenosis, Hx Ulcer, Other GI Disorders History: Reports: Other Problems/Disorders - incontinent; chronic UTIs Denies: Hx Acute Renal Failure, Hx Benign Prostatic Hyperplasia, Hx Chronic Renal Failure, Hx Dialysis, Hx Kidney Infection, Hx Kidney Stones Musculoskeletal History: Reports: Hx Orthopedic Injury, Hx Osteoporosis, Other Musculoskeletal History - growth abnormalities 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 Denies: Hx Arthritis, Hx Back Problems, Hx Bursitis, Hx Congenital Bone Abnormalities, Hx Fibromyalgia, Hx Gout, Hx Scoliosis, Hx Tendonitis Sensory History: Denies: Hx Cataracts, Hx Contacts or Glasses, Hx Eye Injury, Hx Eye Prosthesis, Hx Glaucoma, Hx Legally Blind, Hx Macular Degeneration, Hx Vision Problem, Hx Deafness, Hx Hearing Aid, Hx Hearing Problem, Other Sensory Impairments Opthamlomology History: Denies: Hx Cataracts, Hx Contacts or Glasses, Hx Eye Injury, Hx Eye Prosthesis, Hx Glaucoma, Hx Legally Blind, Hx Macular Degeneration, Hx Vision Problem, Other Sensory Impairments Neurological History: Reports: Hx Developmental Delay, Hx Nerve Disease - spasticity x4 extremities, Hx Seizures, Other Neuro Impairments/Disorders - cerebal palsy Denies: Hx Dementia, Hx Headaches, Hx Migraine, Hx Spinal Cord Injury, Hx Transient Ischemic Attacks (TIA) Psychiatric History: Reports: Other Psychiatric Issues/Disorders - MR with CP Denies: Hx Anxiety, Hx Attention Deficit Hyperactivity Disorder, Hx Eating Disorder, Hx Depression, Hx Panic Disorder, Hx Post Traumatic Stress Disorder, Hx Inpatient Treatment, Hx Community Mental Health Tx, Hx Schizophrenia, Hx Bipolar Disorder, Hx Suicide Attempt, Hx of Violent Episodes Against Others, Hx Substance Abuse - Cancer History Hx Chemotherapy: No Hx Radiation Therapy: No Hx Palliative Cancer Treatment: No - Surgical History Surgery Procedure, Year, and Place: HERNIA REPAIR; ALL TEETH REMOVED Hx Anesthesia Reactions: No - Immunization History Date of Tetanus Vaccine: PT NON VERBAL - UNSURE Date of Influenza Vaccine: 2013 Infectious Disease History: No Infectious Disease History: Denies: Hx Clostridium Difficile, Hx Hepatitis, Hx Human Immunodeficiency Virus (HIV), Hx of Known/Suspected MRSA, Hx Shingles, Hx Tuberculosis, History Other Infectious Disease, Traveled Outside the [place] in Last 30 Days - Family History Known Family History: Positive: Unknown Negative: Cardiac Disease, Hypertension - Social History Alcohol Use: None Hx Substance Use: No Substance Use Type: Reports: None Hx Tobacco Use: No Smoking Status (MU): Never Smoked Tobacco Have You Smoked in the Last Year: No Review of Systems Constitutional: Negative Negative: Fever Gastrointestinal: Other - G tube malfunction All Other Systems Reviewed And Are Negative: Yes Physical Exam Triage Information Reviewed: Yes Vital Signs On Initial Exam: Initial Vitals Temp Pulse Resp BP Pulse Ox 99.3 F 74 16 152/84 95 08/08/19 10:00 08/08/19 10:00 08/08/19 10:00 08/08/19 10:00 08/08/19 10:00 Vital Signs Reviewed: Yes Appearance: Positive: Well-Appearing - Pt. lying in bed in NAD. Smiling. well blower present. Skin: Positive: Warm, Dry Head/Face: Positive: Normal Head/Face Inspection Eyes: Positive: Normal, EOMI Neck: Positive: Supple Abdomen Description: Positive: Other: - G tube in place. Abd soft and nontender. Neurological: Positive: Normal, CN Intact II-III Psychiatric: Positive: Affect/Mood Appropriate Procedures - Sedation Patient Received Moderate/Deep Sedation with Procedure: No Diagnostics - Vital Signs Vital Signs Temp Pulse Resp BP Pulse Ox 08/08/19 10:00 99.3 F 74 16 152/84 95 - Laboratory Lab Statement: Any lab studies that have been ordered have been reviewed, and results considered in the medical decision making process. GIGU Course/Dx - Course Course Of Treatment: Nurse attempted to flush tube with warm water. Resistent was meant. Unable to aspirate either. Decision was made to change G tube. Attempted to aspirate water from balloon but tube collapsed and no fluid was returned. Pt. evaluated by Dr. Zaldivar as well. Case discussed with Dr. Keri Ragland who evaluated pt. in the ED. She is not familar with the g tube pt. has in place but states there is not a balloon on the end but rather a stopper. She recommended use a mixture of viokase, na bicarb and warm water. Attempted mixture and using a tube brush without success. Dr. Jocelyne ragland made aware and she recommends leaving current tube inplace and f.u with Dr. Diaz tomorrow. She is worried about ruining track or not being able to put a tube back in. Pt .was given a dose of her seizure meds IV, dilantin and keppra. display director notes pt. will take oral thickened liquids and recommend given night time meds PO. To call Dr. Diaz's office in am to be seen tomorrow. WIll return to ER if needed. - Diagnoses Provider Diagnoses: Gastrostomy tube dysfunction Discharge ED - Sign-Out/Discharge Documenting (check all that apply): Patient Departure - Discharge Plan Condition: Good Disposition: HOME Patient Education Materials: Tube Feeding (DC) Referrals: Morales Kim MD [Primary Care Provider] - Nitish Diaz MD [Medical Doctor] - Additional Instructions: Call Dr. Diaz's office tomorrow morning to schedule an appointment Given night time Dilantin dose orally with thickened liquid Return to ER if symptoms change or worsen - Billing Disposition and Condition Condition: GOOD Disposition: Home
[2019-08-08] MEDS ORDERED: PHENYTOIN IV ONE (15:00)
[2019-08-08] MEDS ORDERED: NS 0.9% IV ONE (15:00)
[2019-08-08 16:28] VITALS: BP 110/68
== END 2019-08-08 16:15 | disposition home or self-care (01) ==
LOC: ED 09:57
DX: T85.598A Other mechanical complication of other gastrointestinal prosthetic devices, implants and grafts, initial encounter (principal)
CPT/HCPCS: 99282; A9270-GY; J1165; J1953

== ENCOUNTER 2019-09-07 10:43 | Emergency (ER) | payer MEDICARE, MEDICAID ==
--- NOTE | 2019-09-07 11:15 | ED ---
Respiratory - HPI Summary HPI Summary: This pt is a 59 y/o female, accompanied by laundry manager, presenting to [facility] c/o cough since a few days ago. Sheeter Machine Operator reports pt lives at the [facility]. The facility nurse saw the patient and sent the patient to the ED for a chest XR to rule out bronchitis. Sheeter Machine Operator notes pt has a productive cough and runny nose. Denies fever, swelling in legs, vomiting. Per laundry manager 2 weeks ago the [facility] had multiple residents and staff who had the flu. Pt has hx cerebral palsy and is nonverbal. Pt has a G tube, per laundry manager. 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 Time Seen by Provider: 09/07/19 11:07 Hx Obtained From: Family/Sheeter Machine Operator - Sheeter Machine Operator Hx From Patient Unobtainable Due To: Other - LEVEL 5 CAVEAT - pt with cerebral palsy and is nonverbal Onset/Duration: Lasting Days, Still Present Pain Intensity: 0 Character: Cough (Productive) Aggravating Factor(s): Nothing Alleviating Factor(s): Nothing Associated Signs and Symptoms: Nasal Congestion - Allergy/Home Medications Allergies/Adverse Reactions: Allergies Allergy/AdvReac Type Severity Reaction Status Date / Time azithromycin Allergy Unknown Verified 09/07/19 10:50 Reaction Details fluconazole [From Diflucan] Allergy See Comment Verified 09/07/19 10:50 Home Medications: Home Medications L.rhamnosus GG/Omega3/Fish Oil [Culturee Pro-Well 3-in-1 Cap] 1 each PO DAILY 09/07/19 [History Confirmed 09/07/19] Lactose-Reduced Food/Fiber [Jevity 1.2 Reggie Liquid] 592.5 ml G TUBE 1900 [History Confirmed 09/07/19] Nystatin CREAM* 1 applic TOPICAL BID 09/07/19 [History Confirmed 09/07/19] PMH/Surg Hx/FS Hx/Imm Hx Endocrine/Hematology History: Denies: Hx Anticoagulant Therapy, Hx Blood Disorders, Hx Blood Transfusions, Hx Bone Marrow Disease, Hx Diabetes, Hx Systemic Lupus Erythematosus, Hx Sickle Cell Disease, Hx Thyroid Disease, Hx Anemia, Hx Unexplained Bleeding, Other Endocrine/Hematological Disorders Cardiovascular History: Reports: Other Cardiovascular Problems/Disorders - hyperlipidemia Denies: Hx Aneurysm, Hx Angina, Hx Angioplasty, Hx Auto Implanted Cardiovert Defib, Hx Cardiac Arrest, Hx Cardiomegaly, Hx Congenital Heart Disease, Hx Congestive Heart Failure, Hx Coronary Artery Disease, Hx Deep Vein Thrombosis, Hx Embolism, Hx Hypercholesterolemia, Hx Hypotension, Hx Hypertension, Hx Pacemaker/ICD, Hx Peripheral Vascular Disease, Hx Rheumatic Fever, Hx Syncope, Hx Valvular Heart Disease Respiratory History: Reports: Other Respiratory Problems/Disorders - Bronchitis Denies: Hx Asthma, Hx Chronic Bronchitis, Hx Chronic Obstructive Pulmonary Disease (COPD), Hx Cystic Fibrosis, Hx Lung Cancer, Hx Pleural Effusion, Hx Pneumonia, Hx Pulmonary Edema, Hx Pulmonary Embolism, Hx Seasonal Allergies, Hx Sleep Apnea GI History: Denies: Hx Cirrhosis, Hx Crohn's Disease, Hx Diverticulosis, Hx Gall Bladder Disease, Hx Gastroesophageal Reflux Disease, Hx Gastrointestinal Bleed, Hx Hiatal Hernia, Hx Irritable Bowel, Hx Jaundice, Hx Obstructive Bowel, Hx Ileostomy, Hx Pyloric Stenosis, Hx Ulcer, Other GI Disorders History: Reports: Other Problems/Disorders - incontinent; chronic UTIs Denies: Hx Acute Renal Failure, Hx Benign Prostatic Hyperplasia, Hx Chronic Renal Failure, Hx Dialysis, Hx Kidney Infection, Hx Kidney Stones Musculoskeletal History: Reports: Hx Orthopedic Injury, Hx Osteoporosis, Other Musculoskeletal History - growth abnormalities 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 Denies: Hx Arthritis, Hx Back Problems, Hx Bursitis, Hx Congenital Bone Abnormalities, Hx Fibromyalgia, Hx Gout, Hx Scoliosis, Hx Tendonitis Sensory History: Denies: Hx Cataracts, Hx Contacts or Glasses, Hx Eye Injury, Hx Eye Prosthesis, Hx Glaucoma, Hx Legally Blind, Hx Macular Degeneration, Hx Vision Problem, Hx Deafness, Hx Hearing Aid, Hx Hearing Problem, Other Sensory Impairments Opthamlomology History: Denies: Hx Cataracts, Hx Contacts or Glasses, Hx Eye Injury, Hx Eye Prosthesis, Hx Glaucoma, Hx Legally Blind, Hx Macular Degeneration, Hx Vision Problem, Other Sensory Impairments Neurological History: Reports: Hx Developmental Delay, Hx Nerve Disease - spasticity x4 extremities, Hx Seizures, Other Neuro Impairments/Disorders - cerebral palsy Denies: Hx Dementia, Hx Headaches, Hx Migraine, Hx Spinal Cord Injury, Hx Transient Ischemic Attacks (TIA) Psychiatric History: Reports: Other Psychiatric Issues/Disorders - MR with CP Denies: Hx Anxiety, Hx Attention Deficit Hyperactivity Disorder, Hx Eating Disorder, Hx Depression, Hx Panic Disorder, Hx Post Traumatic Stress Disorder, Hx Inpatient Treatment, Hx Community Mental Health Tx, Hx Schizophrenia, Hx Bipolar Disorder, Hx Suicide Attempt, Hx of Violent Episodes Against Others, Hx Substance Abuse - Cancer History Hx Chemotherapy: No Hx Radiation Therapy: No Hx Palliative Cancer Treatment: No - Surgical History Surgical History: Yes Surgery Procedure, Year, and Place: HERNIA REPAIR; ALL TEETH REMOVED Hx Anesthesia Reactions: No - Immunization History Date of Tetanus Vaccine: PT NON VERBAL - UNSURE Date of Influenza Vaccine: 2013 Infectious Disease History: No Infectious Disease History: Denies: Hx Clostridium Difficile, Hx Hepatitis, Hx Human Immunodeficiency Virus (HIV), Hx of Known/Suspected MRSA, Hx Shingles, Hx Tuberculosis, History Other Infectious Disease, Traveled Outside the [place] in Last 30 Days - Family History Known Family History: Negative: Cardiac Disease, Hypertension - Social History Alcohol Use: None Hx Substance Use: No Substance Use Type: Reports: None Hx Tobacco Use: No Smoking Status (MU): Never Smoked Tobacco Have You Smoked in the Last Year: No Review of Systems - ROS Summary Review of Systems Summary: ROS IS LIMITED DUE TO LEVEL 5 CAVEAT - pt with hx cerebral palsy and nonverbal Negative: Fever Positive: Nasal Discharge - runny nose Positive: Cough Negative: Vomiting Negative: Edema All Other Systems Reviewed And Are Negative: No Physical Exam - Summary Physical Exam Summary: Constitutional: Well-developed, Well-nourished, Alert. (-) Distressed Skin: Warm, Dry HENT: Normocephalic; Atraumatic. Nasal congestion. Eyes: Conjunctiva normal Neck: Musculoskeletal ROM normal neck. (-) JVD, (-) Stridor, (-) Tracheal deviation Cardio: Rhythm regular, rate normal, Heart sounds normal; Intact distal pulses; The pedal pulses are 2+ and symmetric. Radial pulses are 2+ and symmetric. (-) Murmur Pulmonary/Chest wall: Effort normal. (-) Respiratory distress, (-) Wheezes, (-) Rales Abd: Soft, (-) tenderness, (-) Distension, (-) Guarding, (-) Rebound Musculoskeletal: (-) Edema Lymph: (-) Cervical adenopathy Neuro: Alert and at baseline Psych: Mood and affect Normal Triage Information Reviewed: Yes Vital Signs On Initial Exam: Initial Vitals Temp Pulse Resp BP Pulse Ox 99.4 F 84 16 104/67 97 09/07/19 10:46 09/07/19 10:46 09/07/19 10:46 09/07/19 10:46 09/07/19 10:46 Vital Signs Reviewed: Yes Completion Of Physical Exam Limited Due To: Level 5 - pt with hx cerebral palsy and nonverval Procedures - Sedation Patient Received Moderate/Deep Sedation with Procedure: No Diagnostics - Vital Signs Vital Signs Temp Pulse Resp BP Pulse Ox 09/07/19 10:46 99.4 F 84 16 104/67 97 - Laboratory Result Diagrams: 09/07/19 11:48 09/07/19 11:48 Lab Statement: Any lab studies that have been ordered have been reviewed, and results considered in the medical decision making process. - Radiology Chest XR Radiology Interpretation Completed By: Radiologist Summary of Radiographic Findings: IMPRESSION: Suboptimal inspiration with associated crowding the pulmonary marking and subsegmental atelectasis. More confluent opacity at the medial RIGHT lung base may represent atelectasis or inflammatory infiltrate. Dr. Rocha has reviewed this report. Disposition - Course Assessment/Plan: Pt is a 59 y/o female, with hx of cerebral palsy and is nonverbal, who presents to the ED c/o cough and runny nose since a few days ago. Sheeter Machine Operator reports pt lives at the [facility]. The facility nurse saw the patient and sent the patient to the ED for a chest XR to rule out bronchitis. Lab work obtained and unremarkable except for lactic acid of 0.3 and alkaline phosphatase of 137. Rapid influenza A and B are both negative. Chest XR shows suboptimal inspiration with associated crowding the pulmonary marking and subsegmental atelectasis. More confluent opacity at the medial RIGHT lung base may represent atelectasis or inflammatory infiltrate. In the ED course the pt received Doxycycline and Rocephin. Pt will be discharged home with dx pneumonia and follow up from her PCP. She was given prescriptions for Cefpodoxime proxetil and doxycycline. Return precautions given to laundry manager. - Diagnoses Provider Diagnoses: Pneumonia Discharge ED - Sign-Out/Discharge Documenting (check all that apply): Patient Departure - Discharge home - Discharge Plan Condition: Stable Disposition: HOME Prescriptions: Cefpodoxime Proxetil [Cefpodoxime Proxetil 50 MG/5 ML] 200 mg PO BID 10 Days # 400 ml DOXYcycline CAP(*) [DOXYcycline 100MG CAP(*)] 100 mg PEG TUBE BID 10 Days #20 cap Patient Education Materials: Pneumonia (ED) Print Language: SWEDISH Referrals: Morales Kim MD [Primary Care Provider] - Additional Instructions: Patient may resume all normal home medications, activities and meals. Doxycycline may cause nausea and should be taken with food/Peg feeds. - Billing Disposition and Condition Condition: STABLE Disposition: Home - Attestation Statements Document Initiated by Tashiibe: Yes Documenting Scribe: Terrie Leonard Provider For Whom Benigno is Documenting (Include Credential): Ariadne Vieira MD Scribe Attestation: Terrie Watt, scribed for Ariadne Meyer MD on 09/07/19 at 1408. Scribe Documentation Reviewed: Yes Provider Attestation: The documentation as recorded by the scribeTerrie accurately reflects the service I personally performed and the decisions made by me, Ariadne Meyer MD Status of Scribe Document: Viewed
[2019-09-07 11:57] LABS: ABS Eosinophils 0.5 10^3/ul (0-0.6); ABS Lymphocytes 1.7 10^3/ul (1.0-4.8); ABS Monocytes 0.7 10^3/ul (0-0.8); ABS Neutrophils 5.7 10^3/ul (1.5-7.7); Eosinophil % 5.7 %; Hematocrit 44 % (35-47); Lymphocyte % 19.6 %; Mean Corpuscular HGB Conc 34 g/dL (31-36); Mean Corpuscular Hemoglobin 30 pg (27-31); Mean Corpuscular Volume 89 fL (80-97); Mean Platelet Volume 7.1 fL (7.4-10.4); Nucleated Red Blood Cells % 0.1; Platelet Count 382 10^3/uL (150-450); Red Cell Distribution Width 13 % (10-15); White Blood Count 8.6 10^3/uL (3.5-10.8)
[2019-09-07 11:59] LABS: Influenza A Molecular NEGATIVE (Negative); Influenza B Molecular NEGATIVE (Negative)
[2019-09-07 12:15] LABS: Albumin 3.7 g/dL (3.2-5.2); Albumin/Globulin Ratio 1.1 (1-3); BUN/Creatinine Ratio 32.2 (8-20); Calcium 9.6 mg/dL (8.6-10.3); EGFR African American 126.2 (>60); EGFR Non-African American 104.3 (>60); Globulin 3.3 g/dL (2-4); Potassium 4.5 mmol/L (3.5-5.0); Total Bilirubin 0.3 mg/dL (0.2-1.0)
[2019-09-07] MEDS ORDERED: Lidocaine 1% MPF ** 5 ML VIAL IM ONE (13:13)
[2019-09-07] MEDS ORDERED: cefTRIAXone VIAL(*) 1,000 MG VIAL IM ONE (13:13)
[2019-09-07] MEDS ORDERED: DOXYcycline CAP(*) 100 MG ONE (13:14)
[2019-09-07 14:01] VITALS: BP 129/76
== END 2019-09-07 13:45 | disposition home or self-care (01) ==
LOC: ED 10:43
DX: J18.9 Pneumonia, unspecified organism (principal); G80.9 Cerebral palsy, unspecified; Z88.1 Allergy status to other antibiotic agents
CPT/HCPCS: 36415; 71045; 80053; 83605; 85025; 96372; 99282; A9270-GY; J0696

== ENCOUNTER 2019-10-18 16:06 | Emergency (ER) | payer MEDICARE, MEDICAID ==
--- NOTE | 2019-10-18 16:56 | ED ---
GI/ HPI - HPI Summary HPI Summary: This patient is a 59 year old female presenting to [facility] with a chief complaint of a clogged gastrostomy tube. The day care attendant states she could not push air bolus in and pt appeared uncomfortable. She tried to get appt with Dr. Diaz GI, but not available today and he advised coming here. The Gtube was placed one year ago. Pt caregiver denies any fever, chills, erythema of eyes, sore throat, CP, SOB, cough, abdominal pain, N/V, dysuria, hematuria, myalgia, edema, rash, or dizziness - History of Current Complaint Chief Complaint: EDAbdPain Time Seen by Provider: 10/18/19 16:42 Stated Complaint: G TUBE CLOGGED PER [facility] Hx Obtained From: Family/Outside Solar Sales Consultant Onset/Duration: Started Hours Ago Pain Intensity: 0 - Additional Pertinent History Primary Care Physician: [id number] - Allergy/Home Medications Allergies/Adverse Reactions: Allergies Allergy/AdvReac Type Severity Reaction Status Date / Time azithromycin Allergy Unknown Verified 10/18/19 16:13 Reaction Details fluconazole [From Diflucan] Allergy See Comment Verified 10/18/19 16:13 PMH/Surg Hx/FS Hx/Imm Hx Endocrine/Hematology History: Denies: Hx Anticoagulant Therapy, Hx Blood Disorders, Hx Blood Transfusions, Hx Bone Marrow Disease, Hx Diabetes, Hx Systemic Lupus Erythematosus, Hx Sickle Cell Disease, Hx Thyroid Disease, Hx Anemia, Hx Unexplained Bleeding, Other Endocrine/Hematological Disorders Cardiovascular History: Reports: Other Cardiovascular Problems/Disorders - hyperlipidemia Denies: Hx Aneurysm, Hx Angina, Hx Angioplasty, Hx Auto Implanted Cardiovert Defib, Hx Cardiac Arrest, Hx Cardiomegaly, Hx Congenital Heart Disease, Hx Congestive Heart Failure, Hx Coronary Artery Disease, Hx Deep Vein Thrombosis, Hx Embolism, Hx Hypercholesterolemia, Hx Hypotension, Hx Hypertension, Hx Pacemaker/ICD, Hx Peripheral Vascular Disease, Hx Rheumatic Fever, Hx Syncope, Hx Valvular Heart Disease Respiratory History: Reports: Other Respiratory Problems/Disorders - Bronchitis Denies: Hx Asthma, Hx Chronic Bronchitis, Hx Chronic Obstructive Pulmonary Disease (COPD), Hx Cystic Fibrosis, Hx Lung Cancer, Hx Pleural Effusion, Hx Pneumonia, Hx Pulmonary Edema, Hx Pulmonary Embolism, Hx Seasonal Allergies, Hx Sleep Apnea GI History: Denies: Hx Cirrhosis, Hx Crohn's Disease, Hx Diverticulosis, Hx Gall Bladder Disease, Hx Gastroesophageal Reflux Disease, Hx Gastrointestinal Bleed, Hx Hiatal Hernia, Hx Irritable Bowel, Hx Jaundice, Hx Obstructive Bowel, Hx Ileostomy, Hx Pyloric Stenosis, Hx Ulcer, Other GI Disorders History: Reports: Other Problems/Disorders - incontinent; chronic UTIs Denies: Hx Acute Renal Failure, Hx Benign Prostatic Hyperplasia, Hx Chronic Renal Failure, Hx Dialysis, Hx Kidney Infection, Hx Kidney Stones Musculoskeletal History: Reports: Hx Orthopedic Injury, Hx Osteoporosis, Other Musculoskeletal History - growth abnormalities 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 Denies: Hx Arthritis, Hx Back Problems, Hx Bursitis, Hx Congenital Bone Abnormalities, Hx Fibromyalgia, Hx Gout, Hx Scoliosis, Hx Tendonitis Sensory History: Denies: Hx Cataracts, Hx Contacts or Glasses, Hx Eye Injury, Hx Eye Prosthesis, Hx Glaucoma, Hx Legally Blind, Hx Macular Degeneration, Hx Vision Problem, Hx Deafness, Hx Hearing Aid, Hx Hearing Problem, Other Sensory Impairments Opthamlomology History: Denies: Hx Cataracts, Hx Contacts or Glasses, Hx Eye Injury, Hx Eye Prosthesis, Hx Glaucoma, Hx Legally Blind, Hx Macular Degeneration, Hx Vision Problem, Other Sensory Impairments Neurological History: Reports: Hx Developmental Delay, Hx Nerve Disease - spasticity x4 extremities, Hx Seizures, Other Neuro Impairments/Disorders - cerebral palsy Denies: Hx Dementia, Hx Headaches, Hx Migraine, Hx Spinal Cord Injury, Hx Transient Ischemic Attacks (TIA) Psychiatric History: Reports: Other Psychiatric Issues/Disorders - MR with CP Denies: Hx Anxiety, Hx Attention Deficit Hyperactivity Disorder, Hx Eating Disorder, Hx Depression, Hx Panic Disorder, Hx Post Traumatic Stress Disorder, Hx Inpatient Treatment, Hx Community Mental Health Tx, Hx Schizophrenia, Hx Bipolar Disorder, Hx Suicide Attempt, Hx of Violent Episodes Against Others, Hx Substance Abuse - Cancer History Hx Chemotherapy: No Hx Radiation Therapy: No Hx Palliative Cancer Treatment: No - Surgical History Surgery Procedure, Year, and Place: HERNIA REPAIR; ALL TEETH REMOVED Hx Anesthesia Reactions: No - Immunization History Date of Tetanus Vaccine: PT NON VERBAL - UNSURE Date of Influenza Vaccine: 2013 Infectious Disease History: No Infectious Disease History: Denies: Hx Clostridium Difficile, Hx Hepatitis, Hx Human Immunodeficiency Virus (HIV), Hx of Known/Suspected MRSA, Hx Shingles, Hx Tuberculosis, History Other Infectious Disease, Traveled Outside the [place] in Last 30 Days - Family History Known Family History: Negative: Cardiac Disease, Hypertension - Social History Alcohol Use: None Hx Substance Use: No Substance Use Type: Reports: None Hx Tobacco Use: No Smoking Status (MU): Never Smoked Tobacco Have You Smoked in the Last Year: No Review of Systems Negative: Fever, Chills Negative: Erythema Negative: Sore Throat Negative: Chest Pain Negative: Shortness Of Breath, Cough Positive: Other - Clogged G-Tube. Negative: Abdominal Pain, Diarrhea, Nausea Negative: dysuria, hematuria Negative: Myalgia, Edema Negative: Rash Neurological: Other - Neg: Dizziness All Other Systems Reviewed And Are Negative: No Physical Exam - Summary Physical Exam Summary: Constitutional: Well-developed, Well-nourished, Alert. (-) Distressed Skin: Warm, Dry HENT: Normocephalic; Atraumatic Eyes: Conjunctiva normal Neck: Musculoskeletal ROM normal neck. (-) JVD, (-) Stridor, (-) Tracheal deviation Cardio: Rhythm regular, rate normal, Heart sounds normal; Intact distal pulses; The pedal pulses are 2+ and symmetric. Radial pulses are 2+ and symmetric. (-) Murmur Pulmonary/Chest wall: Effort normal. (-) Respiratory distress, (-) Wheezes, (-) Rales Abd: Soft, (-) tenderness, (-) Distension, (-) Guarding, (-) Rebound Musculoskeletal: (-) Edema Lymph: (-) Cervical adenopathy Neuro: Alert, Oriented x3 Psych: Mood and affect Normal Triage Information Reviewed: Yes Vital Signs On Initial Exam: Initial Vitals Temp Pulse Resp BP Pulse Ox 97.5 F 60 18 104/69 98 10/18/19 16:07 10/18/19 16:07 10/18/19 16:07 10/18/19 16:07 10/18/19 16:07 Vital Signs Reviewed: Yes Procedures - Sedation Patient Received Moderate/Deep Sedation with Procedure: No Diagnostics - Vital Signs Vital Signs Temp Pulse Resp BP Pulse Ox 10/18/19 16:07 97.5 F 60 18 104/69 98 - Laboratory Lab Statement: Any lab studies that have been ordered have been reviewed, and results considered in the medical decision making process. - Radiology Abdomen XR Radiology Interpretation Completed By: Radiologist Summary of Radiographic Findings: Radiographic images indicate the gastrostomy tube is appropriately positioned in the lumen of the stomach. ED Provider has reviewed this report. GIGU Course/Dx - Course Course Of Treatment: This patient is a 59 year old female presenting to [facility] with a chief complaint of a clogged gastrostomy tube. The tube was flushed successfuly with Coca Cola and contrast was flushed through. She will follow up with Dr. Diaz, GI, in a week. Abdomen XR confirmed appropriate positioning of the tube. Plan for dishcarge was discussed with the patient and she was agreeable with this plan. - Diagnoses Provider Diagnoses: Gastrostomy tube obstruction Discharge ED - Sign-Out/Discharge Documenting (check all that apply): Patient Departure - Discharge - Discharge Plan Condition: Stable Disposition: HOME Patient Education Materials: How to Use and Care for Your PEG Tube (ED) Referrals: Nitish Diaz MD [Medical Doctor] - 1 Week Additional Instructions: Return to ED with new or worsening symptoms. - Attestation Statements Document Initiated by Scribe: Yes Documenting Scribe: Julio Hernandez Provider For Whom Scribe is Documenting (Include Credential): Mu French MD Scribe Attestation: Julio Watt, scribed for Mu French MD on 10/18/19 at 1700. Status of Scribe Document: Ready
[2019-10-18 18:48] VITALS: BP 0/0
== END 2019-10-18 18:35 | disposition home or self-care (01) ==
LOC: ED 16:06
DX: K94.23 Gastrostomy malfunction (principal); E78.5 Hyperlipidemia, unspecified; R62.50 Unspecified lack of expected normal physiological development in childhood; Z88.1 Allergy status to other antibiotic agents
CPT/HCPCS: 74018; 99282

== ENCOUNTER 2020-08-04 20:49 | Inpatient (IN) ==
[2020-08-04] MEDS ORDERED: NS 0.9% 1000 ml BAG 1,000 ML IV.FLUID IV ONE (21:28)
[2020-08-04] MEDS ORDERED: NS 0.9% IV ONE (21:34)
[2020-08-04 21:54] LABS: ABS Lymphocytes 0.2 10^3/ul (1.0-4.8); ABS Neutrophils 2.2 10^3/ul (1.5-7.7); Eosinophil % 0.3 %; Hematocrit 40 % (35-47); Hemoglobin 13.4 g/dL (12.0-16.0); Mean Corpuscular HGB Conc 34 g/dL (31-36); Mean Corpuscular Hemoglobin 30 pg (27-31); Mean Corpuscular Volume 89 fL (80-97); Mean Platelet Volume 7.6 fL (7.4-10.4); Nucleated Red Blood Cells % 0.2; Platelet Count 237 10^3/uL (150-450); Red Blood Count 4.46 10^6 /uL (3.70-4.87); Red Cell Distribution Width 14 % (10-15); White Blood Count 2.4 10^3/uL (3.5-10.8)
[2020-08-04 21:56] LABS: Albumin 3.5 g/dL (3.2-5.2); Albumin/Globulin Ratio 1.5 (1-3); BUN/Creatinine Ratio 18.3 (8-20); EGFR African American 58.4 (>60); EGFR Non-African American 48.3 (>60); Globulin 2.4 g/dL (2-4); Potassium 3.3 mmol/L (3.5-5.0); Total Bilirubin 0.6 mg/dL (0.2-1.0); Total Protein 5.9 g/dL (6.4-8.9)
[2020-08-04 21:58] LABS: Troponin I 0.01 ng/mL (<0.03)
[2020-08-04 21:59] LABS: Activated Partial Thrombo Time 32.5 seconds (26.0-38.0); INR 1.24 (0.82-1.09)
[2020-08-04] MEDS ORDERED: KCL 20 MEQ/100 ML IVPREMIX 20 MEQ/100 ML BAG IV ONE (22:00)
[2020-08-04] MEDS ORDERED: Lorazepam PYXIS KEY PRN (22:37)
[2020-08-04] MEDS: LORazepam 2 mg VIAL 1 ml IV PUSH ONE (23:31)
[2020-08-04] MEDS ORDERED: Piperacillin/Tazobac ADVAN 3.375 GM in NS 0.9% 100 ml BAG 100 ML IV ONE (23:41)
[2020-08-04] MEDS ORDERED: Vancomycin 1,000 MG in NS 0.9% 250 ml 250 ML IV ONE (23:41)
[2020-08-05] MEDS ORDERED: NS 0.9% 1000 ml BAG 1,000 ML IV ONE (00:09)
[2020-08-05 00:17] LABS: Urine Appearance Turbid; Urine Bilirubin Negative (Negative); Urine Blood 2+ (Negative); Urine Color Amber; Urine Glucose Negative (Negative); Urine Ketones Negative (Negative); Urine Nitrite Negative (Negative); Urine Protein 2+(100 mg/dL) (Negative); Urine Specific Gravity 1.009 (1.010-1.030); Urine Urobilinogen Negative (Negative)
[2020-08-05 00:26] LABS: Urine Bacteria Absent (Absent); Urine Red Blood Cell 3+(>10/hpf) (Absent); Urine Squamous Epithelial Cell Present (Absent); Urine White Blood Cell 3+(>20/hpf) (Absent)
[2020-08-05 00:27] LABS: Influenza A Molecular Negative (Negative); Influenza B Molecular Negative (Negative)
[2020-08-05] MEDS ORDERED: Zosyn per Pharmacy NOTE FOLLOW UP SCH (02:00)
[2020-08-05] MEDS ORDERED: Vancomycin per Pharmacy 1 EA NOTE FOLLOW UP SCH (02:00)
[2020-08-05 02:17] LABS: Phenytoin 10.5 mcg/mL (10-20)
[2020-08-05] MEDS ORDERED: Bacitracin OINTMENT TUBE TOPICAL PRN (02:32)
[2020-08-05] MEDS ORDERED: Norepinephrine 16MCG/ML IVPRE 4,000 MCG/250 ML BAG IV ONE (02:33)
[2020-08-05] MEDS: Norepinephrine 16MCG/ML IVPRE 4,000 MCG/250 ML BAG IV SCH ×4 (02:40→17:10)
[2020-08-05] MEDS: NS 0.9% 1000 ml BAG 1,000 ML IV SCH ×3 (03:26→23:01)
[2020-08-05] MEDS: Pantoprazole VIAL 40 MG VIAL IV SCH (03:32)
[2020-08-05] MEDS: ZOSYN 3.375 GM Q8H per EXTENDED INFUSION IV SCH ×3 (03:54→21:08)
[2020-08-05] MEDS: Heparin 5000 UNITS/ML 1 mL VIAL SUBCUT SCH ×3 (05:50→21:09)
[2020-08-05] MEDS: Phenytoin SUSP 100 MG/4 ML UDC (100 MG) PO SCH (08:14)
[2020-08-05] MEDS: levETIRAcetam LIQ 500 MG/5 ML UDC G TUBE SCH ×2 (08:17→21:09)
[2020-08-05 08:26] LABS: ABS Lymphocytes 0.5 10^3/ul (1.0-4.8); ABS Monocytes 0.7 10^3/ul (0-0.8); ABS Neutrophils 16.8 10^3/ul (1.5-7.7); Hematocrit 38 % (35-47); Hemoglobin 12.5 g/dL (12.0-16.0); Lymphocyte % 2.5 %; Mean Corpuscular HGB Conc 33 g/dL (31-36); Mean Corpuscular Hemoglobin 29 pg (27-31); Mean Corpuscular Volume 89 fL (80-97); Mean Platelet Volume 7.7 fL (7.4-10.4); Platelet Count 237 10^3/uL (150-450); Red Blood Count 4.26 10^6 /uL (3.70-4.87); Red Cell Distribution Width 14 % (10-15); White Blood Count 17.9 10^3/uL (3.5-10.8)
[2020-08-05 08:37] LABS: Albumin 2.9 g/dL (3.2-5.2); Albumin/Globulin Ratio 1.5 (1-3); BUN/Creatinine Ratio 18.2 (8-20); Calcium 6.8 mg/dL (8.6-10.3); EGFR African American 79.6 (>60); EGFR Non-African American 65.8 (>60); Magnesium 1.3 mg/dL (1.9-2.7); Phosphorus 2.1 mg/dL (2.5-5.0); Potassium 3.7 mmol/L (3.5-5.0); Total Bilirubin 0.9 mg/dL (0.2-1.0); Total Protein 4.9 g/dL (6.4-8.9)
[2020-08-05] MEDS ORDERED: Magnesium Sulfate IV 3 GM in NS 0.9% 100 ml BAG 100 ML IVPB ONE (08:39)
[2020-08-05] MEDS ORDERED: Vancomycin 500 MG in NS 0.9% 250 ML IVPB SCH (13:00)
[2020-08-05] MEDS: Phenytoin SUSP 100 MG/4 ML UDC (100 MG) G TUBE SCH (21:09)
[2020-08-06] MEDS: Pantoprazole VIAL 40 MG VIAL IV SCH (02:35)
[2020-08-06] MEDS: ZOSYN 3.375 GM Q8H per EXTENDED INFUSION IV SCH (03:14)
[2020-08-06] MEDS: Heparin 5000 UNITS/ML 1 mL VIAL SUBCUT SCH ×3 (05:44→21:03)
[2020-08-06 05:53] LABS: Hematocrit 34 % (35-47); Hemoglobin 11.4 g/dL (12.0-16.0); Mean Corpuscular HGB Conc 34 g/dL (31-36); Mean Corpuscular Hemoglobin 30 pg (27-31); Mean Corpuscular Volume 89 fL (80-97); Mean Platelet Volume 8.3 fL (7.4-10.4); Platelet Count 128 10^3/uL (150-450); Red Cell Distribution Width 14 % (10-15); White Blood Count 21.6 10^3/uL (3.5-10.8)
[2020-08-06 06:11] LABS: Albumin 2.5 g/dL (3.2-5.2); Albumin/Globulin Ratio 1.2 (1-3); BUN/Creatinine Ratio 19.4 (8-20); Calcium 7.8 mg/dL (8.6-10.3); EGFR African American 119.2 (>60); EGFR Non-African American 98.5 (>60); Globulin 2.1 g/dL (2-4); Potassium 3.8 mmol/L (3.5-5.0); Total Bilirubin 0.4 mg/dL (0.2-1.0); Total Protein 4.6 g/dL (6.4-8.9)
[2020-08-06] MEDS: Magnesium Sulfate 2 gm BAG 2 GM/50 ML BAG IVPB ONE ×2 (06:22→06:32)
[2020-08-06 06:29] LABS: Prolactin 4.3 ng/mL (1.0-25.0)
[2020-08-06 08:31] LABS: ABS Lymphocytes 1.1 10^3/ul (1.0-4.8); ABS Monocytes 0.9 10^3/ul (0-0.8); ABS Neutrophils 19.4 10^3/ul (1.5-7.7); Eosinophil % 0.2 %; Lymphocyte % 5.2 %
[2020-08-06] MEDS: levETIRAcetam LIQ 500 MG/5 ML UDC G TUBE SCH ×2 (08:47→21:02)
[2020-08-06] MEDS: Phenytoin SUSP 100 MG/4 ML UDC (100 MG) PO SCH (08:47)
[2020-08-06] MEDS: cefTRIAXone 1 gm/50 mL NS BAG 1 GM/50 ML BAG IVPB SCH ×2 (09:59→20:59)
[2020-08-06] MEDS ORDERED: Vancomycin Trough Check NOTE FOLLOW UP ONE (12:30)
[2020-08-06] MEDS: Phenytoin SUSP 100 MG/4 ML UDC (100 MG) G TUBE SCH (21:02)
[2020-08-07] MEDS: Pantoprazole VIAL 40 MG VIAL IV SCH (03:56)
[2020-08-07 04:13] LABS: Hematocrit 34 % (35-47); Hemoglobin 11.6 g/dL (12.0-16.0); Mean Corpuscular HGB Conc 34 g/dL (31-36); Mean Corpuscular Hemoglobin 30 pg (27-31); Mean Corpuscular Volume 88 fL (80-97); Mean Platelet Volume 8.7 fL (7.4-10.4); Platelet Count 102 10^3/uL (150-450); Red Blood Count 3.86 10^6 /uL (3.70-4.87); Red Cell Distribution Width 14 % (10-15); White Blood Count 24.8 10^3/uL (3.5-10.8)
[2020-08-07 04:25] LABS: Albumin 2.6 g/dL (3.2-5.2); Albumin/Globulin Ratio 1.2 (1-3); Calcium 7.9 mg/dL (8.6-10.3); EGFR African American 152.8 (>60); EGFR Non-African American 126.3 (>60); Globulin 2.1 g/dL (2-4); Magnesium 1.7 mg/dL (1.9-2.7); Total Bilirubin 0.3 mg/dL (0.2-1.0); Total Protein 4.7 g/dL (6.4-8.9)
[2020-08-07] MEDS: Heparin 5000 UNITS/ML 1 mL VIAL SUBCUT SCH ×3 (06:21→23:03)
[2020-08-07 06:39] LABS: ABS Basophils 0.1 10^3/ul (0-0.2); ABS Eosinophils 0.3 10^3/ul (0-0.6); ABS Monocytes 0.8 10^3/ul (0-0.8); ABS Neutrophils 21.6 10^3/ul (1.5-7.7); Lymphocyte % 8.2 %
[2020-08-07] MEDS ORDERED: Magnesium Sulfate IV 3 GM in NS 0.9% 100 ml BAG 100 ML IVPB ONE (08:00)
[2020-08-07] MEDS ORDERED: LORazepam 2 mg VIAL 1 ml IV PUSH ONE (08:24)
[2020-08-07] MEDS ORDERED: Lorazepam PYXIS KEY PRN (08:24)
[2020-08-07] MEDS: cefTRIAXone 1 gm/50 mL NS BAG 1 GM/50 ML BAG IVPB SCH ×2 (09:57→22:55)
[2020-08-07] MEDS: levETIRAcetam LIQ 500 MG/5 ML UDC G TUBE SCH ×2 (09:58→22:55)
[2020-08-07] MEDS: Phenytoin SUSP 100 MG/4 ML UDC (100 MG) PO SCH (09:58)
[2020-08-07] MEDS: Phenytoin SUSP 100 MG/4 ML UDC (100 MG) G TUBE SCH (22:55)
[2020-08-08] MEDS: Heparin 5000 UNITS/ML 1 mL VIAL SUBCUT SCH ×3 (05:11→21:50)
[2020-08-08 06:52] LABS: Hematocrit 35 % (35-47); Hemoglobin 11.9 g/dL (12.0-16.0); Mean Corpuscular HGB Conc 35 g/dL (31-36); Mean Corpuscular Hemoglobin 30 pg (27-31); Mean Corpuscular Volume 88 fL (80-97); Mean Platelet Volume 8.9 fL (7.4-10.4); Platelet Count 110 10^3/uL (150-450); Red Blood Count 3.93 10^6 /uL (3.70-4.87); Red Cell Distribution Width 15 % (10-15); White Blood Count 16.5 10^3/uL (3.5-10.8)
[2020-08-08 06:59] LABS: Albumin 2.5 g/dL (3.2-5.2); Albumin/Globulin Ratio 1.2 (1-3); BUN/Creatinine Ratio 24.3 (8-20); Calcium 7.7 mg/dL (8.6-10.3); EGFR African American 216.3 (>60); EGFR Non-African American 178.8 (>60); Globulin 2.1 g/dL (2-4); Magnesium 1.9 mg/dL (1.9-2.7); Potassium 3.8 mmol/L (3.5-5.0); Total Bilirubin 0.3 mg/dL (0.2-1.0); Total Protein 4.6 g/dL (6.4-8.9)
[2020-08-08 08:00] LABS: ABS Basophils 0.1 10^3/ul (0-0.2); ABS Eosinophils 0.5 10^3/ul (0-0.6); ABS Lymphocytes 2.2 10^3/ul (1.0-4.8); ABS Monocytes 0.8 10^3/ul (0-0.8); ABS Neutrophils 12.9 10^3/ul (1.5-7.7); Eosinophil % 3.2 %; Lymphocyte % 13.5 %
[2020-08-08] MEDS: cefTRIAXone 1 gm/50 mL NS BAG 1 GM/50 ML BAG IVPB SCH ×2 (10:24→22:04)
[2020-08-08] MEDS: levETIRAcetam LIQ 500 MG/5 ML UDC G TUBE SCH ×2 (10:25→21:49)
[2020-08-08] MEDS: Famotidine SUSP ORALSYR 8 MG/ML PEG TUBE SCH (10:25)
[2020-08-08] MEDS: Phenytoin SUSP 100 MG/4 ML UDC (100 MG) PO SCH (10:26)
[2020-08-08] MEDS: Phenytoin SUSP 100 MG/4 ML UDC (100 MG) G TUBE SCH (21:50)
[2020-08-09] MEDS: Heparin 5000 UNITS/ML 1 mL VIAL SUBCUT SCH ×3 (04:20→21:49)
[2020-08-09 08:50] LABS: Hematocrit 37 % (35-47); Hemoglobin 12.3 g/dL (12.0-16.0); Mean Corpuscular HGB Conc 33 g/dL (31-36); Mean Corpuscular Hemoglobin 29 pg (27-31); Mean Corpuscular Volume 88 fL (80-97); Mean Platelet Volume 9.1 fL (7.4-10.4); Platelet Count 132 10^3/uL (150-450); Red Cell Distribution Width 15 % (10-15); White Blood Count 10.8 10^3/uL (3.5-10.8)
[2020-08-09 09:10] LABS: BUN/Creatinine Ratio 19.5 (8-20); EGFR African American 192.1 (>60); EGFR Non-African American 158.8 (>60); Potassium 3.8 mmol/L (3.5-5.0)
[2020-08-09] MEDS: levETIRAcetam LIQ 500 MG/5 ML UDC G TUBE SCH ×2 (10:47→21:49)
[2020-08-09] MEDS: Famotidine SUSP ORALSYR 8 MG/ML PEG TUBE SCH (10:48)
[2020-08-09] MEDS: Phenytoin SUSP 100 MG/4 ML UDC (100 MG) PO SCH (10:48)
[2020-08-09] MEDS: cefTRIAXone 1 gm/50 mL NS BAG 1 GM/50 ML BAG IVPB SCH ×2 (10:51→21:49)
[2020-08-09] MEDS: Phenytoin SUSP 100 MG/4 ML UDC (100 MG) G TUBE SCH (21:49)
[2020-08-10] MEDS: Heparin 5000 UNITS/ML 1 mL VIAL SUBCUT SCH ×3 (05:57→22:51)
[2020-08-10] MEDS: cefTRIAXone 1 gm/50 mL NS BAG 1 GM/50 ML BAG IVPB SCH ×2 (09:40→22:51)
[2020-08-10] MEDS: Famotidine SUSP ORALSYR 8 MG/ML PEG TUBE SCH (09:40)
[2020-08-10] MEDS: Phenytoin SUSP 100 MG/4 ML UDC (100 MG) PO SCH (09:40)
[2020-08-10] MEDS: levETIRAcetam LIQ 500 MG/5 ML UDC G TUBE SCH ×2 (09:40→22:51)
[2020-08-10 19:13] LABS: Hematocrit 37 % (35-47); Hemoglobin 12.1 g/dL (12.0-16.0); Mean Corpuscular HGB Conc 33 g/dL (31-36); Mean Corpuscular Hemoglobin 30 pg (27-31); Mean Corpuscular Volume 90 fL (80-97); Mean Platelet Volume 8.9 fL (7.4-10.4); Platelet Count 180 10^3/uL (150-450); Red Blood Count 4.07 10^6 /uL (3.70-4.87); Red Cell Distribution Width 15 % (10-15); White Blood Count 12.9 10^3/uL (3.5-10.8)
[2020-08-10 19:38] LABS: BUN/Creatinine Ratio 18.2 (8-20); C Reactive Protein 18.59 mg/L (<8.01); Calcium 8.4 mg/dL (8.6-10.3); EGFR African American 176.5 (>60); EGFR Non-African American 145.9 (>60); Potassium 3.7 mmol/L (3.5-5.0)
[2020-08-10 21:14] LABS: ABS Eosinophils 0.5 10^3/ul (0-0.6); ABS Lymphocytes 3.8 10^3/ul (1.0-4.8); ABS Monocytes 1.4 10^3/ul (0-0.8); ABS Neutrophils 7.2 10^3/ul (1.5-7.7); Eosinophil % 3.6 %; Lymphocyte % 29.2 %
[2020-08-10] MEDS: Phenytoin SUSP 100 MG/4 ML UDC (100 MG) G TUBE SCH (22:51)
[2020-08-11] MEDS: Heparin 5000 UNITS/ML 1 mL VIAL SUBCUT SCH ×3 (05:58→21:55)
[2020-08-11] MEDS: Famotidine SUSP ORALSYR 8 MG/ML PEG TUBE SCH (08:51)
[2020-08-11] MEDS: cefTRIAXone 1 gm/50 mL NS BAG 1 GM/50 ML BAG IVPB SCH ×2 (08:51→21:55)
[2020-08-11] MEDS: levETIRAcetam LIQ 500 MG/5 ML UDC G TUBE SCH ×2 (08:51→21:55)
[2020-08-11] MEDS: Phenytoin SUSP 100 MG/4 ML UDC (100 MG) PO SCH (08:52)
[2020-08-11] MEDS: Phenytoin SUSP 100 MG/4 ML UDC (100 MG) G TUBE SCH (21:55)
[2020-08-11] MEDS ORDERED: LORazepam 2 mg VIAL 1 ml ONE (22:50)
[2020-08-11] MEDS: LORazepam 2 mg VIAL 1 ml IV PUSH ONE (22:56)
[2020-08-12] MEDS: Heparin 5000 UNITS/ML 1 mL VIAL SUBCUT SCH ×3 (05:31→20:44)
[2020-08-12 09:07] LABS: Hematocrit 37 % (35-47); Hemoglobin 12.4 g/dL (12.0-16.0); Mean Corpuscular HGB Conc 34 g/dL (31-36); Mean Corpuscular Hemoglobin 29 pg (27-31); Mean Corpuscular Volume 87 fL (80-97); Mean Platelet Volume 8.2 fL (7.4-10.4); Platelet Count 323 10^3/uL (150-450); Red Blood Count 4.23 10^6 /uL (3.70-4.87); Red Cell Distribution Width 14 % (10-15); White Blood Count 13.4 10^3/uL (3.5-10.8)
[2020-08-12 09:10] LABS: ABS Basophils 0.1 10^3/ul (0-0.2); ABS Eosinophils 0.2 10^3/ul (0-0.6); ABS Lymphocytes 3.1 10^3/ul (1.0-4.8); ABS Monocytes 1.2 10^3/ul (0-0.8); ABS Neutrophils 8.7 10^3/ul (1.5-7.7); Eosinophil % 1.7 %; Lymphocyte % 23.3 %
[2020-08-12 09:16] LABS: BUN/Creatinine Ratio 20.4 (8-20); Calcium 9.4 mg/dL (8.6-10.3); EGFR African American 155.9 (>60); EGFR Non-African American 128.8 (>60); Potassium 4.4 mmol/L (3.5-5.0)
[2020-08-12] MEDS: cefTRIAXone 1 gm/50 mL NS BAG 1 GM/50 ML BAG IVPB SCH ×2 (10:10→22:11)
[2020-08-12] MEDS: levETIRAcetam LIQ 500 MG/5 ML UDC G TUBE SCH ×2 (10:13→20:43)
[2020-08-12] MEDS: Phenytoin SUSP 100 MG/4 ML UDC (100 MG) PO SCH (10:14)
[2020-08-12] MEDS: Famotidine SUSP ORALSYR 8 MG/ML PEG TUBE SCH (10:14)
[2020-08-12] MEDS ORDERED: PHENYTOIN IV ONE (15:33)
[2020-08-12] MEDS ORDERED: NS 0.9% IV ONE (15:33)
[2020-08-12] MEDS: Phenytoin SUSP 100 MG/4 ML UDC (100 MG) G TUBE SCH (20:44)
[2020-08-13] MEDS: Heparin 5000 UNITS/ML 1 mL VIAL SUBCUT SCH ×3 (06:14→23:01)
[2020-08-13] MEDS ORDERED: Phenytoin SUSP 100 MG/4 ML UDC (100 MG) PO SCH (09:00)
[2020-08-13] MEDS: levETIRAcetam LIQ 500 MG/5 ML UDC G TUBE SCH ×2 (09:15→21:20)
[2020-08-13] MEDS: Phenytoin SUSP 100 MG/4 ML UDC (100 MG) G TUBE SCH ×2 (09:15→21:20)
[2020-08-13] MEDS: Famotidine SUSP ORALSYR 8 MG/ML PEG TUBE SCH (09:16)
[2020-08-13] MEDS: cefTRIAXone 1 gm/50 mL NS BAG 1 GM/50 ML BAG IVPB SCH ×2 (09:23→23:00)
[2020-08-13 12:11] LABS: Hematocrit 35 % (35-47); Hemoglobin 12.1 g/dL (12.0-16.0); Mean Corpuscular HGB Conc 34 g/dL (31-36); Mean Corpuscular Hemoglobin 30 pg (27-31); Mean Corpuscular Volume 87 fL (80-97); Mean Platelet Volume 7.7 fL (7.4-10.4); Platelet Count 392 10^3/uL (150-450); Red Blood Count 4.04 10^6 /uL (3.70-4.87); Red Cell Distribution Width 14 % (10-15); White Blood Count 8.6 10^3/uL (3.5-10.8)
[2020-08-13 12:27] LABS: BUN/Creatinine Ratio 31.1 (8-20); Calcium 9.1 mg/dL (8.6-10.3); EGFR Non-African American 142.1 (>60); Potassium 4.6 mmol/L (3.5-5.0)
[2020-08-13 13:22] LABS: Phenytoin 16.4 mcg/mL (10-20)
[2020-08-13 13:44] LABS: ABS Basophils 0.1 10^3/ul (0-0.2); ABS Eosinophils 0.2 10^3/ul (0-0.6); ABS Lymphocytes 2.6 10^3/ul (1.0-4.8); ABS Monocytes 0.9 10^3/ul (0-0.8); ABS Neutrophils 4.7 10^3/ul (1.5-7.7); Eosinophil % 2.4 %; Lymphocyte % 30.7 %
[2020-08-13 19:06] LABS: Phosphorus 3.4 mg/dL (2.5-5.0)
[2020-08-14] MEDS: Heparin 5000 UNITS/ML 1 mL VIAL SUBCUT SCH ×3 (07:01→23:02)
[2020-08-14] MEDS: Famotidine SUSP ORALSYR 8 MG/ML PEG TUBE SCH (09:53)
[2020-08-14] MEDS: cefTRIAXone 1 gm/50 mL NS BAG 1 GM/50 ML BAG IVPB SCH ×3 (09:53→23:35)
[2020-08-14] MEDS: Phenytoin SUSP 100 MG/4 ML UDC (100 MG) G TUBE SCH ×2 (09:53→23:02)
[2020-08-14] MEDS: levETIRAcetam LIQ 500 MG/5 ML UDC G TUBE SCH ×2 (10:00→23:01)
[2020-08-14 11:40] LABS: ABS Basophils 0.1 10^3/ul (0-0.2); ABS Eosinophils 0.2 10^3/ul (0-0.6); ABS Lymphocytes 2.4 10^3/ul (1.0-4.8); ABS Monocytes 0.9 10^3/ul (0-0.8); ABS Neutrophils 3.4 10^3/ul (1.5-7.7); Eosinophil % 2.7 %; Hematocrit 36 % (35-47); Lymphocyte % 34.9 %; Mean Corpuscular HGB Conc 34 g/dL (31-36); Mean Corpuscular Hemoglobin 30 pg (27-31); Mean Corpuscular Volume 89 fL (80-97); Mean Platelet Volume 7.6 fL (7.4-10.4); Nucleated Red Blood Cells % 0.1; Platelet Count 418 10^3/uL (150-450); Red Blood Count 4.03 10^6 /uL (3.70-4.87); Red Cell Distribution Width 15 % (10-15)
[2020-08-14 12:00] LABS: BUN/Creatinine Ratio 31.9 (8-20); C Reactive Protein 6.88 mg/L (<8.01); EGFR African American 163.6 (>60); EGFR Non-African American 135.2 (>60); Potassium 4.7 mmol/L (3.5-5.0)
[2020-08-14 12:50] LABS: Phenytoin 11.5 mcg/mL (10-20)
[2020-08-14] MEDS ORDERED: levETIRAcetam LIQ 500 MG/5 ML UDC G TUBE ONE (14:47)
[2020-08-15] MEDS: Heparin 5000 UNITS/ML 1 mL VIAL SUBCUT SCH ×3 (05:27→21:55)
[2020-08-15] MEDS ORDERED: Lorazepam PYXIS KEY PRN (07:24)
[2020-08-15] MEDS ORDERED: LORazepam 2 mg VIAL 1 ml IV PUSH ONE (07:24)
[2020-08-15] MEDS: Phenytoin SUSP 100 MG/4 ML UDC (100 MG) G TUBE SCH ×3 (07:28→21:54)
[2020-08-15] MEDS: levETIRAcetam LIQ 500 MG/5 ML UDC G TUBE SCH ×3 (07:28→21:54)
[2020-08-15] MEDS ORDERED: Phenytoin SUSP 100 MG/4 ML UDC (100 MG) PO ONE (11:10)
[2020-08-15] MEDS: Famotidine SUSP ORALSYR 8 MG/ML PEG TUBE SCH (14:39)
[2020-08-15] MEDS: cefTRIAXone 1 gm/50 mL NS BAG 1 GM/50 ML BAG IVPB SCH ×2 (14:55→15:45)
[2020-08-16] MEDS: cefTRIAXone 1 gm/50 mL NS BAG 1 GM/50 ML BAG IVPB SCH (03:33)
[2020-08-16] MEDS: Heparin 5000 UNITS/ML 1 mL VIAL SUBCUT SCH ×3 (05:34→20:21)
[2020-08-16] MEDS ORDERED: Phenytoin SUSP 100 MG/4 ML UDC (100 MG) PO ONE ×2 (08:57)
[2020-08-16] MEDS ORDERED: Phenytoin SUSP 100 MG/4 ML UDC (100 MG) G TUBE SCH (09:00)
[2020-08-16] MEDS ORDERED: Lactulose 30 ml UDC G TUBE PRN ×2 (09:02→09:23)
[2020-08-16] MEDS: Famotidine SUSP ORALSYR 8 MG/ML PEG TUBE SCH (09:38)
[2020-08-16] MEDS: levETIRAcetam LIQ 500 MG/5 ML UDC G TUBE SCH ×2 (09:38→21:12)
[2020-08-16] MEDS: Phenytoin SUSP 100 MG/4 ML UDC (100 MG) G TUBE SCH (10:26)
[2020-08-16] MEDS: Phenytoin SUSP 100 MG/4 ML UDC (100 MG) PO SCH (21:10)
[2020-08-17 06:10] LABS: ABS Basophils 0.1 10^3/ul (0-0.2); ABS Eosinophils 0.2 10^3/ul (0-0.6); ABS Lymphocytes 2.6 10^3/ul (1.0-4.8); ABS Monocytes 0.7 10^3/ul (0-0.8); ABS Neutrophils 2.9 10^3/ul (1.5-7.7); Eosinophil % 2.9 %; Hematocrit 39 % (35-47); Hemoglobin 13.2 g/dL (12.0-16.0); Lymphocyte % 39.4 %; Mean Corpuscular HGB Conc 34 g/dL (31-36); Mean Corpuscular Hemoglobin 30 pg (27-31); Mean Corpuscular Volume 89 fL (80-97); Mean Platelet Volume 7.6 fL (7.4-10.4); Platelet Count 536 10^3/uL (150-450); Red Blood Count 4.38 10^6 /uL (3.70-4.87); Red Cell Distribution Width 15 % (10-15); White Blood Count 6.5 10^3/uL (3.5-10.8)
[2020-08-17] MEDS: Heparin 5000 UNITS/ML 1 mL VIAL SUBCUT SCH ×2 (06:12→13:54)
[2020-08-17 06:38] LABS: Calcium 9.7 mg/dL (8.6-10.3)
[2020-08-17 06:44] LABS: BUN/Creatinine Ratio 32.1 (8-20); EGFR African American 142.4 (>60); EGFR Non-African American 117.7 (>60)
[2020-08-17] MEDS: levETIRAcetam LIQ 500 MG/5 ML UDC G TUBE SCH ×2 (09:26→19:52)
[2020-08-17] MEDS: Phenytoin SUSP 100 MG/4 ML UDC (100 MG) G TUBE SCH (09:26)
[2020-08-17] MEDS: Famotidine SUSP ORALSYR 8 MG/ML PEG TUBE SCH (09:27)
[2020-08-17 18:17] LABS: Phenytoin 11.5 mcg/mL (10-20)
[2020-08-17] MEDS: Phenytoin SUSP 100 MG/4 ML UDC (100 MG) PO SCH (19:51)
[2020-08-18] MEDS: Heparin 5000 UNITS/ML 1 mL VIAL SUBCUT SCH ×3 (00:19→12:26)
[2020-08-18 10:29] LABS: ABS Basophils 0.1 10^3/ul (0-0.2); ABS Eosinophils 0.2 10^3/ul (0-0.6); ABS Monocytes 0.8 10^3/ul (0-0.8); ABS Neutrophils 2.6 10^3/ul (1.5-7.7); Eosinophil % 2.4 %; Hematocrit 39 % (35-47); Lymphocyte % 45.8 %; Mean Corpuscular HGB Conc 34 g/dL (31-36); Mean Corpuscular Hemoglobin 30 pg (27-31); Mean Corpuscular Volume 90 fL (80-97); Nucleated Red Blood Cells % 0.1; Platelet Count 545 10^3/uL (150-450); Red Blood Count 4.31 10^6 /uL (3.70-4.87); Red Cell Distribution Width 15 % (10-15); White Blood Count 6.6 10^3/uL (3.5-10.8)
[2020-08-18 11:35] VITALS: BP 113/50
[2020-08-18] MEDS: levETIRAcetam LIQ 500 MG/5 ML UDC G TUBE SCH (12:23)
[2020-08-18] MEDS: Phenytoin SUSP 100 MG/4 ML UDC (100 MG) G TUBE SCH (12:24)
[2020-08-18] MEDS: Famotidine SUSP ORALSYR 8 MG/ML PEG TUBE SCH (12:25)
[2020-08-18 19:01] LABS: Free Phenytoin Level 1.8 mcg/mL (1.0 - 2.0)
== END 2020-08-18 13:45 | disposition home or self-care (01) | DRG 871 ==
LOC: ED 20:49 → ICU 08-05 01:22 → MED 08-07 18:10
PROVIDERS: ADMIT Internal Medicine Interventional Cardiology; ATTEND Internal Medicine

== ENCOUNTER 2020-08-22 19:19 | Inpatient (IN) ==
[2020-08-22] MEDS: NS 0.9% 1000 ml BAG 2,000 ML IV ONE ×2 (20:15→22:23)
[2020-08-22 20:28] LABS: ABS Basophils 0.1 10^3/ul (0-0.2); ABS Eosinophils 0.1 10^3/ul (0-0.6); ABS Monocytes 0.5 10^3/ul (0-0.8); ABS Neutrophils 3.4 10^3/ul (1.5-7.7); Eosinophil % 1.1 %; Hematocrit 44 % (35-47); Hemoglobin 15.2 g/dL (12.0-16.0); Lymphocyte % 20.1 %; Mean Corpuscular HGB Conc 35 g/dL (31-36); Mean Corpuscular Hemoglobin 31 pg (27-31); Mean Corpuscular Volume 90 fL (80-97); Mean Platelet Volume 7.5 fL (7.4-10.4); Platelet Count 549 10^3/uL (150-450); Red Blood Count 4.85 10^6 /uL (3.70-4.87); Red Cell Distribution Width 16 % (10-15)
[2020-08-22 20:45] LABS: INR 1.1 (0.82-1.09)
[2020-08-22 20:46] LABS: Albumin 4.7 g/dL (3.2-5.2); Albumin/Globulin Ratio 1.5 (1-3); BUN/Creatinine Ratio 27.4 (8-20); Calcium 10.3 mg/dL (8.6-10.3); EGFR African American 118.8 (>60); EGFR Non-African American 98.2 (>60); Globulin 3.2 g/dL (2-4); Potassium 4.1 mmol/L (3.5-5.0); Total Bilirubin 0.4 mg/dL (0.2-1.0); Total Protein 7.9 g/dL (6.4-8.9)
[2020-08-22 20:46] LABS: Urine Appearance Turbid; Urine Bilirubin Negative (Negative); Urine Blood Negative (Negative); Urine Color Yellow; Urine Glucose Negative (Negative); Urine Ketones Negative (Negative); Urine Nitrite Negative (Negative); Urine Protein Negative (Negative); Urine Specific Gravity 1.006 (1.010-1.030); Urine Urobilinogen Negative (Negative)
[2020-08-22 21:07] LABS: Urine Bacteria 1+ (Absent); Urine Red Blood Cell 3+(>10/hpf) (Absent); Urine Squamous Epithelial Cell Present (Absent); Urine White Blood Cell 3+(>20/hpf) (Absent)
[2020-08-22] MEDS ORDERED: cefTRIAXone 1 gm/50 mL NS BAG 1 GM/50 ML BAG IV ONE (22:54)
[2020-08-22] MEDS ORDERED: Polyethylene Glycol 3350 17 GM PACKET FEED TUBE PRN (22:55)
[2020-08-22] MEDS ORDERED: NS 0.9% 1000 ml BAG 1,000 ML IV SCH (23:00)
[2020-08-23] MEDS ORDERED: Meropenem 1 GM PREMIX(*) 1 GM/50 ML BAG IV SCH ×2 (03:00→05:00)
[2020-08-23] MEDS: Phenytoin SUSP 100 MG/4 ML UDC (100 MG) G TUBE SCH ×3 (04:11→22:21)
[2020-08-23 07:08] LABS: Phenytoin 16.8 mcg/mL (10-20)
[2020-08-23] MEDS: levETIRAcetam LIQ 500 MG/5 ML UDC G TUBE SCH ×2 (09:46→22:20)
[2020-08-23] MEDS ORDERED: cefTRIAXone 1 gm/50 mL NS BAG 1 GM/50 ML BAG IVPB SCH ×2 (13:00→23:00)
[2020-08-23 13:17] LABS: C Reactive Protein 2.38 mg/L (<8.01)
[2020-08-23] MEDS ORDERED: Cefepime ADVAN 1 GM in NS 0.9% 50 ML 50 ML IVPB SCH (17:00)
[2020-08-24 06:20] LABS: ABS Eosinophils 0.2 10^3/ul (0-0.6); ABS Lymphocytes 2.4 10^3/ul (1.0-4.8); ABS Monocytes 0.6 10^3/ul (0-0.8); ABS Neutrophils 2.1 10^3/ul (1.5-7.7); Eosinophil % 4.1 %; Hematocrit 36 % (35-47); Hemoglobin 12.1 g/dL (12.0-16.0); Lymphocyte % 44.2 %; Mean Corpuscular HGB Conc 34 g/dL (31-36); Mean Corpuscular Hemoglobin 31 pg (27-31); Mean Corpuscular Volume 91 fL (80-97); Mean Platelet Volume 7.7 fL (7.4-10.4); Platelet Count 428 10^3/uL (150-450); Red Blood Count 3.98 10^6 /uL (3.70-4.87); Red Cell Distribution Width 16 % (10-15); White Blood Count 5.3 10^3/uL (3.5-10.8)
[2020-08-24 06:36] LABS: BUN/Creatinine Ratio 30.4 (8-20); Calcium 8.8 mg/dL (8.6-10.3); EGFR African American 167.7 (>60); EGFR Non-African American 138.6 (>60); Magnesium 2.1 mg/dL (1.9-2.7); Potassium 4.6 mmol/L (3.5-5.0)
[2020-08-24] MEDS: levETIRAcetam LIQ 500 MG/5 ML UDC G TUBE SCH (09:39)
[2020-08-24] MEDS: Phenytoin SUSP 100 MG/4 ML UDC (100 MG) G TUBE SCH (09:40)
[2020-08-24 11:24] VITALS: BP 93/53
== END 2020-08-24 13:22 | disposition home or self-care (01) | DRG 690 ==
LOC: ED 19:19 → SSU 19:19
PROVIDERS: ADMIT Hospitalist; ATTEND Internal Medicine